=== PATIENT | female | born 1940 | race Caucasian/White ===

== ENCOUNTER 2021-08-16 13:16 | Inpatient (IN) | payer MEDICARE, MEDICAID, SELFPAY ==
--- NOTE | ~2021-08-16 | US_ITS ---
EXAMINATION: Portable US VENOUS WITH DOPPLER UPPER EXTREMITY, LEFT CLINICAL INFORMATION: Swelling COMPARISON: None TECHNIQUE: Ultrasound of the upper extremity is performed using compression sonography and color and pulse Doppler flow with assessment of augmentation of flow. There is also imaging and Doppler assessment of the jugular and subclavian veins. Spectral analysis with color-flow imaging is performed. FINDINGS: Respiratory variation, normal compression, and augmented flow are noted throughout the upper extremity including the axillary, brachial, cubital, and radial veins. The ulnar vein is not visualized. There is limited visualization of internal jugular vein. There is normal flow in the internal jugular and subclavian veins. There is no visible deep or superficial thrombophlebitis. If the patient's symptoms progress, a followup ultrasound in 5 -7 days might be of value to exclude proximal propagation from a nonvisualized distal arm vein. US/US venous duplex UE LT IMPRESSION: No DVT demonstrated in the left upper extremity. The ulnar vein is not visualized with limited visualization of internal jugular vein which is patent.
--- NOTE | ~2021-08-16 | XR_ITS ---
EXAMINATION: XR CHEST CLINICAL INFORMATION: Febrile COMPARISON: Chest radiograph 08/20/2021. CT chest 08/19/2021. TECHNIQUE: Frontal view of the chest was obtained. FINDINGS: Endotracheal tube terminates 5 cm superior to the nery. The cardiac silhouette is normal in size. Moderate aortic calcific atherosclerosis. Moderate blunting of the right costophrenic sulcus. No pneumothoraces. A left thoracostomy tube is again noted. The left costophrenic sulcus is truncated from the imaged [id number]. A left subclavian catheter terminates projection with the middle segment of the superior vena cava. XR/XR chest 1V IMPRESSION: -Mild-moderate right pleural effusion new compared with 08/20/2021. -Endotracheal tube terminating 5 cm superior to the nery. -Left thoracostomy tube in place. No pneumothoraces.
--- NOTE | ~2021-08-16 | XR_ITS ---
EXAMINATION: XR CHEST CLINICAL INFORMATION: Status post NG tube placement COMPARISON: Earlier same date TECHNIQUE: Frontal view of the chest was obtained. XR/XR chest 1V FINDINGS/IMPRESSION: Enteric tube courses below the diaphragm. Left subclavian central venous catheter terminates at the confluence of the brachiocephalic veins. Endotracheal tube terminates within the mid thoracic trachea, 6 cm above the nery. Small bilateral pleural effusions with accompanying atelectasis. No pneumothorax. Mild cardiomegaly. Aorta is tortuous and atherosclerotic.
--- NOTE | ~2021-08-16 | MR_ITS ---
MRI OF THE BRAIN WITHOUT IV CONTRAST INDICATION: Persistent encephalopathy. COMPARISON: Head CT 08/24/2021. TECHNIQUE: Multiplanar multisequence MR imaging of the brain was obtained without IV contrast. FINDINGS: There is an early subacute appearing infarct within the right basal ganglia as noted on the prior head CT. There is no mass effect and there is no hemorrhagic transformation. 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 There is no hydrocephalus, extra-axial surface collection, or herniation. There is susceptibility signal in the region of the right MCA bifurcation that can be further assessed with a CTA of the head to exclude thrombus or an aneurysm in this location. There is no intracranial hemorrhage on the gradient recalled echo acquisition. There is a partially empty sella. The cerebellar tonsils are normally positioned. The cerebellum and brainstem are normal. The craniocervical junction is normal. Osseous marrow signal intensity is homogenous. The visualized soft tissues are unremarkable. MR/MR head/brain wo con IMPRESSION: - There is an early subacute appearing infarct within the right basal ganglia as noted on the prior head CT. There is no mass effect and there is no hemorrhagic transformation. - There is susceptibility signal in the region of the right MCA bifurcation that can be further assessed with a CTA of the head to exclude thrombus or an aneurysm in this location. 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 Covering provider paged with these findings at 8:23 PM on 08/28/2021.
--- NOTE | ~2021-08-16 | XR_ITS ---
EXAMINATION: XR CHEST CLINICAL INFORMATION: Old chest tube COMPARISON: Chest radiograph 08/27/2021 obtained 6 hours prior TECHNIQUE: Frontal view of the chest was obtained. FINDINGS: Since the previous study a left-sided chest tube has been removed. No pneumothorax is appreciated. No other change in findings. XR/XR chest 1V IMPRESSION: Interval removal of left-sided chest tube. No pneumothorax. No other change in findings.
--- NOTE | ~2021-08-16 | XR_ITS ---
EXAMINATION: XR CHEST CLINICAL INFORMATION: G-tube placement COMPARISON: Chest chest x-ray 08/19/2021 at 12:17 PM. TECHNIQUE: Frontal view of the chest was obtained. FINDINGS: There has been placement of a large left bore chest catheter with its tube in the left lung apex. Left central venous catheter and endotracheal tube are in satisfactory position.. The endotracheal tube is coiled in the midesophagus with its tip in the distal esophagus. The lungs are expanded with patchy opacity in the left lung base. Mild increased bilateral perihilar vascular markings are seen but no edema noted.. Heart size is normal. No gross bony abnormality. XR/XR chest 1V IMPRESSION: Complete resolution of pneumothorax status post placement of left chest catheter. There is a coiled enteric tube in the upper/mid esophagus with its tip in the distal esophagus. The left central venous catheter tip is in proximal SVC. Patchy opacity left lung base and increased vascular markings in both lungs are stable.
--- NOTE | ~2021-08-16 | CT_ITS ---
EXAMINATION: CT ANGIOGRAM NECK WITH CONTRAST CT ANGIOGRAM BRAIN WITH CONTRAST CLINICAL INFORMATION: Question thrombus/aneurysm on MRI. COMPARISON: MRI brain 08/28/2021. TECHNIQUE: Test bolus sequences followed by intravenous administration 71 mL of Omnipaque 350. Helical imaging was performed in the axial plane from the thoracic inlet to the skull vertex. Delayed postcontrast imaging of the head was also performed. The data was processed at the sonography technologist workstation for generation of MIP sequences. Angled MIPs and volume rendered reformatted images were also generated at an offline 3D workstation under concurrent supervision. Stenoses are assessed in accordance with NASCET criteria unless otherwise indicated. This CT examination was performed using dose optimization techniques as appropriate, variously including the following: *Automated exposure control *Adjustment of mA and/or kV according to patient size (this includes techniques or standardized protocols for targeted exams where dose is matched to indication/reason for exam; i.e. extremities or head) *Use of iterative reconstruction technique FINDINGS: BRAIN: [There is no intracranial hemorrhage, hydrocephalus, extra-axial surface collection, midline shift, or other herniation pattern. Do to white matter differentiation is diffusely maintained without evidence of an evolved acute territorial infarct. The basilar cisterns are preserved. No significant soft tissue abnormality. No acute osseous abnormality. The paranasal sinuses and the mastoid air cells are well aerated.] CERVICAL SOFT TISSUES AND LUNG APICES: Centrilobular emphysema within the imaged lungs. Partially imaged small right pleural effusion and nonspecific opacity within the periphery of the left lung. Endotracheal tube partially imaged. There is advanced multilevel cervical spondylosis. NECK CTA: [Left common carotid artery arises from the brachiocephalic artery, an anatomic variant. Proximal arch vessels are non-stenotic. The vertebral arteries are codominant. No significant ostial stenosis is visualized on either side. Both vertebral arteries are widely patent throughout their extracranial cervical course. There is extensive atherosclerotic calcification of the right greater than left carotid bifurcation resulting in a severe stenosis of the distal right common carotid artery and a 50-60% stenosis of the proximal left cervical ICA. BRAIN CTA: The focus of susceptibility signal within the right MCA on the prior MRI corresponds to a partially occlusive thrombus within one of the right M2 MCA sylvian which reconstitutes distal to the point of partial occlusion. There is no oligemia within the right MCA territory. There is also a moderate to severe stenosis involving the more proximal right M1 MCA segment. There is atherosclerotic calcification throughout the carotid siphons bilaterally without significant stenosis. Atherosclerotic disease results in a moderate to severe stenosis of the proximal left M1 MCA segment. 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 - The focus of susceptibility signal within the right MCA on the prior MRI corresponds to a partially occlusive thrombus within one of the right M2 MCA sylvian which reconstitutes distal to the point of partial occlusion. There is no oligemia within the right MCA territory. - There is also a moderate to severe stenosis involving the more proximal right M1 MCA segment. - Atherosclerotic disease results in a moderate to severe stenosis of the proximal left M1 MCA segment. - There is extensive atherosclerotic calcification of the right greater than left carotid bifurcation resulting in a severe stenosis of the distal right common carotid artery and a 50-60% stenosis of the proximal left cervical ICA. - There is advanced cervical spondylosis with potential severe multilevel central canal stenosis at the C3-C4, C4-C5, and C5-C6 levels that can be correlated for clinical signs of cervical myelopathy. - Partially imaged right pleural effusion. CTA findings discussed with Francis Velasquez APRN at 10:05 PM on 08/28/2021.
--- NOTE | ~2021-08-16 | CT_ITS ---
EXAMINATION: CT ABDOMEN AND PELVIS WITH CONTRAST CLINICAL INFORMATION: Distal esophageal stricture versus abdominal mass. COMPARISON: None TECHNIQUE: Multidetector volumetric images were obtained from the superior aspect of the liver through the pubic symphysis following administration 85 mL of Omnipaque 350 intravenous contrast. Sagittal and coronal reformatted images were obtained on the technologist's workstation. Oral contrast: No This CT examination was performed using dose optimization techniques as appropriate, variously including the following: *Automated exposure control *Adjustment of mA and/or kV according to patient size (this includes techniques or standardized protocols for targeted exams where dose is matched to indication/reason for exam; i.e. extremities or head) *Use of iterative reconstruction technique DLP: 1236 mGy-cm FINDINGS: LUNG BASES: Small bilateral pleural effusions and accompanying atelectasis. Bronchial wall thickening and scattered endobronchial secretions are present. Triple vessel coronary calcifications. LIVER, GALLBLADDER, AND BILIARY TREE: The liver is normal in size, shape, and attenuation. No focal hepatic lesion or biliary ductal dilatation is present. Cholelithiasis. There is pericholecystic fluid/edema. PANCREAS: Atrophic but otherwise unremarkable. SPLEEN: Unremarkable. ADRENAL GLANDS: Unremarkable. KIDNEYS AND URETERS: The kidneys are normal in size, shape, and attenuation. No hydronephrosis, hydroureter, or calculi seen. Simple renal cyst in the left kidney is benign and requires no further follow-up. No perinephric stranding. BLADDER: Unremarkable. GASTROINTESTINAL TRACT: Small sliding-type hiatal hernia. No obvious distal esophageal or gastroesophageal mass. Enteric tube terminates within the gastric body. Small and large bowel are unremarkable. Normal appendix. ABDOMINAL WALL: No significant hernia is appreciated. LYMPH NODES: Normal. VASCULAR: Aorta is atherosclerotic but normal caliber. Patent venous structures. PELVIC VISCERA: Uterus and ovaries unremarkable. OSSEOUS STRUCTURES: No acute or suspicious osseous abnormalities. CT/CT abdomen pelvis w con IMPRESSION: * Small sliding-type hiatal hernia. * No evidence of esophageal mass. If there is concern for an esophageal stricture, esophagram would be the study of choice. * Cholelithiasis and pericholecystic fluid/edema may be compatible with cholecystitis. Consider right upper quadrant ultrasound if this is of clinical concern. * Small bilateral pleural effusions with accompanying atelectasis. Fleischner guidelines were followed.
--- NOTE | ~2021-08-16 | XR_ITS ---
EXAMINATION: XR CHEST CLINICAL INFORMATION: NG tube placement COMPARISON: Previous x-ray 09/06/2020 TECHNIQUE: Frontal view of the chest was obtained. FINDINGS: There is a endotracheal tube with tip 7 cm above the nery. Feeding tube tip projects over the proximal to mid thoracic esophagus. There is a left subclavian line with tip projecting over the proximal SVC. The cardiac and mediastinal contours are stable. The thoracic aorta is calcified and tortuous. There is a small left pleural effusion. There may be atelectasis or consolidation at the left lung base. The right lung is clear. There is no right pleural effusion. There is no pneumothorax. XR/XR chest 1V IMPRESSION: Feeding tube tip projects over the proximal to mid thoracic esophagus. Endotracheal tube 7 cm above the nery. Small left pleural effusion and left base atelectasis or consolidation.
--- NOTE | ~2021-08-16 | CT_ITS ---
EXAMINATION: CT CHEST WITHOUT CONTRAST CLINICAL INFORMATION: Difficult insertion of NG tube. Rule out hiatal hernia. Rule out aspiration. COMPARISON: Chest x-rays of 08/19/2021 and 08/16/2021 TECHNIQUE: Multidetector volumetric CT imaging of the chest was done. Axial MIP volume rendering provided. Sagittal and coronal reformatted images were obtained. This CT examination was performed using dose optimization techniques as appropriate, variously including the following: *Automated exposure control *Adjustment of mA and/or kV according to patient size (this includes techniques or standardized protocols for targeted exams where dose is matched to indication/reason for exam; i.e. 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 The tip of the enteric tube is in the lower chest with the side-port projecting over the expected location of the junction of the mid and lower third of the esophagus. LUNGS: Hrdk-kr-pupijhjq changes of centrilobular emphysema. There is diffuse bronchial thickening. Streaky atelectasis in the right mid and lower lung zone. Additional small patchy airspace opacities in the right lower lobe posteriorly may represent aspiration-related changes. Pleural-based nodular opacities are noted in the bilateral upper lobes posteromedially measuring 0.6 cm (series 5 image 99 of 596, series 10 images 48 and 51). Faint ground-glass changes in the left upper lobe para-aortic region with suggestion of tree-in-bud opacities. Rounded pleural-based patchy opacities in the left lower lobe, likely representing changes of rounded atelectasis. There is a smoothly marginated pleural-based nodule at the right lung base (series 10 image 40, series 6 image 382) measuring 1.0 x 0.4 cm (average 0.6 cm). MEDIASTINUM: Endotracheal tube terminates 6 cm above the nery. Left-sided central venous catheter appears to be coursing along the anterior aspect of the left subclavian and left brachiocephalic vein with the tip terminating in the right anterior lateral aspect of the upper to mid SVC; it is difficult to determine whether the catheter is coursing within the vessel or along the anterior margin of the vessel. As per discussion with Dr. Canales on 08/19/2021 at 2:54 PM, there is a good blood return through this left-sided central venous catheter and, therefore, is felt that the tip is within the vessel. The esophagus is diffusely dilated measuring 3.5 cm in diameter. The dilated esophagus is filled with significant debris. The contrast instilled via an enteric tube is noted in the mid to distal esophagus and proximal stomach. There is a moderate sized hiatal hernia. Nasogastric tube terminates either in the distal-most esophagus or at the gastroesophageal junction. As best seen on the sagittal and coronal reformatted images, the gastroesophageal junction/distal-most portion of the esophagus is severely narrowed (series 10 image 48, 47, sagittal series 8 images 38 through 42 of 98) with significant dilatation of the remainder of the proximal esophagus; severe stricture and/or mass in this region is suspected. There is no evidence of pathologically enlarged mediastinal or hilar adenopathy. Generalized mild cardiomegaly. Severe kletsel dehe wintun coronary calcifications. Trachea and central bronchi are well patent. No pericardial effusion. PLEURA: Small left hydropneumothorax. Left-sided pigtail thoracostomy is in place with the pigtail of the catheter terminating in the left upper chest pleural cavity laterally. AXILLA: No lymphadenopathy. UPPER ABDOMEN: Splenomegaly measuring 14.5 cm in craniocaudal dimension. No adrenal mass. OSSEOUS STRUCTURES: Diffuse osteopenia. Mild thoracic kyphosis. Multilevel degenerative changes in the spine. No acute or suspicious osseous lesion. CT/CT chest wo con IMPRESSION: 1. Severe diffuse dilatation of almost the entire esophagus with narrowing of the distal-most portion of the esophagus/gastroesophageal junction; findings are concerning for stricture and/or mass in the region. Recommend correlation with upper GI endoscopy. The tip of the nasogastric tube terminates in the distal-most portion of the dilated esophagus and is not coursing through the narrow portion of the distal esophagus/gastroesophageal junction. There is a moderate hiatal hernia. Significant debris is noted throughout the esophagus posing patient at significant risk of aspiration. 2. Endotracheal tube tip terminates 6 cm above the nery. 3. Left-sided central venous catheter tip terminates in the upper to mid SVC. 4. Left pigtail thoracostomy catheter is in place with persistent small left hydropneumothorax. 5. Changes of emphysema. Diffuse bronchial thickening. Pleural-based bilateral upper lobe nodular densities may represent focal atelectasis and/or nodules measuring 0.6 cm. Right lung base pleural-based nodule measuring 1.0 x 0.4 cm (average 0.6 cm). According to the UPDATED 2017 Fleischner Society recommendations, the advised follow-up imaging for multiple solid nodules, the largest measuring 6 mm or greater, is: LOW RISK PATIENT: CT at 3-6 months, then consider CT at 18-24 months. HIGH RISK PATIENT: CT at 3-6 months, then at 18-24 months. 6. Rounded pleural-based opacities at the left lung base most probably represent rounded atelectasis. PET/CT correlation may be considered to exclude mass in this region. Some of these findings were discussed with Dr. Canales on 08/19/2021 at 2:54 PM.
--- NOTE | ~2021-08-16 | XR_ITS ---
EXAMINATION: XR CHEST XR CHEST CLINICAL INFORMATION: Possible pneumothorax. Chest tube placement. COMPARISON: Chest x-rays of 08/16/2021. TECHNIQUE: Frontal views of the chest were obtained on 08/19/2021 at 11:40 AM. Frontal view of the chest obtained on 08/19/2021 at 12:17 PM. FINDINGS: Chest x-ray performed on 08/19/2021 at 11:40 AM: A mlhkcjpp-jr-aqeta left-sided pneumothorax is noted with mild mediastinal shift to the right suggesting tension pneumothorax. Streaky and patchy opacities in the left lower lung zone medially, similar to chest x-rays of 08/16/2021. The right lung is relatively clear. No significant pleural effusion, pulmonary edema. No right pneumothorax. Old left-sided 8th and 9th rib fractures are noted. Osteoarthritic changes at the left shoulder. Cardiac size is normal. An endotracheal tube terminates 7.7 cm above the nery. The left subclavian catheter terminates over the expected location of the upper to mid SVC. Chest x-ray performed on 08/19/2021 at 12:17 PM: There is significant interval resolution of the left-sided pneumothorax following placement of the left-sided pigtail thoracostomy tube; the pigtail projects over the left upper chest laterally. Trace residual pneumothorax is noted at the lower chest laterally. An endotracheal tube terminates 7.7 cm above the nery. An orogastric/enteric tube tip projects over the lower chest in the left paraspinous region with the side port terminating in the junction of the mid to lower chest. The curvature of the orogastric tube suggests that there is probably an underlying hiatal hernia and the tube terminates in the hernia. A left subclavian venous catheter tip projects over the expected location of the upper to mid SVC. Streaky and patchy airspace opacities at the left lung base. Streaky opacities in the right midlung zone representing subsegmental atelectasis. The cardiomediastinal silhouette is in normal anatomic location. Cardiac size is within normal limits for technique. Uncoiled aorta. XR/XR chest 1V IMPRESSION: 1. Chest x-ray performed at 11:41 AM demonstrating [id number]-ng-[id number] left-sided tension pneumothorax with mediastinal shift to the right. Significant interval resolution of the left-sided pneumothorax with resolution of mediastinal shift, following placement of the pigtail left thoracostomy catheter with minimal residual pneumothorax at the left lower chest laterally. 2. An endotracheal tube terminates 7.7 cm above the nery. 3. An enteric/orogastric tube terminates in the lower chest with side port at the junction of the mid to lower esophageal region; underlying hiatal hernia is suspected. 4. Left subclavian catheter tip projects over the expected location of the upper to mid SVC. 5. Streaky and patchy left basilar opacities may represent atelectasis and/or infiltrate or aspiration related changes. Streaky atelectasis in the right mid lung zone. The findings of the chest x-rays were discussed with Dr. Canales in the ICU on 08/19/2021 at 12:38 PM.
--- NOTE | ~2021-08-16 | XR_ITS ---
EXAMINATION: XR CHEST CLINICAL INFORMATION: Follow-up left pneumothorax. COMPARISON: CT chest 08/19/2021. TECHNIQUE: Frontal view of the chest was obtained. FINDINGS: The lungs are hyperinflated with patchy reticular opacities in the parahilar region in both lower lobes. Heart size and pulmonary vascularity appears normal. There is a left central venous catheter with the brachiocephalic venous junction. Tip of endotracheal tube is 4.4 cm above the nery. There is a left pleural catheter adjacent to left posterior sixth rib. Enteric tube has been removed. No visible pneumothorax on this chest exam. However patient did have a small hydropneumothorax on the CT from 08/19/2021. No gross bony abnormality seen. XR/XR chest 1V IMPRESSION: Hyperinflated lungs with patchy reticular opacities in bilateral parahilar regions and both lower lobes. Coiled enteric tube in the midesophagus has been removed. Position of endotracheal tube and left central venous catheter is stable. The left pleural catheter is stable. There is no visible pneumothorax on this exam.
--- NOTE | ~2021-08-16 | XR_ITS ---
EXAMINATION: XR CHEST CLINICAL INFORMATION: Fever. Intubated. COMPARISON: 09/03/2021 TECHNIQUE: Frontal view of the chest was obtained. FINDINGS: Endotracheal tube terminates 6.5 cm above the nery. Left subclavian central venous catheter terminates in the proximal SVC. Enteric tube courses below the diaphragm. Small bilateral pleural effusions and accompanying atelectasis. No pneumothorax. Normal heart size. Aorta is tortuous and atherosclerotic. XR/XR chest 1V IMPRESSION: Stable small bilateral pleural effusions and accompanying atelectasis.
--- NOTE | ~2021-08-16 | XR_ITS ---
EXAMINATION: CR CHEST CLINICAL INFORMATION: Fever. On ventilator. COMPARISON: Chest x-ray dated 08/25/2021. TECHNIQUE: AP upright portable view of the chest was obtained. FINDINGS: EKG leads overlie the chest. Endotracheal tube is 6 cm above the nery. Left sided pigtail catheter is seen projected over the upper chest. Left subclavian central venous line tip is in the upper SVC. The cardiomediastinal silhouette is within normal limits in size. Calcification and tortuosity of the aorta is seen. Lungs are symmetrically expanded. Small left pleural effusion and bibasilar linear opacities, consistent with atelectasis noted. No focal evolving dense consolidation or pneumothorax. Diffuse osteopenia with multilevel vertebral spondylosis seen. Degenerative changes in both shoulder joints noted. There is also slight trabecular thickening and cortical thickening in the proximal left humerus, raising the suspicion of possible Paget's disease. XR/XR chest 1V IMPRESSION: 1. Line and tubes in place as discussed above. 2. No significant change in small left pleural effusion and bibasilar atelectasis.
--- NOTE | ~2021-08-16 | CT_ITS ---
EXAMINATION: CT HEAD WITHOUT CONTRAST CLINICAL INFORMATION: Status epilepticus. COMPARISON: None TECHNIQUE: Contiguous axial imaging was performed from the skull base to vertex without intravenous administration of contrast. This CT examination was performed using dose optimization techniques as appropriate, variously including the following: *Automated exposure control *Adjustment of mA and/or kV according to patient size (this includes techniques or standardized protocols for targeted exams where dose is matched to indication/reason for exam; i.e. extremities or head) *Use of iterative reconstruction technique DLP: 784 mGy-cm FINDINGS: There is no acute intra-axial or extra-axial bleed, masses or midline shift. There is a hypodensity in the right basal ganglia suggestive of infarction, likely acute. No additional areas of infarction are seen. The lateral ventricles are symmetrical but enlarged and so are the cortical sulci. There is diffuse periventricular hypodensity in both cerebral hemispheres without mass effect. Bone windows reveal no calvarial abnormality. There is no scalp soft tissue abnormality. Bilateral paranasal sinuses are well aerated and clear. There is opacification of the left inferior mastoid sinus from inflammatory changes. The right mastoid sinus is clear. There is no scalp soft tissue abnormality. Incidental finding of an endotracheal tube is noted. CT/CT head/brain wo con IMPRESSION: Acute infarction right basal ganglia. There is no acute intracranial bleed. There is moderate cerebral volume loss with diffuse chronic small vessel ischemic changes. Results were discussed by phone with Dr. White at 11:30 AM
--- NOTE | ~2021-08-16 | XR_ITS ---
EXAMINATION: XR CHEST XR CHEST CLINICAL INFORMATION: Possible pneumothorax. Chest tube placement. COMPARISON: Chest x-rays of 08/16/2021. TECHNIQUE: Frontal views of the chest were obtained on 08/19/2021 at 11:40 AM. Frontal view of the chest obtained on 08/19/2021 at 12:17 PM. FINDINGS: Chest x-ray performed on 08/19/2021 at 11:40 AM: A gzuxxwve-kn-ufbge left-sided pneumothorax is noted with mild mediastinal shift to the right suggesting tension pneumothorax. Streaky and patchy opacities in the left lower lung zone medially, similar to chest x-rays of 08/16/2021. The right lung is relatively clear. No significant pleural effusion, pulmonary edema. No right pneumothorax. Old left-sided 8th and 9th rib fractures are noted. Osteoarthritic changes at the left shoulder. Cardiac size is normal. An endotracheal tube terminates 7.7 cm above the nery. The left subclavian catheter terminates over the expected location of the upper to mid SVC. Chest x-ray performed on 08/19/2021 at 12:17 PM: There is significant interval resolution of the left-sided pneumothorax following placement of the left-sided pigtail thoracostomy tube; the pigtail projects over the left upper chest laterally. Trace residual pneumothorax is noted at the lower chest laterally. An endotracheal tube terminates 7.7 cm above the nery. An orogastric/enteric tube tip projects over the lower chest in the left paraspinous region with the side port terminating in the junction of the mid to lower chest. The curvature of the orogastric tube suggests that there is probably an underlying hiatal hernia and the tube terminates in the hernia. A left subclavian venous catheter tip projects over the expected location of the upper to mid SVC. Streaky and patchy airspace opacities at the left lung base. Streaky opacities in the right midlung zone representing subsegmental atelectasis. The cardiomediastinal silhouette is in normal anatomic location. Cardiac size is within normal limits for technique. Uncoiled aorta. XR/XR chest 1V IMPRESSION: 1. Chest x-ray performed at 11:41 AM demonstrating khtpcyse-eb-nrtyp left-sided tension pneumothorax with mediastinal shift to the right. Significant interval resolution of the left-sided pneumothorax with resolution of mediastinal shift, following placement of the pigtail left thoracostomy catheter with minimal residual pneumothorax at the left lower chest laterally. 2. An endotracheal tube terminates 7.7 cm above the nery. 3. An enteric/orogastric tube terminates in the lower chest with side port at the junction of the mid to lower esophageal region; underlying hiatal hernia is suspected. 4. Left subclavian catheter tip projects over the expected location of the upper to mid SVC. 5. Streaky and patchy left basilar opacities may represent atelectasis and/or infiltrate or aspiration related changes. Streaky atelectasis in the right mid lung zone. The findings of the chest x-rays were discussed with Dr. Canales in the ICU on 08/19/2021 at 12:38 PM.
--- NOTE | ~2021-08-16 | XR_ITS ---
EXAMINATION: XR CHEST CLINICAL INFORMATION: NG tube placement. COMPARISON: Chest x-ray 08/27/2021 TECHNIQUE: Frontal view of the chest was obtained. FINDINGS: The lungs are well-expanded with mild haziness in the right lung base likely pleural effusion and underlying atelectasis. Rest of lungs are clear. The heart size and pulmonary vascularity is normal. There is a enteric tube with its tip below the diaphragm. There is a left central venous catheter in the proximal SVC. Endotracheal tube tip is 7.4 cm above the nery. No gross bony abnormality seen. XR/XR chest 1V IMPRESSION: New haziness right lung base likely effusion with underlying atelectasis. New nasogastric tube below the diaphragm in stomach. No change in left central venous catheter and endotracheal tube.
--- NOTE | ~2021-08-16 | XR_ITS ---
EXAMINATION: XR ABDOMEN KUB CLINICAL INDICATION: Evaluate for metallic implants. COMPARISON: None TECHNIQUE: AP view of the abdomen. FINDINGS: The bowel gas pattern is nonspecific with arthroscopic calcification of abdominal aorta and common iliac arteries without dilation. No radiopaque metallic foreign body seen in the abdomen or pelvis except for left hip intertrochanteric femoral bon and nail for an old healed fracture. XR/XR KUB IMPRESSION: Moderate constipation. No acute process seen.
--- NOTE | ~2021-08-16 | XR_ITS ---
EXAMINATION: CR CHEST CLINICAL INFORMATION: NG tube placement. COMPARISON: Chest x-ray dated 09/08/2021. TECHNIQUE: Frontal view of the chest was obtained. FINDINGS: EKG leads overlie the chest. Endotracheal tube is approximately 6 cm above the nery. Enteric tube courses into the abdomen with tip not included in the [id number] of this exam. Left subclavian central venous line is in the upper SVC. The cardiomediastinal silhouette is within normal limits in size. Calcification of the aortic arch is seen. There are hazy bibasilar opacities noted. There is a trace residual left pleural effusion in the CP angle. Right CP angle is not included in the ekdmx-xy-bikb of this exam. Lungs are hyperinflated, consistent with obstructive lung disease. Mild vertebral spondylosis seen in the mid and lower thoracic spine. XR/XR chest 1V IMPRESSION: 1. Line and tubes in place as discussed above. 2. Mild bibasilar hazy opacities, possibly due to pneumonia versus atelectasis. 3. Decreased size of left pleural effusion. 4. COPD.
--- NOTE | ~2021-08-16 | XR_ITS ---
EXAMINATION: XR CHEST CLINICAL INFORMATION: Chest pain. COMPARISON: None TECHNIQUE: Frontal view of the chest was obtained. FINDINGS: The lungs are well-expanded and clear of acute process. The heart size and pulmonary vascularity is normal. No gross bony abnormality seen. There are degenerative changes left shoulder joint. The soft tissues are normal. XR/XR chest 1V IMPRESSION: Unremarkable chest exam.
--- NOTE | ~2021-08-16 | XR_ITS ---
EXAMINATION: XR CHEST CLINICAL INFORMATION: Chest symptoms, possible aspiration COMPARISON: Portable chest 08/16/2021 at 1419 hours TECHNIQUE: Portable upright AP view of the chest was obtained. FINDINGS: There is subtle airspace opacity left retrocardiac region not seen with certainty on prior study. This could be related to aspiration. The remainder lungs appear clear. The vascularity is normal. The cardiac and hilar and mediastinal contours and bony structures are similar to prior study. XR/XR chest 1V IMPRESSION: Subtle airspace opacity left retrocardiac region. Finding may be related to aspiration. Remainder of lungs clear.
--- NOTE | ~2021-08-16 | XR_ITS ---
EXAMINATION: XR CHEST CLINICAL INFORMATION: NG tube COMPARISON: 08/29/2021 TECHNIQUE: Frontal view of the chest was obtained. FINDINGS: Endotracheal tube tip lies approximately 5 cm above the nery. Dobbhoff tube tip lies in the region of the distal esophagus. Left subclavian central line tip lies in the region of the upper SVC. Lung volumes are symmetric. Redemonstrated small pleural effusions and bibasilar opacities/haziness, similar to prior. No appreciable pneumothorax. The cardiomediastinal silhouette is stable. Calcification is present at the aortic arch. No acute osseous findings are seen. XR/XR chest 1V IMPRESSION: Dobbhoff tube tip in the region of the distal esophagus; advancement recommended. Persistent small pleural effusions and adjacent bibasilar opacities, similar to 08/29/2021.
--- NOTE | 2021-08-16 13:25 | ECG_ITS ---
Test Reason : WEAKNESS Blood Pressure : / mmHG Vent. Rate : 054 BPM Atrial Rate : 054 BPM P-R Int : 230 ms QRS Dur : 088 ms QT Int : 454 ms P-R-T Axes : 028 008 026 degrees QTc Int : 430 ms Sinus bradycardia with 1st degree A-V block Nonspecific ST abnormality Abnormal ECG When compared with ECG of 31-JAN-2005 11:35, [place] interval has increased Vent. rate has decreased BY 27 BPM Referred By: Su Zacarias Electronically Signed By:ZAHRA TOWNSEND MD
[2021-08-16 13:26] VITALS: BP 172/90; PULSE 55; O2SAT 98
--- NOTE | 2021-08-16 13:26 | ED.GENADULT ---
HPI - General Adult General Chief complaint: General Medical Stated complaint: AMS Time Seen by Provider: 08/16/21 13:18 Source: EMS Mode of arrival: EMS Limitations: other (Baseline altered mental status) History of Present Illness HPI narrative: Patient is brought to the emergency by EMS from [facility]. EMS reports that initially they were called for a cardiac arrest. When EMS arrived, patient was sleeping, responding to painful stimuli, patient eventually woke up. According to the staff, by the time EMS arrived patient was at her baseline which is nonverbal, altered, combative. One of the nurses at the nursing facility reported that CPR was started, another nurse reported that no CPR was performed at all. Patient is awake, alert, unable to give any history. Related Data Home Medications Medication Instructions Recorded Confirmed acetaminophen 325 mg tablet 650 mg PO TID 08/16/21 08/16/21 (Tylenol) albuterol sulfate 90 mcg/actuation 1 puff INHALATION Q6H PRN 08/16/21 08/16/21 aerosol inhaler (ProAir HFA) amlodipine 5 mg tablet (Norvasc) 5 mg PO DAILY 08/16/21 08/16/21 benztropine 0.5 mg tablet 0.5 mg PO DAILY 08/16/21 08/16/21 cholecalciferol (vitamin D3) 1,250 1,250 mcg PO QMONTH 08/16/21 08/16/21 mcg (50,000 unit) capsule divalproex 500 mg tablet,delayed 500 mg PO BID 08/16/21 08/16/21 release gabapentin 400 mg capsule 400 mg PO BID 08/16/21 08/16/21 lactulose 10 gram/15 mL oral 45 ml PO DAILY 08/16/21 08/16/21 solution (Enulose) metoprolol succinate 200 mg 200 mg PO DAILY 08/16/21 08/16/21 tablet,extended release 24 hr (Toprol XL) olanzapine 20 mg tablet 20 mg PO BEDTIME 08/16/21 08/16/21 polyethylene glycol 3350 17 gram 17 g PO DAILY 08/16/21 08/16/21 oral powder packet (Miralax) venlafaxine 150 mg 150 mg PO DAILY 08/16/21 08/16/21 capsule,extended release 24 hr Allergies Allergy/AdvReac Type Severity Reaction Status Date / Time No Known Allergies Allergy Unverified 08/16/21 13:24 Review of Systems Review of Systems: Yes Unobtainable due to mental condition [facility] Past Medical History Medical History Autoimmune hemolytic anemia COPD (chronic obstructive pulmonary disease) Hyperlipidemia Hypertension Myocardial infarction Schizophrenia Social History Social History Advance Directives: Yes Advance Directives on File: Yes Advance Directives Date on File: 08/16/21 Physical Exam Vital Signs: Vital Signs: Last Vital Signs Temp 98.8 F 08/16/21 13:30 Pulse 55 08/16/21 15:16 Resp 12 08/16/21 15:16 BP 146/65 H 08/16/21 15:16 Pulse Ox 94 08/16/21 15:16 Body Mass Index 28.9 Const: Other: Appearance: Alert. Nonverbal, no acute distress Eyes: Pupils equal, round and reactive to light. ENT: Pharynx normal. Neck: Normal inspection. Neck supple. No lymph nodes noted. No crepitus CVS: Normal heart rate and rhythm. Pulses normal. Normal S1 and S2, no chest bruising, no indentations, does not seem to be tender to palpation Respiratory: No respiratory distress. Breath sounds normal. No Wheezing. No rales Abdomen: Soft and nontender. No rigidity. No distention. Skin: Skin warm and dry. Normal skin color. Normal skin turgor. Extremities: +1 pitting edema bilateral, does not seem to be tenderness on palpation in the calves or the rest of the lower extremities No Lacerations. No Rash Neuro: Alert, cannot follow commands at baseline Course Course Course Narrative: Patient has hyponatremia, has a UTI, patient was started on normal saline, 250 cc/hour. Given 1 dose of ceftriaxone. Patient being admitted. 16:35 patient was eating and suddenly started coughing. Chest x-ray pending. It is possible that patient aspirated food. Patient's oxygen saturation dropped to 85% on room air but shortly after improved to 95% patient speaking in full sentences. Medical Decision Making Lab Data Result diagrams: 08/16/21 14:09 08/16/21 15:35 Labs: Lab Results 08/16/21 08/16/21 08/16/21 Range/Units 13:33 13:53 14:09 WBC (4.8-10.8) X10*3/uL RBC (4.20-5.50) X10*6/uL Hgb (12.0-16.0) g/dl Hct (37.0-47.0) % MCV (80.0-98.0) fL MCH (27.0-33.0) pg MCHC (31.0-35.0) g/dl RDW (11.0-16.0) % Plt Count (160-400) X10*3/uL MPV (9.4-12.3) fL Immature Gran % (Auto) (0.0-0.4) % Neut % (Auto) (45-73) % Lymph % (Auto) (20-40) % [place] % (Auto) (2-11) % Eos % (Auto) (0-4) % Baso % (Auto) (0-2) % Lymph # (Auto) (1.2-4.9) X10*3/uL [place] # (Auto) (0.1-1.2) X10*3/uL Eos # (Auto) (0.0-0.4) X10*3/uL Baso # (Auto) (0.0-0.2) X10*3/uL Abs Immat Gran (auto) (0.00-0.03) X10*3/uL Absolute Neuts (auto) (2.0-8.3) x10*3/uL Absolute Nucleated RBC (0.0-0.012) X10*3/uL Nucleated RBC % (auto) (0.0-0.2) /100WBC Sodium 124 L (135-145) mmol/L Potassium 4.6 (3.3-5.1) mmol/L Chloride 87 L (96-108) mmol/L Carbon Dioxide 29 (22-29) mmol/L Anion Gap 13 (12-20) BUN 6 L (9-16) mg/dL Creatinine 0.54 (0.5-1.4) mg/dL Estim Creat Clear Calc 86.2 Estimated GFR > 60 POC Glucose 82 (60-115) mg/dL Random Glucose 85 (60-115) mg/dL Calcium 9.1 (8.4-10.2) mg/dL Total Bilirubin 0.6 (0.0-1.0) mg/dL Direct Bilirubin 0.2 (0.0-0.5) mg/dL AST 12 (5-31) U/L ALT 7 (0-31) U/L Alkaline Phosphatase 62 (39-117) U/L Troponin I High Sens (<3.5-17.0) ng/L Total Protein 6.3 L (6.5-8.0) g/dL Albumin 3.8 (3.5-5.0) g/dL Urine Color Urine Appearance Urine pH (5.0-8.0) Ur Specific [place] (1.005-1.025) Urine Protein (NEG-TRACE) MG/DL Urine Glucose (UA) (NEG) MG/DL Urine Ketones (NEG) MG/DL Urine Blood (NEG) Urine Nitrite (NEG) Ur Leukocyte Esterase (NEG) Urine RBC (0) /HPF Urine WBC (0-4) /HPF Ur Squamous Epith Cells /LPF Urine Bacteria /LPF COVID-19 (SHAJI) Negative (Negative) COVID-19 Clin Com See Note 08/16/21 08/16/21 08/16/21 Range/Units 14:09 14:09 14:12 WBC 5.8 (4.8-10.8) X10*3/uL RBC 3.43 L (4.20-5.50) X10*6/uL Hgb 10.7 L (12.0-16.0) g/dl Hct 30.1 L (37.0-47.0) % MCV 87.8 (80.0-98.0) fL MCH 31.2 (27.0-33.0) pg MCHC 35.5 H (31.0-35.0) g/dl RDW 14.1 (11.0-16.0) % Plt Count 188 (160-400) X10*3/uL MPV 9.2 L (9.4-12.3) fL Immature Gran % (Auto) 1.0 H (0.0-0.4) % Neut % (Auto) 56.9 (45-73) % Lymph % (Auto) 30.2 (20-40) % [place] % (Auto) 10.3 (2-11) % Eos % (Auto) 1.6 (0-4) % Baso % (Auto) 0.0 (0-2) % Lymph # (Auto) 1.8 (1.2-4.9) X10*3/uL [place] # (Auto) 0.6 (0.1-1.2) X10*3/uL Eos # (Auto) 0.1 (0.0-0.4) X10*3/uL Baso # (Auto) 0.0 (0.0-0.2) X10*3/uL Abs Immat Gran (auto) 0.06 H (0.00-0.03) X10*3/uL Absolute Neuts (auto) 3.3 (2.0-8.3) x10*3/uL Absolute Nucleated RBC 0.000 (0.0-0.012) X10*3/uL Nucleated RBC % (auto) 0.0 (0.0-0.2) /100WBC Sodium (135-145) mmol/L Potassium (3.3-5.1) mmol/L Chloride (96-108) mmol/L Carbon Dioxide (22-29) mmol/L Anion Gap (12-20) BUN (9-16) mg/dL Creatinine (0.5-1.4) mg/dL Estim Creat Clear Calc Estimated GFR POC Glucose (60-115) mg/dL Random Glucose (60-115) mg/dL Calcium (8.4-10.2) mg/dL Total Bilirubin (0.0-1.0) mg/dL Direct Bilirubin (0.0-0.5) mg/dL AST (5-31) U/L ALT (0-31) U/L Alkaline Phosphatase (39-117) U/L Troponin I High Sens 4.6 (<3.5-17.0) ng/L Total Protein (6.5-8.0) g/dL Albumin (3.5-5.0) g/dL Urine Color YELLOW Urine Appearance TURBID Urine pH 7.0 (5.0-8.0) Ur Specific [place] 1.015 (1.005-1.025) Urine Protein 1+ H (NEG-TRACE) MG/DL Urine Glucose (UA) NEG (NEG) MG/DL Urine Ketones NEG (NEG) MG/DL Urine Blood 1+ H (NEG) Urine Nitrite POS H (NEG) Ur Leukocyte Esterase 3+ H (NEG) Urine RBC 15-29 H (0) /HPF Urine WBC TNTC H (0-4) /HPF Ur Squamous Epith Cells 1+ /LPF Urine Bacteria 2+ /LPF COVID-19 (SHAJI) (Negative) COVID-19 Clin Com ECG Data Attestation: I personally reviewed and interpreted this ECG as follows: (Sinus bradycardia, heart rate 54, first-degree AV block, nonspecific ST segment changes in leads 2 and the 3, no T-wave inversions, QTC 430) Discharge Plan Discharge Clinical Impression: Acute hyponatremia, Acute UTI Altered mental status, unspecified Qualifiers: Altered mental status type: unspecified Qualified Code(s): R41.82 - Altered mental status, unspecified Patient Disposition: Admitted As Inpatient
[2021-08-16 13:30] VITALS: BP 155/73; PULSE 54; RESP 18; TEMP 37.1; O2SAT 94; BMI 28.9
[2021-08-16 14:17] LABS: MANUAL DIFF FLAG NO
[2021-08-16 14:22] LABS: Eosinophils Absolute Auto 0.1 X10*3/uL (0.0-0.4); Eosinophils Percent Auto 1.6 % (0-4); Hematocrit 30.1 % (37.0-47.0); Hemoglobin 10.7 g/dl (12.0-16.0); Imm Gran Abs Auto 0.06 X10*3/uL (0.00-0.03); Lymphocytes Absolute Auto 1.8 X10*3/uL (1.2-4.9); Lymphocytes Percent Auto 30.2 % (20-40); Mean Corpuscular HGB Conc 35.5 g/dl (31.0-35.0); Mean Corpuscular Hemoglobin 31.2 pg (27.0-33.0); Mean Corpuscular Volume 87.8 fL (80.0-98.0); Mean Platelet Volume 9.2 fL (9.4-12.3); Monocytes Absolute Auto 0.6 X10*3/uL (0.1-1.2); Monocytes Percent Auto 10.3 % (2-11); Neutrophils Absolute Auto 3.3 x10*3/uL (2.0-8.3); Neutrophils Percent Auto 56.9 % (45-73); Platelet Count 188 X10*3/uL (160-400); Red Blood Count 3.43 X10*6/uL (4.20-5.50); Red Cell Distribution Width 14.1 % (11.0-16.0); White Blood Count 5.8 X10*3/uL (4.8-10.8)
[2021-08-16 14:41] LABS: Troponin-I High Sensitivity 4.6 ng/L (<3.5-17.0)
[2021-08-16 14:42] LABS: Alanine Aminotransferase 7 U/L (0-31); Albumin Level 3.8 g/dL (3.5-5.0); Alkaline Phosphatase 62 U/L (39-117); Aspartate Amino Transferase 12 U/L (5-31); Bilirubin Direct 0.2 mg/dL (0.0-0.5); Bilirubin Total 0.6 mg/dL (0.0-1.0); Blood Urea Nitrogen 6 mg/dL (9-16); Calcium 9.1 mg/dL (8.4-10.2); Creatinine Clr Calc Pharmacy 86.2; Estimated Glomerular Filt Rate > 60; Glucose Random 85 mg/dL (60-115); Total Protein 6.3 g/dL (6.5-8.0)
[2021-08-16 14:43] LABS: COVID-19 Test Negative (Negative)
[2021-08-16 14:49] LABS: Appearance Urine TURBID; Glucose Urine UA NEG (NEG); Nitrite Urine POS (NEG); Specific Gravity - Urine 1.015 (1.005-1.025); UACC Culture Trigger YES; Urine Blood 1+ (NEG); Urine Ketones NEG (NEG); Urine Protein 1+ MG/DL (NEG-TRACE)
[2021-08-16 14:50] LABS: Color Urine YELLOW; Leukocyte Esterase Urine 3+ (NEG)
[2021-08-16 14:51] LABS: Anion Gap 13 (12-20); Carbon Dioxide 29 mmol/L (22-29); Chloride 87 mmol/L (96-108); Potassium 4.6 mmol/L (3.3-5.1); Sodium 124 mmol/L (135-145)
[2021-08-16 14:56] LABS: UACC CULT YES; WBC Urine TNTC /HPF (0-4)
[2021-08-16 14:58] LABS: Bacteria Urine 2+ /LPF; Squamous Epithelial Cell Urine 1+ /LPF
--- NOTE | 2021-08-16 15:11 | P.HPHOSP_ITS ---
History of Present Illness Date of Service: 08/16/21 Chief Complaint: Altered mentation A nonverbal 81 years old lady with PMH of COPD, HTN, schizophrenia among others who presented from assisted for altered mentation. The patient was thought to be collapsed at beginning at the facility and they attempted CPR but upon EMS arrival the patient was found responding and by the moment they reached the emergency she was alert. She is nonverbal at baseline. In the emergency she was found to have low sodium level of 124 and UTI. Admitted for further evaluation and treatment. Review of Systems Review of Systems: Non verbal to communicate [facility] Medical History Autoimmune hemolytic anemia COPD (chronic obstructive pulmonary disease) Hyperlipidemia Hypertension Myocardial infarction Schizophrenia Social History Advance Directives: Yes Advance Directives on File: Yes Advance Directives Date on File: 08/16/21 Meds Allergies Allergy/AdvReac Type Severity Reaction Status Date / Time No Known Allergies Allergy Unverified 08/16/21 13:24 Active Medications: Current Medications Sodium Chloride (Ns) 1,000 mls @ 500 mls/hr IVCONT .Q2H ONE Stop: 08/16/21 16:59 Ceftriaxone Sodium 1 gm/ (Sodium Chloride) 50 mls @ 100 mls/hr IV ONCE ONE Stop: 08/16/21 15:29 Pharmacy Consult (Consult Rx Perform Med Rec) 1 each MISCELLANE ONCE PRN PRN Reason: Consult order Pharmacy Consult (Consult Rx Perform Med Rec) 1 each MISCELLANE ONCE PRN PRN Reason: Consult order Physical Exam Vital Signs and Narrative: Vital Signs: Last Vital Signs Temp 98.8 F 08/16/21 13:30 Pulse 54 08/16/21 13:30 Resp 18 08/16/21 13:30 BP 155/73 H 08/16/21 13:30 Pulse Ox 94 08/16/21 13:30 Body Mass Index 28.9 Const: Other: Constitutional : Alert with stimulation, nonverbal not in distress Neck : Normal inspection, Supple Cardiovascular : RRR, S1 S2, no lower extremity edema Respiratory : Fair bilateral air entry, no crackles, wheezes or rhonchi Gastrointestinal: soft, lax, Normal bowel sounds, Non tender Skin : Warm, Dry Neurological : Alert with stimulation, No focal deficit Results Labs CBC and Chem 7: 08/16/21 14:09 08/16/21 14:09 Labs: Laboratory Results - last 24 hr 08/16/21 08/16/21 08/16/21 13:53 14:09 14:09 MCV 87.8 MCH 31.2 MCHC 35.5 H RDW 14.1 Plt Count 188 MPV 9.2 L Immature Gran % (Auto) 1.0 H Neut % (Auto) 56.9 Lymph % (Auto) 30.2 [place] % (Auto) 10.3 Eos % (Auto) 1.6 Baso % (Auto) 0.0 Lymph # (Auto) 1.8 [place] # (Auto) 0.6 Eos # (Auto) 0.1 Baso # (Auto) 0.0 Abs Immat Gran (auto) 0.06 H Absolute Neuts (auto) 3.3 Absolute Nucleated RBC 0.000 Nucleated RBC % (auto) 0.0 Anion Gap 13 Estim Creat Clear Calc 86.2 Estimated GFR > 60 Random Glucose 85 Calcium 9.1 Total Bilirubin 0.6 Direct Bilirubin 0.2 AST 12 ALT 7 Alkaline Phosphatase 62 Troponin I High Sens Total Protein 6.3 L Albumin 3.8 Urine Color Urine Appearance Urine pH Ur Specific [place] Urine Protein Urine Glucose (UA) Urine Ketones Urine Blood Urine Nitrite Ur Leukocyte Esterase Urine RBC Urine WBC Ur Squamous Epith Cells Urine Bacteria COVID-19 (SHAJI) Negative COVID-19 Clin Com See Note 08/16/21 08/16/21 14:09 14:12 MCV MCH MCHC RDW Plt Count MPV Immature Gran % (Auto) Neut % (Auto) Lymph % (Auto) [place] % (Auto) Eos % (Auto) Baso % (Auto) Lymph # (Auto) [place] # (Auto) Eos # (Auto) Baso # (Auto) Abs Immat Gran (auto) Absolute Neuts (auto) Absolute Nucleated RBC Nucleated RBC % (auto) Anion Gap Estim Creat Clear Calc Estimated GFR Random Glucose Calcium Total Bilirubin Direct Bilirubin AST ALT Alkaline Phosphatase Troponin I High Sens 4.6 Total Protein Albumin Urine Color YELLOW Urine Appearance TURBID Urine pH 7.0 Ur Specific [place] 1.015 Urine Protein 1+ H Urine Glucose (UA) NEG Urine Ketones NEG Urine Blood 1+ H Urine Nitrite POS H Ur Leukocyte Esterase 3+ H Urine RBC 15-29 H Urine WBC TNTC H Ur Squamous Epith Cells 1+ Urine Bacteria 2+ COVID-19 (SHAJI) COVID-19 Clin Com Imaging Radiologist's Impressions: Impressions Chest X-Ray 08/16/21 14:02 IMPRESSION: Unremarkable chest exam. Assessment and Plan (1) Altered mental status, unspecified: Qualifiers: Altered mental status type: unspecified Qualified Code(s): R41.82 - Altered mental status, unspecified Status: Acute (2) Acute hyponatremia: Status: Acute (3) Acute UTI: Status: Acute A nonverbal 81 years old lady with PMH of COPD, HTN, schizophrenia among others who presented from assisted for altered mentation. Altered mentation Likely secondary to hypernatremia and UTI Should improve with treating underlying causes continue to monitor and Re orientation Acute hyponatremia Sodium of 124 Goal to bring it as high as 132 next 24 hours Receiving bolus of fluid, to continue with maintenance normal saline Monitor BMP every 4-6 hours UTI pending urine culture continue ceftriaxone daily DVT PPX Lovenox Quality Stroke Does the patient have a stroke diagnosis?: No VTE Prior VTE?: No VTE Risk Level:: Medical - moderate - high VTE Device Contraindication: Treatment Not Indicated VTE Drug Contraindication: N/A - Med Ordered
[2021-08-16 15:16] VITALS: BP 146/65; PULSE 55; RESP 12; O2SAT 94
[2021-08-16 15:47] LABS: Venous Blood Gas Refer to POC result
[2021-08-16 15:47] LABS: VBG Base Excess 9.6 mmol/L; VBG HCO3 36 mmol/L (22-26); VBG pCO2 57 mmHg; VBG pO2 38 mmHg
--- NOTE | 2021-08-16 15:48 | PHA.MEDREC ---
Pharmacy Consult ? Medication Reconciliation Pharmacy has completed the medication reconciliation.
[2021-08-16 15:53] LABS: Lactic Acid 1.2 mmol/L (0.5-2.0)
[2021-08-16] MEDS: 0.9 % Sodium Chloride 1,000 ML 500 ML IVCONT (15:55)
[2021-08-16] MEDS: cefTRIAXone sodium 1 GM in 0.9 % Sodium Chloride 50 ML IV (15:57)
[2021-08-16] MEDS: 0.9 % Sodium Chloride Flush 3 ML SYRINGE IVFLUSH ×2 (16:00→20:02)
--- NOTE | 2021-08-16 16:00 | PC.NURSE ---
Blood and IV line obtained. Pt is calm and cooperative at this time. VSS
[2021-08-16 16:10] LABS: Anion Gap 14 (12-20); Blood Urea Nitrogen 7 mg/dL (9-16); Calcium 9.4 mg/dL (8.4-10.2); Carbon Dioxide 30 mmol/L (22-29); Chloride 86 mmol/L (96-108); Creatinine Clr Calc Pharmacy 83.1; Estimated Glomerular Filt Rate > 60; Glucose Random 86 mg/dL (60-115); Potassium 4.5 mmol/L (3.3-5.1); Sodium 125 mmol/L (135-145)
[2021-08-16 16:37] LABS: Glucose, Whole Blood 82 mg/dL (60-115)
[2021-08-16 20:00] VITALS: BP 119/73; PULSE 92; RESP 17; TEMP 36.8; O2SAT 95
[2021-08-16] MEDS: Enoxaparin Sodium 40 MG/0.4 ML SYRINGE SUBCUT (20:02)
[2021-08-16] MEDS: OLANZapine 10 MG TABLET 20 MG PO (20:02)
[2021-08-16] MEDS: Acetaminophen 325 MG TABLET 650 MG PO (20:02)
[2021-08-16] MEDS: Gabapentin 400 MG CAPSULE PO (20:03)
[2021-08-16] MEDS: Divalproex Sodium 500 MG TABLET.DR PO (20:03)
[2021-08-16] MEDS: 0.9 % Sodium Chloride 1,000 ML 75 ML IVCONT (20:03)
[2021-08-16 20:38] LABS: Glucose, Whole Blood 117 mg/dL (60-115)
[2021-08-16 22:58] LABS: Anion Gap 12 (12-20); Blood Urea Nitrogen 7 mg/dL (9-16); Carbon Dioxide 31 mmol/L (22-29); Chloride 90 mmol/L (96-108); Creatinine Clr Calc Pharmacy 75.1; Estimated Glomerular Filt Rate > 60; Glucose Random 111 mg/dL (60-115); Potassium 4.3 mmol/L (3.3-5.1); Sodium 129 mmol/L (135-145)
[2021-08-16 23:46] VITALS: BP 153/72; PULSE 59; RESP 17; TEMP 36.5; O2SAT 93
[2021-08-17 03:50] VITALS: BP 166/92; PULSE 63; RESP 18; TEMP 36.3; O2SAT 92
[2021-08-17 07:44] LABS: Hematocrit 32.5 % (37.0-47.0); Hemoglobin 11.3 g/dl (12.0-16.0); Mean Corpuscular HGB Conc 34.8 g/dl (31.0-35.0); Mean Corpuscular Hemoglobin 31.5 pg (27.0-33.0); Mean Corpuscular Volume 90.5 fL (80.0-98.0); Mean Platelet Volume 8.9 fL (9.4-12.3); Platelet Count 181 X10*3/uL (160-400); Red Blood Count 3.59 X10*6/uL (4.20-5.50); Red Cell Distribution Width 14.1 % (11.0-16.0); White Blood Count 6.4 X10*3/uL (4.8-10.8)
[2021-08-17 07:49] VITALS: BP 157/84; PULSE 64; RESP 19; TEMP 36.6; O2SAT 95
[2021-08-17 08:04] LABS: Anion Gap 14 (12-20); Blood Urea Nitrogen 8 mg/dL (9-16); Calcium 9.5 mg/dL (8.4-10.2); Carbon Dioxide 28 mmol/L (22-29); Chloride 94 mmol/L (96-108); Estimated Glomerular Filt Rate > 60; Glucose Random 101 mg/dL (60-115); Potassium 4.2 mmol/L (3.3-5.1); Sodium 132 mmol/L (135-145)
[2021-08-17] MEDS: Metoprolol Succinate ER 100 MG TAB.ER.24H 200 MG PO (09:51)
[2021-08-17] MEDS: Acetaminophen 325 MG TABLET 650 MG PO ×3 (09:51→20:32)
[2021-08-17] MEDS: polyethylene glycoL 3350 17 GM POWD.PACK PO (09:51)
[2021-08-17] MEDS: Divalproex Sodium 500 MG TABLET.DR PO ×2 (09:51→20:31)
[2021-08-17] MEDS: Gabapentin 400 MG CAPSULE PO ×2 (09:51→20:31)
[2021-08-17] MEDS: Venlafaxine HCl ER 150 MG CAP.ER.24H PO (09:51)
[2021-08-17] MEDS: amLODIPine Besylate 5 MG TABLET PO (09:52)
[2021-08-17] MEDS: Benztropine Mesylate 0.5 MG TABLET PO (09:52)
[2021-08-17] MEDS: Lactulose 20 GM/30 ML SOLUTION 30 GM PO (09:52)
[2021-08-17] MEDS: 0.9 % Sodium Chloride Flush 3 ML SYRINGE IVFLUSH (09:53)
--- NOTE | 2021-08-17 11:17 | HO.PM.IMPN ---
Subjective Subjective Date of Service: 08/17/21 Interval History: the patient was seen and evaluated this morning Laying in bed, feels comfortable More alert and interactive today but almost nonverbal Denies any fever, chills or shortness of breath No reported other overnight events. Review of Systems Non verbal to communicate Physical Exam Vital Signs: Vital Signs: Last Vital Signs Temp 97.8 F 08/17/21 07:49 Pulse 64 08/17/21 07:49 Resp 19 08/17/21 07:49 BP 157/84 H 08/17/21 07:49 Pulse Ox 95 08/17/21 07:49 Body Mass Index 28.9 Const: Other: Constitutional : Alert, not much verbal, not in distress Neck : Normal inspection, Supple Cardiovascular : RRR, S1 S2, no lower extremity edema Respiratory : Fair bilateral air entry, no crackles, wheezes or rhonchi Gastrointestinal: soft, lax, Normal bowel sounds, Non tender Skin : Warm, Dry Neurological : Alert, No focal deficit, Objective Data Active Medications Acetaminophen (Acetaminophen 325 Mg Tablet) 650 mg PO Q6H PRN PRN Reason: Pain, Mild (Pain Scale 1-3) Last Admin: 08/17/21 09:51 Dose: 650 mg Documented by: WINSTON Acetaminophen (Acetaminophen 325 Mg Tablet) 650 mg PO TID [facility] Last Admin: 08/17/21 10:09 Dose: 650 mg Documented by: WINSTON Albuterol Sulfate (Albuterol Sulfate 90 Mcg 8 Gm Inhaler) 1 puff INHALE Q6H PRN PRN Reason: Shortness Of Breath Or Wheezing Amlodipine Besylate (Amlodipine Besylate 5 Mg Tablet) 5 mg PO DAILY [facility]; Protocol Last Admin: 08/17/21 09:52 Dose: 5 mg Documented by: WINSTON Benztropine Mesylate (Benztropine Mesylate 0.5 Mg Tablet) 0.5 mg PO DAILY [facility] Last Admin: 08/17/21 09:52 Dose: 0.5 mg Documented by: WINSTON Divalproex Sodium (Divalproex Sodium 500 Mg Tablet.) 500 mg PO BID [facility] Last Admin: 08/17/21 09:51 Dose: 500 mg Documented by: WINSTON Enoxaparin Sodium (Enoxaparin Sodium 40 Mg/0.4 Ml Syringe) 40 mg SUBCUT Q24H [facility] Last Admin: 08/16/21 20:02 Dose: 40 mg Documented by: NINA Gabapentin (Gabapentin 400 Mg Capsule) 400 mg PO BID [facility] Last Admin: 08/17/21 09:51 Dose: 400 mg Documented by: WINSTON Sodium Chloride (Ns) 1,000 mls @ 75 mls/hr IVCONT .[id number] [facility] Last Admin: 08/16/21 20:03 Dose: 75 mls/hr Documented by: NINA Ceftriaxone Sodium 1 gm/ (Sodium Chloride) 50 mls @ 100 mls/hr IV Q24H [facility] Lactulose (Lactulose 20 Gm/30 Ml Solution) 30 gm PO DAILY [facility] Last Admin: 08/17/21 09:52 Dose: 30 gm Documented by: WINSTON Metoprolol Succinate (Metoprolol Succinate Er 100 Mg Tab.Er.24h) 200 mg PO DAILY [facility]; Protocol Last Admin: 08/17/21 09:51 Dose: 200 mg Documented by: WINSTON Olanzapine (Olanzapine 10 Mg Tablet) 20 mg PO BEDTIME [facility] Last Admin: 08/16/21 20:02 Dose: 20 mg Documented by: NINA Ondansetron HCl (Ondansetron Hcl 4 Mg/2 Ml Vial) 4 mg IVPUSH Q8H PRN PRN Reason: Nausea and Vomiting Pharmacy Consult (Consult Rx Perform Med Rec) 1 each MISCELLANE ONCE PRN PRN Reason: Consult order Polyethylene Glycol (Polyethylene Glycol 3350 17 Gm Powd.Pack) 17 gm PO DAILY [facility] Last Admin: 08/17/21 09:51 Dose: 17 gm Documented by: WINSTON Sodium Chloride (0.9 % Sodium Chloride Flush 3 Ml Syringe) 3 ml IVFLUSH QSHIFT [facility] Last Admin: 08/17/21 09:53 Dose: 3 ml Documented by: WINSTON Venlafaxine HCl (Venlafaxine Hcl Er 150 Mg Cap.Er.24h) 150 mg PO DAILY [facility] Last Admin: 08/17/21 09:51 Dose: 150 mg Documented by: WINSTON Labs CBC & Chem 7: 08/17/21 07:33 08/17/21 07:33 Labs: Laboratory Results - last 24 hr 08/16/21 08/16/21 08/16/21 13:33 13:53 14:09 MCV MCH MCHC RDW Plt Count MPV Immature Gran % (Auto) Neut % (Auto) Lymph % (Auto) [place] % (Auto) Eos % (Auto) Baso % (Auto) Lymph # (Auto) [place] # (Auto) Eos # (Auto) Baso # (Auto) Abs Immat Gran (auto) Absolute Neuts (auto) Absolute Nucleated RBC Nucleated RBC % (auto) VBG pH VBG pCO2 VBG pO2 VBG HCO3 VBG O2 Saturation VBG Base Excess Anion Gap 13 Estim Creat Clear Calc 86.2 Estimated GFR > 60 POC Glucose 82 Random Glucose 85 Lactic Acid Calcium 9.1 Total Bilirubin 0.6 Direct Bilirubin 0.2 AST 12 ALT 7 Alkaline Phosphatase 62 Troponin I High Sens Total Protein 6.3 L Albumin 3.8 Urine Color Urine Appearance Urine pH Ur Specific [place] Urine Protein Urine Glucose (UA) Urine Ketones Urine Blood Urine Nitrite Ur Leukocyte Esterase Urine RBC Urine WBC Ur Squamous Epith Cells Urine Bacteria COVID-19 (SHAJI) Negative COVID-19 Clin Com See Note 08/16/21 08/16/21 08/16/21 14:09 14:09 14:12 MCV 87.8 MCH 31.2 MCHC 35.5 H RDW 14.1 Plt Count 188 MPV 9.2 L Immature Gran % (Auto) 1.0 H Neut % (Auto) 56.9 Lymph % (Auto) 30.2 [place] % (Auto) 10.3 Eos % (Auto) 1.6 Baso % (Auto) 0.0 Lymph # (Auto) 1.8 [place] # (Auto) 0.6 Eos # (Auto) 0.1 Baso # (Auto) 0.0 Abs Immat Gran (auto) 0.06 H Absolute Neuts (auto) 3.3 Absolute Nucleated RBC 0.000 Nucleated RBC % (auto) 0.0 VBG pH VBG pCO2 VBG pO2 VBG HCO3 VBG O2 Saturation VBG Base Excess Anion Gap Estim Creat Clear Calc Estimated GFR POC Glucose Random Glucose Lactic Acid Calcium Total Bilirubin Direct Bilirubin AST ALT Alkaline Phosphatase Troponin I High Sens 4.6 Total Protein Albumin Urine Color YELLOW Urine Appearance TURBID Urine pH 7.0 Ur Specific [place] 1.015 Urine Protein 1+ H Urine Glucose (UA) NEG Urine Ketones NEG Urine Blood 1+ H Urine Nitrite POS H Ur Leukocyte Esterase 3+ H Urine RBC 15-29 H Urine WBC TNTC H Ur Squamous Epith Cells 1+ Urine Bacteria 2+ COVID-19 (SHAJI) COVID-19 Clin Com 08/16/21 08/16/21 08/16/21 15:35 15:35 15:40 MCV MCH MCHC RDW Plt Count MPV Immature Gran % (Auto) Neut % (Auto) Lymph % (Auto) [place] % (Auto) Eos % (Auto) Baso % (Auto) Lymph # (Auto) [place] # (Auto) Eos # (Auto) Baso # (Auto) Abs Immat Gran (auto) Absolute Neuts (auto) Absolute Nucleated RBC Nucleated RBC % (auto) VBG pH 7.40 VBG pCO2 57 VBG pO2 38 VBG HCO3 36 H VBG O2 Saturation 53.0 VBG Base Excess 9.6 Anion Gap 14 Estim Creat Clear Calc 83.1 Estimated GFR > 60 POC Glucose Random Glucose 86 Lactic Acid 1.2 Calcium 9.4 Total Bilirubin Direct Bilirubin AST ALT Alkaline Phosphatase Troponin I High Sens Total Protein Albumin Urine Color Urine Appearance Urine pH Ur Specific [place] Urine Protein Urine Glucose (UA) Urine Ketones Urine Blood Urine Nitrite Ur Leukocyte Esterase Urine RBC Urine WBC Ur Squamous Epith Cells Urine Bacteria COVID-19 (SHAJI) COVID-19 Clin Com 08/16/21 08/16/21 08/17/21 20:28 22:30 07:33 MCV 90.5 MCH 31.5 MCHC 34.8 RDW 14.1 Plt Count 181 MPV 8.9 L Immature Gran % (Auto) Neut % (Auto) Lymph % (Auto) [place] % (Auto) Eos % (Auto) Baso % (Auto) Lymph # (Auto) [place] # (Auto) Eos # (Auto) Baso # (Auto) Abs Immat Gran (auto) Absolute Neuts (auto) Absolute Nucleated RBC 0.000 Nucleated RBC % (auto) 0.0 VBG pH VBG pCO2 VBG pO2 VBG HCO3 VBG O2 Saturation VBG Base Excess Anion Gap 12 Estim Creat Clear Calc 75.1 Estimated GFR > 60 POC Glucose 117 H Random Glucose 111 Lactic Acid Calcium 9.0 Total Bilirubin Direct Bilirubin AST ALT Alkaline Phosphatase Troponin I High Sens Total Protein Albumin Urine Color Urine Appearance Urine pH Ur Specific [place] Urine Protein Urine Glucose (UA) Urine Ketones Urine Blood Urine Nitrite Ur Leukocyte Esterase Urine RBC Urine WBC Ur Squamous Epith Cells Urine Bacteria COVID-19 (SHAJI) COVID-19 Clin Com 08/17/21 07:33 MCV MCH MCHC RDW Plt Count MPV Immature Gran % (Auto) Neut % (Auto) Lymph % (Auto) [place] % (Auto) Eos % (Auto) Baso % (Auto) Lymph # (Auto) [place] # (Auto) Eos # (Auto) Baso # (Auto) Abs Immat Gran (auto) Absolute Neuts (auto) Absolute Nucleated RBC Nucleated RBC % (auto) VBG pH VBG pCO2 VBG pO2 VBG HCO3 VBG O2 Saturation VBG Base Excess Anion Gap 14 Estim Creat Clear Calc 95.0 Estimated GFR > 60 POC Glucose Random Glucose 101 Lactic Acid Calcium 9.5 Total Bilirubin Direct Bilirubin AST ALT Alkaline Phosphatase Troponin I High Sens Total Protein Albumin Urine Color Urine Appearance Urine pH Ur Specific [place] Urine Protein Urine Glucose (UA) Urine Ketones Urine Blood Urine Nitrite Ur Leukocyte Esterase Urine RBC Urine WBC Ur Squamous Epith Cells Urine Bacteria COVID-19 (SHAJI) COVID-19 Clin Com Assessment and Plan (1) Metabolic encephalopathy: Status: Acute (2) Acute hyponatremia: Status: Acute (3) Acute UTI: Status: Acute Assessment and Plan: A nonverbal 81 years old lady with PMH of COPD, HTN, schizophrenia among others who [facility] from [facility] for altered mentation. Metabolic encephalopathy Likely secondary to hyponatremia and UTI Improving as we are treating underlying causes continue to monitor and Re orientation Acute hyponatremia Sodium improved to 132 Hold IV fluid for now Monitor BMP every 6 hours UTI pending urine culture continue ceftriaxone daily DVT PPX Lovenox Quality Stroke Does the patient have a stroke diagnosis?: No VTE Prior VTE?: No VTE Risk Level:: Medical - moderate - high VTE Device Contraindication: Treatment Not Indicated VTE Drug Contraindication: N/A - Med Ordered
[2021-08-17 11:26] VITALS: BP 196/90; PULSE 57; RESP 18; TEMP 36.4; O2SAT 95
--- NOTE | 2021-08-17 12:11 | MHC.CM.PN ---
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 DCP IS RETURN TO [facility]IA [facility]
[2021-08-17 15:08] LABS: Anion Gap 14 (12-20); Blood Urea Nitrogen 7 mg/dL (9-16); Calcium 9.7 mg/dL (8.4-10.2); Carbon Dioxide 29 mmol/L (22-29); Chloride 94 mmol/L (96-108); Creatinine Clr Calc Pharmacy 93.2; Estimated Glomerular Filt Rate > 60; Glucose Random 119 mg/dL (60-115); Potassium 4.1 mmol/L (3.3-5.1); Sodium 133 mmol/L (135-145)
[2021-08-17 15:54] VITALS: BP 172/79; PULSE 53; RESP 16; TEMP 36; O2SAT 92
[2021-08-17] MEDS: cefTRIAXone sodium 1 GM in 0.9 % Sodium Chloride 50 ML IV (16:24)
[2021-08-17] MEDS: 0.9 % Sodium Chloride 1,000 ML 75 ML IVCONT ×2 (16:28→20:33)
[2021-08-17 19:59] VITALS: BP 158/77; PULSE 90; RESP 17; TEMP 36.1; O2SAT 95
[2021-08-17] MEDS: Enoxaparin Sodium 40 MG/0.4 ML SYRINGE SUBCUT (20:31)
[2021-08-17] MEDS: OLANZapine 10 MG TABLET 20 MG PO (20:31)
[2021-08-18] VITALS: BP 137/77; PULSE 61; RESP 17; TEMP 36; O2SAT 92
[2021-08-18 04:00] VITALS: BP 126/92; PULSE 59; RESP 17; TEMP 36; O2SAT 93
[2021-08-18 05:41] LABS: Hematocrit 31.4 % (37.0-47.0); Hemoglobin 10.9 g/dl (12.0-16.0); Mean Corpuscular HGB Conc 34.7 g/dl (31.0-35.0); Mean Corpuscular Hemoglobin 31.3 pg (27.0-33.0); Mean Corpuscular Volume 90.2 fL (80.0-98.0); Mean Platelet Volume 8.7 fL (9.4-12.3); Platelet Count 188 X10*3/uL (160-400); Red Blood Count 3.48 X10*6/uL (4.20-5.50); Red Cell Distribution Width 14.2 % (11.0-16.0)
[2021-08-18 05:58] LABS: Anion Gap 12 (12-20); Blood Urea Nitrogen 6 mg/dL (9-16); Calcium 9.6 mg/dL (8.4-10.2); Carbon Dioxide 31 mmol/L (22-29); Chloride 94 mmol/L (96-108); Creatinine Clr Calc Pharmacy 101.2; Estimated Glomerular Filt Rate > 60; Glucose Random 101 mg/dL (60-115); Potassium 3.9 mmol/L (3.3-5.1); Sodium 133 mmol/L (135-145)
[2021-08-18] MEDS: Lactulose 20 GM/30 ML SOLUTION 30 GM PO (08:35)
[2021-08-18] MEDS: Gabapentin 400 MG CAPSULE PO ×2 (08:35→20:27)
[2021-08-18] MEDS: Venlafaxine HCl ER 150 MG CAP.ER.24H PO (08:35)
[2021-08-18] MEDS: Acetaminophen 325 MG TABLET 650 MG PO ×4 (08:35→20:27)
[2021-08-18] MEDS: Metoprolol Succinate ER 100 MG TAB.ER.24H 200 MG PO (08:36)
[2021-08-18] MEDS: amLODIPine Besylate 5 MG TABLET PO (08:36)
[2021-08-18] MEDS: Divalproex Sodium 500 MG TABLET.DR PO (08:36)
[2021-08-18] MEDS: Benztropine Mesylate 0.5 MG TABLET PO (08:36)
[2021-08-18] MEDS: polyethylene glycoL 3350 17 GM POWD.PACK PO (08:37)
--- NOTE | 2021-08-18 10:04 | P.PNIM_ITS ---
Subjective Subjective Date of Service: 08/18/21 Interval History: the patient was seen and evaluated this morning Laying in bed, feels comfortable More alert and interactive today Denies any fever, chills or shortness of breath No reported other overnight events. Review of Systems Not very verbal to communicate but denied any pain Physical Exam Vital Signs: Vital Signs: Last Vital Signs Temp 96.8 F 08/18/21 04:00 Pulse 59 08/18/21 04:00 Resp 17 08/18/21 04:00 BP 126/92 H 08/18/21 04:00 Pulse Ox 93 08/18/21 04:00 Body Mass Index 28.9 Const: Other: Constitutional : Alert, difficult to assess orientation, not in distress Neck : Normal inspection, Supple Cardiovascular : RRR, S1 S2, no lower extremity edema Respiratory : Fair bilateral air entry, no crackles, wheezes or rhonchi Gastrointestinal: soft, lax, Normal bowel sounds, Non tender Skin : Warm, Dry Neurological : Alert, No focal deficit noticed Objective Data Active Medications Acetaminophen (Acetaminophen 325 Mg Tablet) 650 mg PO Q6H PRN PRN Reason: Pain, Mild (Pain Scale 1-3) Last Admin: 08/17/21 09:51 Dose: 650 mg Documented by: WINSTON Acetaminophen (Acetaminophen 325 Mg Tablet) 650 mg PO TID [facility] Last Admin: 08/18/21 08:35 Dose: 650 mg Documented by: WINSTON Albuterol Sulfate (Albuterol Sulfate 90 Mcg 8 Gm Inhaler) 1 puff INHALE Q6H PRN PRN Reason: Shortness Of Breath Or Wheezing Amlodipine Besylate (Amlodipine Besylate 5 Mg Tablet) 5 mg PO DAILY [facility]; Protocol Last Admin: 08/18/21 08:36 Dose: 5 mg Documented by: WINSTON Benztropine Mesylate (Benztropine Mesylate 0.5 Mg Tablet) 0.5 mg PO DAILY [facility] Last Admin: 08/18/21 08:36 Dose: 0.5 mg Documented by: WINSTON Divalproex Sodium (Divalproex Sodium 500 Mg Tablet.) 500 mg PO BID [facility] Last Admin: 08/18/21 08:36 Dose: 500 mg Documented by: WINSTON Enoxaparin Sodium (Enoxaparin Sodium 40 Mg/0.4 Ml Syringe) 40 mg SUBCUT Q24H [facility] Last Admin: 08/17/21 20:31 Dose: 40 mg Documented by: ANDRES Gabapentin (Gabapentin 400 Mg Capsule) 400 mg PO BID [facility] Last Admin: 08/18/21 08:35 Dose: 400 mg Documented by: WINSTON Sodium Chloride (Ns) 1,000 mls @ 75 mls/hr IVCONT .[id number] [facility] Last Admin: 08/17/21 20:33 Dose: 75 mls/hr Documented by: ANDRES Ceftriaxone Sodium 1 gm/ (Sodium Chloride) 50 mls @ 100 mls/hr IV Q24H [facility] Last Infusion: 08/17/21 17:42 Dose: 0 mls/hr Documented by: WINSTON Lactulose (Lactulose 20 Gm/30 Ml Solution) 30 gm PO DAILY [facility] Last Admin: 08/18/21 08:35 Dose: 30 gm Documented by: WINSTON Metoprolol Succinate (Metoprolol Succinate Er 100 Mg Tab.Er.24h) 200 mg PO DAILY [facility]; Protocol Last Admin: 08/18/21 08:36 Dose: 200 mg Documented by: WINSTON Olanzapine (Olanzapine 10 Mg Tablet) 20 mg PO BEDTIME [facility] Last Admin: 08/17/21 20:31 Dose: 20 mg Documented by: ANDRES Ondansetron HCl (Ondansetron Hcl 4 Mg/2 Ml Vial) 4 mg IVPUSH Q8H PRN PRN Reason: Nausea and Vomiting Pharmacy Consult (Consult Rx Perform Med Rec) 1 each MISCELLANE ONCE PRN PRN Reason: Consult order Polyethylene Glycol (Polyethylene Glycol 3350 17 Gm Powd.Pack) 17 gm PO DAILY [facility] Last Admin: 08/18/21 08:37 Dose: 17 gm Documented by: WINSTON Sodium Chloride (0.9 % Sodium Chloride Flush 3 Ml Syringe) 3 ml IVFLUSH QSHIFT [facility] Last Admin: 08/18/21 01:13 Dose: Not Given Documented by: ANDRES Non-Admin Reason: IV Running Venlafaxine HCl (Venlafaxine Hcl Er 150 Mg Cap.Er.24h) 150 mg PO DAILY [facility] Last Admin: 08/18/21 08:35 Dose: 150 mg Documented by: WINSTON Labs CBC & Chem 7: 08/18/21 05:27 08/18/21 05:27 Labs: Laboratory Results - last 24 hr 08/17/21 08/18/21 08/18/21 14:29 05:27 05:27 MCV 90.2 MCH 31.3 MCHC 34.7 RDW 14.2 Plt Count 188 MPV 8.7 L Absolute Nucleated RBC 0.000 Nucleated RBC % (auto) 0.0 Anion Gap 14 12 Estim Creat Clear Calc 93.2 101.2 Estimated GFR > 60 > 60 Random Glucose 119 H 101 Calcium 9.7 9.6 Microbiology Microbiology Results: Microbiology 08/16/21 14:12 Urine Culture - Final Urine Catheterized - Straight Catheter Escherichia coli 08/16/21 15:36 Blood Culture - Preliminary Blood - Venous No growth after 24 hours. 08/16/21 15:33 Blood Culture - Preliminary Blood - Venous No growth after 24 hours. Assessment and Plan (1) Metabolic encephalopathy: Status: Acute (2) Acute hyponatremia: Status: Acute (3) Acute UTI: Status: Acute Assessment and Plan: A nonverbal 81 years old lady with PMH of COPD, HTN, schizophrenia among others who presented from shelter for altered mentation. Metabolic encephalopathy Likely secondary to hyponatremia and UTI Improving as we are treating underlying causes continue to monitor and Re orientation Acute hyponatremia Sodium improved to 133 Continue IV fluid for now Monitor BMP UTI Growing GNR in urine culture continue ceftriaxone daily DVT PPX Lovenox Quality Stroke Does the patient have a stroke diagnosis?: No VTE Prior VTE?: No VTE Risk Level:: Medical - moderate - high VTE Device Contraindication: Treatment Not Indicated VTE Drug Contraindication: N/A - Med Ordered
[2021-08-18 11:02] VITALS: BP 185/81; PULSE 59; RESP 16; TEMP 36.6; O2SAT 94
[2021-08-18] MEDS: 0.9 % Sodium Chloride 1,000 ML 75 ML IVCONT (11:17)
[2021-08-18 16:00] VITALS: BP 144/94; PULSE 58; RESP 18; TEMP 35.6; O2SAT 94
[2021-08-18] MEDS: cefTRIAXone sodium 1 GM in 0.9 % Sodium Chloride 50 ML IV (16:10)
[2021-08-18 18:39] VITALS: BP 148/82; PULSE 82; RESP 18; TEMP 36.9; O2SAT 93
[2021-08-18] MEDS: Enoxaparin Sodium 40 MG/0.4 ML SYRINGE SUBCUT (20:28)
[2021-08-18] MEDS: OLANZapine 10 MG TABLET 20 MG PO (20:28)
[2021-08-19] VITALS (24 sets, daily range): BP systolic 91–203; BP diastolic 35–109; PULSE 49–98; RESP 14–26; TEMP 31–38.1; O2SAT 87–100
[2021-08-19] MEDS: amLODIPine Besylate 5 MG TABLET PO (04:46)
--- NOTE | 2021-08-19 04:58 | PC.NURSE ---
0426 pt's B/P 203/91 pulse 53. notified and said to give B/P meds early.pt medicated with norvasc 5mg po unable to give metoprolol at this time due to low pulse of 53.
[2021-08-19] MEDS: 0.9 % Sodium Chloride 1,000 ML 75 ML IVCONT (06:27)
[2021-08-19] MEDS: Lactulose 20 GM/30 ML SOLUTION 30 GM PO (07:19)
[2021-08-19] MEDS: Gabapentin 400 MG CAPSULE PO (07:20)
[2021-08-19] MEDS: Venlafaxine HCl ER 150 MG CAP.ER.24H PO (07:20)
[2021-08-19] MEDS: polyethylene glycoL 3350 17 GM POWD.PACK PO (07:20)
[2021-08-19] MEDS: Divalproex Sodium Sprinkles 125 MG CAP.DR.SPR 500 MG PO (07:20)
[2021-08-19] MEDS: Acetaminophen 325 MG TABLET 650 MG PO (07:21)
[2021-08-19] MEDS: Benztropine Mesylate 0.5 MG TABLET PO (07:21)
[2021-08-19] MEDS: Metoprolol Succinate ER 100 MG TAB.ER.24H 200 MG PO (07:21)
--- NOTE | 2021-08-19 09:56 | MHC.CM.PN ---
CM INFORMED PT MAY BE CLEARED TO DC TODAY ON PO CEFTIN. 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
--- NOTE | 2021-08-19 10:38 | PC.NURSE ---
licensed mental health counselor found patient to be unresponsive in bed, code blue called, patient successfully intubated, large amounts of food suctioned, thought to have aspirated, multiple attempts to reach guardian and contacts unsuccessful, transferred to icu
--- NOTE | 2021-08-19 10:42 | HO.PM.IMPN ---
Subjective Subjective Date of Service: 08/19/21 Review of Systems Follow up UTI and AMS Was sitting up eating peaches during this morning assessment at aprox 1025 a code blue was called for unresponsiveness patient found cyanotic and pulseless Code conducted and patient was successfully intubated and tx to ICU Physical Exam Vital Signs: Vital Signs: Last Vital Signs Temp 97.0 F 08/19/21 07:50 Pulse 55 08/19/21 07:50 Resp 17 08/19/21 07:50 BP 145/71 H 08/19/21 08:29 Pulse Ox 95 08/19/21 07:50 Body Mass Index 28.9 Initial exam this morning: Appearing in no acute distress lung sounds are clear to auscultation heart regular rate rhythm, clear S1, S2 positive bowel sounds neuro patient is alert, stated that she was eating peaches Objective Data Active Medications Acetaminophen (Acetaminophen 325 Mg Tablet) 650 mg PO Q6H PRN PRN Reason: Pain, Mild (Pain Scale 1-3) Last Admin: 08/18/21 16:10 Dose: 650 mg Documented by: WINSTON Acetaminophen (Acetaminophen 325 Mg Tablet) 650 mg PO TID [facility] Last Admin: 08/19/21 07:21 Dose: 650 mg Documented by: AMELIA Albuterol Sulfate (Albuterol Sulfate 90 Mcg 8 Gm Inhaler) 1 puff INHALE Q6H PRN PRN Reason: Shortness Of Breath Or Wheezing Amlodipine Besylate (Amlodipine Besylate 5 Mg Tablet) 5 mg PO DAILY [facility]; Protocol Last Admin: 08/19/21 04:46 Dose: 5 mg Documented by: AMINA Benztropine Mesylate (Benztropine Mesylate 0.5 Mg Tablet) 0.5 mg PO DAILY [facility] Last Admin: 08/19/21 07:21 Dose: 0.5 mg Documented by: AMELIA Divalproex Sodium (Divalproex Sodium Sprinkles 125 Mg ) 500 mg PO BID [facility] Last Admin: 08/19/21 07:20 Dose: 500 mg Documented by: AMELIA Enoxaparin Sodium (Enoxaparin Sodium 40 Mg/0.4 Ml Syringe) 40 mg SUBCUT Q24H [facility] Last Admin: 08/18/21 20:28 Dose: 40 mg Documented by: AMINA Gabapentin (Gabapentin 400 Mg Capsule) 400 mg PO BID [facility] Last Admin: 08/19/21 07:20 Dose: 400 mg Documented by: AMELIA Sodium Chloride (Ns) 1,000 mls @ 75 mls/hr IVCONT .[id number] [facility] Last Admin: 08/19/21 06:27 Dose: 75 mls/hr Documented by: AMINA Ceftriaxone Sodium 1 gm/ (Sodium Chloride) 50 mls @ 100 mls/hr IV Q24H [facility] Last Infusion: 08/18/21 17:29 Dose: 0 mls/hr Documented by: NGENOAL Lactulose (Lactulose 20 Gm/30 Ml Solution) 30 gm PO DAILY [facility] Last Admin: 08/19/21 07:19 Dose: 30 gm Documented by: AMELIA Metoprolol Succinate (Metoprolol Succinate Er 100 Mg Tab.Er.24h) 200 mg PO DAILY [facility]; Protocol Last Admin: 08/19/21 07:21 Dose: 200 mg Documented by: AMELIA Olanzapine (Olanzapine 10 Mg Tablet) 20 mg PO BEDTIME [facility] Last Admin: 08/18/21 20:28 Dose: 20 mg Documented by: AMINA Ondansetron HCl (Ondansetron Hcl 4 Mg/2 Ml Vial) 4 mg IVPUSH Q8H PRN PRN Reason: Nausea and Vomiting Pharmacy Consult (Consult Rx Perform Med Rec) 1 each MISCELLANE ONCE PRN PRN Reason: Consult order Polyethylene Glycol (Polyethylene Glycol 3350 17 Gm Powd.Pack) 17 gm PO DAILY [facility] Last Admin: 08/19/21 07:20 Dose: 17 gm Documented by: AMELIA Sodium Chloride (0.9 % Sodium Chloride Flush 3 Ml Syringe) 3 ml IVFLUSH QSHIFT [facility] Last Admin: 08/19/21 07:19 Dose: Not Given Documented by: AMELIA Non-Admin Reason: IV Running Venlafaxine HCl (Venlafaxine Hcl Er 150 Mg Cap.Er.24h) 150 mg PO DAILY [facility] Last Admin: 08/19/21 07:20 Dose: 150 mg Documented by: AMELIA Labs CBC & Chem 7: 08/18/21 05:27 08/18/21 05:27 Microbiology Microbiology Results: Microbiology 08/16/21 15:36 Blood Culture - Preliminary Blood - Venous No growth after 48 hours. 08/16/21 15:33 Blood Culture - Preliminary Blood - Venous No growth after 48 hours. 08/16/21 14:12 Urine Culture - Final Urine Catheterized - Straight Catheter Escherichia coli Assessment and Plan (1) Metabolic encephalopathy: Status: Acute (2) Acute UTI: Status: Acute (3) Asystole: Status: Acute Assessment and Plan: 81 years old lady with PMH of COPD, HTN, schizophrenia among others who presented from snf for altered mentation. TOMMY AWAD called at approx 1025 Patient with no pulse and cyanotic Initially asystole on monitor with CPR received 3 rounds of epinephrine and regained a pulse intubated and tx to ICU Seems like she may have aspirated as she had retained food in her trachea during intubation had no previous issue eating and was not on a dysphagia diet Guardian called Suzy Wright [phone], no answer, message left on voicemail [place] [facility] also called and is aware of the patients condition Metabolic encephalopathy Likely secondary to hyponatremia and UTI Improving treating for underlying cause continue to monitor and Re orientation Acute hyponatremia Sodium improved to 133 Continue IV fluid for now Monitor BMP UTI Growing GNR in urine culture continue ceftriaxone daily DVT PPX Lovenox attending Dr. Mcguire Quality Stroke Does the patient have a stroke diagnosis?: No VTE Prior VTE?: No VTE Risk Level:: Medical - moderate - high VTE Device Contraindication: Treatment Not Indicated VTE Drug Contraindication: N/A - Med Ordered
--- NOTE | 2021-08-19 10:55 | PC.NURSE ---
Addendum entered by Jie Kwan RN 08/19/21 18:36: Myoclonus tremor/twitching noted, very prevalent and repetative. Impeding proper ventilation and Oxygenation. HR 90s with frequent PVCs. BP at [address] Canales notified, propofol started at 20mcg/kg/min. Improvement noted with random breakthrough twitching on occasion. Addendum entered by Jie Kwan RN 08/19/21 13:19: Dr. Canales suspected pneumothorax, CXR confirmed. OGT coiled in hiatus hernia. HR ken to 20s, half amp Epi ordered and given per Dr. Canales. 18g angio placed temporarily into Left upper lung by Dr. Canales. BP 80s systolic. 1L NS given as bolus. Dr. Canales placed a pneumothorax drainage catheter. Replaced OGT with 18Fr. CXR again confirmed placement but in hiatal hernia. Improvement of pneumothorax per xray as well. VS improved but BP remained on a downward trend. Levophed started 0.05mcg/kg/min. Next check systolic 140s. Titrated down to 0.03mcg/kg/min. Mcdonald catheter placed. Clear yellow urine collected. Temp running 94.5F Dr. Canales ordered chest CT. Original Note: Patient arrived to ICU, intubated s/p food particle aspiration. Dr. Canales in to assess. Bedside echo done, 50mg IVP Rocuronium given in prep for TLC placement. NSR on monitor, 100% SpO2 on 40% FiO2. Vent settings AC 18, Vt 450, 40% with PEEP 5. PCXR to be obtained on unit to confirm ETT, OGT and TLC placement.
[2021-08-19] MEDS: Rocuronium Bromide 50 MG/5 ML VIAL IVPUSH (11:15)
[2021-08-19] MEDS: EPINEPHrine 1 MG/10 ML SYRINGE 0.5 MG IVPUSH (11:45)
[2021-08-19] MEDS: Lactated Ringers 1,000 ML 999 ML IV ×2 (11:50→22:00)
--- NOTE | 2021-08-19 12:25 | PC.RT ---
08/19/2021 Called to bedside at [place] [id number] for pt. alarming on vent. Upon arrival, pt. not ventilating with high peak pressure alarm. Suctioned pt. for scant amount of white secretios. Pt. continued to alarm. MD placed left subclavian central line prior to RT arrival. Ausculated for breath sounds with no breath sounds on left. BVM ventilation initiated. MD inserted decompression needle to left chest wall. CXR obtained showing left pneumothorax. Pt. heart rate to low 30's, SpO2 as low as 85%. MD inserted left chest tube, repeat CXR obtained. Pt. placed back on ventilator.
--- NOTE | 2021-08-19 13:42 | P.PCNCC_ITS ---
Procedures Date of Service Date of Service: 08/19/21 Central Line Placement Left SC: Central Line Comments: PROCEDURE:? Insertion left subclavian central venous line. INDICATION:? IV access and cardiorespiratory monitoring, status post cardiac arrest. ANESTHESIA:? Local plus IV sedation. PROCEDURE:? Vascular ultrasound was used to examine the left side.? A large compressible infraclavic left subclavian vein was noted.? The left subclavian and left neck areas were widely prepped and draped in full sterile fashion.?? The infraclavic subclavian vein was located by US.? Local anesthesia was applied to the entrance site with the US probe oriented longitudinally.? The infraclavic left subclavian vein was cannulated on the 2nd pass of the 18 gauge thin wall under direct US guidance.? The wire was threaded without incident.? A 7 Occitan by 16 cm triple-lumen catheter was advanced into the vein up to the hub via the Seldinger technique without incident.? There was good blood return x3.? The catheter was sutured x3 and a Biopatch and dry sterile dressing were applied. Postop chest x-ray showed a pneumothorax. A thoracostomy tube was placed. See separate procedure. Consent for Procedure: Emergent-no informed consent obtained
--- NOTE | 2021-08-19 13:52 | W.PM.CCHP ---
Procedures Date of Service Date of Service: 08/19/21 Chest Tube Chest Tube 1: Progress: PROCEDURE:? Insertion left side Catalino pigtail pneumothorax drainage catheter. INDICATION:? Left pneumothorax post CVL placement. ANESTHESIA:? Propofol infusion. PROCEDURE:? CXR identified a left pneumothorax following CVL placement.? The BP dropped to the 80?s, HR dropped to the 30's. While a pneumothorax tray was being obtained, epinephrine 0.5 mg was administered intravenously, and the left chest was sterilely prepped. An 18g x 2.5 angiocath was plunged into the left chest above the 3rd rib in the MCL. Air bubbles were aspirated through a saline-filled syringe. Immediately the HR increased and bag ventilation became easier. The [employer] Catalino pneumothorax tray was prepared. The wire from the tray was attempted to be passed through the 18 gauge angio but would not go. Therefore the 18 gauge angio was removed. (The tip of the [email or web address] 18g angio is too small for that wire.) The 18g thin wall needle from the Catalino tray was then placed into the chest in the same area. Air was easily aspirated on entering the thoracic cavity.? The wire was threaded, then the needle withdrawn and the evans dilator inserted easily.? The dilator was then removed from the wire and replaced by the pigtail mounted on its inner stylette.? The pigtail was advanced easily about 6? or so into the chest, and then hooked up to a Heimlich valve.? The patient remained hemodynamically stable with improving oxygenation. The pigtail was then sutured x 1 to the anter chest wall, and a DSD applied. Postop chest x-ray showed the pigtail in good position with only a very small residual lateral pneumothorax at the left base.? The patient tolerated the procedure well w no complications. Chest x-ray done about an hour later, to confirm OG tube placement, showed persistent residual pneumothorax. Slightly sanguinous fluid was noted to be coming out of the chest tube. The chest tube was therefore hooked up to suction.
[2021-08-19] MEDS: Barium Sulfate Oral (Vanilla) 450 ML ORAL.SUSP PO (14:16)
[2021-08-19 14:28] LABS: VBG Base Excess 1.8 mmol/L; VBG HCO3 28 mmol/L (22-26); VBG pCO2 51 mmHg; VBG pH 7.34 (7.32-7.43); VBG pO2 49 mmHg
[2021-08-19 14:35] LABS: Hematocrit 31.5 % (37.0-47.0); Hemoglobin 10.9 g/dl (12.0-16.0); Mean Corpuscular HGB Conc 34.6 g/dl (31.0-35.0); Mean Corpuscular Hemoglobin 31.5 pg (27.0-33.0); Mean Platelet Volume 8.8 fL (9.4-12.3); Platelet Count 170 X10*3/uL (160-400); Red Blood Count 3.46 X10*6/uL (4.20-5.50); Red Cell Distribution Width 14.5 % (11.0-16.0); White Blood Count 7.5 X10*3/uL (4.8-10.8)
[2021-08-19] MEDS: Pantoprazole Sodium 40 MG/10 ML VIAL IVPUSH (14:46)
[2021-08-19] MEDS: cefTRIAXone sodium 1 GM in 0.9 % Sodium Chloride 50 ML IV (14:46)
[2021-08-19] MEDS: 0.9 % Sodium Chloride Flush 3 ML SYRINGE IVFLUSH (14:47)
[2021-08-19 14:59] LABS: Lactic Acid 2.4 mmol/L (0.5-2.0)
[2021-08-19 15:13] LABS: Alanine Aminotransferase 20 U/L (0-31); Albumin Level 3.6 g/dL (3.5-5.0); Alkaline Phosphatase 60 U/L (39-117); Anion Gap 14 (12-20); Aspartate Amino Transferase 29 U/L (5-31); Bilirubin Total 0.4 mg/dL (0.0-1.0); Blood Urea Nitrogen 10 mg/dL (9-16); Calcium 8.7 mg/dL (8.4-10.2); Carbon Dioxide 25 mmol/L (22-29); Chloride 99 mmol/L (96-108); Creatinine Clr Calc Pharmacy 91.3; Estimated Glomerular Filt Rate > 60; Glucose Random 194 mg/dL (60-115); Magnesium 1.5 mg/dL (1.6-2.6); Phosphorus 3.9 mg/dL (2.7-4.5); Potassium 3.2 mmol/L (3.3-5.1); Sodium 135 mmol/L (135-145)
[2021-08-19 15:21] LABS: B Type Natriuretic Peptide 129 pg/mL (<100); Troponin-I High Sensitivity 52.1 ng/L (<3.5-17.0)
[2021-08-19 16:26] LABS: Cancel Lactic Acid Canceled
[2021-08-19 16:29] LABS: Reflex Lactate? Lactic Acid Added
[2021-08-19 17:10] LABS: ~Lactic Acid-LAB USE ONLY 3.6 mmol/L (0.5-2.0)
[2021-08-19] MEDS: propofoL 1,000 MG/100 ML VIAL 9.47 MG IVCONT (17:15)
[2021-08-19 18:56] LABS: Reflex Lactate? 2 Y
[2021-08-19 19:28] LABS: Venous Blood Gas Refer to POC result
[2021-08-19 19:35] LABS: ~Lactic Acid-LAB USE ONLY 4.6 mmol/L (0.5-2.0)
[2021-08-19] MEDS: Enoxaparin Sodium 40 MG/0.4 ML SYRINGE SUBCUT (20:12)
[2021-08-19] MEDS: propofoL 1,000 MG/100 ML VIAL 23.68 MG IVCONT (21:17)
[2021-08-19 21:27] LABS: Cancel Lactic Acid Canceled
[2021-08-19] MEDS: Lactated Ringers 1,000 ML 150 ML IVCONT (21:39)
[2021-08-19] MEDS: Magnesium Sulfate/H2O 2 GM/50 ML PIGGYBACK IV (21:44)
[2021-08-19] MEDS: Potassium Chloride/H20 40 MEQ/100 ML PIGGYBACK 100 MEQ IV (21:50)
[2021-08-19] MEDS: fentaNYL citrate/NS 1,000 MCG/100 ML PLAST..BAG 10 MCG IVCONT (21:54)
--- NOTE | 2021-08-19 22:26 | P.PNCC_ITS ---
Subjective Subjective Date of Service: 08/19/21 Interval History: Ms. Mixon was transferred to the ICU this morning after a cardiac arrest on the floor. The patient is an 81-year-old woman with past medical history of significant mental illness, reported to be schizophrenia.? She is a long-time resident of [facility] and [facility].? She also has HTN and HLD. ?Her only prior contact with [facility] was in 2004 when she had a GI bleed. On 08/16, EMS was called to [facility] reportedly for a cardiac arrest. ?On arrival of EMS at the scene, the patient was sleeping.? She responded to painful stimuli and eventually woke up.? According to the ED note, by the time EMS arrived, the patient was at her baseline, per the [place] [facility] staff.? They reported the patient?s baseline as nonverbal, altered, combative.? The patient was BIBA to the ED for evaluation. I spoke to the patient's primary contact, which is the patient's guardian, contracts attorney Suzy Wright (home telephone number [phone]).? As far as she knows, the patient walks and talks.? She told me that the patient has mental functioning has been declining of late, and that she now has some dementia. On exam in the ED, the patient was nonverbal and in no acute distress.? Vital signs were unremarkable including a normal temperature, and sat of 94% on room air.? Physical exam was remarkable for mild peripheral edema. Labs in the ED were notable for a normal white count and moderate anemia.? Her sodium was 124, bicarb was 29, BUN/creatinine were 6/0.5, glucose was 85, albumin was 3.8.? A venous blood gas showed 7.40/57/+9.? Urinalysis showed wbc's TNTC, and 3+ leukocyte esterase, and 2+ urine bacteria, which eventually grew E coli with the and intermediate sensitivity pattern.? COVID SHAJI was negative. It was noted in the ED that at 16:35 ?patient was eating and suddenly started coughing.? Chest x-ray pending.? It is possible that patient aspirated food.? Patient's oxygen saturation dropped to 85% on room air but shortly after improved to 95%? patient speaking in full sentences.? The patient was admitted to Medicine and treated for hyponatremia.? Her UTI was treated with ceftriaxone.? The next day, the sodium was up to 132. ?The patient look better and was more alert and interactive, with some verbalizing.? The next day, the patient was perhaps slightly more verbal, but minimally so. This morning the patient was seen by Dr. Mcguire on rounds.? She was sitting up eating peaches, and reportedly looked ?well?.? About 10 minutes later, a code blue was called for unresponsiveness.? Reportedly, the patient was noted on the camera to be still.? A tunnel kiln repairer checked on the patient and noted the patient to be unresponsive.? A nurse was called in to assess, and then a code blue was called. The patient was found cyanotic and pulseless.? Initial rhythm on the monitor was asystole.? The patient received 3 rounds of epinephrine and was intubated.? During the intubation, a large amount of food was noted in the patient's hypopharynx.? After intubation, fluid was suctioned from the trachea.? The patient regained spontaneous circulation after 9 minutes of CPR, with SR on the monitor.? She was transported down to ICU, where I saw her on arrival at about noon. On my exam, the patient was unresponsive w eyes closed, but making agonal resp efforts.? HR was 61, BP 102/49, Vent rate 18, with Sat 92% on 80% FiO2.? Temperature was 96.1 degrees.? She had bulging neck veins with head of bed at 20 degrees.? Chest was clear to auscultation, with normal expiratory phase.? Heart rate and rhythm are regular, with normal-sounding S1-S2, with no murmur or gallops.? The abdomen was flat.? She has 1+ pretibial edema. Immediate bedside ECHO:? Image quality: Fair.? Findings: - At least mild-moderate LVH, with normal LV cavity. - Normal LV fxn with no RWMAs - Probably normal RV size and fxn - No MR by color rajni - Trace TR by color rajni, with 1.8m/sec CWD. - IVC measured 1.4 cm with 25% insp collapse during PPV.? RVSP estimate about 20mm. The patient was given a liter of LR.? A left subclavian CVL was placed (see separate procedure), resulting in a PTX.? A Catalino pneumothorax drainage thoracostomy was placed (separate procedure), resulting in reexpansion of the lung with tiny residual PTX at the left base.? I placed a transoral 16Fr Whatcom sump via direct laryngoscopy, and suctioned a good deal of food out of her mo uth.? Altho in her esophagus, and able to aspirate stomach contents, the salem sump was unable to be advanced very far. ?F/U CXR showed the OGT terminating above the diaphragm.? A HH was suspected. We changed the Whatcom sump to an 18Fr, and were able to push it in much further.? However, CXR showed it coiled in the upper part of the esophagus, with the tip still above the diaphragm. ?We pulled the tube out and readvanced it multiple times, with CXRs after each placement.? The Whatcom sump would not cross the diaphragm. After conferring with the radiologist, we sent the patient for a chest CT with oral contrast, which showed that the esophagus was diffusely dilated measuring 3.5 cm; the dilated esophagus was filled with significant debris. ?The contrast instilled via the OGT was noted in the mid to distal esophagus and proximal stomach, with a moderate sized hiatal hernia. ?The OGT terminated either in the distal-most esophagus or at the GE jxn.? The gastroesophageal junction/distal- most portion of the esophagus was severely narrowed, with significant dilatation of the remainder of the proximal esophagus; severe stricture and/or mass in that region suspected. ?The lungs showed mild-mod emphysema with small patchy airspace opacity in the posterior RLL c/w aspiration.? There was a small left hydropneumothorax. After about a couple of hours, the patient had eye opening and began having increasingly severe myoclonic jerking.? Pupils were equal, round, approximately 4 mm.? She remained unresponsive.? Ultimately the myoclonic jerking got so severe that we had to start propofol, accelerating the dose from 20 mcg up to 50 mcg. Over time the FiO2 was able to be reduced to 35%/+5, with Sat 96%. LABORATORY DATA:? As below.? Notably, BUN/creat were bumped slightly to 10/0.5.? Lactic acid was 2.4. IMPRESSION: 1. 81 yo woman with significant mental illness, plus likely dementia. 2. PMHx of HTN 3. S/P cardiac arrest, undoubtedly 2? aspiration. 4. Myoclonus suggests severe brain injury 5. The OG placement and CT scan suggest chronic esophageal dilatation.? The question is, does she have a stricture or mass in the terminal esophagus.? It?s amazing that today is apparently the first time that she?s aspirated. Post cardiac arrest course suggests poor prognosis.? I discussed this with the patient's guardian, and offered that in my opinion, the best course would be comfort measures.? She offered that the next best step would therefore be to petitioned the court for expanded guardianship so that she could agree to comfort measures only status.? We will do that tomorrow. Over the afternoon/evening, the patient is still not making much urine.? I reecho?d the patient:? LV and RV still as above.? IVC measured maybe 1.2 cm with some insp collapse.? We?re giving more fluid, repleting electrolytes.? Will recheck labs later. Time (including mult visits to bedside; excluding procedures):? 3+ hrs. Critical Care Time (minutes): 180 Physical Exam Vital Signs: Vital Signs: Last Vital Signs Temp 100.6 F H 08/19/21 21:00 Pulse 87 08/19/21 22:00 Resp 18 08/19/21 22:00 BP 121/68 08/19/21 22:00 Pulse Ox 96 08/19/21 22:00 Body Mass Index 28.9 Objective Data Labs CBC & Chem 7: 08/19/21 14:22 08/19/21 14:22 Labs: Laboratory Results - last 24 hr 08/19/21 08/19/21 08/19/21 14:22 14:22 14:22 WBC 7.5 RBC 3.46 L Hgb 10.9 L Hct 31.5 L MCV 91.0 MCH 31.5 MCHC 34.6 RDW 14.5 Plt Count 170 MPV 8.8 L Absolute Nucleated RBC 0.000 Nucleated RBC % (auto) 0.0 VBG pH VBG pCO2 VBG pO2 VBG HCO3 VBG O2 Saturation VBG Base Excess Sodium 135 Potassium 3.2 L Chloride 99 Carbon Dioxide 25 Anion Gap 14 BUN 10 D Creatinine 0.51 Estim Creat Clear Calc 91.3 Estimated GFR > 60 Random Glucose 194 H Lactic Acid 2.4 H* Lactic Acid Fup @ 2Hr Lactic Acid Fup @ 4Hr Calcium 8.7 D Phosphorus 3.9 Magnesium 1.5 L Total Bilirubin 0.4 AST 29 D ALT 20 Alkaline Phosphatase 60 Troponin I High Sens B-Natriuretic Peptide Total Protein 6.0 L Albumin 3.6 08/19/21 08/19/21 08/19/21 14:22 14:22 16:52 WBC RBC Hgb Hct MCV MCH MCHC RDW Plt Count MPV Absolute Nucleated RBC Nucleated RBC % (auto) VBG pH 7.34 VBG pCO2 51 VBG pO2 49 VBG HCO3 28 H VBG O2 Saturation 68.0 VBG Base Excess 1.8 Sodium Potassium Chloride Carbon Dioxide Anion Gap BUN Creatinine Estim Creat Clear Calc Estimated GFR Random Glucose Lactic Acid Lactic Acid Fup @ 2Hr 3.6 H* Lactic Acid Fup @ 4Hr Calcium Phosphorus Magnesium Total Bilirubin AST ALT Alkaline Phosphatase Troponin I High Sens 52.1 H* D B-Natriuretic Peptide 129 H Total Protein Albumin 08/19/21 19:07 WBC RBC Hgb Hct MCV MCH MCHC RDW Plt Count MPV Absolute Nucleated RBC Nucleated RBC % (auto) VBG pH VBG pCO2 VBG pO2 VBG HCO3 VBG O2 Saturation VBG Base Excess Sodium Potassium Chloride Carbon Dioxide Anion Gap BUN Creatinine Estim Creat Clear Calc Estimated GFR Random Glucose Lactic Acid Lactic Acid Fup @ 2Hr Lactic Acid Fup @ 4Hr 4.6 H* Calcium Phosphorus Magnesium Total Bilirubin AST ALT Alkaline Phosphatase Troponin I High Sens B-Natriuretic Peptide Total Protein Albumin Microbiology Microbiology Results: Microbiology 08/16/21 15:36 Blood - Venous Blood Culture - Preliminary No growth after 48 hours. 08/16/21 15:33 Blood - Venous Blood Culture - Preliminary No growth after 48 hours. 08/16/21 14:12 Urine Catheterized - Straight Catheter Urine Culture - Final Escherichia coli Quality Stroke Does the patient have a stroke diagnosis?: No VTE Prior VTE?: No VTE Risk Level:: Medical - moderate - high VTE Device Contraindication: Treatment Not Indicated VTE Drug Contraindication: N/A - Med Ordered Critical Care Time Critical Care Time (minutes): 180
[2021-08-20] VITALS (38 sets, daily range): BP systolic 48–165; BP diastolic 22–117; PULSE 44–141; RESP 12–34; TEMP 31–36.6; O2SAT 73–100; BMI 32.9
[2021-08-20 00:27] LABS: Anion Gap 14 (12-20); Blood Urea Nitrogen 11 mg/dL (9-16); Calcium 8.8 mg/dL (8.4-10.2); Carbon Dioxide 26 mmol/L (22-29); Chloride 101 mmol/L (96-108); Creatinine Clr Calc Pharmacy 84.7; Estimated Glomerular Filt Rate > 60; Glucose Random 127 mg/dL (60-115); Potassium 4.1 mmol/L (3.3-5.1); Sodium 137 mmol/L (135-145)
[2021-08-20 00:29] LABS: Lactic Acid 2.8 mmol/L (0.5-2.0)
[2021-08-20 00:37] LABS: Troponin-I High Sensitivity 166.1 ng/L (<3.5-17.0)
[2021-08-20] MEDS: propofoL 1,000 MG/100 ML VIAL 18.94 MG IVCONT (01:19)
--- NOTE | 2021-08-20 02:16 | PC.NURSE ---
Assumed care of pt at 1900 on vent, AC settings spO2 >95%. Pt having monoclonal activity of body and head, triggering vent alarms. Propofol increased to 50 mcg/kg/min with good effect, but continues to have monoclonal activity. Upon repositioning pt vomited undigested food, was suctioned, spO2 remains stable. Pt SR on tele with frequent pvcs, at times questionable for Wenckebach but difficult to ascertain due to frequent pvcs. BP labile 90s to 210s systolic. On and off levophed as required. Urine output minimal 10-15 ml/hr. PA aware of all of the above. Pt received 1 LR bolus, reece irrigated per PA, no obstruction noted irrigated easily. Mg and K replacement given as ordered by PA, electrolytes repeated at 0000 within normal limits.
[2021-08-20] MEDS: propofoL 1,000 MG/100 ML VIAL 23.68 MG IVCONT ×2 (05:29→08:57)
[2021-08-20] MEDS: Pantoprazole Sodium 40 MG/10 ML VIAL IVPUSH (05:29)
[2021-08-20 05:32] LABS: VBG Base Excess 2.4 mmol/L; VBG HCO3 27 mmol/L (22-26); VBG pCO2 45 mmHg; VBG pH 7.39 (7.32-7.43); VBG pO2 43 mmHg
[2021-08-20 05:39] LABS: Venous Blood Gas Refer to POC result
[2021-08-20 05:46] LABS: Basophils Percent Auto 0.1 % (0-2); Hematocrit 27.1 % (37.0-47.0); Hemoglobin 9.2 g/dl (12.0-16.0); Imm Gran Abs Auto 0.06 X10*3/uL (0.00-0.03); Imm Gran Pct Auto 0.4 % (0.0-0.4); Lymphocytes Absolute Auto 1.3 X10*3/uL (1.2-4.9); Lymphocytes Percent Auto 9.3 % (20-40); MANUAL DIFF FLAG NO; Mean Corpuscular HGB Conc 33.9 g/dl (31.0-35.0); Mean Corpuscular Hemoglobin 31.3 pg (27.0-33.0); Mean Corpuscular Volume 92.2 fL (80.0-98.0); Mean Platelet Volume 8.8 fL (9.4-12.3); Monocytes Absolute Auto 0.8 X10*3/uL (0.1-1.2); Monocytes Percent Auto 5.3 % (2-11); Neutrophils Absolute Auto 12.1 x10*3/uL (2.0-8.3); Neutrophils Percent Auto 84.9 % (45-73); Platelet Count 171 X10*3/uL (160-400); Red Blood Count 2.94 X10*6/uL (4.20-5.50); Red Cell Distribution Width 14.6 % (11.0-16.0); White Blood Count 14.3 X10*3/uL (4.8-10.8)
[2021-08-20 06:04] LABS: Lactic Acid 2.9 mmol/L (0.5-2.0)
[2021-08-20] MEDS: Lactated Ringers 1,000 ML 150 ML IVCONT (06:05)
[2021-08-20 06:09] LABS: Alanine Aminotransferase 15 U/L (0-31); Albumin Level 3.1 g/dL (3.5-5.0); Alkaline Phosphatase 44 U/L (39-117); Anion Gap 17 (12-20); Aspartate Amino Transferase 24 U/L (5-31); Bilirubin Total 0.6 mg/dL (0.0-1.0); Blood Urea Nitrogen 13 mg/dL (9-16); Calcium 8.6 mg/dL (8.4-10.2); Carbon Dioxide 22 mmol/L (22-29); Chloride 101 mmol/L (96-108); Creatinine Clr Calc Pharmacy 84.1; Estimated Glomerular Filt Rate > 60; Glucose Random 144 mg/dL (60-115); Potassium 4.1 mmol/L (3.3-5.1); Sodium 136 mmol/L (135-145); Total Protein 5.3 g/dL (6.5-8.0)
[2021-08-20 06:13] LABS: Troponin-I High Sensitivity 104.1 ng/L (<3.5-17.0)
--- NOTE | 2021-08-20 06:31 | PC.NURSE ---
Assumed care of pt at 1900 on vent, AC settings spO2 >95%. Pt having myoclonal activity of body and head, triggering vent alarms. Propofol increased to 50 mcg/kg/min with good effect, but continues to have monoclonal activity. Upon repositioning pt vomited undigested food, was suctioned, spO2 remains stable. Pt SR on tele with frequent pvcs, at times questionable for Wenckebach but difficult to ascertain due to frequent pvcs. BP labile 90s to 210s systolic. On and off levophed as required. Urine output minimal 10-15 ml/hr. PA aware of all of the above. Pt received 1 LR bolus, reece irrigated per PA, no obstruction noted irrigated easily. Mg and K replacement given as ordered by PA, electrolytes repeated at 0000 within normal limits. BP continues to be labile, titrated levophed as needed. Targeted temperature management in effect for 24hrs. Pt temp currently 96.4 on cooling blanket with goal 95-96. Chest tube to -20 dry suction, no crepitus noted.
[2021-08-20 07:44] LABS: Reflex Lactate? Lactic Acid Added
[2021-08-20 08:20] LABS: Cancel Lactic Acid Canceled
[2021-08-20] MEDS: 0.9 % Sodium Chloride Flush 3 ML SYRINGE IVFLUSH ×2 (08:48→17:25)
[2021-08-20] MEDS: Atropine Sulfate 1 MG/10 ML SYRINGE IVPUSH (09:58)
[2021-08-20] MEDS: EPINEPHrine 1 MG/10 ML SYRINGE 0.5 MG IVPUSH (10:00)
--- NOTE | 2021-08-20 10:06 | PM.CCPN ---
Subjective Subjective Date of Service: 08/20/21 Interval History: . Ms. Mixon was transferred to the ICU yesterday morning (08/19) after a cardiac arrest on the floor. The patient is an 81-year-old woman with past medical history of significant mental illness, reported to be schizophrenia.? She is a long-time resident of [facility] and [facility].? She also has HTN and HLD.? Her only prior contact with [facility] was in 2004 when she had a GI bleed. On 08/16, EMS was called to [facility] reportedly for a cardiac arrest.? On arrival of EMS at the scene, the patient was sleeping.? She responded to painful stimuli and eventually woke up.? According to the ED note, by the time EMS arrived, the patient was at her baseline, per the [facility] staff.? They reported the patient?s baseline as nonverbal, altered, combative.? The patient was BIBA to the ED for evaluation. I spoke to the patient's primary contact, which is the patient's guardian, consumer attorney Suzy Wright (home telephone number [phone]).? As far as she knows, the patient walks and talks.? She told me that the patient has significant mental illness and her mental functioning has been declining of late, and that she now has some dementia. On exam in the ED, the patient was nonverbal and in no acute distress.? Vital signs were unremarkable including a normal temperature, and sat of 94% on room air.? Physical exam was remarkable for mild peripheral edema. Labs in the ED were notable for a normal white count and moderate anemia.? Her sodium was 124, bicarb was 29, BUN/creatinine were 6/0.5, glucose was 85, albumin was 3.8.? A venous blood gas showed 7.40/57/+9.? Urinalysis showed wbc's TNTC, and 3+ leukocyte esterase, and 2+ urine bacteria, which eventually grew E coli with the and intermediate sensitivity pattern.? COVID SHAJI was negative. It was noted in the ED that at 16:35 ?patient was eating and suddenly started coughing.? Chest x-ray pending.? It is possible that patient aspirated food.? Patient's oxygen saturation dropped to 85% on room air but shortly after improved to 95%? patient speaking in full sentences.? The patient was admitted to Medicine and treated for hyponatremia.? Her UTI was treated with ceftriaxone.? The next day, the sodium was up to 132.? The patient looked better and was more alert and interactive, with some verbalizing.? The next day, the patient was perhaps slightly more verbal, but minimally so. Yesterday morning the patient was seen by Dr. Mcguire on rounds.? She was sitting up eating peaches, and reportedly looked ?well?.? About 10 minutes later, a code blue was called for unresponsiveness.? Reportedly, the patient was noted on the camera to be still.? A collection systems modeler checked on the patient and noted the patient to be unresponsive.? A nurse was called in to assess, and then a code blue was called. The patient was found cyanotic and pulseless.? Initial rhythm on the monitor was asystole.? The patient received 3 rounds of epinephrine and was intubated.? During the intubation, a large amount of food was noted in the patient's hypopharynx.? After intubation, fluid was suctioned from the trachea.? The patient regained spontaneous circulation after 9 minutes of CPR, with SR on the monitor.? She was transported to ICU In the ICU, she was unresponsive w eyes closed, and making agonal resp efforts.? HR was 61, BP 102/49 (on no meds), Sat 92% on 80% FiO2. Immediate bedside ECHO showed: - At least mild-moderate LVH, with normal LV cavity. - Normal LV fxn with no RWMAs - Probably normal RV size and fxn - No MR by color rajni - Trace TR by color rajni, with CWD 1.8m/sec CWD. - IVC measured 1.4 cm with 25% insp collapse during PPV.? RVSP estimate about 20mm. A left subclavian CVL was placed, complicated by a PTX.? A Catalino pneumothorax drainage thoracostomy was placed resulting in reexpansion of the lung.? A Scuddy sump OGT could not be advanced further than the diaphragm, suggesting a HH.? Chest CT showed that the esophagus was diffusely dilated measuring 3.5 cm; the dilated esophagus was filled with significant debris. ?The contrast instilled via the OGT was noted in the mid to distal esophagus and proximal stomach, with a moderate sized hiatal hernia. ?The OGT terminated either in the distal-most esophagus or at the GE jxn. ?The gastroesophageal junction/distal-most portion of the esophagus was severely narrowed, with significant dilatation of the remainder of the proximal esophagus; severe stricture and/or mass in that region was suspected. ?The lungs showed mild-mod emphysema with small patchy airspace opacity in the posterior RLL c/w aspiration. Later, the patient had spontaneous eye opening and began having increasingly severe myoclonic jerking.? Pupils were equal, round, approximately 4 mm.? She remained unresponsive.? Ultimately the myoclonic jerking got so severe that we had to start propofol, accelerating the dose from 20 mcg up to 50 mcg.? Over time the FiO2 was able to be reduced to 35%/+5. Overnight course last night was uneventful.? This morning, eyes are still open, myoclonic jerking on propofol at 50 ug is a bit less than it was yesterday.? She remains completely unresponsive. ?HR 50, BP 140/47.? On AC 14/400/35%/+5, RR was 14, SpO2 100%. ?CVBG this morning showed 7.39/45/+2. ?Temp 95.7?.? U/o running 10-20cc/hr.? No airleak from the chest tube. We dropped her vent rate to 10, FiO2 to 25%.? RR was 10, Ve down to 3.9, PiP 24cm. SvO2 92%.? Not very long after she progressively dropped her heart rate into the 30s, and then her blood pressure into the 60s.? The ventilator was changed back to a an assist control rate of 14, with 40% oxygen. ?Atropine 1 mg failed to improve the heart rate or blood pressure.? She was given epinephrine 0.5 mg which successfully brought her heart rate and blood pressure up.? Ultimately she was started on dopamine with maintenance of the heart rate in the high 50s and improvement in the blood pressure to the 100-115 range systolic. LABORATORY DATA:? As below.? Notably, white count is bump to 14, BUN/creat bumped very slightly.? Lactic acid was 2.9. I reecho?d the patient this morning.? Exactly the same findings as above, except that the RV is definitely larger; the IVC is larger, measuring 2.1 cm, and the RV does not collapse with PPV. IMPRESSION: 1. 81 yo woman with significant mental illness, plus likely dementia. 2. PMHx of HTN 3. S/P cardiac arrest, undoubtedly 2? aspiration. 4. Myoclonus suggests severe brain injury 5. She has a severely dilated esophagus with a stricture or mass in the terminal esophagus.? Possibly cancer Post cardiac arrest course suggests poor prognosis.? I discussed the patient?s situation with the patient's guardian yesterday.? Discussed the situation at length today with Robyn Benton from case mnent and also with Dr. Bianchi.? All support DNR/NUT THREADER status.? Given the patient?s certain nonsurvival, I have written DNR orders (ie. no CPR, given lack of any indication, and no increase in any level of support, for the same reason). In my opinion, the best and most respectful course would be comfort measures.? Tomorrow we will proceed with petitioning the court for expanded guardianship. Discussed and examined the patient with Dr. Medellin so that we could have 2-physician documentation.? Very much appreciate his evaluation. Critical care time:? 2+ hrs. Critical Care Time (minutes): 120 Physical Exam Vital Signs: Vital Signs: Last Vital Signs Temp 95.7 F L 08/20/21 08:00 Pulse 101 H 08/20/21 10:00 Resp 14 08/20/21 10:00 BP 66/38 L 08/20/21 10:00 Pulse Ox 100 08/20/21 10:00 Body Mass Index 32.9 Objective Data Labs CBC & Chem 7: 08/20/21 05:26 08/20/21 05:26 Labs: Laboratory Results - last 24 hr 08/19/21 08/19/21 08/19/21 14:22 14:22 14:22 WBC 7.5 RBC 3.46 L Hgb 10.9 L Hct 31.5 L MCV 91.0 MCH 31.5 MCHC 34.6 RDW 14.5 Plt Count 170 MPV 8.8 L Immature Gran % (Auto) Neut % (Auto) Lymph % (Auto) [place] % (Auto) Eos % (Auto) Baso % (Auto) Lymph # (Auto) [place] # (Auto) Eos # (Auto) Baso # (Auto) Abs Immat Gran (auto) Absolute Neuts (auto) Absolute Nucleated RBC 0.000 Nucleated RBC % (auto) 0.0 VBG pH VBG pCO2 VBG pO2 VBG HCO3 VBG O2 Saturation VBG Base Excess Sodium 135 Potassium 3.2 L Chloride 99 Carbon Dioxide 25 Anion Gap 14 BUN 10 D Creatinine 0.51 Estim Creat Clear Calc 91.3 Estimated GFR > 60 Random Glucose 194 H Lactic Acid 2.4 H* Lactic Acid Fup @ 2Hr Lactic Acid Fup @ 4Hr Calcium 8.7 D Phosphorus 3.9 Magnesium 1.5 L Total Bilirubin 0.4 AST 29 D ALT 20 Alkaline Phosphatase 60 Total Creatine Kinase Troponin I High Sens B-Natriuretic Peptide Total Protein 6.0 L Albumin 3.6 08/19/21 08/19/21 08/19/21 14:22 14:22 16:52 WBC RBC Hgb Hct MCV MCH MCHC RDW Plt Count MPV Immature Gran % (Auto) Neut % (Auto) Lymph % (Auto) [place] % (Auto) Eos % (Auto) Baso % (Auto) Lymph # (Auto) [place] # (Auto) Eos # (Auto) Baso # (Auto) Abs Immat Gran (auto) Absolute Neuts (auto) Absolute Nucleated RBC Nucleated RBC % (auto) VBG pH 7.34 VBG pCO2 51 VBG pO2 49 VBG HCO3 28 H VBG O2 Saturation 68.0 VBG Base Excess 1.8 Sodium Potassium Chloride Carbon Dioxide Anion Gap BUN Creatinine Estim Creat Clear Calc Estimated GFR Random Glucose Lactic Acid Lactic Acid Fup @ 2Hr 3.6 H* Lactic Acid Fup @ 4Hr Calcium Phosphorus Magnesium Total Bilirubin AST ALT Alkaline Phosphatase Total Creatine Kinase Troponin I High Sens 52.1 H* D B-Natriuretic Peptide 129 H Total Protein Albumin 08/19/21 08/20/21 08/20/21 19:07 00:02 00:02 WBC RBC Hgb Hct MCV MCH MCHC RDW Plt Count MPV Immature Gran % (Auto) Neut % (Auto) Lymph % (Auto) [place] % (Auto) Eos % (Auto) Baso % (Auto) Lymph # (Auto) [place] # (Auto) Eos # (Auto) Baso # (Auto) Abs Immat Gran (auto) Absolute Neuts (auto) Absolute Nucleated RBC Nucleated RBC % (auto) VBG pH VBG pCO2 VBG pO2 VBG HCO3 VBG O2 Saturation VBG Base Excess Sodium Potassium Chloride Carbon Dioxide Anion Gap BUN Creatinine Estim Creat Clear Calc Estimated GFR Random Glucose Lactic Acid 2.8 H* Lactic Acid Fup @ 2Hr Lactic Acid Fup @ 4Hr 4.6 H* Calcium Phosphorus Magnesium Total Bilirubin AST ALT Alkaline Phosphatase Total Creatine Kinase Troponin I High Sens 166.1 H* D B-Natriuretic Peptide Total Protein Albumin 08/20/21 08/20/21 08/20/21 00:02 05:26 05:26 WBC 14.3 H RBC 2.94 L Hgb 9.2 L Hct 27.1 L MCV 92.2 MCH 31.3 MCHC 33.9 RDW 14.6 Plt Count 171 MPV 8.8 L Immature Gran % (Auto) 0.4 Neut % (Auto) 84.9 H Lymph % (Auto) 9.[address] % (Auto) 5.3 Eos % (Auto) 0.0 Baso % (Auto) 0.1 Lymph # (Auto) 1.3 [place] # (Auto) 0.8 Eos # (Auto) 0.0 Baso # (Auto) 0.0 Abs Immat Gran (auto) 0.06 H Absolute Neuts (auto) 12.1 H Absolute Nucleated RBC 0.000 Nucleated RBC % (auto) 0.0 VBG pH VBG pCO2 VBG pO2 VBG HCO3 VBG O2 Saturation VBG Base Excess Sodium 137 136 Potassium 4.1 D 4.1 Chloride 101 101 Carbon Dioxide 26 22 Anion Gap 14 17 BUN 11 13 Creatinine 0.55 0.59 Estim Creat Clear Calc 84.7 84.1 Estimated GFR > 60 > 60 Random Glucose 127 H 144 H Lactic Acid Lactic Acid Fup @ 2Hr Lactic Acid Fup @ 4Hr Calcium 8.8 8.6 Phosphorus Magnesium Total Bilirubin 0.6 AST 24 ALT 15 Alkaline Phosphatase 44 D Total Creatine Kinase 160 H Troponin I High Sens B-Natriuretic Peptide Total Protein 5.3 L Albumin 3.1 L 08/20/21 08/20/21 08/20/21 05:26 05:26 05:26 WBC RBC Hgb Hct MCV MCH MCHC RDW Plt Count MPV Immature Gran % (Auto) Neut % (Auto) Lymph % (Auto) [place] % (Auto) Eos % (Auto) Baso % (Auto) Lymph # (Auto) [place] # (Auto) Eos # (Auto) Baso # (Auto) Abs Immat Gran (auto) Absolute Neuts (auto) Absolute Nucleated RBC Nucleated RBC % (auto) VBG pH 7.39 VBG pCO2 45 VBG pO2 43 VBG HCO3 27 H VBG O2 Saturation 64.0 VBG Base Excess 2.4 Sodium Potassium Chloride Carbon Dioxide Anion Gap BUN Creatinine Estim Creat Clear Calc Estimated GFR Random Glucose Lactic Acid 2.9 H* Lactic Acid Fup @ 2Hr Lactic Acid Fup @ 4Hr Calcium Phosphorus Magnesium Total Bilirubin AST ALT Alkaline Phosphatase Total Creatine Kinase Troponin I High Sens 104.1 H* B-Natriuretic Peptide Total Protein Albumin 08/20/21 07:55 WBC RBC Hgb Hct MCV MCH MCHC RDW Plt Count MPV Immature Gran % (Auto) Neut % (Auto) Lymph % (Auto) [place] % (Auto) Eos % (Auto) Baso % (Auto) Lymph # (Auto) [place] # (Auto) Eos # (Auto) Baso # (Auto) Abs Immat Gran (auto) Absolute Neuts (auto) Absolute Nucleated RBC Nucleated RBC % (auto) VBG pH VBG pCO2 VBG pO2 VBG HCO3 VBG O2 Saturation VBG Base Excess Sodium Potassium Chloride Carbon Dioxide Anion Gap BUN Creatinine Estim Creat Clear Calc Estimated GFR Random Glucose Lactic Acid Lactic Acid Fup @ 2Hr Cancelled Lactic Acid Fup @ 4Hr Calcium Phosphorus Magnesium Total Bilirubin AST ALT Alkaline Phosphatase Total Creatine Kinase Troponin I High Sens B-Natriuretic Peptide Total Protein Albumin Microbiology Microbiology Results: Microbiology 08/16/21 15:36 Blood - Venous Blood Culture - Preliminary No growth after 48 hours. 08/16/21 15:33 Blood - Venous Blood Culture - Preliminary No growth after 48 hours. 08/16/21 14:12 Urine Catheterized - Straight Catheter Urine Culture - Final Escherichia coli Quality Stroke Does the patient have a stroke diagnosis?: No VTE Prior VTE?: No VTE Risk Level:: Medical - moderate - high VTE Device Contraindication: Treatment Not Indicated VTE Drug Contraindication: N/A - Med Ordered Critical Care Time Critical Care Time (minutes): 120
[2021-08-20] MEDS: EPINEPHrine 1 MG/ML VIAL IVPUSH (10:33)
[2021-08-20] MEDS: DOPamine HCL/D5W 400 MG/250 ML PLAST..BAG 16.82 MG IVCONT (10:39)
--- NOTE | 2021-08-20 11:00 | MHC.CM.PN ---
Addendum entered by Robyn Benton 08/20/21 15:39: Received callback from Attamish Wright, pt's legal guardian: she states she will not be petitioning the court for a PIT WORKER POWER SHOVEL addendum to the guardianship as she is a volunteer guardian and therefore not subject to the same service criteria as a compensated guardian. She states [facility] will need to contact the hospital probation worker ([employer]) for any PIT WORKER POWER SHOVEL addendum. Call placed to Atty Diana Cr: brief message left re: situation and requesting urgent callback. Discussed aspects of this case in detail with pt's MD and he is aware of care direction/proceedings. Original Note: Call placed to pt's legal guardian, Suzy Mercedesi. L/M for callback. Per discussion with MD, pt is actively dying on the vent after being resuscitated and then intubated on 08/19. MD has discussed pt's prognosis with Ms. Wright on 08/19 and she is planning on obtaining a PIT WORKER POWER SHOVEL determination from the court on 08/21, however, pt will likely prior to court intervention. MD will discuss case with a second MD - his clinical findings are that there are no other care interventions that will support life as pt is actively dying. Will await call back from Attamish Wright to update her on pt's status. Call placed to [facility] - spoke with RN who states pt used to like to listen to soft music or the radio. Info given to ICU for pt comfort
--- NOTE | 2021-08-20 11:26 | PC.NURSE ---
Patient remains intubated. Levophed continues at 0.03mcg/kg/min MD arrived this AM and decreased vent set rate and FiO2 from 14 and 35% to 8 and 21%. Propofol stopped. Patient not breathing over the vent. Myoclonus twitching continued. 1g IV Dilantin given as ordered. Myoclonus twitching subsided. 0955 extreme ken noted on monitor, HR 20s. BP 60s/20s. Team to the room. Amp atropine given per MD order. HR 30s-40s. Recycled BP unchanged. Half amp Epi given per MD order. STAT PCXR obtainedto eval PTHx. Confirmed no issue on film per MD. HR up to 100s, with extremely high BP after half amp Epi, but vitals slowly decreasing with each BP check (q1min) MD ordered Dopamine infusion. But also ordered andother 0.1mg of Epinephrine until Dopamine would be started. Dopamine hung at 5mcg/kg/min. Levophed remained unchanged throughout. Myclonus twitching again noted and sustained, preventing adequate ventilation and oxygenation. MD ordered restart of Propofol at 20mcg/kg/min instead of 50mcg/kg/min. Conversation between MD and case management. Plan to not advance any care at this point. Dr Canales to place DNR order into [facility].
--- NOTE | 2021-08-20 13:49 | PM.CNPUL ---
History of Present Illness History of Present Illness Consult date: 08/20/21 Chief complaint: AMS Narrative: This is an inpatient pulmonary consultation. The patient is an 81-year-old woman who was at baseline nonverbal, with a history of mental retardation and schizophrenia who apparently was in her usual state health until she had collapse in her residence. EMS was called to the scene in at that point she woke up and she was brought to the [facility] ED for further evaluation. She was found to be hyponatremic and also had a UTI. Apparently she was doing well recovering in the hospital when she became unresponsive. The patient required ACLS protocol and ultimately intubated. It was noted she had a lot of food that was suctioned out of her airway concerning for an aspiration event. The patient did undergo a CT scan of the chest which I personally reviewed demonstrating a very dilated esophagus with an area of stenosis concerning for either a malignant process or a very severe stricture. In addition to that the CT scan did demonstrate multiple pulmonary nodules concerning for malignancy in this case metastatic disease. In the unit she has been maintained on the ventilator. She did spend 24 hours in the hypothermic protocol and currently is on vasopressor therapy to maintain her blood pressure and heart rate. She is continues to be sedated on fentanyl and propofol. She has had significant amount of mild clonus in therefore she was started on Dilantin for potential seizure activity. I did evaluate the patient the bedside. She does have mild clonus present. The current vent settings were AC 450 with respiratory rate of 14 and a FiO2 of .35. She was hypoxic in the high 70s of therefore increase her FiO2 to 45. The patient was placed on pressure support ventilation 10/5 and she maintain a respiratory rate of 14 with a tidal volume of 400. I did increase the sensitivity of the ventilator to 3 to make sure that it was not activated by the myoclonus itself. At this point it is clear that the patient is able to maintain ventilation and there was no evidence for brain . 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 As far as her blood work there is evidence of myocardial infarction and also evidence of lactic acidosis from poor perfusion. Review of Systems Review of Systems: Yes unobtainable due to endotracheal tube and Unobtainable due to mental condition PMFSH Past Medical History Medical History (Updated 08/20/21 @ 14:03 by Daniel Medellin MD) Acute respiratory failure Autoimmune hemolytic anemia COPD (chronic obstructive pulmonary disease) Esophageal obstruction Hyperlipidemia Hypertension Myocardial infarction Schizophrenia Social History Social History Household Members: None Housing: Shelter Do you presently have visiting nurse or other home services: No Unable to assess alcohol history related to: Unknown Patient Tobacco Use Status: Tobacco use Unknown Advance Directives Date on File: 08/16/21 service: No Current occupational status: disabled Meds Allergies Allergy/AdvReac Type Severity Reaction Status Date / Time No Known Allergies Allergy Unverified 08/16/21 13:24 Active Medications: Current Medications Acetaminophen (Acetaminophen 325 Mg Tablet) 650 mg PO Q6H PRN PRN Reason: Pain, Mild (Pain Scale 1-3) Last Admin: 08/18/21 16:10 Dose: 650 mg Documented by: Acetaminophen (Acetaminophen 325 Mg Tablet) 650 mg PO TID [facility] Last Admin: 08/20/21 08:32 Dose: Not Given Documented by: Albuterol Sulfate (Albuterol Sulfate 90 Mcg 8 Gm Inhaler) 1 puff INHALE Q6H PRN PRN Reason: Shortness Of Breath Or Wheezing Amlodipine Besylate (Amlodipine Besylate 5 Mg Tablet) 5 mg PO DAILY [facility]; Protocol Last Admin: 08/20/21 08:33 Dose: Not Given Documented by: Benztropine Mesylate (Benztropine Mesylate 0.5 Mg Tablet) 0.5 mg PO DAILY [facility] Last Admin: 08/20/21 08:33 Dose: Not Given Documented by: Enoxaparin Sodium (Enoxaparin Sodium 40 Mg/0.4 Ml Syringe) 40 mg SUBCUT Q24H [facility] Last Admin: 08/19/21 20:12 Dose: 40 mg Documented by: Gabapentin (Gabapentin 400 Mg Capsule) 400 mg PO BID [facility] Last Admin: 08/20/21 08:33 Dose: Not Given Documented by: Ceftriaxone Sodium 1 gm/ (Sodium Chloride) 50 mls @ 100 mls/hr IV Q24H [facility] Last Infusion: 08/19/21 15:29 Dose: Infused Documented by: Norepinephrine Bitartrate (Levophed) 8 mg in 250 mls @ 0 mls/hr IVCONT .Q0M [facility]; Protocol Last Titration: 08/20/21 04:47 Dose: 0.03 mcg/kg/min, 4.44 mls/hr Documented by: Propofol (Diprivan) 1,000 mg in 100 mls @ 0 mls/hr IVCONT .Q0M [facility]; Protocol Last Titration: 08/20/21 11:20 Dose: 20 mcg/kg/min, 9.47 mls/hr Documented by: Valproic Acid 250 mg/ Sodium (Chloride) 102.5 mls @ 100 mls/hr IV Q6H [facility] Last Infusion: 08/20/21 10:29 Dose: Infused Documented by: Lactated Ringer's (Lr) 1,000 mls @ 150 mls/hr IVCONT .Q6H40M [facility] Last Infusion: 08/20/21 10:15 Dose: 0 mls/hr Documented by: Fentanyl (Sublimaze/Ns) 1,000 mcg in 100 mls @ 0 mls/hr IVCONT .Q0M [facility]; Protocol Last Titration: 08/20/21 01:18 Dose: 0 mcg/hr, 0 mls/hr Documented by: Dopamine HCl/Dextrose () 400 mg in 250 mls @ 0 mls/hr IVCONT .Q0M [facility]; Protocol Last Admin: 08/20/21 10:39 Dose: 5 mcg/kg/min, 16.82 mls/hr Documented by: Lactulose (Lactulose 20 Gm/30 Ml Solution) 30 gm PO DAILY [facility] Last Admin: 08/20/21 08:33 Dose: Not Given Documented by: Metoprolol Succinate (Metoprolol Succinate Er 100 Mg Tab.Er.24h) 200 mg PO DAILY [facility]; Protocol Last Admin: 08/20/21 08:33 Dose: Not Given Documented by: Naloxone HCl (Naloxone Hcl 0.4 Mg/Ml Vial) 0.2 mg IVPUSH Q2M PRN PRN Reason: Excessive sedation or RR < 8 Olanzapine (Olanzapine 10 Mg Tablet) 20 mg PO BEDTIME [facility] Last Admin: 08/19/21 20:33 Dose: Not Given Documented by: Ondansetron HCl (Ondansetron Hcl 4 Mg/2 Ml Vial) 4 mg IVPUSH Q8H PRN PRN Reason: Nausea and Vomiting Pantoprazole Sodium (Pantoprazole Sodium 40 Mg/10 Ml Vial) 40 mg IVPUSH DAILY@0630 [facility] Last Admin: 08/20/21 05:29 Dose: 40 mg Documented by: Pharmacy Consult (Consult Rx Perform Med Rec) 1 each MISCELLANE ONCE PRN PRN Reason: Consult order Polyethylene Glycol (Polyethylene Glycol 3350 17 Gm Powd.Pack) 17 gm PO DAILY [facility] Last Admin: 08/20/21 08:33 Dose: Not Given Documented by: Sodium Chloride (0.9 % Sodium Chloride Flush 3 Ml Syringe) 3 ml IVFLUSH QSHIFT [facility] Last Admin: 08/20/21 08:48 Dose: 3 ml Documented by: Venlafaxine HCl (Venlafaxine Hcl Er 150 Mg Cap.Er.24h) 150 mg PO DAILY [facility] Last Admin: 08/20/21 08:33 Dose: Not Given Documented by: Home Medications Medication Instructions Recorded Confirmed Last Taken Type acetaminophen 325 mg tablet 650 mg PO TID 08/16/21 08/16/21 08/16/21 History (Tylenol) albuterol sulfate 90 mcg/actuation 1 puff INHALATION Q6H PRN 08/16/21 08/16/21 Unknown History aerosol inhaler (ProAir HFA) amlodipine 5 mg tablet (Norvasc) 5 mg PO DAILY 08/16/21 08/16/21 08/16/21 History benztropine 0.5 mg tablet 0.5 mg PO DAILY 08/16/21 08/16/21 08/16/21 History cholecalciferol (vitamin D3) 1,250 1,250 mcg PO QMONTH 08/16/21 08/16/21 08/06/21 History mcg (50,000 unit) capsule divalproex 500 mg tablet,delayed 500 mg PO BID 08/16/21 08/16/21 08/16/21 History release gabapentin 400 mg capsule 400 mg PO BID 08/16/21 08/16/21 08/16/21 History lactulose 10 gram/15 mL oral 45 ml PO DAILY 08/16/21 08/16/21 08/16/21 History solution (Enulose) metoprolol succinate 200 mg 200 mg PO DAILY 08/16/21 08/16/21 08/16/21 History tablet,extended release 24 hr (Toprol XL) olanzapine 20 mg tablet 20 mg PO BEDTIME 08/16/21 08/16/21 08/15/21 History polyethylene glycol 3350 17 gram 17 g PO DAILY 1108/16/21 08/16/21 History oral powder packet (Miralax) venlafaxine 150 mg 150 mg PO DAILY 08/16/21 08/16/21 08/16/21 History capsule,extended release 24 hr Physical Exam Vital Signs: Vital Signs: Last Vital Signs Temp 95 F L 08/20/21 13:00 Pulse 55 08/20/21 13:00 Resp 20 08/20/21 13:00 BP 83/46 L 08/20/21 13:00 Pulse Ox 100 08/20/21 13:00 Body Mass Index 32.9 Const: General: patient obtunded Orientation/consciousness: patient obtunded Eyes: EOM: Nystagmus present Neck: Neck: Yes normal visual inspection, Yes full ROM and Yes no lymphadenopathy Chest: Chest palpation & inspection: normal inspection of the chest Resp: Auscultation: diminished lung sounds Cardio: Rate: regular rate Rhythm: regular rhythm Heart sounds: S1 normal heart sound present and S2 normal heart sound present GI: Palpation (GI): Soft to palpation and nontender Auscultation: normal bowel sounds : General: Yes no CVA tenderness Back/Spine/Pelvis: Back: no CVA tenderness Skin: General skin exam: rashes and/or lesions noted Neuro: General: patient obtunded Cranial nerves: Yes Nystagmus present Comatose Patient: No decerebrate rigidity, No decorticate rigidity, No response to noxious stimuli present and other (myoclonus) Results Laboratory Findings CBC and BMP: 08/20/21 05:26 08/20/21 05:26 Abnormal lab findings: Abnormal Labs 08/16/21 08/16/21 08/16/21 14:09 14:09 14:12 WBC RBC 3.43 L Hgb 10.7 L Hct 30.1 L MCHC 35.5 H MPV 9.2 L Immature Gran % (Auto) 1.0 H Neut % (Auto) Lymph % (Auto) Abs Immat Gran (auto) 0.06 H Absolute Neuts (auto) VBG HCO3 Sodium 124 L Potassium Chloride 87 L Carbon Dioxide BUN 6 L Creatinine POC Glucose Random Glucose Lactic Acid Lactic Acid Fup @ 2Hr Lactic Acid Fup @ 4Hr Magnesium Total Creatine Kinase Troponin I High Sens B-Natriuretic Peptide Total Protein 6.3 L Albumin Urine Protein 1+ H Urine Blood 1+ H Urine Nitrite POS H Ur Leukocyte Esterase 3+ H Urine RBC 15-29 H Urine WBC TNTC H 08/16/21 08/16/21 08/16/21 15:35 15:40 20:28 WBC RBC Hgb Hct MCHC MPV Immature Gran % (Auto) Neut % (Auto) Lymph % (Auto) Abs Immat Gran (auto) Absolute Neuts (auto) VBG HCO3 36 H Sodium 125 L Potassium Chloride 86 L Carbon Dioxide 30 H BUN 7 L Creatinine POC Glucose 117 H Random Glucose Lactic Acid Lactic Acid Fup @ 2Hr Lactic Acid Fup @ 4Hr Magnesium Total Creatine Kinase Troponin I High Sens B-Natriuretic Peptide Total Protein Albumin Urine Protein Urine Blood Urine Nitrite Ur Leukocyte Esterase Urine RBC Urine WBC 08/16/21 08/17/21 08/17/21 22:30 07:33 07:33 WBC RBC 3.59 L Hgb 11.3 L Hct 32.5 L MCHC MPV 8.9 L Immature Gran % (Auto) Neut % (Auto) Lymph % (Auto) Abs Immat Gran (auto) Absolute Neuts (auto) VBG HCO3 Sodium 129 L 132 L Potassium Chloride 90 L 94 L Carbon Dioxide 31 H BUN 7 L 8 L Creatinine 0.49 L POC Glucose Random Glucose Lactic Acid Lactic Acid Fup @ 2Hr Lactic Acid Fup @ 4Hr Magnesium Total Creatine Kinase Troponin I High Sens B-Natriuretic Peptide Total Protein Albumin Urine Protein Urine Blood Urine Nitrite Ur Leukocyte Esterase Urine RBC Urine WBC 08/17/21 08/18/21 08/18/21 14:29 05:27 05:27 WBC RBC 3.48 L Hgb 10.9 L Hct 31.4 L MCHC MPV 8.7 L Immature Gran % (Auto) Neut % (Auto) Lymph % (Auto) Abs Immat Gran (auto) Absolute Neuts (auto) VBG HCO3 Sodium 133 L 133 L Potassium Chloride 94 L 94 L Carbon Dioxide 31 H BUN 7 L 6 L Creatinine 0.46 L POC Glucose Random Glucose 119 H Lactic Acid Lactic Acid Fup @ 2Hr Lactic Acid Fup @ 4Hr Magnesium Total Creatine Kinase Troponin I High Sens B-Natriuretic Peptide Total Protein Albumin Urine Protein Urine Blood Urine Nitrite Ur Leukocyte Esterase Urine RBC Urine WBC 08/19/21 08/19/21 08/19/21 14:22 14:22 14:22 WBC RBC 3.46 L Hgb 10.9 L Hct 31.5 L MCHC MPV 8.8 L Immature Gran % (Auto) Neut % (Auto) Lymph % (Auto) Abs Immat Gran (auto) Absolute Neuts (auto) VBG HCO3 Sodium Potassium 3.2 L Chloride Carbon Dioxide BUN Creatinine POC Glucose Random Glucose 194 H Lactic Acid 2.4 H* Lactic Acid Fup @ 2Hr Lactic Acid Fup @ 4Hr Magnesium 1.5 L Total Creatine Kinase Troponin I High Sens B-Natriuretic Peptide Total Protein 6.0 L Albumin Urine Protein Urine Blood Urine Nitrite Ur Leukocyte Esterase Urine RBC Urine WBC 08/19/21 08/19/21 08/19/21 14:22 14:22 16:52 WBC RBC Hgb Hct MCHC MPV Immature Gran % (Auto) Neut % (Auto) Lymph % (Auto) Abs Immat Gran (auto) Absolute Neuts (auto) VBG HCO3 28 H Sodium Potassium Chloride Carbon Dioxide BUN Creatinine POC Glucose Random Glucose Lactic Acid Lactic Acid Fup @ 2Hr 3.6 H* Lactic Acid Fup @ 4Hr Magnesium Total Creatine Kinase Troponin I High Sens 52.1 H* D B-Natriuretic Peptide 129 H Total Protein Albumin Urine Protein Urine Blood Urine Nitrite Ur Leukocyte Esterase Urine RBC Urine WBC 08/19/21 08/20/21 08/20/21 19:07 00:02 00:02 WBC RBC Hgb Hct MCHC MPV Immature Gran % (Auto) Neut % (Auto) Lymph % (Auto) Abs Immat Gran (auto) Absolute Neuts (auto) VBG HCO3 Sodium Potassium Chloride Carbon Dioxide BUN Creatinine POC Glucose Random Glucose Lactic Acid 2.8 H* Lactic Acid Fup @ 2Hr Lactic Acid Fup @ 4Hr 4.6 H* Magnesium Total Creatine Kinase Troponin I High Sens 166.1 H* D B-Natriuretic Peptide Total Protein Albumin Urine Protein Urine Blood Urine Nitrite Ur Leukocyte Esterase Urine RBC Urine WBC 08/20/21 08/20/21 08/20/21 00:02 05:26 05:26 WBC 14.3 H RBC 2.94 L Hgb 9.2 L Hct 27.1 L MCHC MPV 8.8 L Immature Gran % (Auto) Neut % (Auto) 84.9 H Lymph % (Auto) 9.3 L Abs Immat Gran (auto) 0.06 H Absolute Neuts (auto) 12.1 H VBG HCO3 Sodium Potassium Chloride Carbon Dioxide BUN Creatinine POC Glucose Random Glucose 127 H 144 H Lactic Acid Lactic Acid Fup @ 2Hr Lactic Acid Fup @ 4Hr Magnesium Total Creatine Kinase 160 H Troponin I High Sens B-Natriuretic Peptide Total Protein 5.3 L Albumin 3.1 L Urine Protein Urine Blood Urine Nitrite Ur Leukocyte Esterase Urine RBC Urine WBC 08/20/21 08/20/21 08/20/21 05:26 05:26 05:26 WBC RBC Hgb Hct MCHC MPV Immature Gran % (Auto) Neut % (Auto) Lymph % (Auto) Abs Immat Gran (auto) Absolute Neuts (auto) VBG HCO3 27 H Sodium Potassium Chloride Carbon Dioxide BUN Creatinine POC Glucose Random Glucose Lactic Acid 2.9 H* Lactic Acid Fup @ 2Hr Lactic Acid Fup @ 4Hr Magnesium Total Creatine Kinase Troponin I High Sens 104.1 H* B-Natriuretic Peptide Total Protein Albumin Urine Protein Urine Blood Urine Nitrite Ur Leukocyte Esterase Urine RBC Urine WBC Microbiology: Microbiology 08/16/21 15:36 Blood - Venous Blood Culture - Preliminary No growth after 48 hours. 08/16/21 15:33 Blood - Venous Blood Culture - Preliminary No growth after 48 hours. 08/16/21 14:12 Urine Catheterized - Straight Catheter Urine Culture - Final Escherichia coli Assessment and Plan (1) Acute respiratory failure: Status: Acute (2) Shock: Status: Acute (3) Cardiac arrest: Status: Acute (4) Aspiration into airway: Status: Acute (5) Pulmonary nodules: Status: Acute (6) Esophageal obstruction: Status: Acute The patient is gravely ill after her cardiac arrest. She has evidence of multiorgan failure with evidence of hypotension, bradycardia and hypoxia. The patient has significant myoclonus which may be the result of on oxygen brain injury during her cardiac arrest. She has just recently been we warmed after undergoing the hypothermia protocol. Although the patient is gravely ill based on the evaluation she is not brain as she is still struggling the ventilator. The other findings on the CT scan are very concerning including the very dilated esophagus suggesting the possibility of a esophageal obstruction that is likely the culprit in the aspiration events. In addition to that she does have concerning nodules which could represent a metastatic type of lesion. Based on my evaluation the patient carries a very poor prognosis. Recommendations: -goals of care should be discussed with the family or the guardian at this time. The patient carries a very poor prognosis and is unlikely to improve. -continue antibiotic therapy to cover for aspiration pneumonia -bronchial aspirate for culture -Continue ventilator support while the patient can not protect her airway -the patient is too sick for any evaluation for the pulmonary nodules which appeared to be very concerning -Critical condition - Procedures Date of Service Date of Service: 08/20/21
[2021-08-20] MEDS: cefTRIAXone sodium 1 GM in 0.9 % Sodium Chloride 50 ML IV (14:57)
--- NOTE | 2021-08-20 15:42 | PC.RT ---
08/20/2021 At approximately 10:30 AM while tending to pt. in 252, RT called to bedside for pt. with bradycardia with heart rate in 20's-30's. No changes to breath sounds upon auscultation. CXR ordered which showed no new PTX. Informed by RN that MD had made changes to ventilator prior to bradycardia episode. Pt. placed back on previous vent settings by RT.
[2021-08-20] MEDS: propofoL 1,000 MG/100 ML VIAL 14.21 MG IVCONT ×2 (17:52→23:17)
[2021-08-20] MEDS: Enoxaparin Sodium 40 MG/0.4 ML SYRINGE SUBCUT (20:39)
[2021-08-21] VITALS (31 sets, daily range): BP systolic 82–151; BP diastolic 26–117; PULSE 70–105; RESP 12–37; TEMP 30–38; O2SAT 95–100; BMI 33.3
--- NOTE | 2021-08-21 | ECG_ITS ---
Test Reason : tachycardia Blood Pressure : / mmHG Vent. Rate : 107 BPM Atrial Rate : 107 BPM P-R Int : 180 ms QRS Dur : 076 ms QT Int : 350 ms P-R-T Axes : 079 002 -42 degrees QTc Int : 467 ms Poor data quality Normal sinus rhythm artifact Nonspecific T wave abnormality Abnormal ECG When compared with ECG of 16-AUG-2021 14:11, Heart rate has increased T wave amplitude has decreased in Anterolateral leads Inferior leads Referred By: Stepan White Electronically Signed By:ZAHRA TOWNSEND MD
[2021-08-21] MEDS: DOPamine HCL/D5W 400 MG/250 ML PLAST..BAG 16.82 MG IVCONT ×2 (02:17→17:21)
[2021-08-21] MEDS: propofoL 1,000 MG/100 ML VIAL 18.94 MG IVCONT (05:03)
[2021-08-21] MEDS: Midazolam HCl/PF 2 MG/2 ML VIAL 5 MG IVPUSH (06:46)
[2021-08-21] MEDS: Pantoprazole Sodium 40 MG/10 ML VIAL IVPUSH (06:48)
[2021-08-21 07:06] LABS: VBG Base Excess 3.3 mmol/L; VBG HCO3 28 mmol/L (22-26); VBG pCO2 42 mmHg; VBG pH 7.42 (7.32-7.43); VBG pO2 63 mmHg
[2021-08-21 07:21] LABS: Lactic Acid 0.8 mmol/L (0.5-2.0)
[2021-08-21 07:28] LABS: Anion Gap 12 (12-20); Blood Urea Nitrogen 18 mg/dL (9-16); Carbon Dioxide 25 mmol/L (22-29); Chloride 101 mmol/L (96-108); Estimated Glomerular Filt Rate > 60; Glucose Random 117 mg/dL (60-115); Magnesium 1.6 mg/dL (1.6-2.6); Potassium 3.5 mmol/L (3.3-5.1); Sodium 134 mmol/L (135-145)
[2021-08-21] MEDS: LORazepam 2 MG/ML VIAL 4 MG IVPUSH (08:00)
[2021-08-21] MEDS: Midazolam HCl/NS 50 MG/50 ML PLAST..BAG IVCONT (08:10)
[2021-08-21] MEDS: 0.9 % Sodium Chloride Flush 3 ML SYRINGE IVFLUSH ×2 (08:11→16:10)
[2021-08-21 09:01] LABS: Venous Blood Gas Refer to POC result
--- NOTE | 2021-08-21 11:12 | EEG_ITS ---
This is a 16-channel EEG performed in ICU. The patient is reported intubated and sedated. Almost all tracing is similar including generalized epileptiform discharges with intermittent slowing or second or half a second in between, every few seconds or every second. At times, it seems to be slightly more pronounced in left hemisphere. Cardiac lead revealed arrhythmias that I could not define further. Cardiac rate was at least as 70 per minute. Photic stimulation was not performed. IMPRESSION: Generalized status epilepticus. This was discussed with ICU attending. MD MARINA Turner/BOGDAN / [id number]
[2021-08-21] MEDS: propofoL 1,000 MG/100 ML VIAL 14.21 MG IVCONT ×2 (11:37→17:19)
--- NOTE | 2021-08-21 13:01 | MHC.CM.PN ---
Medical certificate for guardianship was signed by wood calker today to be used by [facility] [place] legal team to petition the court for guardian that can appropriately meet patients care needs. cm to cont. to follow.
[2021-08-21] MEDS: cefTRIAXone sodium 1 GM in 0.9 % Sodium Chloride 50 ML IV (16:09)
[2021-08-21] MEDS: Midazolam HCl/NS 50 MG/50 ML PLAST..BAG 6 MG IVCONT ×2 (16:25→22:32)
--- NOTE | 2021-08-21 16:30 | PM.CCPN ---
Subjective Subjective Date of Service: 08/21/21 Interval History: 81-year-old female with schizoaffective disorder with declining mental status and somewhat varying reports but the consensus seems to be that she is nonverbal brought in because they thought that there was an arrest but apparently the no she was somewhat obtunded but arousable to deep pain and then gradual return of mental status it almost sounds as though is to story of somebody who might have been postictal which is certainly not impossible and was brought to the ER and was it a pretty much back to baseline status and then apparently there was a witnessed aspiration when she was eating and then she was found by a 1 of the ancillary personnel up stairs on the floor again to be unresponsive and there was about a 12 min. CPR including intubation and spontaneous circulation was restored a so were not sure of the nature of the witnessed arrest there but the 1st rhythm that was noted was was asystole so transferred here apparently thought to be myoclonic overnight but she was in full status epilepticus which did respond to IV Versed and then subsequently Ativan and because of continued breakthrough and already on valproic acid I simply added a g of Keppra as a loading dose and are maintaining her on propofol and Versed drip as seizure prophylaxis and an EEG was done to establish a degree of anoxic encephalopathy to help us prognosticate but clearly these events do not myrna well for meaningful recovery and was already in what was already a very compromised mental status and decline She was on atypical antipsychotics and Lamictal all in addition Had a central line placed via left subclavian vein with a resulting pneumothorax which was treated with a pigtail catheter with with reasonably good re-expansion of the left lung Critical Care Time (minutes): 45 Physical Exam Vital Signs: Vital Signs: Last Vital Signs Temp 98.8 F 08/21/21 16:00 Pulse 85 08/21/21 16:00 Resp 15 08/21/21 16:00 BP 143/46 H 08/21/21 16:15 Pulse Ox 96 08/21/21 16:00 Body Mass Index 33.3 She is sedated and intubated completely ventilator dependent in normal sinus rhythm stable vital signs oxygen saturation 98% and she has diffuse nonspecific ST-T changes but no measurable QT prolongation Never had any witnessed ventricular dysrhythmia Lungs with some coarse bilateral ventilatory sounds but no clearly is not making any spontaneous effort on her own and baseline bedside could echo shows globally normal systolic function of both left and right ventricle with no pericardial disease and no primary valve disease Neurologically she has got small pinpoint nonreactive pupils and bilateral upgoing toes Skin is intact no livedo no acrocyanosis Abdomen is soft no organomegaly Objective Data Labs CBC & Chem 7: 08/20/21 05:26 08/21/21 07:01 Labs: Laboratory Results - last 24 hr 08/21/21 08/21/21 08/21/21 07:00 07:01 07:01 VBG pH 7.42 VBG pCO2 42 VBG pO2 63 VBG HCO3 28 H VBG O2 Saturation 88.0 VBG Base Excess 3.3 Sodium 134 L Potassium 3.5 Chloride 101 Carbon Dioxide 25 Anion Gap 12 BUN 18 H Creatinine 0.49 L Estim Creat Clear Calc 102.0 Estimated GFR > 60 Random Glucose 117 H Lactic Acid 0.8 Calcium 9.0 Magnesium 1.6 Microbiology Microbiology Results: Microbiology 08/16/21 15:36 Blood - Venous Blood Culture - Preliminary No growth after 48 hours. 08/16/21 15:33 Blood - Venous Blood Culture - Preliminary No growth after 48 hours. 08/16/21 14:12 Urine Catheterized - Straight Catheter Urine Culture - Final Escherichia coli Progress Note: A&P Assessment and plan (1) Esophageal obstruction: Status: Acute (2) Pulmonary nodules: Status: Acute (3) Aspiration into airway: Status: Acute (4) Cardiac arrest: Status: Acute (5) Shock: Status: Acute (6) Acute respiratory failure: Status: Acute (7) Asystole: Status: Acute (8) Metabolic encephalopathy: Status: Acute (9) Altered mental status, unspecified: Status: Acute (10) Acute hyponatremia: Status: Acute (11) Acute UTI: Status: Acute (12) Status epilepticus: Status: Acute (13) Anoxic encephalopathy: Status: Acute Assessment and Plan: For tonight will a add loading dose of IV Keppra to the existing maintenance of valproic acid and and maintain the IV Versed sedation in addition to the propofol and watch for recurring seizure activity Overall prognosis for meaningful recovery is poor but awaiting EEG reading from our neurology consult Quality Stroke Does the patient have a stroke diagnosis?: No VTE Prior VTE?: No VTE Risk Level:: Medical - moderate - high VTE Device Contraindication: Treatment Not Indicated VTE Drug Contraindication: N/A - Med Ordered
[2021-08-21] MEDS: levETIRAcetam in NaCl (iso-os) 1,000 MG/100 ML PIGGYBACK 400 MG IV (17:14)
--- NOTE | 2021-08-21 18:13 | PC.NURSE ---
Tmax 100.4, VSS on dopamine gtt, levophed titrated off. SR on tele with BBB and 1st degree av block. Pt sedated on Propofol. weak cough gag, sluggish pupils, flaccid Jerking movements noted; md to bedside, questioning if its seizure activit- IVP versed given with good effect. IVP ativan given, and versed gtt started and titrated per MD at bedside/emar. EEG done Vent settings reaming the same- ac setting, rate 12, TV 400, peep 5, fio2 30%. U/o 10-45/hr, md aware, small smear, bath given. Updated MD from [facility]. pt repo q2hr, prevalon mattress and airloss bed used.
[2021-08-21] MEDS: Enoxaparin Sodium 40 MG/0.4 ML SYRINGE SUBCUT (19:58)
[2021-08-21] MEDS: Chlorhexidine Gluc Oral Rinse 15 ML MOUTHWASH BUCCAL (20:31)
[2021-08-21] MEDS: propofoL 1,000 MG/100 ML VIAL 16.57 MG IVCONT (22:31)
[2021-08-22] VITALS (29 sets, daily range): BP systolic 109–166; BP diastolic 24–88; PULSE 80–101; RESP 12–24; TEMP 30.2–37; O2SAT 94–100; BMI 33.2
[2021-08-22] MEDS: Albumin Human 25 % 100 ML IV ×2 (00:49→01:07)
[2021-08-22] MEDS: Furosemide 20 MG/2 ML VIAL IVPUSH (00:49)
[2021-08-22] MEDS: propofoL 1,000 MG/100 ML VIAL 18.94 MG IVCONT ×5 (03:41→23:39)
[2021-08-22] MEDS: DOPamine HCL/D5W 400 MG/250 ML PLAST..BAG 23.55 MG IVCONT ×2 (03:42→13:27)
[2021-08-22] MEDS: Midazolam HCl/NS 50 MG/50 ML PLAST..BAG 6 MG IVCONT ×3 (05:06→21:58)
[2021-08-22] MEDS: Pantoprazole Sodium 40 MG/10 ML VIAL IVPUSH (05:17)
[2021-08-22 05:41] LABS: VBG Base Excess 7.8 mmol/L; VBG HCO3 32 mmol/L (22-26); VBG pCO2 44 mmHg; VBG pH 7.46 (7.32-7.43); VBG pO2 61 mmHg
[2021-08-22 05:41] LABS: MANUAL DIFF FLAG NO
[2021-08-22 05:47] LABS: Eosinophils Percent Auto 0.7 % (0-4); Hematocrit 21.3 % (37.0-47.0); Imm Gran Abs Auto 0.05 X10*3/uL (0.00-0.03); Imm Gran Pct Auto 0.9 % (0.0-0.4); Lymphocytes Absolute Auto 1.6 X10*3/uL (1.2-4.9); Lymphocytes Percent Auto 28.2 % (20-40); Mean Corpuscular HGB Conc 32.9 g/dl (31.0-35.0); Mean Corpuscular Hemoglobin 30.6 pg (27.0-33.0); Mean Platelet Volume 8.9 fL (9.4-12.3); Monocytes Absolute Auto 0.5 X10*3/uL (0.1-1.2); Monocytes Percent Auto 8.1 % (2-11); Neutrophils Absolute Auto 3.6 x10*3/uL (2.0-8.3); Neutrophils Percent Auto 62.1 % (45-73); Platelet Count 119 X10*3/uL (160-400); Red Blood Count 2.29 X10*6/uL (4.20-5.50); White Blood Count 5.8 X10*3/uL (4.8-10.8)
[2021-08-22 05:50] LABS: INTERNATIONAL NORM RATIO 1.1 (0.9-1.1); Prothrombin Time 12.1 SEC (9.9-13.0)
[2021-08-22 05:52] LABS: Partial Thromboplastin Time 37.9 SEC (24.1-38.0)
[2021-08-22 06:17] LABS: Albumin Level 3.6 g/dL (3.5-5.0); Anion Gap 11 (12-20); Blood Urea Nitrogen 14 mg/dL (9-16); Calcium 8.9 mg/dL (8.4-10.2); Carbon Dioxide 29 mmol/L (22-29); Chloride 100 mmol/L (96-108); Creatinine Clr Calc Pharmacy 108.5; Estimated Glomerular Filt Rate > 60; Glucose Random 105 mg/dL (60-115); Magnesium 1.4 mg/dL (1.6-2.6); Phosphorus 3.2 mg/dL (2.7-4.5); Potassium 2.7 mmol/L (3.3-5.1); Sodium 137 mmol/L (135-145)
[2021-08-22 07:32] LABS: Venous Blood Gas Refer to POC result
[2021-08-22] MEDS: Magnesium Sulfate/D5W 1 GM/100 ML PIGGYBACK IV (08:02)
[2021-08-22] MEDS: KCl 40 mEq in 0.9 % Sodium Chl 40 MEQ/1,000 ML IV.SOLN 80 MEQ IVCONT ×2 (08:07→20:38)
[2021-08-22] MEDS: Potassium Chloride/H20 20 MEQ/100 ML PIGGYBACK 100 MEQ IV ×2 (08:10→09:23)
[2021-08-22] MEDS: Chlorhexidine Gluc Oral Rinse 15 ML MOUTHWASH BUCCAL ×3 (09:00→20:43)
--- NOTE | 2021-08-22 09:08 | EEG_ITS ---
This is a 16-channel digital portable EEG performed in ICU. The patient is intubated, sedated, and unresponsive. The EEG is comprised of almost continuous epileptic generalized discharges happening every second or a few seconds followed by significant reduction of amplitude. There seems to be slight predominance from right side. This EEG is similar to the one noted yesterday. IMPRESSION: This EEG is similar to yesterday's EEG revealing generalized epileptic discharges. Overall EEG picture is suggestive of underlying diffuse encephalopathy, probably of anoxic type. MD MARINA Turner/BOGDAN / [id number]
--- NOTE | 2021-08-22 09:20 | MHC.CLN ---
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
[2021-08-22] MEDS: Valproic Acid (as Sodium Salt) 500 MG in Dextrose 5 % 50 ML 55 MG IV (12:26)
--- NOTE | 2021-08-22 14:04 | PM.NEUROCN ---
History of Present Illness Data of Consult Service Date: 08/22/21 Primary Care Provider: Yoselyn Barbosa MD [facility] Reason for consult: Status epilepticus 81 years old woman with underlying mental disorder and minimal verbal output who became unresponsive at home brought to hospital and had a complicated course. Details were described in other notes. She became unresponsive on the floor and was coded. After that she was intubated and brought to ICU and was noted to have clonus or seizure-like movements. An EEG was done yesterday that I read which revealed generalized status epilepticus. It was repeated today and again showed the same activity. She has been getting Depakote as baseline any yesterday received dose of Keppra. She was sedated and intubated. [facility] Past Medical History Medical History (Updated 08/21/21 @ 16:48 by Stepan White MD) Acute respiratory failure Autoimmune hemolytic anemia COPD (chronic obstructive pulmonary disease) Esophageal obstruction Hyperlipidemia Hypertension Myocardial infarction Schizophrenia Social History Social History Household Members: None Housing: [facility] Do you presently have visiting nurse or other home services: No Unable to assess alcohol history related to: Unknown Patient Tobacco Use Status: Tobacco use Unknown Advance Directives Date on File: 08/16/21 service: No Current occupational status: disabled Meds Allergies Allergy/AdvReac Type Severity Reaction Status Date / Time No Known Allergies Allergy Unverified 08/16/21 13:24 Active Medications: Current Medications Acetaminophen (Acetaminophen 325 Mg Tablet) 650 mg PO Q6H PRN PRN Reason: Pain, Mild (Pain Scale 1-3) Last Admin: 08/18/21 16:10 Dose: 650 mg Documented by: Acetaminophen (Acetaminophen 325 Mg Tablet) 650 mg PO TID ON LICENSE OF [facility] Last Admin: 08/22/21 12:43 Dose: Not Given Documented by: Albuterol Sulfate (Albuterol Sulfate 90 Mcg 8 Gm Inhaler) 1 puff INHALE Q6H PRN PRN Reason: Shortness Of Breath Or Wheezing Benztropine Mesylate (Benztropine Mesylate 0.5 Mg Tablet) 0.5 mg PO DAILY ON LICENSE OF [facility] Last Admin: 08/22/21 08:59 Dose: Not Given Documented by: Chlorhexidine Gluconate (Chlorhexidine Gluc Oral Rinse 15 Ml Mouthwash) 15 ml BUCCAL TID ON LICENSE OF [facility] Last Admin: 08/22/21 09:00 Dose: 15 ml Documented by: Enoxaparin Sodium (Enoxaparin Sodium 40 Mg/0.4 Ml Syringe) 40 mg SUBCUT Q24H SAM Last Admin: 08/21/21 19:58 Dose: 40 mg Documented by: Ceftriaxone Sodium 1 gm/ (Sodium Chloride) 50 mls @ 100 mls/hr IV Q24H ON LICENSE OF [facility] Last Infusion: 08/21/21 16:39 Dose: Infused Documented by: Norepinephrine Bitartrate (Levophed) 8 mg in 250 mls @ 0 mls/hr IVCONT .Q0M ON LICENSE OF [facility]; Protocol Last Titration: 08/21/21 17:17 Dose: Infused Documented by: Propofol (Diprivan) 1,000 mg in 100 mls @ 0 mls/hr IVCONT .Q0M ON LICENSE OF [facility]; Protocol Last Admin: 08/22/21 13:25 Dose: 40 mcg/kg/min, 18.94 mls/hr Documented by: Fentanyl (Sublimaze/Ns) 1,000 mcg in 100 mls @ 0 mls/hr IVCONT .Q0M ON LICENSE OF [facility]; Protocol Last Titration: 08/21/21 17:18 Dose: Infused Documented by: Dopamine HCl/Dextrose () 400 mg in 250 mls @ 0 mls/hr IVCONT .Q0M ON LICENSE OF [facility]; Protocol Last Admin: 08/22/21 13:27 Dose: 7 mcg/kg/min, 23.55 mls/hr Documented by: Midazolam HCl (Versed) 50 mg in 50 mls @ 2 mls/hr IVCONT .Q24H ON LICENSE OF [facility] Last Admin: 08/22/21 13:26 Dose: 6 mg/hr, 6 mls/hr Documented by: Potassium Chloride/Sodium Chloride () 40 meq in 1,000 mls @ 80 mls/hr IVCONT .[id number] ON LICENSE OF [facility] Last Admin: 08/22/21 08:07 Dose: 80 mls/hr Documented by: Levetiracetam (Keppra) 1,000 mg in 100 mls @ 400 mls/hr IV RQ8H SAM Valproic Acid 500 mg/ Dextrose 55 mls @ 55 mls/hr IV Q6H ON LICENSE OF [facility] Last Infusion: 08/22/21 13:26 Dose: Infused Documented by: Lactulose (Lactulose 20 Gm/30 Ml Solution) 30 gm PO DAILY ON LICENSE OF [facility] Last Admin: 08/22/21 09:00 Dose: Not Given Documented by: Metoprolol Succinate (Metoprolol Succinate Er 100 Mg Tab.Er.24h) 200 mg PO DAILY ON LICENSE OF [facility]; Protocol Last Admin: 08/22/21 09:00 Dose: Not Given Documented by: Naloxone HCl (Naloxone Hcl 0.4 Mg/Ml Vial) 0.2 mg IVPUSH Q2M PRN PRN Reason: Excessive sedation or RR < 8 Olanzapine (Olanzapine 10 Mg Tablet) 20 mg PO BEDTIME ON LICENSE OF [facility] Last Admin: 08/21/21 21:02 Dose: Not Given Documented by: Pantoprazole Sodium (Pantoprazole Sodium 40 Mg/10 Ml Vial) 40 mg IVPUSH DAILY@0630 ON LICENSE OF [facility] Last Admin: 08/22/21 05:17 Dose: 40 mg Documented by: Pharmacy Consult (Consult Rx Perform Med Rec) 1 each MISCELLANE ONCE PRN PRN Reason: Consult order Polyethylene Glycol (Polyethylene Glycol 3350 17 Gm Powd.Pack) 17 gm PO DAILY ON LICENSE OF [facility] Last Admin: 08/22/21 09:01 Dose: Not Given Documented by: Sodium Chloride (0.9 % Sodium Chloride Flush 3 Ml Syringe) 3 ml IVFLUSH QSHIFT ON LICENSE OF [facility] Last Admin: 08/22/21 08:10 Dose: Not Given Documented by: Home Medications Medication Instructions Recorded Confirmed Last Taken Type acetaminophen 325 mg tablet 650 mg PO TID 08/16/21 08/16/21 08/16/21 History (Tylenol) albuterol sulfate 90 mcg/actuation 1 puff INHALATION Q6H PRN 08/16/21 08/16/21 Unknown History aerosol inhaler (ProAir HFA) amlodipine 5 mg tablet (Norvasc) 5 mg PO DAILY 08/16/21 08/16/21 08/16/21 History benztropine 0.5 mg tablet 0.5 mg PO DAILY 08/16/21 08/16/21 08/16/21 History cholecalciferol (vitamin D3) 1,250 1,250 mcg PO QMONTH 08/16/21 08/16/21 08/06/21 History mcg (50,000 unit) capsule divalproex 500 mg tablet,delayed 500 mg PO BID 08/16/21 08/16/21 08/16/21 History release gabapentin 400 mg capsule 400 mg PO BID 08/16/21 08/16/21 08/16/21 History lactulose 10 gram/15 mL oral 45 ml PO DAILY 08/16/21 08/16/21 08/16/21 History solution (Enulose) metoprolol succinate 200 mg 200 mg PO DAILY 08/16/21 08/16/21 08/16/21 History tablet,extended release 24 hr (Toprol XL) olanzapine 20 mg tablet 20 mg PO BEDTIME 08/16/21 08/16/21 08/15/21 History polyethylene glycol 3350 17 gram 17 g PO DAILY 08/16/21 08/16/21 08/16/21 History oral powder packet (Miralax) venlafaxine 150 mg 150 mg PO DAILY 08/16/21 08/16/21 08/16/21 History capsule,extended release 24 hr Physical Exam Vital Signs: Vital Signs: Last Vital Signs Temp 98.1 F 08/22/21 12:00 Pulse 80 08/22/21 13:00 Resp 12 08/22/21 13:00 BP 121/51 L 08/22/21 13:00 Pulse Ox 96 08/22/21 13:00 Body Mass Index 33.2 Neuro: Other: Limited exam as she was sedated intubated. There was no gaze deviation. She was not responsive to painful stimuli. I would did not notice any abnormal posturing. Intermittently right shoulder and arm was jerking. Plantars were flat. Results Labs CBC & Chem 7: 08/22/21 05:30 08/22/21 05:30 Labs: Short CBC 08/22/21 Range/Units 05:30 WBC 5.8 (4.8-10.8) X10*3/uL Hgb 7.0 L* D (12.0-16.0) g/dl Hct 21.3 L D (37.0-47.0) % Plt Count 119 L D (160-400) X10*3/uL BMP 08/22/21 05:30 Sodium 137 Potassium 2.7 L D Chloride 100 Carbon Dioxide 29 BUN 14 Creatinine 0.46 L Calcium 8.9 Liver Function 08/22/21 Range/Units 05:30 Albumin 3.6 (3.5-5.0) g/dL Her EEG revealed generalized epileptic discharges occurring every 2nd or every few seconds followed by significant reduction of amplitude. Microbiology Microbiology Results: Microbiology 08/16/21 15:36 Blood - Venous Blood Culture - Final No growth after 5 days. 08/16/21 15:33 Blood - Venous Blood Culture - Final No growth after 5 days. 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 At this time I recommend valproic acid 500 mg q.6 hours and levetiracetam 1000 mg 3 times a day and repeating EEG in the morning. I also recommend obtaining a noncontrast head CT to help us figure out status of her brain. Overall prognosis is quite poor. Procedures Date of Service Date of Service: 08/22/21
[2021-08-22] MEDS: levETIRAcetam in NaCl (iso-os) 1,000 MG/100 ML PIGGYBACK 400 MG IV (15:54)
[2021-08-22] MEDS: cefTRIAXone sodium 1 GM in 0.9 % Sodium Chloride 50 ML IV (15:57)
[2021-08-22] MEDS: 0.9 % Sodium Chloride Flush 3 ML SYRINGE IVFLUSH (15:57)
--- NOTE | 2021-08-22 17:11 | P.PNCC_ITS ---
Subjective Subjective Date of Service: 08/22/21 Interval History: 81-year-old female longstanding psychiatric history and schizoaffective disorder institutionalized most of her life who came in with under questionable circumstances but clearly had reduced mental status skilled nursing thought it might have been cardiac arrest but she just spontaneously started to wake up slowly and then restored the no to normal level of awaken is and she was brought in intact witnessed aspiration took place in the emergency room and when oxygenation cleared she went up to the floor and had been up there for quite a while presumably doing well and then 10 minutes after having her tray dropped off the saw her of blue and unresponsive code was called no palpable pulse no spontaneous breathing so she was intubated and CPR for 10 minutes and the may have been 10 minutes of down time before that and then spontaneous circulation was restored brought down to the ICU left subclavian central line was placed with pneumothorax requiring pigtail catheter drainage and when I came in on Saturday she was clearly in status epilepticus and for an unknown amount of time I gave her several doses because of recurrences of a benzodiazepines she responded to that and then gave her a loading dose of Keppra and that seemed to work out well but before starting her maintenance dose the following morning she had recurrent seizures and and documented status epilepticus by EEG so a more aggressive dosing of both valproic acid and Keppra were were done and she seemed to settle down because she was on a Versed drip as long with propofol and she remains intubated still with bilaterally pinpoint pupils but nonresponsive no doll's eyes no corneal reflex no gag no spontaneous breathing and bilateral Because of prolonged status epilepticus and the approximately 20 minutes of anoxic time initially we felt that this did not both well for meaningful recovery for her but she is not a multiorgan system failure all of the system seem to be fine and at the no other electrolytes metabolically she seems to be doing comfortably well Critical Care Time (minutes): 45 Physical Exam Vital Signs: Vital Signs: Last Vital Signs Temp 97.5 F 08/22/21 17:00 Pulse 87 08/22/21 17:00 Resp 12 08/22/21 17:00 BP 125/46 L 08/22/21 17:00 Pulse Ox 97 08/22/21 17:00 Body Mass Index 33.2 Unresponsive there was questionable a grimacing Trina with a with painful stimulation but certainly there was no attempted any any withdrawal the no from that noxious stimulus Neurologically otherwise we then no demonstration of of brainstem function and even certainly no response stenting verbal nature Bedside echocardiogram showed normal cardiovascular status and the lungs look relatively clear by chest x-ray there are no adventitious sounds Abdomen is benign no organomegaly Skin is intact Objective Data Labs CBC & Chem 7: 08/24/21 05:30 08/24/21 05:30 Labs: Laboratory Results - last 24 hr 08/22/21 08/22/21 08/22/21 05:30 05:30 05:30 WBC 5.8 RBC 2.29 L D Hgb 7.0 L* D Hct 21.3 L D MCV 93.0 MCH 30.6 MCHC 32.9 RDW 15.0 Plt Count 119 L D MPV 8.9 L Immature Gran % (Auto) 0.9 H Neut % (Auto) 62.1 Lymph % (Auto) 28.2 [place] % (Auto) 8.1 Eos % (Auto) 0.7 Baso % (Auto) 0.0 Lymph # (Auto) 1.6 [place] # (Auto) 0.5 Eos # (Auto) 0.0 Baso # (Auto) 0.0 Abs Immat Gran (auto) 0.05 H Absolute Neuts (auto) 3.6 Absolute Nucleated RBC 0.000 Nucleated RBC % (auto) 0.0 Smear Path Review SEE NOTE PT 12.1 INR 1.1 APTT 37.9 VBG pH VBG pCO2 VBG pO2 VBG HCO3 VBG O2 Saturation VBG Base Excess Sodium 137 Potassium 2.7 L D Chloride 100 Carbon Dioxide 29 Anion Gap 11 L BUN 14 Creatinine 0.46 L Estim Creat Clear Calc 108.5 Estimated GFR > 60 Random Glucose 105 Calcium 8.9 Phosphorus 3.2 Magnesium 1.4 L* Albumin 3.6 08/22/21 05:35 WBC RBC Hgb Hct MCV MCH MCHC RDW Plt Count MPV Immature Gran % (Auto) Neut % (Auto) Lymph % (Auto) [place] % (Auto) Eos % (Auto) Baso % (Auto) Lymph # (Auto) [place] # (Auto) Eos # (Auto) Baso # (Auto) Abs Immat Gran (auto) Absolute Neuts (auto) Absolute Nucleated RBC Nucleated RBC % (auto) Smear Path Review PT INR APTT VBG pH 7.46 H VBG pCO2 44 VBG pO2 61 VBG HCO3 32 H VBG O2 Saturation 88.0 VBG Base Excess 7.8 Sodium Potassium Chloride Carbon Dioxide Anion Gap BUN Creatinine Estim Creat Clear Calc Estimated GFR Random Glucose Calcium Phosphorus Magnesium Albumin Microbiology Microbiology Results: Microbiology 08/16/21 15:36 Blood - Venous Blood Culture - Final No growth after 5 days. 08/16/21 15:33 Blood - Venous Blood Culture - Final No growth after 5 days. 08/16/21 14:12 Urine Catheterized - Straight Catheter Urine Culture - Final Escherichia coli Progress Note: A&P Assessment and plan (1) Anoxic encephalopathy: Status: Acute (2) Status epilepticus: Status: Acute (3) Esophageal obstruction: Status: Acute (4) Pulmonary nodules: Status: Acute (5) Aspiration into airway: Status: Acute (6) Cardiac arrest: Status: Acute (7) Shock: Status: Acute (8) Acute respiratory failure: Status: Acute (9) Asystole: Status: Acute (10) Metabolic encephalopathy: Status: Acute (11) Altered mental status, unspecified: Status: Acute (12) Acute hyponatremia: Status: Acute (13) Acute UTI: Status: Acute Assessment and Plan: Stable on the ventilator with no evidence of neurologic function and therefore with a poor prognosis for recovery and still has breakthrough episodes of seizure activity currently on midazolam as well as propofol and Keppra Quality Stroke Does the patient have a stroke diagnosis?: No VTE Prior VTE?: No VTE Risk Level:: Medical - moderate - high VTE Device Contraindication: Treatment Not Indicated VTE Drug Contraindication: N/A - Med Ordered
[2021-08-22] MEDS: Valproic Acid (as Sodium Salt) 500 MG in Dextrose 5 % 50 ML 100 MG IV (19:29)
[2021-08-22] MEDS: Enoxaparin Sodium 40 MG/0.4 ML SYRINGE SUBCUT (20:43)
--- NOTE | 2021-08-22 22:11 | PC.NURSE ---
Afebrile, VSS on dopamine gtt. SR on tele with 1st degree, BBB Sedated on propfolol and versed. Weak cough, gag, flaccid. Pupils sluggish. Vent settinsg remain the same, Thick panda/scream secretions inline. U/0 wnl, bath given, repo q2hr.
[2021-08-23] VITALS (31 sets, daily range): BP systolic 90–168; BP diastolic 37–71; PULSE 64–110; RESP 9–40; TEMP 30.5–37; O2SAT 95–100; BMI 32.9
--- NOTE | 2021-08-23 | EEG_ITS ---
This is a 16-channel portable EEG performed in ICU. There were some muscle and lead artifacts and technical artifacts. This was a series of 30 EEG done in 3 days and was different from the first 2 EEGs. Previously noted widespread epileptic discharges were not seen as much. Still visible where mostly bifrontal, sharp and slow wave complexes occurring every second or every few seconds followed by suppression of amplitude. Cardiac lead revealed a rate of about 70 per minute. No definite generalized seizure was noted. Photic stimulation and hyperventilation were not performed. IMPRESSION: Significant improvement from previous EEGs, but ictal discharges were still noted. This could reflect underlying anoxic encephalopathy, but could also reflect the tail end of status epilepticus. I would recommend continuing treatment and considering third agent if her clinical situation does not improve. MD MARINA Turner/BOGDAN / [phone]
[2021-08-23] MEDS: 0.9 % Sodium Chloride Flush 3 ML SYRINGE IVFLUSH ×4 (01:39→23:51)
[2021-08-23] MEDS: levETIRAcetam in NaCl (iso-os) 1,000 MG/100 ML PIGGYBACK 400 MG IV ×5 (01:39→23:56)
[2021-08-23] MEDS: Valproic Acid (as Sodium Salt) 500 MG in Dextrose 5 % 50 ML 55 MG IV ×4 (02:02→19:29)
[2021-08-23] MEDS: DOPamine HCL/D5W 400 MG/250 ML PLAST..BAG 23.55 MG IVCONT ×3 (02:42→23:56)
[2021-08-23] MEDS: propofoL 1,000 MG/100 ML VIAL 18.94 MG IVCONT ×5 (05:15→23:50)
[2021-08-23 05:37] LABS: VBG Base Excess 6.1 mmol/L; VBG HCO3 30 mmol/L (22-26); VBG pCO2 43 mmHg; VBG pH 7.45 (7.32-7.43); VBG pO2 182 mmHg
[2021-08-23 05:38] LABS: Venous Blood Gas Refer to POC result
[2021-08-23 05:55] LABS: MANUAL DIFF FLAG NO
[2021-08-23 06:10] LABS: Eosinophils Absolute Auto 0.1 X10*3/uL (0.0-0.4); Eosinophils Percent Auto 1.3 % (0-4); Hematocrit 22.8 % (37.0-47.0); Hemoglobin 7.5 g/dl (12.0-16.0); Imm Gran Abs Auto 0.09 X10*3/uL (0.00-0.03); Lymphocytes Absolute Auto 1.3 X10*3/uL (1.2-4.9); Lymphocytes Percent Auto 28.9 % (20-40); Mean Corpuscular HGB Conc 32.9 g/dl (31.0-35.0); Mean Corpuscular Hemoglobin 30.7 pg (27.0-33.0); Mean Corpuscular Volume 93.4 fL (80.0-98.0); Mean Platelet Volume 9.3 fL (9.4-12.3); Monocytes Absolute Auto 0.5 X10*3/uL (0.1-1.2); Monocytes Percent Auto 10.4 % (2-11); Neutrophils Absolute Auto 2.6 x10*3/uL (2.0-8.3); Neutrophils Percent Auto 57.4 % (45-73); Platelet Count 119 X10*3/uL (160-400); Red Blood Count 2.44 X10*6/uL (4.20-5.50); Red Cell Distribution Width 14.7 % (11.0-16.0); White Blood Count 4.6 X10*3/uL (4.8-10.8)
[2021-08-23 06:24] LABS: INTERNATIONAL NORM RATIO 0.9 (0.9-1.1); Prothrombin Time 10.7 SEC (9.9-13.0)
[2021-08-23 06:26] LABS: Partial Thromboplastin Time 37.4 SEC (24.1-38.0)
[2021-08-23] MEDS: Midazolam HCl/NS 50 MG/50 ML PLAST..BAG 6 MG IVCONT ×3 (06:43→23:50)
[2021-08-23 06:44] LABS: Albumin Level 3.2 g/dL (3.5-5.0); Anion Gap 12 (12-20); Blood Urea Nitrogen 5 mg/dL (9-16); Calcium 8.6 mg/dL (8.4-10.2); Carbon Dioxide 26 mmol/L (22-29); Chloride 104 mmol/L (96-108); Creatinine Clr Calc Pharmacy 121.6; Estimated Glomerular Filt Rate > 60; Glucose Random 101 mg/dL (60-115); Magnesium 1.4 mg/dL (1.6-2.6); Phosphorus 3.2 mg/dL (2.7-4.5); Potassium 3.9 mmol/L (3.3-5.1); Sodium 138 mmol/L (135-145)
[2021-08-23] MEDS: Chlorhexidine Gluc Oral Rinse 15 ML MOUTHWASH BUCCAL ×3 (08:12→21:18)
[2021-08-23] MEDS: KCl 40 mEq in 0.9 % Sodium Chl 40 MEQ/1,000 ML IV.SOLN 80 MEQ IVCONT ×2 (09:05→21:15)
[2021-08-23] MEDS: cefTRIAXone sodium 1 GM in 0.9 % Sodium Chloride 50 ML IV (14:51)
--- NOTE | 2021-08-23 15:48 | MHC.CM.PN ---
Pt's estate planning attorney/guardian met with pt today - A hearing will be held on 08/24 to amend the pt's guardianship to allow for withdrawal of aggressive life sustaining treatment in the setting of pt's catastrophic illness. spoke with guardian at length and will participate in the hearing tomorrow via phone call. CM to follow.
--- NOTE | 2021-08-23 17:00 | P.PNCC_ITS ---
Subjective Subjective Date of Service: 08/23/21 Interval History: 81-year-old female with prolonged anoxia several days earlier that led to or was result of a and arrest she was found to be blue could have been up to 10 minutes and then a 10 minute resuscitation restored circulation but the 1st or rhythm that was noted on the monitor was asystole She was clearly in status epilepticus therefore prolonged periods of time requiring increased drugs and with persistent status epilepticus and we now have her on aggressive loading and maintenance dose of Keppra and the same for valproic acid and she still remains on both propofol as well as midazolam drips Metabolically remains stable and she still remains unresponsive with very poor brainstem function as well but will probably get another EGD to investigate background activity to try to depict degree of encephalopathy Critical Care Time (minutes): 45 Physical Exam Vital Signs: Vital Signs: Last Vital Signs Temp 97.2 F 08/23/21 16:00 Pulse 86 08/23/21 16:00 Resp 12 08/23/21 16:00 BP 140/65 H 08/23/21 16:00 Pulse Ox 99 08/23/21 16:00 BMI result Body Mass Index 32.9 Remains unresponsive to pain with recurring episodes of convulsive status epilepticus requiring increasing medications and if she continues to breakthrough they will be a 3rd antiepileptic medicine Good bilateral carotid upstrokes no neck vein distension No gallops chest is clear with no adventitious sounds and no triggering of the ventilator no spinous spontaneous respirations of her own Abdomen benign no organomegaly Skin intact Objective Data Labs CBC & Chem 7: 08/24/21 05:30 08/24/21 05:30 Labs: Laboratory Results - last 24 hr 08/23/21 08/23/21 08/23/21 05:20 05:20 05:20 WBC 4.6 L RBC 2.44 L Hgb 7.5 L Hct 22.8 L MCV 93.4 MCH 30.7 MCHC 32.9 RDW 14.7 Plt Count 119 L MPV 9.3 L Immature Gran % (Auto) 2.0 H Neut % (Auto) 57.4 Lymph % (Auto) 28.9 [place] % (Auto) 10.4 Eos % (Auto) 1.3 Baso % (Auto) 0.0 Lymph # (Auto) 1.3 [place] # (Auto) 0.5 Eos # (Auto) 0.1 Baso # (Auto) 0.0 Abs Immat Gran (auto) 0.09 H Absolute Neuts (auto) 2.6 Absolute Nucleated RBC 0.000 Nucleated RBC % (auto) 0.0 PT 10.7 INR 0.9 APTT 37.4 VBG pH VBG pCO2 VBG pO2 VBG HCO3 VBG O2 Saturation VBG Base Excess Sodium 138 Potassium 3.9 D Chloride 104 Carbon Dioxide 26 Anion Gap 12 BUN 5 L Creatinine 0.41 L Estim Creat Clear Calc 121.6 Estimated GFR > 60 Random Glucose 101 Calcium 8.6 Phosphorus 3.2 Magnesium 1.4 L* Albumin 3.2 L 08/23/21 05:30 WBC RBC Hgb Hct MCV MCH MCHC RDW Plt Count MPV Immature Gran % (Auto) Neut % (Auto) Lymph % (Auto) [place] % (Auto) Eos % (Auto) Baso % (Auto) Lymph # (Auto) [place] # (Auto) Eos # (Auto) Baso # (Auto) Abs Immat Gran (auto) Absolute Neuts (auto) Absolute Nucleated RBC Nucleated RBC % (auto) PT INR APTT VBG pH 7.45 H VBG pCO2 43 VBG pO2 182 VBG HCO3 30 H VBG O2 Saturation 99.0 VBG Base Excess 6.1 Sodium Potassium Chloride Carbon Dioxide Anion Gap BUN Creatinine Estim Creat Clear Calc Estimated GFR Random Glucose Calcium Phosphorus Magnesium Albumin Microbiology Microbiology Results: Microbiology 08/16/21 15:36 Blood - Venous Blood Culture - Final No growth after 5 days. 08/16/21 15:33 Blood - Venous Blood Culture - Final No growth after 5 days. 08/16/21 14:12 Urine Catheterized - Straight Catheter Urine Culture - Final Escherichia coli Progress Note: A&P Assessment and plan (1) Anoxic encephalopathy: Status: Acute (2) Status epilepticus: Status: Acute (3) Esophageal obstruction: Status: Acute (4) Pulmonary nodules: Status: Acute (5) Aspiration into airway: Status: Acute (6) Cardiac arrest: Status: Acute (7) Shock: Status: Acute (8) Acute respiratory failure: Status: Acute (9) Asystole: Status: Acute (10) Metabolic encephalopathy: Status: Acute (11) Altered mental status, unspecified: Status: Acute (12) Acute hyponatremia: Status: Acute (13) Acute UTI: Status: Acute Assessment and Plan: The plan again is to observe for recurrent apparent seizure activity continue her maintenance therapy will probably look to stop the ceftriaxone treatment and she has completed that for her urinary tract infection and of course try to wean both the propofol and midazolam so we can not properly assess responsiveness it if there were to be any and I am considering D[place]in CT scan image Prognosis g so far based on what we see will get a repeat EEG to assess for presence and potential degree of and encephalopathy Quality Stroke Does the patient have a stroke diagnosis?: No VTE Prior VTE?: No VTE Risk Level:: Medical - moderate - high VTE Device Contraindication: Treatment Not Indicated VTE Drug Contraindication: N/A - Med Ordered
[2021-08-23] MEDS: Magnesium Sulfate/D5W 1 GM/100 ML PIGGYBACK IV (17:25)
[2021-08-23] MEDS: Enoxaparin Sodium 40 MG/0.4 ML SYRINGE SUBCUT (19:30)
[2021-08-24] VITALS (30 sets, daily range): BP systolic 91–177; BP diastolic 34–73; PULSE 72–99; RESP 12–24; TEMP 34.9–37.9; O2SAT 95–100; BMI 34.2
[2021-08-24] MEDS: Valproic Acid (as Sodium Salt) 500 MG in Dextrose 5 % 50 ML 55 MG IV ×4 (00:28→17:54)
[2021-08-24] MEDS: propofoL 1,000 MG/100 ML VIAL 18.94 MG IVCONT (04:08)
[2021-08-24 05:41] LABS: MANUAL DIFF FLAG NO
[2021-08-24 05:42] LABS: VBG HCO3 34 mmol/L (22-26); VBG pCO2 43 mmHg; VBG pO2 51 mmHg
[2021-08-24 05:44] LABS: Eosinophils Absolute Auto 0.1 X10*3/uL (0.0-0.4); Eosinophils Percent Auto 2.9 % (0-4); Hematocrit 23.4 % (37.0-47.0); Hemoglobin 7.8 g/dl (12.0-16.0); Imm Gran Abs Auto 0.16 X10*3/uL (0.00-0.03); Imm Gran Pct Auto 4.2 % (0.0-0.4); Lymphocytes Absolute Auto 1.4 X10*3/uL (1.2-4.9); Lymphocytes Percent Auto 35.2 % (20-40); Mean Corpuscular HGB Conc 33.3 g/dl (31.0-35.0); Mean Corpuscular Hemoglobin 31.2 pg (27.0-33.0); Mean Corpuscular Volume 93.6 fL (80.0-98.0); Mean Platelet Volume 8.7 fL (9.4-12.3); Monocytes Absolute Auto 0.5 X10*3/uL (0.1-1.2); Monocytes Percent Auto 13.8 % (2-11); Neutrophils Absolute Auto 1.7 x10*3/uL (2.0-8.3); Neutrophils Percent Auto 43.9 % (45-73); Platelet Count 111 X10*3/uL (160-400); Red Cell Distribution Width 14.6 % (11.0-16.0); White Blood Count 3.8 X10*3/uL (4.8-10.8)
[2021-08-24 05:50] LABS: Prothrombin Time 11.3 SEC (9.9-13.0)
[2021-08-24 05:52] LABS: Partial Thromboplastin Time 39.1 SEC (24.1-38.0)
[2021-08-24 05:58] LABS: VBG Base Excess 9.3 mmol/L; VBG HCO3 32 mmol/L (22-26); VBG pCO2 39 mmHg; VBG pH 7.52 (7.32-7.43); VBG pO2 60 mmHg
[2021-08-24 06:04] LABS: Anion Gap 10 (12-20); Blood Urea Nitrogen 2 mg/dL (9-16); Calcium 8.9 mg/dL (8.4-10.2); Carbon Dioxide 30 mmol/L (22-29); Chloride 104 mmol/L (96-108); Creatinine Clr Calc Pharmacy 124.1; Estimated Glomerular Filt Rate > 60; Glucose Random 90 mg/dL (60-115); Magnesium 1.5 mg/dL (1.6-2.6); Phosphorus 3.2 mg/dL (2.7-4.5); Potassium 4.1 mmol/L (3.3-5.1); Sodium 140 mmol/L (135-145)
[2021-08-24 06:07] LABS: Venous Blood Gas Refer to POC result
[2021-08-24] MEDS: Magnesium Sulfate/D5W 1 GM/100 ML PIGGYBACK IV (07:01)
[2021-08-24 07:26] LABS: Albumin Level 3.1 g/dL (3.5-5.0)
[2021-08-24] MEDS: Chlorhexidine Gluc Oral Rinse 15 ML MOUTHWASH BUCCAL ×3 (07:33→20:56)
[2021-08-24] MEDS: Midazolam HCl/NS 50 MG/50 ML PLAST..BAG 6 MG IVCONT (07:33)
[2021-08-24] MEDS: levETIRAcetam in NaCl (iso-os) 1,000 MG/100 ML PIGGYBACK 400 MG IV ×2 (07:34→17:07)
[2021-08-24] MEDS: KCl 40 mEq in 0.9 % Sodium Chl 40 MEQ/1,000 ML IV.SOLN 80 MEQ IVCONT ×2 (08:30→20:07)
--- NOTE | 2021-08-24 10:25 | MHC.CLN ---
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
--- NOTE | 2021-08-24 11:34 | MHC.CM.PN ---
Discussed pt at ICU rounds: pt's estate attorney/guardians Accounts Receivable Specialist Reza and Adriana along with Dr. White will be participating in a ZOOM meeting with the court to amend the guardian to include the allowance of DIGITAL DEVELOPER care. Dr. White has met with Atty Reza on 08/23 to review in detail pt's condition and prognosis. He has also spoke with Attamish Wright on 08/23 via phone for the same. Attamish Wright contacted CM today for a clinical update - information from EMR relayed and transferred her to ICU to speak with provider about specific questions she had.
[2021-08-24] MEDS: Phenytoin Sodium 500 MG in 0.9 % Sodium Chloride 100 ML 330 MG IV (12:18)
[2021-08-24] MEDS: 0.9 % Sodium Chloride Flush 3 ML SYRINGE IVFLUSH (15:13)
[2021-08-24] MEDS: Phenytoin Sodium 100 MG/2 ML VIAL IVPUSH ×2 (15:13→20:59)
--- NOTE | 2021-08-24 15:37 | PM.CCPN ---
Subjective Subjective Date of Service: 08/24/21 Interval History: 81-year-old female longstanding schizoaffective disorder institutionalized for a long time and brought down to the ICU after a cardio respiratory arrest which also involved aspiration so she was intubated central line placement and the left subclavian resulted in a pneumothorax treated with a treated with a pigtail chest tube and stand with persistent air leak which is modest and since that time has also had intractable status epilepticus and breaking through 1st on just benzodiazepine plus propofol sedation then requiring loading dose of Keppra and then again because of breakthrough addition of valproic acid and then again a breakthrough requiring the addition of Dilantin now on those 3 medications and for proper assessment of neurologic function I have weaned and discontinued both the propofol and the Versed and 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 or 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 and with CT scanning today that demonstrated an 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 but otherwise with preservation of the cortex but doubt extensive volume loss due to small-vessel ischemic changes which are obviously chronic resulting secondarily an of significant ventricular dilatation She is normal sinus rhythm and the my bedside echo indicated normal left ventricular dimensions and systolic function without segmental wall motion abnormality and no significant primary valve or pericardial disease so I do not see the heart as a significant embolic source Thus far she still remains unresponsive even to pain still as a persistent bilateral pinpoint pupils that and gone reactive no doll's eyes and she has no spontaneous breathing no gag reflex his she still has positive bilateral Babinski's No other organ failure no other active metabolic issue Critical Care Time (minutes): 45 Physical Exam Vital Signs: Vital Signs: Last Vital Signs Temp 98.2 F 08/24/21 15:00 Pulse 85 08/24/21 15:00 Resp 14 08/24/21 15:00 BP 151/47 H 08/24/21 15:00 Pulse Ox 100 08/24/21 15:00 BMI result Body Mass Index 34.2 Off all sedation she remains intubated and ventilator dependent Bedside echo with normal cardiovascular function Skin Is intact chest is is clear without Adventitious sounds abdomen soft with no organomegaly Objective Data Labs CBC & Chem 7: 08/24/21 05:30 08/24/21 05:30 Labs: Laboratory Results - last 24 hr 08/24/21 08/24/21 08/24/21 05:30 05:30 05:30 WBC 3.8 L RBC 2.50 L Hgb 7.8 L Hct 23.4 L MCV 93.6 MCH 31.2 MCHC 33.3 RDW 14.6 Plt Count 111 L MPV 8.7 L Immature Gran % (Auto) 4.2 H Neut % (Auto) 43.9 L Lymph % (Auto) 35.2 [place] % (Auto) 13.8 H Eos % (Auto) 2.9 Baso % (Auto) 0.0 Lymph # (Auto) 1.4 [place] # (Auto) 0.5 Eos # (Auto) 0.1 Baso # (Auto) 0.0 Abs Immat Gran (auto) 0.16 H Absolute Neuts (auto) 1.7 L Absolute Nucleated RBC 0.000 Nucleated RBC % (auto) 0.0 PT 11.3 INR 1.0 APTT 39.1 H VBG pH VBG pCO2 VBG pO2 VBG HCO3 VBG O2 Saturation VBG Base Excess Sodium 140 Potassium 4.1 Chloride 104 Carbon Dioxide 30 H Anion Gap 10 L BUN 2 L D Creatinine 0.40 L Estim Creat Clear Calc 124.1 Estimated GFR > 60 Random Glucose 90 Calcium 8.9 Phosphorus 3.2 Magnesium 1.5 L Albumin 3.1 L 08/24/21 08/24/21 08/24/21 05:30 05:35 05:52 WBC RBC Hgb Hct MCV MCH MCHC RDW Plt Count MPV Immature Gran % (Auto) Neut % (Auto) Lymph % (Auto) [place] % (Auto) Eos % (Auto) Baso % (Auto) Lymph # (Auto) [place] # (Auto) Eos # (Auto) Baso # (Auto) Abs Immat Gran (auto) Absolute Neuts (auto) Absolute Nucleated RBC Nucleated RBC % (auto) PT INR APTT VBG pH 7.50 H 7.52 H VBG pCO2 43 39 VBG pO2 51 60 VBG HCO3 34 H 32 H VBG O2 Saturation TNP 88.0 VBG Base Excess 10.0 9.3 Sodium Potassium Chloride Carbon Dioxide Anion Gap BUN Creatinine Estim Creat Clear Calc Estimated GFR Random Glucose Calcium Phosphorus Magnesium Albumin Cancelled Microbiology Microbiology Results: Microbiology 08/16/21 15:36 Blood - Venous Blood Culture - Final No growth after 5 days. 08/16/21 15:33 Blood - Venous Blood Culture - Final No growth after 5 days. 08/16/21 14:12 Urine Catheterized - Straight Catheter Urine Culture - Final Escherichia coli Progress Note: A&P Assessment and plan (1) Anoxic encephalopathy: Status: Acute (2) Status epilepticus: Status: Acute (3) Esophageal obstruction: Status: Acute (4) Pulmonary nodules: Status: Acute (5) Aspiration into airway: Status: Acute (6) Cardiac arrest: Status: Acute (7) Shock: Status: Acute (8) Acute respiratory failure: Status: Acute (9) Asystole: Status: Acute (10) Metabolic encephalopathy: Status: Acute (11) Altered mental status, unspecified: Status: Acute (12) Acute hyponatremia: Status: Acute (13) Acute UTI: Status: Acute Assessment and Plan: So we will sustain her support on the ventilator and observe for neurologic function now that she is off sedation but the is seizure activity verses just 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
[2021-08-24] MEDS: levETIRAcetam in NaCl (iso-os) 500 MG/100 ML PIGGYBACK 400 MG IV (17:53)
[2021-08-24] MEDS: Enoxaparin Sodium 40 MG/0.4 ML SYRINGE SUBCUT (20:56)
[2021-08-24] MEDS: Midazolam HCl/PF 2 MG/2 ML VIAL 3 MG IVPUSH (22:04)
[2021-08-24] MEDS: Albumin Human 25 % 100 ML IV ×2 (22:44→23:38)
[2021-08-25] VITALS (32 sets, daily range): BP systolic 99–194; BP diastolic 37–112; PULSE 85–107; RESP 12–25; TEMP 34.6–38.1; O2SAT 93–100; BMI 34.1
--- NOTE | 2021-08-25 | EEG_ITS ---
This is a 16-channel portable EEG performed in intensive care unit. The patient was unresponsive, intubated, and sedated. This EEG comprised almost continuously of burst of generalized sharp wave and flowing followed by a second or few seconds of significant reduction of amplitude. Compared to previous EEGs for this patient, this was somewhat similar, though slightly better. Cardiac lead did not reveal any significant abnormality. Lead and muscle artifacts were noted. IMPRESSION: Burst suppression pattern suggestive of either severe anoxic encephalopathy or later part of generalized status epilepticus. MD MARINA Turner/BOGDAN / [id number]
[2021-08-25] MEDS: Valproic Acid (as Sodium Salt) 1,000 MG in Dextrose 5 % 50 ML 60 MG IV ×4 (00:15→22:24)
[2021-08-25] MEDS: 0.9 % Sodium Chloride Flush 3 ML SYRINGE IVFLUSH ×3 (00:20→14:41)
[2021-08-25] MEDS: Furosemide 20 MG/2 ML VIAL IVPUSH (00:20)
[2021-08-25] MEDS: levETIRAcetam in NaCl (iso-os) 1,000 MG/100 ML PIGGYBACK 400 MG IV ×3 (01:17→17:28)
[2021-08-25 02:30] LABS: Appearance Urine HAZY; Color Urine STRAW; Glucose Urine UA NEG (NEG); Leukocyte Esterase Urine NEG (NEG); Nitrite Urine NEG (NEG); PH 5.5 (5.0-8.0); Specific Gravity - Urine 1.015 (1.005-1.025); Urine Blood NEG (NEG); Urine Ketones NEG (NEG); Urine Protein NEG (NEG-TRACE)
[2021-08-25] MEDS: Acetaminophen Supp 650 MG SUPP.RECT PR (02:43)
[2021-08-25] MEDS: LORazepam 2 MG/ML VIAL IVPUSH ×3 (05:14→23:15)
--- NOTE | 2021-08-25 05:21 | PC.NURSE ---
Pt remains on AC vent settings. Copious oral and ETT secretions noted. No response to pain. Extremities flaccid. Pupils pinpoint. Intermittent seizures noted. Received versed 3 mg IV X1 with short lasting effect. Received ativan X1 with good effect. Extremities are edematous, L>R. U/O low, <30 ml/hr. Pt received Albumin 25% 100 ml X2 and lasiv IV. Good U/O after this approx 700ml.
[2021-08-25 05:44] LABS: VBG Base Excess 6.8 mmol/L; VBG HCO3 29 mmol/L (22-26); VBG pCO2 35 mmHg; VBG pH 7.53 (7.32-7.43); VBG pO2 75 mmHg
[2021-08-25 05:55] LABS: Mean Corpuscular HGB Conc 31.9 g/dl (31.0-35.0); Mean Corpuscular Hemoglobin 30.6 pg (27.0-33.0); Mean Corpuscular Volume 95.8 fL (80.0-98.0); Mean Platelet Volume 9.1 fL (9.4-12.3); Platelet Count 119 X10*3/uL (160-400); Red Blood Count 2.16 X10*6/uL (4.20-5.50); Red Cell Distribution Width 15.4 % (11.0-16.0); White Blood Count 3.8 X10*3/uL (4.8-10.8)
[2021-08-25 06:04] LABS: Albumin Level 3.5 g/dL (3.5-5.0)
[2021-08-25 06:09] LABS: Venous Blood Gas Refer to POC result
[2021-08-25 06:17] LABS: Hemoglobin 6.6 g/dl (12.0-16.0)
[2021-08-25 06:18] LABS: Hematocrit 20.7 % (37.0-47.0)
[2021-08-25 06:21] LABS: Anion Gap 13 (12-20); Blood Urea Nitrogen 3 mg/dL (9-16); Carbon Dioxide 27 mmol/L (22-29); Chloride 108 mmol/L (96-108); Creatinine Clr Calc Pharmacy 103.2; Estimated Glomerular Filt Rate > 60; Glucose Random 97 mg/dL (60-115); Magnesium 1.6 mg/dL (1.6-2.6); Phosphorus 3.6 mg/dL (2.7-4.5); Potassium 4.2 mmol/L (3.3-5.1); Sodium 144 mmol/L (135-145)
[2021-08-25 06:30] LABS: Prothrombin Time 11.9 SEC (9.9-13.0)
[2021-08-25 06:32] LABS: Partial Thromboplastin Time 40.1 SEC (24.1-38.0)
[2021-08-25 06:51] LABS: Band Neutrophils Percent 8 % (3-5); Eosinophils Absolute Manual 0.1 X10*3/uL (0.0-0.4); Eosinophils Percent Manual 2 % (0-4); Hypochromasia 1+ (5-14) /OIF; Lymphocytes Absolute Manual 0.8 X10*3/uL (1.2-4.9); Lymphocytes Percent Manual 21 % (20-40); Metamyelocytes Absolute 0.1 X10*3/uL; Metamyelocytes Percent 3 %; Monocytes Absolute Manual 0.4 X10*3/uL (0.1-1.2); Monocytes Percent Manual 10 % (2-11); Neutrophils Absolute Manual 2.4 X10*3/uL (2.0-8.3); Neutrophils Percent Manual 56 % (45-73); Nucleated Red Blood Cells 1 /100WBC (0-0); RBC Morphology NOTED
[2021-08-25 06:52] LABS: Platelet Estimate SLIGHTLY DECREASED (NORMAL); Platelet Morphology Comment NORMAL
[2021-08-25] MEDS: Chlorhexidine Gluc Oral Rinse 15 ML MOUTHWASH BUCCAL ×3 (08:53→20:33)
[2021-08-25] MEDS: Phenytoin Sodium 100 MG/2 ML VIAL IVPUSH ×3 (08:53→20:34)
[2021-08-25] MEDS: KCl 40 mEq in 0.9 % Sodium Chl 40 MEQ/1,000 ML IV.SOLN 80 MEQ IVCONT ×2 (08:55→20:33)
[2021-08-25 10:41] LABS: Lactate Dehydrogenase 190 U/L (122-220)
[2021-08-25] MEDS: Magnesium Sulfate/D5W 1 GM/100 ML PIGGYBACK IV (10:51)
--- NOTE | 2021-08-25 11:25 | MHC.CM.PN ---
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 Pt remains intubated in ICU: pt visibly experiencing seizure activity, head CT from 08/24 notes + infarct. CM to follow
--- NOTE | 2021-08-25 11:42 | MHC.CLN ---
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
[2021-08-25 12:24] LABS: MN% 92.5 %; PMN% 7.5 %; RBC Pleural Fluid 0.006 X10*3/uL
[2021-08-25 13:05] LABS: Eosinophils Pleural Fluid 2 %; Lymphocytes Pleural Fluid 76 %; Monocytes Pleural Fluid 1 %; Neutrophils Pleural Fluid 12 %; Other Cells Plerual Fl 9 %
[2021-08-25 13:06] LABS: BF Shift QC OK YES
--- NOTE | 2021-08-25 13:45 | PM.CCPN ---
Subjective Subjective Date of Service: 08/25/21 Interval History: 81-year-old female with longstanding schizoaffective disorder an institutionalized most of her life with the recent per in progressive features of dementia who was unresponsive in the care home picked up by EMS and then became gradually more responsive over. Of minutes and went completely restored mental status was admitted to the floor but with after 1 witnessed aspiration episode when given a food tray and then apparently of stay is on the floor with was noted to be unresponsive and was a and unarousable noted to be asystolic and apneic had an ensuing 10 minute CPR before return of circulation all told at least 20 minutes of oxygen deprivation since being down here she has been in a refractory status epilepticus and initially responsive to benzodiazepine then requiring Keppra and then requiring the addition of valproic acid and then ultimately requiring the addition of Dilantin after full loading dose of 1.5 g was placed on a maintenance drip still has breakthrough events Metabolically normal The left subclavian central line created pneumothorax and there is a pigtail chest tube and full re-expansion of the lung and for the 1st time today there is no air leak She had a temperature spike and she was fully re-cultured Critical Care Time (minutes): 60 Physical Exam Vital Signs: Vital Signs: Last Vital Signs Temp 100.2 F 08/25/21 13:00 Pulse 94 08/25/21 13:00 Resp 18 08/25/21 13:00 BP 159/68 H 08/25/21 13:00 Pulse Ox 97 08/25/21 13:00 BMI result Body Mass Index 34.1 No longer sedated but she remains intubated and unresponsive and completely dependent on the ventilator Lungs clear by by x-ray and by exam Cardiac exam by bedside echo is normal class 1 Abdomen benign but unable to feed because we can pass an OG tube because of the hiatal hernia Objective Data Labs CBC & Chem 7: 08/25/21 05:35 08/25/21 05:35 Labs: Laboratory Results - last 24 hr 08/25/21 08/25/21 08/25/21 02:15 05:35 05:35 WBC 3.8 L RBC 2.16 L Hgb 6.6 L* Hct 20.7 L* MCV 95.8 MCH 30.6 MCHC 31.9 RDW 15.4 Plt Count 119 L MPV 9.1 L Immature Gran % (Auto) Cancelled Neut % (Auto) Cancelled Lymph % (Auto) Cancelled [place] % (Auto) Cancelled Eos % (Auto) Cancelled Baso % (Auto) Cancelled Lymph # (Auto) Cancelled [place] # (Auto) Cancelled Eos # (Auto) Cancelled Baso # (Auto) Cancelled Abs Immat Gran (auto) Cancelled Absolute Neuts (auto) Cancelled Absolute Nucleated RBC 0.000 Nucleated RBC % (auto) 0.0 Neutrophils % (Manual) 56 Band Neutrophils % 8 H Lymphocytes % (Manual) 21 Monocytes % (Manual) 10 Eosinophils % (Manual) 2 Metamyelocytes % 3 Abs Neuts (Manual) 2.4 Lymphocytes # (Manual) 0.8 L Monocytes # (Manual) 0.4 Eosinophils # (Manual) 0.1 Metamyelocytes # 0.1 Nucleated RBCs 1 H Platelet Estimate SLIGHTLY DECREASED Plt Morphology Comment NORMAL RBC Morphology NOTED Hypochromasia 1+ (5-14) PT 11.9 INR 1.0 APTT 40.1 H O2 Saturation ABG pH at Pt Temp ABG pCO2 at Pt Temp ABG pO2 at Pt Temp ABG HCO3 ABG Base Excess (Actual) VBG pH VBG pCO2 VBG pO2 VBG HCO3 VBG O2 Saturation VBG Base Excess Sodium Potassium Chloride Carbon Dioxide Anion Gap BUN Creatinine Estim Creat Clear Calc Estimated GFR Random Glucose Calcium Phosphorus Magnesium Lactate Dehydrogenase Albumin Urine Color STRAW Urine Appearance HAZY Urine pH 5.5 Ur Specific [place] 1.015 Urine Protein NEG Urine Glucose (UA) NEG Urine Ketones NEG Urine Blood NEG Urine Nitrite NEG Ur Leukocyte Esterase NEG Pleural WBC Pleural RBC Pleural Neutrophils Pleural Lymphocytes Pleural Monocytes Pleural Eosinophils Pleural Other Cells Blood Type Antibody Screen MADELIN, Polyspecific Positive MADELIN Work-up Crossmatch Crossmatch ([facility]) 08/25/21 08/25/21 08/25/21 05:35 05:35 05:36 WBC RBC Hgb Hct MCV MCH MCHC RDW Plt Count MPV Immature Gran % (Auto) Neut % (Auto) Lymph % (Auto) [place] % (Auto) Eos % (Auto) Baso % (Auto) Lymph # (Auto) [place] # (Auto) Eos # (Auto) Baso # (Auto) Abs Immat Gran (auto) Absolute Neuts (auto) Absolute Nucleated RBC Nucleated RBC % (auto) Neutrophils % (Manual) Band Neutrophils % Lymphocytes % (Manual) Monocytes % (Manual) Eosinophils % (Manual) Metamyelocytes % Abs Neuts (Manual) Lymphocytes # (Manual) Monocytes # (Manual) Eosinophils # (Manual) Metamyelocytes # Nucleated RBCs Platelet Estimate Plt Morphology Comment RBC Morphology Hypochromasia PT INR APTT O2 Saturation TNP ABG pH at Pt Temp TNP ABG pCO2 at Pt Temp TNP ABG pO2 at Pt Temp TNP ABG HCO3 TNP ABG Base Excess (Actual) TNP VBG pH VBG pCO2 VBG pO2 VBG HCO3 VBG O2 Saturation VBG Base Excess Sodium 144 Potassium 4.2 Chloride 108 Carbon Dioxide 27 Anion Gap 13 BUN 3 L Creatinine 0.49 L Estim Creat Clear Calc 103.2 Estimated GFR > 60 Random Glucose 97 Calcium 9.0 Phosphorus 3.6 Magnesium 1.6 Lactate Dehydrogenase Albumin 3.5 Urine Color Urine Appearance Urine pH Ur Specific [place] Urine Protein Urine Glucose (UA) Urine Ketones Urine Blood Urine Nitrite Ur Leukocyte Esterase Pleural WBC Pleural RBC Pleural Neutrophils Pleural Lymphocytes Pleural Monocytes Pleural Eosinophils Pleural Other Cells Blood Type Antibody Screen MADELIN, Polyspecific Positive MADELIN Work-up Crossmatch Crossmatch ([facility]) 08/25/21 08/25/21 08/25/21 05:39 07:30 10:00 WBC RBC Hgb Hct MCV MCH MCHC RDW Plt Count MPV Immature Gran % (Auto) Neut % (Auto) Lymph % (Auto) [place] % (Auto) Eos % (Auto) Baso % (Auto) Lymph # (Auto) [place] # (Auto) Eos # (Auto) Baso # (Auto) Abs Immat Gran (auto) Absolute Neuts (auto) Absolute Nucleated RBC Nucleated RBC % (auto) Neutrophils % (Manual) Band Neutrophils % Lymphocytes % (Manual) Monocytes % (Manual) Eosinophils % (Manual) Metamyelocytes % Abs Neuts (Manual) Lymphocytes # (Manual) Monocytes # (Manual) Eosinophils # (Manual) Metamyelocytes # Nucleated RBCs Platelet Estimate Plt Morphology Comment RBC Morphology Hypochromasia PT INR APTT O2 Saturation ABG pH at Pt Temp ABG pCO2 at Pt Temp ABG pO2 at Pt Temp ABG HCO3 ABG Base Excess (Actual) VBG pH 7.53 H VBG pCO2 35 VBG pO2 75 VBG HCO3 29 H VBG O2 Saturation 95.0 VBG Base Excess 6.8 Sodium Potassium Chloride Carbon Dioxide Anion Gap BUN Creatinine Estim Creat Clear Calc Estimated GFR Random Glucose Calcium Phosphorus Magnesium Lactate Dehydrogenase 190 Albumin Urine Color Urine Appearance Urine pH Ur Specific [place] Urine Protein Urine Glucose (UA) Urine Ketones Urine Blood Urine Nitrite Ur Leukocyte Esterase Pleural WBC Pleural RBC Pleural Neutrophils Pleural Lymphocytes Pleural Monocytes Pleural Eosinophils Pleural Other Cells Blood Type O Positive Antibody Screen NEGATIVE MADELIN, Polyspecific NEGATIVE Positive MADELIN Work-up TNP Crossmatch See Detail Crossmatch ([facility]) See Detail 08/25/21 11:55 WBC RBC Hgb Hct MCV MCH MCHC RDW Plt Count MPV Immature Gran % (Auto) Neut % (Auto) Lymph % (Auto) [place] % (Auto) Eos % (Auto) Baso % (Auto) Lymph # (Auto) [place] # (Auto) Eos # (Auto) Baso # (Auto) Abs Immat Gran (auto) Absolute Neuts (auto) Absolute Nucleated RBC Nucleated RBC % (auto) Neutrophils % (Manual) Band Neutrophils % Lymphocytes % (Manual) Monocytes % (Manual) Eosinophils % (Manual) Metamyelocytes % Abs Neuts (Manual) Lymphocytes # (Manual) Monocytes # (Manual) Eosinophils # (Manual) Metamyelocytes # Nucleated RBCs Platelet Estimate Plt Morphology Comment RBC Morphology Hypochromasia PT INR APTT O2 Saturation ABG pH at Pt Temp ABG pCO2 at Pt Temp ABG pO2 at Pt Temp ABG HCO3 ABG Base Excess (Actual) VBG pH VBG pCO2 VBG pO2 VBG HCO3 VBG O2 Saturation VBG Base Excess Sodium Potassium Chloride Carbon Dioxide Anion Gap BUN Creatinine Estim Creat Clear Calc Estimated GFR Random Glucose Calcium Phosphorus Magnesium Lactate Dehydrogenase Albumin Urine Color Urine Appearance Urine pH Ur Specific [place] Urine Protein Urine Glucose (UA) Urine Ketones Urine Blood Urine Nitrite Ur Leukocyte Esterase Pleural WBC 4.830 Pleural RBC 0.006 Pleural Neutrophils 12 Pleural Lymphocytes 76 Pleural Monocytes 1 Pleural Eosinophils 2 Pleural Other Cells 9 Blood Type Antibody Screen MADELIN, Polyspecific Positive MADELIN Work-up Crossmatch Crossmatch ([facility]) Microbiology Microbiology Results: Microbiology 08/25/21 02:15 Sputum - Suctioned Gram Stain - Final 08/16/21 15:36 Blood - Venous Blood Culture - Final No growth after 5 days. 08/16/21 15:33 Blood - Venous Blood Culture - Final No growth after 5 days. 08/16/21 14:12 Urine Catheterized - Straight Catheter Urine Culture - Final Escherichia coli Progress Note: A&P Assessment and plan (1) Anoxic encephalopathy: Status: Acute (2) Status epilepticus: Status: Acute (3) Esophageal obstruction: Status: Acute (4) Pulmonary nodules: Status: Acute (5) Aspiration into airway: Status: Acute (6) Cardiac arrest: Status: Acute (7) Shock: Status: Acute (8) Acute respiratory failure: Status: Acute (9) Asystole: Status: Acute (10) Metabolic encephalopathy: Status: Acute (11) Altered mental status, unspecified: Status: Acute (12) Acute hyponatremia: Status: Acute (13) Acute UTI: Status: Acute Assessment and Plan: She will be transfused 1 unit for the hemoglobin in the 6 is and cultures are all pending and repeat EEG will be done today As part of the process would like to pull the left subclavian line possibly culture the tip send off lab work on some of the pleural fluid drainage as a potential source and then replaced the IV access Quality Stroke Does the patient have a stroke diagnosis?: No VTE Prior VTE?: No VTE Risk Level:: Medical - moderate - high VTE Device Contraindication: Treatment Not Indicated VTE Drug Contraindication: N/A - Med Ordered
[2021-08-25 19:40] LABS: Hematocrit 25.9 % (37.0-47.0); Hemoglobin 8.4 g/dl (12.0-16.0); Mean Corpuscular HGB Conc 32.4 g/dl (31.0-35.0); Mean Corpuscular Hemoglobin 31.5 pg (27.0-33.0); Mean Platelet Volume 8.6 fL (9.4-12.3); Platelet Count 111 X10*3/uL (160-400); Red Blood Count 2.67 X10*6/uL (4.20-5.50); Red Cell Distribution Width 15.3 % (11.0-16.0)
[2021-08-25 19:51] LABS: Ammonia 35 umol/L (13-55)
[2021-08-25] MEDS: Enoxaparin Sodium 40 MG/0.4 ML SYRINGE SUBCUT (20:33)
[2021-08-26] VITALS (30 sets, daily range): BP systolic 109–192; BP diastolic 44–112; PULSE 81–109; RESP 12–22; TEMP 34.5–37.8; O2SAT 90–100; BMI 35.4
[2021-08-26] MEDS: 0.9 % Sodium Chloride Flush 3 ML SYRINGE IVFLUSH ×3 (01:03→15:17)
[2021-08-26] MEDS: levETIRAcetam in NaCl (iso-os) 1,000 MG/100 ML PIGGYBACK 400 MG IV ×3 (01:04→17:23)
[2021-08-26] MEDS: LORazepam 2 MG/ML VIAL IVPUSH ×7 (01:10→23:14)
[2021-08-26 05:35] LABS: VBG Base Excess 6.9 mmol/L; VBG HCO3 30 mmol/L (22-26); VBG pCO2 39 mmHg; VBG pH 7.49 (7.32-7.43); VBG pO2 49 mmHg
--- NOTE | 2021-08-26 05:53 | PC.NURSE ---
received patient in report. Pt neuro condition is poor. Pt has near constant seizure like activity. pt has received ativan q2hr that has provided some relief. This has been combined with other antiseizure meds that have helped but patient remains tremulous. Ls clear in upper lobes and diminshed in the bases. Pt is vented on AC rate 12 tidal volume 400 peep of 5 and O2 of 30%. 7.5cm tube 24 at the lip. Bowel sounds are hypoactive, no BM on this shift. Pt has generalized edema and anasarca. Pt has left chest tube with no output on shift. Pt has small stage 1 on bilat buttocks, with pinkish skin. Pt is unresponsive and flaccid. pt has had no sedation and does not respond to stimuli and tolerates the tube. Mcdonald has good output, pt became briefly oliguric overnight but has returned to good output.
[2021-08-26 06:07] LABS: Venous Blood Gas Refer to POC result
[2021-08-26 06:15] LABS: Hematocrit 26.3 % (37.0-47.0); Hemoglobin 8.4 g/dl (12.0-16.0); Mean Corpuscular HGB Conc 31.9 g/dl (31.0-35.0); Mean Corpuscular Hemoglobin 31.5 pg (27.0-33.0); Mean Corpuscular Volume 98.5 fL (80.0-98.0); Platelet Count 127 X10*3/uL (160-400); Red Blood Count 2.67 X10*6/uL (4.20-5.50); Red Cell Distribution Width 15.3 % (11.0-16.0); White Blood Count 4.6 X10*3/uL (4.8-10.8)
[2021-08-26 06:22] LABS: INTERNATIONAL NORM RATIO 1.1 (0.9-1.1)
[2021-08-26] MEDS: Valproic Acid (as Sodium Salt) 1,000 MG in Dextrose 5 % 50 ML 60 MG IV ×3 (06:23→22:10)
[2021-08-26 06:24] LABS: Partial Thromboplastin Time 41.3 SEC (24.1-38.0)
[2021-08-26 06:38] LABS: Albumin Level 3.2 g/dL (3.5-5.0); Anion Gap 11 (12-20); Blood Urea Nitrogen 2 mg/dL (9-16); Calcium 8.9 mg/dL (8.4-10.2); Carbon Dioxide 27 mmol/L (22-29); Chloride 109 mmol/L (96-108); Creatinine Clr Calc Pharmacy 109.7; Estimated Glomerular Filt Rate > 60; Glucose Random 79 mg/dL (60-115); Magnesium 1.7 mg/dL (1.6-2.6); Phosphorus 2.6 mg/dL (2.7-4.5); Potassium 4.2 mmol/L (3.3-5.1); Sodium 143 mmol/L (135-145)
[2021-08-26 06:52] LABS: Band Neutrophils Percent 6 % (3-5); Eosinophils Absolute Manual 0.1 X10*3/uL (0.0-0.4); Eosinophils Percent Manual 2 % (0-4); Lymphocytes Absolute Manual 0.9 X10*3/uL (1.2-4.9); Lymphocytes Percent Manual 20 % (20-40); Macrocytosis 1+ (5-14) /OIF; Metamyelocytes Absolute 0.1 X10*3/uL; Metamyelocytes Percent 3 %; Monocytes Absolute Manual 0.5 X10*3/uL (0.1-1.2); Monocytes Percent Manual 11 % (2-11); Myelocytes Absolute 0.1 X10*/uL; Myelocytes Percent 2 %; Neutrophils Absolute Manual 2.8 X10*3/uL (2.0-8.3); Neutrophils Percent Manual 55 % (45-73); Platelet Estimate SLIGHTLY DECREASED (NORMAL); Platelet Morphology Comment NORMAL; Polychromasia 1+ (0-2) /OIF; Promyelocytes Percent 1 %; RBC Morphology NOTED; Smudge Cells PRESENT; Target Cells 1+ (5-14) /OIF
[2021-08-26] MEDS: Phenytoin Sodium 100 MG/2 ML VIAL IVPUSH ×3 (07:59→19:55)
[2021-08-26] MEDS: Chlorhexidine Gluc Oral Rinse 15 ML MOUTHWASH BUCCAL ×3 (07:59→19:55)
[2021-08-26 08:59] LABS: Ammonia 43 umol/L (13-55)
[2021-08-26] MEDS: KCl 40 mEq in 0.9 % Sodium Chl 40 MEQ/1,000 ML IV.SOLN 80 MEQ IVCONT ×2 (09:55→20:03)
--- NOTE | 2021-08-26 10:26 | PM.CCPN ---
Subjective Subjective Date of Service: 08/26/21 Interval History: 81-year-old female with decades of schizoaffective disorder and recently progressive dementia features now status post a.m. witnessed cardiac arrest upstairs on the floor and a 10 minute window which she might have been hypoxic from last observation and then discovered to be blue in asystolic CPR took 10 minutes to restore circulation but there was an apparent aspiration but this was now the 2nd or 3rd episode including when EMS was originally call with a thought Trina there was an arrest situation and again not sure whether not aspiration played a role in each this now it is not impossible that that could have been on with this seizure activity accounting for the original episode of of on arousability or altered mental status and ever since this cardiac arrest the she has had intractable and prolonged status epilepticus now on Keppra valproic acid and Dilantin as well as around the clock Ativan and still has breakthrough convulsive in a generalized seizures and still questioning whether not she might have nonconvulsive status epilepticus or but we have no continuous EEG capability but metabolically stable on the ventilator she does not demonstrate any evidence of spontaneous respiration completely ventilator dependent to unresponsive to paying bilateral pinpoint pupils which remain unresponsive to to light no corneal or gag reflex Critical Care Time (minutes): 45 Physical Exam Vital Signs: Vital Signs: Last Vital Signs Temp 97.9 F 08/26/21 10:00 Pulse 96 08/26/21 10:00 Resp 13 08/26/21 10:00 BP 167/99 H 08/26/21 10:00 Pulse Ox 99 08/26/21 10:00 BMI result Body Mass Index 35.4 Remains unresponsive ventilator dependent in sinus rhythm at a rate of 90 same ventilator settings with FiO2 of 30% and satting at 98% stable pressure 117/62 Cardiovascular stable with no neck vein distension and good bilateral carotid upstrokes Chest without adventitious sounds and is no longer demonstrable air leak so at this point I might discontinue the old left subclavian line which by the way is giving us a stable CVP of approximately 9 and I might clamp the chest tube and if there is no demonstrable recurrent pneumothorax I might discontinue that as well Hemoglobin stabilized at 8.4 and I see no evidence of active GI bleed and thus far no evidence of hemolysis Objective Data Labs CBC & Chem 7: 08/26/21 06:00 08/26/21 06:00 Labs: Laboratory Results - last 24 hr 08/25/21 08/25/21 08/25/21 07:30 10:00 11:55 WBC RBC Hgb Hct MCV MCH MCHC RDW Plt Count MPV Immature Gran % (Auto) Neut % (Auto) Lymph % (Auto) [place] % (Auto) Eos % (Auto) Baso % (Auto) Lymph # (Auto) [place] # (Auto) Eos # (Auto) Baso # (Auto) Abs Immat Gran (auto) Absolute Neuts (auto) Absolute Nucleated RBC Nucleated RBC % (auto) Neutrophils % (Manual) Band Neutrophils % Lymphocytes % (Manual) Monocytes % (Manual) Eosinophils % (Manual) Metamyelocytes % Myelocytes % Promyelocytes % Abs Neuts (Manual) Lymphocytes # (Manual) Monocytes # (Manual) Eosinophils # (Manual) Metamyelocytes # Myelocytes # Smudge Cells Platelet Estimate Plt Morphology Comment RBC Morphology Polychromasia Macrocytosis Target Cells PT INR APTT VBG pH VBG pCO2 VBG pO2 VBG HCO3 VBG O2 Saturation VBG Base Excess Sodium Potassium Chloride Carbon Dioxide Anion Gap BUN Creatinine Estim Creat Clear Calc Estimated GFR Random Glucose Calcium Phosphorus Magnesium Ammonia Lactate Dehydrogenase 190 Albumin Pleural WBC 4.830 Pleural RBC 0.006 Pleural Neutrophils 12 Pleural Lymphocytes 76 Pleural Monocytes 1 Pleural Eosinophils 2 Pleural Other Cells 9 Blood Type O Positive Antibody Screen NEGATIVE MADELIN, Polyspecific NEGATIVE Positive MADELIN Work-up TNP Crossmatch See Detail Crossmatch ([facility]) See Detail 08/25/21 08/25/21 08/26/21 19:34 19:34 05:29 WBC 5.0 RBC 2.67 L D Hgb 8.4 L D Hct 25.9 L D MCV 97.0 MCH 31.5 MCHC 32.4 RDW 15.3 Plt Count 111 L MPV 8.6 L Immature Gran % (Auto) Neut % (Auto) Lymph % (Auto) [place] % (Auto) Eos % (Auto) Baso % (Auto) Lymph # (Auto) [place] # (Auto) Eos # (Auto) Baso # (Auto) Abs Immat Gran (auto) Absolute Neuts (auto) Absolute Nucleated RBC 0.000 Nucleated RBC % (auto) 0.0 Neutrophils % (Manual) Band Neutrophils % Lymphocytes % (Manual) Monocytes % (Manual) Eosinophils % (Manual) Metamyelocytes % Myelocytes % Promyelocytes % Abs Neuts (Manual) Lymphocytes # (Manual) Monocytes # (Manual) Eosinophils # (Manual) Metamyelocytes # Myelocytes # Smudge Cells Platelet Estimate Plt Morphology Comment RBC Morphology Polychromasia Macrocytosis Target Cells PT INR APTT VBG pH 7.49 H VBG pCO2 39 VBG pO2 49 VBG HCO3 30 H VBG O2 Saturation 77.0 VBG Base Excess 6.9 Sodium Potassium Chloride Carbon Dioxide Anion Gap BUN Creatinine Estim Creat Clear Calc Estimated GFR Random Glucose Calcium Phosphorus Magnesium Ammonia 35 Lactate Dehydrogenase Albumin Pleural WBC Pleural RBC Pleural Neutrophils Pleural Lymphocytes Pleural Monocytes Pleural Eosinophils Pleural Other Cells Blood Type Antibody Screen MADELIN, Polyspecific Positive MADELIN Work-up Crossmatch Crossmatch ([facility]) 08/26/21 08/26/21 08/26/21 06:00 06:00 06:00 WBC 4.6 L RBC 2.67 L Hgb 8.4 L Hct 26.3 L MCV 98.5 H MCH 31.5 MCHC 31.9 RDW 15.3 Plt Count 127 L MPV 9.0 L Immature Gran % (Auto) Cancelled Neut % (Auto) Cancelled Lymph % (Auto) Cancelled [place] % (Auto) Cancelled Eos % (Auto) Cancelled Baso % (Auto) Cancelled Lymph # (Auto) Cancelled [place] # (Auto) Cancelled Eos # (Auto) Cancelled Baso # (Auto) Cancelled Abs Immat Gran (auto) Cancelled Absolute Neuts (auto) Cancelled Absolute Nucleated RBC 0.000 Nucleated RBC % (auto) 0.0 Neutrophils % (Manual) 55 Band Neutrophils % 6 H Lymphocytes % (Manual) 20 Monocytes % (Manual) 11 Eosinophils % (Manual) 2 Metamyelocytes % 3 Myelocytes % 2 Promyelocytes % 1 Abs Neuts (Manual) 2.8 Lymphocytes # (Manual) 0.9 L Monocytes # (Manual) 0.5 Eosinophils # (Manual) 0.1 Metamyelocytes # 0.1 Myelocytes # 0.1 Smudge Cells PRESENT Platelet Estimate SLIGHTLY DECREASED Plt Morphology Comment NORMAL RBC Morphology NOTED Polychromasia 1+ (0-2) Macrocytosis 1+ (5-14) Target Cells 1+ (5-14) PT 12.0 INR 1.1 APTT 41.3 H VBG pH VBG pCO2 VBG pO2 VBG HCO3 VBG O2 Saturation VBG Base Excess Sodium 143 Potassium 4.2 Chloride 109 H Carbon Dioxide 27 Anion Gap 11 L BUN 2 L Creatinine 0.47 L Estim Creat Clear Calc 109.7 Estimated GFR > 60 Random Glucose 79 Calcium 8.9 Phosphorus 2.6 L Magnesium 1.7 Ammonia Lactate Dehydrogenase Albumin 3.2 L Pleural WBC Pleural RBC Pleural Neutrophils Pleural Lymphocytes Pleural Monocytes Pleural Eosinophils Pleural Other Cells Blood Type Antibody Screen MADELIN, Polyspecific Positive MADELIN Work-up Crossmatch Crossmatch ([facility]) 08/26/21 08:43 WBC RBC Hgb Hct MCV MCH MCHC RDW Plt Count MPV Immature Gran % (Auto) Neut % (Auto) Lymph % (Auto) [place] % (Auto) Eos % (Auto) Baso % (Auto) Lymph # (Auto) [place] # (Auto) Eos # (Auto) Baso # (Auto) Abs Immat Gran (auto) Absolute Neuts (auto) Absolute Nucleated RBC Nucleated RBC % (auto) Neutrophils % (Manual) Band Neutrophils % Lymphocytes % (Manual) Monocytes % (Manual) Eosinophils % (Manual) Metamyelocytes % Myelocytes % Promyelocytes % Abs Neuts (Manual) Lymphocytes # (Manual) Monocytes # (Manual) Eosinophils # (Manual) Metamyelocytes # Myelocytes # Smudge Cells Platelet Estimate Plt Morphology Comment RBC Morphology Polychromasia Macrocytosis Target Cells PT INR APTT VBG pH VBG pCO2 VBG pO2 VBG HCO3 VBG O2 Saturation VBG Base Excess Sodium Potassium Chloride Carbon Dioxide Anion Gap BUN Creatinine Estim Creat Clear Calc Estimated GFR Random Glucose Calcium Phosphorus Magnesium Ammonia 43 Lactate Dehydrogenase Albumin Pleural WBC Pleural RBC Pleural Neutrophils Pleural Lymphocytes Pleural Monocytes Pleural Eosinophils Pleural Other Cells Blood Type Antibody Screen MADELIN, Polyspecific Positive MADELIN Work-up Crossmatch Crossmatch ([facility]) Microbiology Microbiology Results: Microbiology 08/25/21 15:27 Sputum - Suctioned Gram Stain - Final 08/25/21 02:13 Blood - Venous Blood Culture - Preliminary No growth after 24 hours. 08/25/21 02:13 Blood - Venous Blood Culture - Preliminary No growth after 24 hours. 08/25/21 02:15 Sputum - Suctioned Gram Stain - Final 08/16/21 15:36 Blood - Venous Blood Culture - Final No growth after 5 days. 08/16/21 15:33 Blood - Venous Blood Culture - Final No growth after 5 days. 08/16/21 14:12 Urine Catheterized - Straight Catheter Urine Culture - Final Escherichia coli Progress Note: A&P Assessment and plan (1) Anoxic encephalopathy: Status: Acute (2) Status epilepticus: Status: Acute (3) Esophageal obstruction: Status: Acute (4) Pulmonary nodules: Status: Acute (5) Aspiration into airway: Status: Acute (6) Cardiac arrest: Status: Acute (7) Shock: Status: Acute (8) Acute respiratory failure: Status: Acute (9) Asystole: Status: Acute (10) Metabolic encephalopathy: Status: Acute (11) Altered mental status, unspecified: Status: Acute (12) Acute hyponatremia: Status: Acute (13) Acute UTI: Status: Acute Assessment and Plan: So in the face of this grim prognosis with the severely dysfunctional EEG virtually intractable seizures despite 4 medications now to treat but with significant background encephalopathy probably representing and Oxy a we continue to maintain the ventilator and IV fluids to keep her metabolically intact until such time as we can decide and while we observe id to see if she were to regain any consciousness or any degree of functionality Pleural fluid does not demonstrate an infectious source and thus far cultures have not revealed anything either and she is not febrile Quality Stroke Does the patient have a stroke diagnosis?: No VTE Prior VTE?: No VTE Risk Level:: Medical - moderate - high VTE Device Contraindication: Treatment Not Indicated VTE Drug Contraindication: N/A - Med Ordered
[2021-08-26 12:49] LABS: Glucose Pleural Fluid 89
--- NOTE | 2021-08-26 12:51 | MHC.CM.PN ---
ATTY ANTHONY called to let us know that patient has a son - henna avendano, ph: [phone], ph: [phone]. she said that he is planning to be at the court hearing this coming saturday at 3 pm via zoom or phone. cm to cont. to follow.
--- NOTE | 2021-08-26 17:13 | PC.NURSE ---
THIS RN SPOKE WITH ATT ANTHONY AND WAS GIVEN CONSENT TO BE ABLE TO UPDATE AND ANSWER QUESTIONS TO RAFIQ MAINOR (PTS SON). THIS RN SPOKE WITH RAFIQ AND ANSWERED ALL HIS QUESTIONS. HE STATES HE WILL BE ATTENDING THE COURT HEARING ON SATURDAY. HE ALSO REQUEST IF HE COULD PLEASE BE NOTIFIED WHEN HIS MOTHER EXPIRES. RAFIQ CONTACT NUMBERS: [phone] AND [phone].
[2021-08-26] MEDS: Enoxaparin Sodium 40 MG/0.4 ML SYRINGE SUBCUT (19:55)
[2021-08-27] VITALS (30 sets, daily range): BP systolic 115–192; BP diastolic 38–87; PULSE 86–105; RESP 12–18; TEMP 34.2–37.4; O2SAT 92–99; BMI 34.6
[2021-08-27] MEDS: levETIRAcetam in NaCl (iso-os) 1,000 MG/100 ML PIGGYBACK 400 MG IV ×3 (00:37→17:12)
[2021-08-27] MEDS: Furosemide 20 MG/2 ML VIAL IVPUSH (01:08)
[2021-08-27] MEDS: Albumin Human 25 % 50 ML 100 ML IV ×2 (02:19→06:23)
[2021-08-27] MEDS: Furosemide 40 MG/4 ML VIAL IVPUSH (02:20)
--- NOTE | 2021-08-27 04:56 | PC.NURSE ---
PATIENT REMAINS TUBED/VENTED VCV/AC MODE...EXTREMETIES FLACCID...PUPILS PINPOINT..(+) SCLERAL EDEMA...OCASSIONAL FACIAL RHYTHMIC TWITCHING ACTIVITY...DEPAKOTE/KEPPRA/DILANTIN AND PRN ATIVAN PER NOV...LUNGS CONGESTED...REMAINS GENERALIZED EDEMA..FLUID BALANCE POST-ARREST 08/19 REVIEWED WITH ICU PA...LASIX/ALBUMEN PER NOV WITH LARGE DIURESIS...ELEVATED BP IMPROVED POST-DIURESIS..INCONTINANT SOFT BROWN STOOL
--- NOTE | 2021-08-27 05:35 | PC.NURSE ---
pt remains tubed, unsedated with intermittent seizure like activity. Pt fluids were stopped due to significant generarlized edema. Pt was given albumin and lasix and put out approximately 2 liters. Pt skin is intact. pt unresponsive.
[2021-08-27 05:36] LABS: VBG Base Excess 11.4 mmol/L; VBG HCO3 34 mmol/L (22-26); VBG pCO2 40 mmHg; VBG pH 7.54 (7.32-7.43); VBG pO2 51 mmHg
[2021-08-27 05:41] LABS: Hematocrit 27.4 % (37.0-47.0); Hemoglobin 8.6 g/dl (12.0-16.0); Mean Corpuscular HGB Conc 31.4 g/dl (31.0-35.0); Mean Corpuscular Volume 98.9 fL (80.0-98.0); Platelet Count 135 X10*3/uL (160-400); Red Blood Count 2.77 X10*6/uL (4.20-5.50); Red Cell Distribution Width 15.2 % (11.0-16.0); White Blood Count 4.6 X10*3/uL (4.8-10.8)
[2021-08-27 05:49] LABS: INTERNATIONAL NORM RATIO 1.1 (0.9-1.1); Prothrombin Time 12.6 SEC (9.9-13.0)
[2021-08-27 05:51] LABS: Partial Thromboplastin Time 42.6 SEC (24.1-38.0)
[2021-08-27 05:55] LABS: Albumin Level 3.7 g/dL (3.5-5.0)
[2021-08-27 06:04] LABS: Anion Gap 16 (12-20); Blood Urea Nitrogen 2 mg/dL (9-16); Calcium 9.6 mg/dL (8.4-10.2); Carbon Dioxide 29 mmol/L (22-29); Chloride 104 mmol/L (96-108); Creatinine Clr Calc Pharmacy 109.7; Estimated Glomerular Filt Rate > 60; Glucose Random 83 mg/dL (60-115); Magnesium 1.5 mg/dL (1.6-2.6); Potassium 3.5 mmol/L (3.3-5.1); Sodium 145 mmol/L (135-145)
[2021-08-27 06:06] LABS: B Type Natriuretic Peptide 216 pg/mL (<100)
[2021-08-27] MEDS: Valproic Acid (as Sodium Salt) 1,000 MG in Dextrose 5 % 50 ML 60 MG IV ×3 (06:17→22:47)
[2021-08-27 06:23] LABS: Band Neutrophils Percent 7 % (3-5); Eosinophils Absolute Manual 0.2 X10*3/uL (0.0-0.4); Eosinophils Percent Manual 4 % (0-4); Lymphocytes Absolute Manual 1.3 X10*3/uL (1.2-4.9); Lymphocytes Percent Manual 28 % (20-40); Macrocytosis 1+ (5-14) /OIF; Metamyelocytes Absolute 0.1 X10*3/uL; Metamyelocytes Percent 2 %; Monocytes Absolute Manual 0.5 X10*3/uL (0.1-1.2); Monocytes Percent Manual 10 % (2-11); Myelocytes Absolute 0.1 X10*/uL; Myelocytes Percent 2 %; Neutrophils Absolute Manual 2.4 X10*3/uL (2.0-8.3); Neutrophils Percent Manual 46 % (45-73); Platelet Morphology Comment NORM; Promyelocytes Percent 1 %; RBC Morphology NORMAL
[2021-08-27 06:24] LABS: Hypochromasia 1+ (5-14) /OIF; Platelet Estimate SLIGHTLY DECREASED (NORMAL); Smudge Cells PRESENT
[2021-08-27] MEDS: Magnesium Sulfate/D5W 1 GM/100 ML PIGGYBACK IV (06:25)
[2021-08-27 06:34] LABS: Venous Blood Gas Refer to POC result
[2021-08-27] MEDS: 0.9 % Sodium Chloride Flush 3 ML SYRINGE IVFLUSH ×2 (07:20→14:51)
[2021-08-27] MEDS: Phenytoin Sodium 100 MG/2 ML VIAL IVPUSH ×3 (08:03→20:27)
[2021-08-27] MEDS: LORazepam 2 MG/ML VIAL IVPUSH ×3 (08:03→17:59)
[2021-08-27] MEDS: Chlorhexidine Gluc Oral Rinse 15 ML MOUTHWASH BUCCAL ×3 (08:03→20:27)
--- NOTE | 2021-08-27 14:45 | PM.CCPN ---
Subjective Subjective Date of Service: 08/27/21 Interval History: 81-year-old female who status post a witnessed arrest potentially up to 10 minutes of cyanosis in other words hypoxic burden prior to resuscitation at 10 minute resuscitation before restoring circulation and came down central line induced a pneumothorax and chest tube was placed which I removed today and and the lung remains fully expanded She was in refractory status epilepticus and we just added 1 drug after another and currently she is on 4 medications to include Keppra and valproic acid and fully loaded with Dilantin and and getting doses of Ativan as well still has breakthrough convulsive status epilepticus and quiet otherwise in between but unfortunately without continuous EEG we can not completely rule out nonconvulsive status and that it of course diagnosis will depend on other EEG but today she is actually demonstrated some improvement in exam namely brainstem reflexes positive corneals reactive eyes that are equal bilaterally and no longer pinpoint she has restored gag reflex she does have spontaneous respiratory effort although extremely shallow certainly is not a normal pattern but she had been apneic before Decades of background schizoaffective disorder and institutional for decades as well and recent features of progressive dementia adeno had been noted prior to this admission and there was some witnessed at in 0 times of aspiration and again very difficult to say whether not she might have been ecto all when aspirating more the aspiration was the primary problem but apparently does have esophageal stricture problems Critical Care Time (minutes): 60 Physical Exam Vital Signs: Vital Signs: Last Vital Signs Temp 98.8 F 08/27/21 14:00 Pulse 100 08/27/21 14:00 Resp 12 08/27/21 14:00 BP 154/66 H 08/27/21 14:00 Pulse Ox 97 08/27/21 14:00 BMI result Body Mass Index 34.6 Still no response to pain but the a stents oval seizure activity is definitely is greatly diminished although it still recurs briefly but there has been improvement in her neurological exam with some degree of jainism of brainstem reflexes Cardiovascular exam by bedside echo in intact LV and RV function and normal sinus rhythm Lungs remain clear by chest x-ray with full re-expansion of the left lung and chest tube is out central line remains in place Abdomen soft no organomegaly Skin is intact without breakdown but there is diffuse anasarca from hypoalbuminemia Objective Data Labs CBC & Chem 7: 08/27/21 05:24 08/27/21 05:24 Labs: Laboratory Results - last 24 hr 08/27/21 08/27/21 08/27/21 05:24 05:24 05:24 WBC 4.6 L RBC 2.77 L Hgb 8.6 L Hct 27.4 L MCV 98.9 H MCH 31.0 MCHC 31.4 RDW 15.2 Plt Count 135 L MPV 9.0 L Immature Gran % (Auto) Cancelled Neut % (Auto) Cancelled Lymph % (Auto) Cancelled [place] % (Auto) Cancelled Eos % (Auto) Cancelled Baso % (Auto) Cancelled Lymph # (Auto) Cancelled [place] # (Auto) Cancelled Eos # (Auto) Cancelled Baso # (Auto) Cancelled Abs Immat Gran (auto) Cancelled Absolute Neuts (auto) Cancelled Absolute Nucleated RBC 0.000 Nucleated RBC % (auto) 0.0 Neutrophils % (Manual) 46 Band Neutrophils % 7 H Lymphocytes % (Manual) 28 Monocytes % (Manual) 10 Eosinophils % (Manual) 4 Metamyelocytes % 2 Myelocytes % 2 Promyelocytes % 1 Abs Neuts (Manual) 2.4 Lymphocytes # (Manual) 1.3 Monocytes # (Manual) 0.5 Eosinophils # (Manual) 0.2 Metamyelocytes # 0.1 Myelocytes # 0.1 Smudge Cells PRESENT Platelet Estimate SLIGHTLY DECREASED Plt Morphology Comment NORM RBC Morphology NORMAL Hypochromasia 1+ (5-14) Macrocytosis 1+ (5-14) PT 12.6 INR 1.1 APTT 42.6 H VBG pH VBG pCO2 VBG pO2 VBG HCO3 VBG O2 Saturation VBG Base Excess Sodium 145 Potassium 3.5 Chloride 104 Carbon Dioxide 29 Anion Gap 16 BUN 2 L Creatinine 0.47 L Estim Creat Clear Calc 109.7 Estimated GFR > 60 Random Glucose 83 Calcium 9.6 D Phosphorus 3.0 Magnesium 1.5 L B-Natriuretic Peptide Albumin 08/27/21 08/27/21 08/27/21 05:24 05:24 05:30 WBC RBC Hgb Hct MCV MCH MCHC RDW Plt Count MPV Immature Gran % (Auto) Neut % (Auto) Lymph % (Auto) [place] % (Auto) Eos % (Auto) Baso % (Auto) Lymph # (Auto) [place] # (Auto) Eos # (Auto) Baso # (Auto) Abs Immat Gran (auto) Absolute Neuts (auto) Absolute Nucleated RBC Nucleated RBC % (auto) Neutrophils % (Manual) Band Neutrophils % Lymphocytes % (Manual) Monocytes % (Manual) Eosinophils % (Manual) Metamyelocytes % Myelocytes % Promyelocytes % Abs Neuts (Manual) Lymphocytes # (Manual) Monocytes # (Manual) Eosinophils # (Manual) Metamyelocytes # Myelocytes # Smudge Cells Platelet Estimate Plt Morphology Comment RBC Morphology Hypochromasia Macrocytosis PT INR APTT VBG pH 7.54 H VBG pCO2 40 VBG pO2 51 VBG HCO3 34 H VBG O2 Saturation 82.0 VBG Base Excess 11.4 Sodium Potassium Chloride Carbon Dioxide Anion Gap BUN Creatinine Estim Creat Clear Calc Estimated GFR Random Glucose Calcium Phosphorus Magnesium B-Natriuretic Peptide 216 H Albumin 3.7 Microbiology Microbiology Results: Microbiology 08/25/21 10:00 Blood - Venous Blood Culture - Preliminary No growth after 48 hours. 08/25/21 10:01 Blood - Venous Blood Culture - Preliminary No growth after 48 hours. 08/25/21 02:15 Sputum - Suctioned Gram Stain - Final 08/25/21 02:15 Sputum - Suctioned Sputum Culture - Preliminary Yeast 08/25/21 15:27 Sputum - Suctioned Gram Stain - Final 08/25/21 15:27 Sputum - Suctioned Sputum Culture - Final Staphylococcus aureus 08/25/21 02:13 Blood - Venous Blood Culture - Preliminary No growth after 48 hours. 08/25/21 02:13 Blood - Venous Blood Culture - Preliminary No growth after 48 hours. 08/16/21 15:36 Blood - Venous Blood Culture - Final No growth after 5 days. 08/16/21 15:33 Blood - Venous Blood Culture - Final No growth after 5 days. 08/16/21 14:12 Urine Catheterized - Straight Catheter Urine Culture - Final Escherichia coli Progress Note: A&P Assessment and plan (1) Anoxic encephalopathy: Status: Acute (2) Status epilepticus: Status: Acute (3) Esophageal obstruction: Status: Acute (4) Pulmonary nodules: Status: Acute (5) Aspiration into airway: Status: Acute (6) Cardiac arrest: Status: Acute (7) Shock: Status: Acute (8) Acute respiratory failure: Status: Acute (9) Asystole: Status: Acute (10) Metabolic encephalopathy: Status: Acute (11) Altered mental status, unspecified: Status: Acute (12) Acute hyponatremia: Status: Acute (13) Acute UTI: Status: Acute Assessment and Plan: So this lady who is 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 with severe diffuse ischemic issues related to her brain progressive dementia underlying schizoaffective disorder institutionalized for decades presented with an unresponsiveness which at 1st they thought there were no vital signs associated with it but she spontaneously did awaken and and mental status gradually restored could easily have been a postictal state and that could have been the primary precipitant to some of this aspiration but that could also be mechanical reasons because of esophageal stricture but only the other in eventually it and possibly because of a massive aspiration she had at hypoxic of arrest asystolic 20 minutes probably 0 altogether of hypoxia hypoxemia and and then she had refractory status epilepticus at that point which also was another severe ischemic influence so all told for meaningful recovery I think the prognosis still remains grave although there is some signs of some neurological recovery in these last 24 hours the issues remain not having been fed and vena because he was so very unsure about prognosis couple with the recurrent seizure issues and that may need to be addressed in the face of the esophageal stricture and I think 1 more repeat EEG certainly before any discussion with the guardian and the court about potential comfort measures to help secure prognosis especially of his evidence of severe encephalopathy as there was the week before Quality Stroke Does the patient have a stroke diagnosis?: No VTE Prior VTE?: No VTE Risk Level:: Medical - moderate - high VTE Device Contraindication: Treatment Not Indicated VTE Drug Contraindication: N/A - Med Ordered
[2021-08-27] MEDS: Enoxaparin Sodium 40 MG/0.4 ML SYRINGE SUBCUT (20:27)
[2021-08-27] MEDS: Furosemide 100 MG/10 ML VIAL 60 MG IVPUSH (20:27)
[2021-08-27] MEDS: Potassium Chloride/H20 40 MEQ/100 ML PIGGYBACK 50 MEQ IV (23:38)
[2021-08-28] VITALS (29 sets, daily range): BP systolic 111–165; BP diastolic 38–78; PULSE 94–106; RESP 12–19; TEMP 34.7–37.6; O2SAT 92–98; BMI 33.2
[2021-08-28] MEDS: levETIRAcetam in NaCl (iso-os) 1,000 MG/100 ML PIGGYBACK 400 MG IV ×2 (00:42→09:51)
[2021-08-28] MEDS: LORazepam 2 MG/ML VIAL IVPUSH ×3 (03:06→19:25)
[2021-08-28 05:27] LABS: VBG HCO3 36 mmol/L (22-26); VBG pCO2 40 mmHg; VBG pH 7.56 (7.32-7.43); VBG pO2 90 mmHg
[2021-08-28 05:40] LABS: Hematocrit 26.5 % (37.0-47.0); Hemoglobin 8.3 g/dl (12.0-16.0); Mean Corpuscular HGB Conc 31.3 g/dl (31.0-35.0); Mean Corpuscular Hemoglobin 30.9 pg (27.0-33.0); Mean Corpuscular Volume 98.5 fL (80.0-98.0); Mean Platelet Volume 8.7 fL (9.4-12.3); Platelet Count 132 X10*3/uL (160-400); Red Blood Count 2.69 X10*6/uL (4.20-5.50); Red Cell Distribution Width 15.4 % (11.0-16.0); White Blood Count 4.3 X10*3/uL (4.8-10.8)
[2021-08-28 05:46] LABS: INTERNATIONAL NORM RATIO 1.3 (0.9-1.1); Prothrombin Time 14.4 SEC (9.9-13.0)
[2021-08-28 05:49] LABS: Partial Thromboplastin Time 44.6 SEC (24.1-38.0)
[2021-08-28 05:56] LABS: B Type Natriuretic Peptide 141 pg/mL (<100)
[2021-08-28 06:04] LABS: Anion Gap 14 (12-20); Blood Urea Nitrogen 3 mg/dL (9-16); Calcium 9.4 mg/dL (8.4-10.2); Carbon Dioxide 32 mmol/L (22-29); Chloride 102 mmol/L (96-108); Creatinine Clr Calc Pharmacy 95.9; Estimated Glomerular Filt Rate > 60; Glucose Random 73 mg/dL (60-115); Magnesium 1.5 mg/dL (1.6-2.6); Phosphorus 3.2 mg/dL (2.7-4.5); Potassium 3.5 mmol/L (3.3-5.1); Sodium 144 mmol/L (135-145)
[2021-08-28] MEDS: Valproic Acid (as Sodium Salt) 1,000 MG in Dextrose 5 % 50 ML 60 MG IV ×3 (06:12→22:12)
[2021-08-28 06:23] LABS: Venous Blood Gas Refer to POC result
[2021-08-28 06:33] LABS: Atypical Lymphs Percent Manual 1 % (0-6); Band Neutrophils Percent 6 % (3-5); Eosinophils Absolute Manual 0.1 X10*3/uL (0.0-0.4); Eosinophils Percent Manual 3 % (0-4); Lymphocytes Absolute Manual 1.2 X10*3/uL (1.2-4.9); Lymphocytes Percent Manual 27 % (20-40); Metamyelocytes Absolute 0.1 X10*3/uL; Metamyelocytes Percent 2 %; Monocytes Absolute Manual 0.4 X10*3/uL (0.1-1.2); Monocytes Percent Manual 10 % (2-11); Neutrophils Absolute Manual 2.4 X10*3/uL (2.0-8.3); Neutrophils Percent Manual 50 % (45-73); Promyelocytes Percent 1 %; RBC Morphology NOTED
[2021-08-28 06:34] LABS: Hypochromasia 1+ (5-14) /OIF; Macrocytosis 1+ (5-14) /OIF
[2021-08-28 06:35] LABS: Platelet Estimate SLIGHTLY DECREASED (NORMAL); Platelet Morphology Comment NORMAL
[2021-08-28 07:12] LABS: Albumin Level 3.3 g/dL (3.5-5.0)
[2021-08-28] MEDS: Chlorhexidine Gluc Oral Rinse 15 ML MOUTHWASH BUCCAL ×3 (08:24→22:12)
[2021-08-28] MEDS: 0.9 % Sodium Chloride Flush 3 ML SYRINGE IVFLUSH ×2 (08:24→15:17)
[2021-08-28] MEDS: Phenytoin Sodium 100 MG/2 ML VIAL IVPUSH ×3 (08:24→22:12)
--- NOTE | 2021-08-28 09:07 | PC.NURSE ---
LATE ENTRY FOR 08/27/21: CHEST TUBE REMOVED AT 0820. OCCLUSIVE DRESSING APPLIED. TLC DRESSING CHANGED.
--- NOTE | 2021-08-28 09:59 | PC.NURSE ---
MADRID REMOVED. PUREWICK PIT IN PLACE. WILL CONTINUE TO MONITOR.
[2021-08-28] MEDS: Heparin Sodium,Porcine 5,000 UNIT/ML VIAL 5000 UNIT SUBCUT ×2 (10:54→18:43)
[2021-08-28] MEDS: Magnesium Sulfate/H2O 2 GM/50 ML PIGGYBACK IV (10:55)
--- NOTE | 2021-08-28 11:27 | MHC.CLN ---
F/U PT REMAINS INTUBATED PT IS CURRENTLY NPO DAY 8 AND WITHOUT OG TUBE R/T HERNIA PT PENDING INSOLE BUFFER STATUS, COURT HEARING POSTPONED UNTIL 08/29 PER CM IF NUTRITION NEEDED; PLEASE CONSULT RD FOLLOWING WITH TEAM AND WILL PROVIDE SUPPORT NEEDED
[2021-08-28 13:42] LABS: Haptoglobin 116 mg/dL (43-212)
--- NOTE | 2021-08-28 14:23 | P.PNCC_ITS ---
Subjective Subjective Date of Service: 08/28/21 Interval History: 81-year-old lady with underlying hypertension, COPD, and schizophrenia, resident of [facility] admitted on 08/16/2021 with alteration of mental status, apparently nonverbal at baseline on ER evaluation patient was noted to be hyponatremic to 124 with evidence of aspiration event with eating. She also was noted to have UTI. Patient was [facility] and treated for hyponatremia and UTI. On 08/19/2021 patient had a sudden asystolic cardiac arrest, possibly secondary to an aspiration event as large amount of food were noted in pharynx with intubation. returned spontaneous circulation with achieved after approximately 9 minutes and patient was transferred to intensive care unit. Further hospital course was complicated by left pneumothorax after placement left subclavian central venous catheter requiring initially needle thoracostomy and then placement of left-sided chest tube. patient was noted to have severely narrowed distal esophagus with inability to pass an NG tube. Also patient was noted to have no arousal with sedation vacation and she has had EEG on 08/21/2021 showing generalized status epilepticus versus anoxic encephalopathy, further confirmed with EEG on 08/22/2021 and 08/25/2021. Patient also had CT head on 08/24/2021 showing acute right basal ganglia infarct. Patient remains with no significant response on ventilator support with no sedative requirements. events overnight. Significant change in mental status. Critical Care Time (minutes): 60 Physical Exam Vital Signs: Vital Signs: Last Vital Signs Temp 97.6 F 08/28/21 12:00 Pulse 99 08/28/21 14:00 Resp 12 08/28/21 14:00 BP 127/43 L 08/28/21 14:00 Pulse Ox 96 08/28/21 14:00 BMI result Body Mass Index 33.2 Const: General: no acute distress and other ( anasarca) Eyes: Sclerae: sclerae normal Pupils: Pinpoint pupils ( Non reactive bilateral) Neck: Neck: Yes no lymphadenopathy, Yes trachea midline and Yes supple Resp: Auscultation: clear to auscultation bilaterally Cardio: Rate: tachycardic Rhythm: regular rhythm Heart sounds: no gallops, no murmurs and no rubs GI: Palpation (GI): Soft to palpation and Other GI palpation findings present ( Nontender) Auscultation: normal bowel sounds Extrem: General: No clubbing and No cyanosis Objective Data Labs CBC & Chem 7: 08/28/21 05:20 08/28/21 05:20 Labs: Laboratory Results - last 24 hr 08/25/21 08/28/21 08/28/21 10:00 05:20 05:20 WBC 4.3 L RBC 2.69 L Hgb 8.3 L Hct 26.5 L MCV 98.5 H MCH 30.9 MCHC 31.3 RDW 15.4 Plt Count 132 L MPV 8.7 L Immature Gran % (Auto) Cancelled Neut % (Auto) Cancelled Lymph % (Auto) Cancelled [place] % (Auto) Cancelled Eos % (Auto) Cancelled Baso % (Auto) Cancelled Lymph # (Auto) Cancelled [place] # (Auto) Cancelled Eos # (Auto) Cancelled Baso # (Auto) Cancelled Abs Immat Gran (auto) Cancelled Absolute Neuts (auto) Cancelled Absolute Nucleated RBC 0.000 Nucleated RBC % (auto) 0.0 Neutrophils % (Manual) 50 Band Neutrophils % 6 H Lymphocytes % (Manual) 27 Atypical Lymphs % (Man) 1 Monocytes % (Manual) 10 Eosinophils % (Manual) 3 Metamyelocytes % 2 Promyelocytes % 1 Abs Neuts (Manual) 2.4 Lymphocytes # (Manual) 1.2 Monocytes # (Manual) 0.4 Eosinophils # (Manual) 0.1 Metamyelocytes # 0.1 Platelet Estimate SLIGHTLY DECREASED Plt Morphology Comment NORMAL RBC Morphology NOTED Hypochromasia 1+ (5-14) Macrocytosis 1+ (5-14) Haptoglobin 116 PT 14.4 H INR 1.3 H APTT 44.6 H VBG pH VBG pCO2 VBG pO2 VBG HCO3 VBG O2 Saturation VBG Base Excess Sodium Potassium Chloride Carbon Dioxide Anion Gap BUN Creatinine Estim Creat Clear Calc Estimated GFR Random Glucose Calcium Phosphorus Magnesium B-Natriuretic Peptide Albumin 08/28/21 08/28/21 08/28/21 05:20 05:20 05:20 WBC RBC Hgb Hct MCV MCH MCHC RDW Plt Count MPV Immature Gran % (Auto) Neut % (Auto) Lymph % (Auto) [place] % (Auto) Eos % (Auto) Baso % (Auto) Lymph # (Auto) [place] # (Auto) Eos # (Auto) Baso # (Auto) Abs Immat Gran (auto) Absolute Neuts (auto) Absolute Nucleated RBC Nucleated RBC % (auto) Neutrophils % (Manual) Band Neutrophils % Lymphocytes % (Manual) Atypical Lymphs % (Man) Monocytes % (Manual) Eosinophils % (Manual) Metamyelocytes % Promyelocytes % Abs Neuts (Manual) Lymphocytes # (Manual) Monocytes # (Manual) Eosinophils # (Manual) Metamyelocytes # Platelet Estimate Plt Morphology Comment RBC Morphology Hypochromasia Macrocytosis Haptoglobin PT INR APTT VBG pH VBG pCO2 VBG pO2 VBG HCO3 VBG O2 Saturation VBG Base Excess Sodium 144 Potassium 3.5 Chloride 102 Carbon Dioxide 32 H Anion Gap 14 BUN 3 L Creatinine 0.52 Estim Creat Clear Calc 95.9 Estimated GFR > 60 Random Glucose 73 Calcium 9.4 Phosphorus 3.2 Magnesium 1.5 L B-Natriuretic Peptide 141 H Albumin 3.3 L Cancelled 08/28/21 05:20 WBC RBC Hgb Hct MCV MCH MCHC RDW Plt Count MPV Immature Gran % (Auto) Neut % (Auto) Lymph % (Auto) [place] % (Auto) Eos % (Auto) Baso % (Auto) Lymph # (Auto) [place] # (Auto) Eos # (Auto) Baso # (Auto) Abs Immat Gran (auto) Absolute Neuts (auto) Absolute Nucleated RBC Nucleated RBC % (auto) Neutrophils % (Manual) Band Neutrophils % Lymphocytes % (Manual) Atypical Lymphs % (Man) Monocytes % (Manual) Eosinophils % (Manual) Metamyelocytes % Promyelocytes % Abs Neuts (Manual) Lymphocytes # (Manual) Monocytes # (Manual) Eosinophils # (Manual) Metamyelocytes # Platelet Estimate Plt Morphology Comment RBC Morphology Hypochromasia Macrocytosis Haptoglobin PT INR APTT VBG pH 7.56 H VBG pCO2 40 VBG pO2 90 VBG HCO3 36 H VBG O2 Saturation 97.0 VBG Base Excess TNP Sodium Potassium Chloride Carbon Dioxide Anion Gap BUN Creatinine Estim Creat Clear Calc Estimated GFR Random Glucose Calcium Phosphorus Magnesium B-Natriuretic Peptide Albumin Microbiology Microbiology Results: Microbiology 08/25/21 02:15 Sputum - Suctioned Gram Stain - Final 08/25/21 02:15 Sputum - Suctioned Sputum Culture - Final Harriett albicans 08/25/21 10:00 Blood - Venous Blood Culture - Preliminary No growth after 48 hours. 08/25/21 10:01 Blood - Venous Blood Culture - Preliminary No growth after 48 hours. 08/25/21 15:27 Sputum - Suctioned Gram Stain - Final 08/25/21 15:27 Sputum - Suctioned Sputum Culture - Final Staphylococcus aureus 08/25/21 02:13 Blood - Venous Blood Culture - Preliminary No growth after 48 hours. 08/25/21 02:13 Blood - Venous Blood Culture - Preliminary No growth after 48 hours. 08/16/21 15:36 Blood - Venous Blood Culture - Final No growth after 5 days. 08/16/21 15:33 Blood - Venous Blood Culture - Final No growth after 5 days. 08/16/21 14:12 Urine Catheterized - Straight Catheter Urine Culture - Final Escherichia coli Progress Note: A&P Assessment and plan (1) Anoxic encephalopathy: Status: Acute (2) Status epilepticus: Status: Acute (3) Esophageal obstruction: Status: Acute (4) Aspiration into airway: Status: Acute (5) Cardiac arrest: Status: Acute (6) Acute respiratory failure: Status: Acute (7) Schizophrenia: Status: Acute (8) COPD (chronic obstructive pulmonary disease): Status: Acute Assessment and Plan: Assessment: 81-year-old lady with advanced schizophrenia and nonverbal at baseline admitted with alteration of mental status with hospital course further complicated by asystolic cardiac arrest likely secondary to an aspiration event with resultant anoxic encephalopathy versus persistent status epilepticus Plan: Neuro: anoxic encephalopathy versus persistent status epilepticus. Continues on anti epileptic regimen. Will obtain MRI for further evaluation. Cardiac: Status post asystolic cardiac arrest likely secondary to an aspiration event. Pulmonary: Acute hypoxic respiratory failure secondary to pulmonary aspiration. Now continues on ventilatory support. Renal: No acute issues. Endo: No acute issues. GI: Underlying distal esophageal stricture likely causing food impaction and aspiration. ID: No acute issues Heme/Onc: No acute issues. Psych: No acute issues. Underlying schizophrenia. Miscellaneous: No acute issues. Prophylaxis: Heparin, famotidine Diet: nothing by mouth Critical care time spent: 60 minutes Quality Stroke Does the patient have a stroke diagnosis?: No VTE Prior VTE?: No VTE Risk Level:: Medical - moderate - high VTE Device Contraindication: Treatment Not Indicated VTE Drug Contraindication: N/A - Med Ordered
--- NOTE | 2021-08-28 15:02 | MHC.CM.PN ---
Pt's long estranged son contacted by pt's guardian, Lenardamish Wright per protocol and informed of court hearing on 08/29. Son has not had contact with pt for >10 years. Son able to speak with pt's RN re: condition of his mother and overall prognosis. He requests that [facility] notify him when pt passes. Updated ICU MD on hearing date/time - 08/29 at 3pm. MD will need to provide clinical review of case and assist with any questions pertaining to care. CM to follow
[2021-08-28] MEDS: levETIRAcetam in NaCl (iso-os) 1,000 MG/100 ML PIGGYBACK 100 MG IV (18:43)
[2021-08-28] MEDS: iohexoL 350 MG/ML 100 ML INFUS..BTL IV (21:45)
[2021-08-29] VITALS (34 sets, daily range): BP systolic 75–167; BP diastolic 27–66; PULSE 68–100; RESP 11–25; TEMP 35–36.9; O2SAT 88–100; BMI 32.9
--- NOTE | 2021-08-29 | ECG_ITS ---
Test Reason : sinus ken Blood Pressure : / mmHG Vent. Rate : 081 BPM Atrial Rate : 081 BPM P-R Int : 174 ms QRS Dur : 072 ms QT Int : 364 ms P-R-T Axes : 008 000 010 degrees QTc Int : 422 ms Sinus rhythm with Premature supraventricular complexes Nonspecific ST and T wave abnormality Abnormal ECG When compared with ECG of 21-AUG-2021 07:17, Premature supraventricular complexes are now Present Criteria for Septal infarct are no longer Present Nonspecific T wave abnormality, worse in Lateral leads Referred By: Kj Sousa Electronically Signed By:John Ba
[2021-08-29] MEDS: LORazepam 2 MG/ML VIAL IVPUSH ×2 (00:17→05:42)
[2021-08-29] MEDS: levETIRAcetam in NaCl (iso-os) 1,000 MG/100 ML PIGGYBACK 100 MG IV (00:27)
[2021-08-29] MEDS: 0.9 % Sodium Chloride Flush 3 ML SYRINGE IVFLUSH ×4 (00:28→21:46)
[2021-08-29] MEDS: Heparin Sodium,Porcine 5,000 UNIT/ML VIAL 5000 UNIT SUBCUT ×3 (01:43→17:00)
[2021-08-29] MEDS: Valproic Acid (as Sodium Salt) 1,000 MG in Dextrose 5 % 50 ML 60 MG IV ×3 (05:42→21:46)
[2021-08-29 05:43] LABS: VBG Base Excess 9.4 mmol/L; VBG HCO3 32 mmol/L (22-26); VBG pCO2 39 mmHg; VBG pH 7.52 (7.32-7.43); VBG pO2 66 mmHg
[2021-08-29 05:43] LABS: Venous Blood Gas Refer to POC result
[2021-08-29 06:16] LABS: Eosinophils Absolute Auto 0.1 X10*3/uL (0.0-0.4); Hematocrit 27.6 % (37.0-47.0); Hemoglobin 8.7 g/dl (12.0-16.0); Imm Gran Abs Auto 0.28 X10*3/uL (0.00-0.03); Imm Gran Pct Auto 6.3 % (0.0-0.4); Lymphocytes Absolute Auto 1.2 X10*3/uL (1.2-4.9); Lymphocytes Percent Auto 27.7 % (20-40); Mean Corpuscular HGB Conc 31.5 g/dl (31.0-35.0); Mean Corpuscular Hemoglobin 31.2 pg (27.0-33.0); Mean Corpuscular Volume 98.9 fL (80.0-98.0); Mean Platelet Volume 9.2 fL (9.4-12.3); Monocytes Absolute Auto 0.6 X10*3/uL (0.1-1.2); Monocytes Percent Auto 14.1 % (2-11); Neutrophils Absolute Auto 2.2 x10*3/uL (2.0-8.3); Neutrophils Percent Auto 49.9 % (45-73); Platelet Count 157 X10*3/uL (160-400); Red Blood Count 2.79 X10*6/uL (4.20-5.50); Red Cell Distribution Width 15.4 % (11.0-16.0); SCAN SMEAR FLAG 1; White Blood Count 4.5 X10*3/uL (4.8-10.8)
[2021-08-29 06:38] LABS: MANUAL DIFF FLAG SCAN
[2021-08-29 06:39] LABS: SLIDE REVIEW VERIFIED
[2021-08-29 06:43] LABS: Albumin Level 3.3 g/dL (3.5-5.0); Anion Gap 15 (12-20); Blood Urea Nitrogen 5 mg/dL (9-16); Calcium 9.5 mg/dL (8.4-10.2); Carbon Dioxide 32 mmol/L (22-29); Chloride 102 mmol/L (96-108); Estimated Glomerular Filt Rate > 60; Glucose Random 76 mg/dL (60-115); Magnesium 1.7 mg/dL (1.6-2.6); Phosphorus 3.3 mg/dL (2.7-4.5); Potassium 3.1 mmol/L (3.3-5.1); Sodium 146 mmol/L (135-145)
[2021-08-29] MEDS: Chlorhexidine Gluc Oral Rinse 15 ML MOUTHWASH BUCCAL ×3 (08:35→19:49)
[2021-08-29] MEDS: Famotidine/PF 20 MG/2 ML VIAL IVPUSH (08:35)
[2021-08-29] MEDS: levETIRAcetam in NaCl (iso-os) 1,000 MG/100 ML PIGGYBACK 400 MG IV ×2 (08:36→16:59)
[2021-08-29] MEDS: Magnesium Sulfate/H2O 2 GM/50 ML PIGGYBACK IV (08:36)
[2021-08-29] MEDS: dexmedeTOMIDidine HCL/NS 400 MCG/100 ML INFUS..BTL 22.43 MCG IVCONT ×4 (08:37→21:18)
[2021-08-29] MEDS: Potassium Chloride/H20 40 MEQ/100 ML PIGGYBACK 100 MEQ IV (08:37)
[2021-08-29] MEDS: Phenytoin Sodium 100 MG/2 ML VIAL IVPUSH ×3 (08:39→19:48)
[2021-08-29] MEDS: Furosemide 20 MG/2 ML VIAL IVPUSH (09:09)
--- NOTE | 2021-08-29 10:13 | MHC.CLN ---
F/U PT REMAINS INTUBATED PT WITH NG TUBE PER MD DISCUSSED AT ROUNDS RECOMMEND TF JEVITY 1.0 AT MAX GOAL RATE 60ML/HR WITH 240CC FREE WATER FLUSHES Q SHIFT TO PROVIDE 1526KCALS (23KCALS/KG), 64G PROTEIN (1.0G/KG), 1922CC TOTAL WATER FROM FORMULA AND FLUSHES (28ML/KG) START TF JEVITY 1.0 AT 20ML/HR AND INCREASE BY 10ML UNTIL MAX GOAL IS ACHIEVED MONITOR TOLERANCE, RESIDUALS AND LYTES SEE FULL CLINICAL NUTRITION ASSESSMENT
[2021-08-29] MEDS: Albumin Human 25 % 100 ML IV ×3 (10:27→19:49)
[2021-08-29 11:58] LABS: ABG HCO3 40 mmol/L (22-26); ABG pCO2 41 mmHg (32-45); ABG pCO2 TC 39 mmHg (32-45); ABG pH 7.59 (7.35-7.45); ABG pO2 68 mmHg (83-108); ABG pO2 TC 65 (83-108)
[2021-08-29] MEDS: Sodium Bicarbonate 8.4% 50 MEQ/50 ML SYRINGE IVPUSH (12:07)
[2021-08-29 13:22] LABS: ABG Refer to POC result
--- NOTE | 2021-08-29 14:20 | PM.CCPN ---
Subjective Subjective Date of Service: 08/29/21 Interval History: 81-year-old lady with underlying hypertension, COPD, and schizophrenia, resident of [facility] admitted on 08/16/2021 with alteration of mental status, apparently nonverbal at baseline on ER evaluation patient was noted to be hyponatremic to 124 with evidence of aspiration event with eating. She also was noted to have UTI. Patient was [facility] and treated for hyponatremia and UTI. On 08/19/2021 patient had a sudden asystolic cardiac arrest, possibly secondary to an aspiration event as large amount of food were noted in pharynx with intubation. returned spontaneous circulation with achieved after approximately 9 minutes and patient was transferred to intensive care unit. Further hospital course was complicated by left pneumothorax after placement left subclavian central venous catheter requiring initially needle thoracostomy and then placement of left-sided chest tube. patient was noted to have severely narrowed distal esophagus with inability to pass an NG tube. Also patient was noted to have no arousal with sedation vacation and she has had EEG on 08/21/2021 showing generalized status epilepticus versus anoxic encephalopathy, further confirmed with EEG on 08/22/2021 and 08/25/2021. Patient also had CT head on 08/24/2021 showing acute right basal ganglia infarct. Patient remains with no significant response on ventilator support with no sedative requirements. This a.m. patient's pupils no longer pinpoint and are reactive to light. Also has minimal withdrawal in 4 extremities to noxious stimuli. Able to initiate respirations on her own on pressure support. No evidence of cognitive function. Critical Care Time (minutes): 60 Physical Exam Vital Signs: Vital Signs: Last Vital Signs Temp 97.3 F 08/29/21 10:00 Pulse 72 08/29/21 14:00 Resp 16 08/29/21 14:00 BP 156/47 H 08/29/21 14:00 Pulse Ox 89 L 08/29/21 14:00 BMI result Body Mass Index 32.9 Const: General: no acute distress ( tolerating ventilatory support without sedation) Eyes: Sclerae: sclerae normal Neck: Neck: Yes no lymphadenopathy, Yes trachea midline and Yes supple Resp: Auscultation: clear to auscultation bilaterally Cardio: Rate: regular rate Rhythm: regular rhythm Heart sounds: no gallops, no murmurs and no rubs GI: Palpation (GI): Soft to palpation and Other GI palpation findings present ( Nontender) Auscultation: normal bowel sounds Extrem: General: No clubbing, No cyanosis and Yes pedal edema ( 1+ bilateral) Objective Data Labs CBC & Chem 7: 08/29/21 05:32 08/29/21 05:32 Labs: Laboratory Results - last 24 hr 08/29/21 08/29/21 08/29/21 05:32 05:32 05:36 WBC 4.5 L RBC 2.79 L Hgb 8.7 L Hct 27.6 L MCV 98.9 H MCH 31.2 MCHC 31.5 RDW 15.4 Plt Count 157 L MPV 9.2 L Immature Gran % (Auto) 6.3 H Neut % (Auto) 49.9 Lymph % (Auto) 27.7 [place] % (Auto) 14.1 H Eos % (Auto) 2.0 Baso % (Auto) 0.0 Lymph # (Auto) 1.2 [place] # (Auto) 0.6 Eos # (Auto) 0.1 Baso # (Auto) 0.0 Abs Immat Gran (auto) 0.28 H Absolute Neuts (auto) 2.2 Absolute Nucleated RBC 0.000 Nucleated RBC % (auto) 0.0 Smear Tech's Comments VERIFIED O2 Saturation ABG pH at Pt Temp ABG pH (Temp Correct) ABG pCO2 at Pt Temp ABG pCO2 (Temp Corrct ABG pO2 at Pt Temp ABG pO2 (Temp Correct ABG HCO3 ABG Base Excess (Actual) VBG pH 7.52 H VBG pCO2 39 VBG pO2 66 VBG HCO3 32 H VBG O2 Saturation 91.0 VBG Base Excess 9.4 Sodium 146 H Potassium 3.1 L Chloride 102 Carbon Dioxide 32 H Anion Gap 15 BUN 5 L D Creatinine 0.57 Estim Creat Clear Calc 87.0 Estimated GFR > 60 Random Glucose 76 Calcium 9.5 Phosphorus 3.3 Magnesium 1.7 Albumin 3.3 L 08/29/21 11:50 WBC RBC Hgb Hct MCV MCH MCHC RDW Plt Count MPV Immature Gran % (Auto) Neut % (Auto) Lymph % (Auto) [place] % (Auto) Eos % (Auto) Baso % (Auto) Lymph # (Auto) [place] # (Auto) Eos # (Auto) Baso # (Auto) Abs Immat Gran (auto) Absolute Neuts (auto) Absolute Nucleated RBC Nucleated RBC % (auto) Smear Tech's Comments O2 Saturation 93.0 ABG pH at Pt Temp 7.59 H ABG pH (Temp Correct) 7.60 H* ABG pCO2 at Pt Temp 41 ABG pCO2 (Temp Corrct 39 ABG pO2 at Pt Temp 68 L ABG pO2 (Temp Correct 65 L ABG HCO3 40 H ABG Base Excess (Actual) 17.0 VBG pH VBG pCO2 VBG pO2 VBG HCO3 VBG O2 Saturation VBG Base Excess Sodium Potassium Chloride Carbon Dioxide Anion Gap BUN Creatinine Estim Creat Clear Calc Estimated GFR Random Glucose Calcium Phosphorus Magnesium Albumin Microbiology Microbiology Results: Microbiology 08/25/21 02:15 Sputum - Suctioned Gram Stain - Final 08/25/21 02:15 Sputum - Suctioned Sputum Culture - Final Harriett albicans 08/25/21 10:00 Blood - Venous Blood Culture - Preliminary No growth after 48 hours. 08/25/21 10:01 Blood - Venous Blood Culture - Preliminary No growth after 48 hours. 08/25/21 15:27 Sputum - Suctioned Gram Stain - Final 08/25/21 15:27 Sputum - Suctioned Sputum Culture - Final Staphylococcus aureus 08/25/21 02:13 Blood - Venous Blood Culture - Preliminary No growth after 48 hours. 08/25/21 02:13 Blood - Venous Blood Culture - Preliminary No growth after 48 hours. 08/16/21 15:36 Blood - Venous Blood Culture - Final No growth after 5 days. 08/16/21 15:33 Blood - Venous Blood Culture - Final No growth after 5 days. 08/16/21 14:12 Urine Catheterized - Straight Catheter Urine Culture - Final Escherichia coli Progress Note: A&P Assessment and plan (1) Schizophrenia: Status: Acute (2) Anoxic encephalopathy: Status: Acute (3) COPD (chronic obstructive pulmonary disease): Status: Acute (4) Status epilepticus: Status: Acute (5) Aspiration into airway: Status: Acute (6) Cardiac arrest: Status: Acute Assessment and Plan: Assessment: 81-year-old lady with advanced schizophrenia and nonverbal at baseline admitted with alteration of mental status with hospital course further complicated by asystolic cardiac arrest likely secondary to an aspiration event with resultant anoxic encephalopathy Plan: Neuro: anoxic encephalopathy, previously with persistent status epilepticus. Continues on anti epileptic regimen. Now no longer actively seizing. MRI brain with no evidence of severe diffuse anoxic encephalopathy, which does not rule out anoxic brain damage. Reimaging of right basal ganglia infarct known from CT chest on 08/24/2021. Appears with minimal improvement from cardiac arrest neurologic status. Definitely, no evidence of brain . 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 Cardiac: Status post asystolic cardiac arrest likely secondary to an aspiration event. Several episodes of autonomic instability today requiring turning vasopressor support on and off. Pulmonary: Acute hypoxic respiratory failure secondary to pulmonary aspiration. Now continues on ventilatory support. Briefly able to tolerate pressure support ventilation Renal: No acute issues. Endo: No acute issues. GI: Underlying distal esophageal stricture likely causing food impaction and aspiration. CT abdomen is pending. ID: No acute issues Heme/Onc: No acute issues. Psych: No acute issues. Underlying schizophrenia. Miscellaneous: No acute issues. Prophylaxis: Heparin, famotidine Diet: Tube feeds Critical care time spent: 60 minutes Quality Stroke Does the patient have a stroke diagnosis?: No VTE Prior VTE?: No VTE Risk Level:: Medical - moderate - high VTE Device Contraindication: Treatment Not Indicated VTE Drug Contraindication: N/A - Med Ordered
[2021-08-29] MEDS: Diatrizoate Meglumine, Sodium 30 ML SOLUTION PO (15:27)
[2021-08-30] VITALS (31 sets, daily range): BP systolic 97–164; BP diastolic 32–51; PULSE 62–112; RESP 16; TEMP 35–36.9; O2SAT 94–99; BMI 33.3
[2021-08-30] MEDS: levETIRAcetam in NaCl (iso-os) 1,000 MG/100 ML PIGGYBACK 400 MG IV ×3 (00:29→16:49)
[2021-08-30] MEDS: Heparin Sodium,Porcine 5,000 UNIT/ML VIAL 5000 UNIT SUBCUT ×3 (01:57→16:50)
[2021-08-30] MEDS: dexmedeTOMIDidine HCL/NS 400 MCG/100 ML INFUS..BTL 22.43 MCG IVCONT ×6 (01:57→21:55)
[2021-08-30] MEDS: Albumin Human 25 % 100 ML IV (01:58)
[2021-08-30] MEDS: iohexoL 350 MG/ML 100 ML INFUS..BTL 85 ML IV (04:58)
[2021-08-30 05:42] LABS: VBG Base Excess 12.4 mmol/L; VBG HCO3 36 mmol/L (22-26); VBG pCO2 42 mmHg; VBG pH 7.53 (7.32-7.43); VBG pO2 50 mmHg
[2021-08-30 05:44] LABS: Venous Blood Gas Refer to POC result
[2021-08-30 05:46] LABS: MANUAL DIFF FLAG NO
[2021-08-30] MEDS: Valproic Acid (as Sodium Salt) 1,000 MG in Dextrose 5 % 50 ML 60 MG IV ×3 (05:46→21:49)
[2021-08-30 06:02] LABS: Basophils Percent Auto 0.1 % (0-2); Eosinophils Absolute Auto 0.1 X10*3/uL (0.0-0.4); Eosinophils Percent Auto 0.7 % (0-4); Hematocrit 24.3 % (37.0-47.0); Hemoglobin 7.9 g/dl (12.0-16.0); Imm Gran Pct Auto 1.2 % (0.0-0.4); Lymphocytes Absolute Auto 1.2 X10*3/uL (1.2-4.9); Lymphocytes Percent Auto 13.7 % (20-40); Mean Corpuscular HGB Conc 32.5 g/dl (31.0-35.0); Mean Corpuscular Hemoglobin 31.6 pg (27.0-33.0); Mean Corpuscular Volume 97.2 fL (80.0-98.0); Mean Platelet Volume 8.7 fL (9.4-12.3); Monocytes Absolute Auto 0.7 X10*3/uL (0.1-1.2); Monocytes Percent Auto 8.6 % (2-11); Neutrophils Absolute Auto 6.4 x10*3/uL (2.0-8.3); Neutrophils Percent Auto 75.7 % (45-73); Platelet Count 148 X10*3/uL (160-400); Red Cell Distribution Width 15.2 % (11.0-16.0); White Blood Count 8.4 X10*3/uL (4.8-10.8)
[2021-08-30 06:14] LABS: Albumin Level 3.8 g/dL (3.5-5.0); Anion Gap 15 (12-20); Blood Urea Nitrogen 4 mg/dL (9-16); Calcium 9.1 mg/dL (8.4-10.2); Carbon Dioxide 30 mmol/L (22-29); Chloride 102 mmol/L (96-108); Creatinine Clr Calc Pharmacy 76.8; Estimated Glomerular Filt Rate > 60; Glucose Random 110 mg/dL (60-115); Magnesium 1.6 mg/dL (1.6-2.6); Phosphorus 2.2 mg/dL (2.7-4.5); Potassium 3.1 mmol/L (3.3-5.1); Sodium 144 mmol/L (135-145)
[2021-08-30] MEDS: Phenytoin Sodium 100 MG/2 ML VIAL IVPUSH ×3 (08:02→21:46)
[2021-08-30] MEDS: Chlorhexidine Gluc Oral Rinse 15 ML MOUTHWASH BUCCAL ×3 (08:02→21:46)
[2021-08-30] MEDS: 0.9 % Sodium Chloride Flush 3 ML SYRINGE IVFLUSH ×2 (08:04→15:15)
[2021-08-30] MEDS: Famotidine/PF 20 MG/2 ML VIAL IVPUSH (08:49)
[2021-08-30] MEDS: Potassium Phosphate 30 MMOL in 0.9 % Sodium Chloride 500 ML 85 MMOL IV (08:49)
--- NOTE | 2021-08-30 10:24 | MHC.CLN ---
F/U PT REMAINS INTUBATED RECOMMEND TF JEVITY 1.0 AT MAX GOAL RATE 60ML/HR WITH 240CC FREE WATER FLUSHES Q SHIFT TO PROVIDE 1526KCALS (23KCALS/KG), 64G PROTEIN (1.0G/KG), 1922CC TOTAL WATER FROM FORMULA AND FLUSHES (28ML/KG) PT WITH INCREASED NUTRITION NEEDS R/T PRESSURE INJURY MONITOR TOLERANCE, RESIDUALS AND LYTES
--- NOTE | 2021-08-30 13:58 | MHC.CM.PN ---
Pt has been made DNR per expanded orders of guardian (Atty Adriana) per the [place] probate and family court. As per court document placed in pt's chart, a new MOLST can be created to reflect the DNR status. This will be discussed with attamish Wright by Dr. Sousa and signed by both parties. Atty Adriana's fax is [phone]. Once signed, the new MOLST be placed in pt's chart. Pt remains unresponsive in ICU on ventilatory support. Per ICU rounds, she does not have pupillary response and has not shown any clinical signs of improvement. Pt is a LTC resident of [facility] and is a bed hold. Clinical updates sent to facility today. CM to follow for finalization of d/c plans.
--- NOTE | 2021-08-30 14:00 | PM.CCPN ---
Subjective Subjective Date of Service: 08/30/21 Interval History: 81-year-old lady with underlying hypertension, COPD, and schizophrenia, resident of [facility] admitted on 08/16/2021 with alteration of mental status, apparently nonverbal at baseline on ER evaluation patient was noted to be hyponatremic to 124 with evidence of aspiration event with eating. She also was noted to have UTI. Patient was [facility] and treated for hyponatremia and UTI. On 08/19/2021 patient had a sudden asystolic cardiac arrest, possibly secondary to an aspiration event as large amount of food were noted in pharynx with intubation. returned spontaneous circulation with achieved after approximately 9 minutes and patient was transferred to intensive care unit. Further hospital course was complicated by left pneumothorax after placement left subclavian central venous catheter requiring initially needle thoracostomy and then placement of left-sided chest tube. patient was noted to have severely narrowed distal esophagus with inability to pass an NG tube. Also patient was noted to have no arousal with sedation vacation and she has had EEG on 08/21/2021 showing generalized status epilepticus versus anoxic encephalopathy, further confirmed with EEG on 08/22/2021 and 08/25/2021. Patient also had CT head on 08/24/2021 showing acute right basal ganglia infarct. Patient remains with no significant response on ventilator support. No events overnight. No significant changes in mental status from yesterday's exam Critical Care Time (minutes): 45 Physical Exam Vital Signs: Vital Signs: Last Vital Signs Temp 97.2 F 08/30/21 12:00 Pulse 66 08/30/21 13:00 Resp 16 08/30/21 12:00 BP 106/39 L 08/30/21 13:00 Pulse Ox 95 08/30/21 13:00 BMI result Body Mass Index 33.3 Const: General: no acute distress and other ( anasarca) Eyes: Sclerae: sclerae normal EOM: EOMs intact bilaterally Neck: Neck: Yes no lymphadenopathy, Yes trachea midline and Yes supple Resp: Auscultation: crackles ( bibasal) Cardio: Rate: regular rate Rhythm: regular rhythm Heart sounds: no gallops, no murmurs and no rubs GI: Palpation (GI): Soft to palpation and Other GI palpation findings present ( Nontender) Auscultation: normal bowel sounds Extrem: General: No clubbing and No cyanosis Objective Data Labs CBC & Chem 7: 08/30/21 05:32 08/30/21 05:32 Labs: Laboratory Results - last 24 hr 08/30/21 08/30/21 08/30/21 05:32 05:32 05:36 WBC 8.4 RBC 2.50 L Hgb 7.9 L Hct 24.3 L MCV 97.2 MCH 31.6 MCHC 32.5 RDW 15.2 Plt Count 148 L MPV 8.7 L Immature Gran % (Auto) 1.2 H Neut % (Auto) 75.7 H Lymph % (Auto) 13.7 L [place] % (Auto) 8.6 Eos % (Auto) 0.7 Baso % (Auto) 0.1 Lymph # (Auto) 1.2 [place] # (Auto) 0.7 Eos # (Auto) 0.1 Baso # (Auto) 0.0 Abs Immat Gran (auto) 0.10 H Absolute Neuts (auto) 6.4 Absolute Nucleated RBC 0.000 Nucleated RBC % (auto) 0.0 VBG pH 7.53 H VBG pCO2 42 VBG pO2 50 VBG HCO3 36 H VBG O2 Saturation 81.0 VBG Base Excess 12.4 Sodium 144 Potassium 3.1 L Chloride 102 Carbon Dioxide 30 H Anion Gap 15 BUN 4 L Creatinine 0.65 Estim Creat Clear Calc 76.8 Estimated GFR > 60 Random Glucose 110 Calcium 9.1 Phosphorus 2.2 L Magnesium 1.6 Albumin 3.8 Microbiology Microbiology Results: Microbiology 08/25/21 10:00 Blood - Venous Blood Culture - Final No growth after 5 days. 08/25/21 10:01 Blood - Venous Blood Culture - Final No growth after 5 days. 08/25/21 02:13 Blood - Venous Blood Culture - Final No growth after 5 days. 08/25/21 02:13 Blood - Venous Blood Culture - Final No growth after 5 days. 08/25/21 02:15 Sputum - Suctioned Gram Stain - Final 08/25/21 02:15 Sputum - Suctioned Sputum Culture - Final Harriett albicans 08/25/21 15:27 Sputum - Suctioned Gram Stain - Final 08/25/21 15:27 Sputum - Suctioned Sputum Culture - Final Staphylococcus aureus 08/16/21 15:36 Blood - Venous Blood Culture - Final No growth after 5 days. 08/16/21 15:33 Blood - Venous Blood Culture - Final No growth after 5 days. 08/16/21 14:12 Urine Catheterized - Straight Catheter Urine Culture - Final Escherichia coli Progress Note: A&P Assessment and plan (1) COPD (chronic obstructive pulmonary disease): Status: Acute (2) Schizophrenia: Status: Acute (3) Anoxic encephalopathy: Status: Acute (4) Status epilepticus: Status: Acute (5) Aspiration into airway: Status: Acute (6) Cardiac arrest: Status: Acute (7) Acute respiratory failure: Status: Acute Assessment and Plan: Assessment: 81-year-old lady with advanced schizophrenia and nonverbal at baseline admitted with alteration of mental status with hospital course further complicated by asystolic cardiac arrest likely secondary to an aspiration event with resultant anoxic encephalopathy Plan: Neuro: anoxic encephalopathy, previously with persistent status epilepticus. Continues on anti epileptic regimen. Now no longer actively seizing. MRI brain with no evidence of severe diffuse anoxic encephalopathy, which does not rule out anoxic brain damage. Reimaging of right basal ganglia infarct known from CT head on 08/24/2021. Appears with minimal improvement from cardiac arrest neurologic status. Definitely, no evidence of brain . 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 Will continue to monitor for changes in neurologic status. Cardiac: Status post asystolic cardiac arrest likely secondary to an aspiration event. Pulmonary: Acute hypoxic respiratory failure secondary to pulmonary aspiration. Now continues on ventilatory support. Briefly able to tolerate pressure support ventilation Renal: No acute issues. Endo: No acute issues. GI: Underlying distal esophageal stricture likely causing food impaction and aspiration. CT abdomen with no evidence of abdominal mass. ID: No acute issues Heme/Onc: No acute issues. Psych: No acute issues. Underlying schizophrenia. Miscellaneous: No acute issues. Prophylaxis: Heparin, famotidine Diet: Tube feeds Critical care time spent: 45 minutes Quality Stroke Does the patient have a stroke diagnosis?: No VTE Prior VTE?: No VTE Risk Level:: Medical - moderate - high VTE Device Contraindication: Treatment Not Indicated VTE Drug Contraindication: N/A - Med Ordered
[2021-08-31] VITALS (32 sets, daily range): BP systolic 90–185; BP diastolic 30–108; PULSE 62–103; RESP 15–20; TEMP 34.4–37; O2SAT 8–100; BMI 33.5
[2021-08-31] MEDS: levETIRAcetam in NaCl (iso-os) 1,000 MG/100 ML PIGGYBACK 400 MG IV ×3 (01:26→17:11)
[2021-08-31] MEDS: 0.9 % Sodium Chloride Flush 3 ML SYRINGE IVFLUSH ×3 (01:26→14:37)
[2021-08-31] MEDS: Heparin Sodium,Porcine 5,000 UNIT/ML VIAL 5000 UNIT SUBCUT ×3 (01:27→17:10)
[2021-08-31] MEDS: dexmedeTOMIDidine HCL/NS 400 MCG/100 ML INFUS..BTL 22.43 MCG IVCONT ×5 (02:56→23:45)
[2021-08-31] MEDS: Valproic Acid (as Sodium Salt) 1,000 MG in Dextrose 5 % 50 ML 60 MG IV ×3 (05:33→22:50)
[2021-08-31 05:46] LABS: MANUAL DIFF FLAG NO
[2021-08-31 05:47] LABS: VBG Base Excess 15.1 mmol/L; VBG HCO3 38 mmol/L (22-26); VBG pCO2 43 mmHg; VBG pH 7.55 (7.32-7.43); VBG pO2 46 mmHg
[2021-08-31 05:48] LABS: Eosinophils Absolute Auto 0.1 X10*3/uL (0.0-0.4); Eosinophils Percent Auto 1.4 % (0-4); Hemoglobin 7.2 g/dl (12.0-16.0); Imm Gran Pct Auto 1.7 % (0.0-0.4); Lymphocytes Absolute Auto 1.1 X10*3/uL (1.2-4.9); Lymphocytes Percent Auto 19.5 % (20-40); Mean Corpuscular HGB Conc 31.3 g/dl (31.0-35.0); Mean Corpuscular Hemoglobin 30.6 pg (27.0-33.0); Mean Corpuscular Volume 97.9 fL (80.0-98.0); Mean Platelet Volume 9.1 fL (9.4-12.3); Monocytes Absolute Auto 0.5 X10*3/uL (0.1-1.2); Monocytes Percent Auto 8.2 % (2-11); Neutrophils Percent Auto 69.2 % (45-73); Platelet Count 165 X10*3/uL (160-400); Red Blood Count 2.35 X10*6/uL (4.20-5.50); Red Cell Distribution Width 15.7 % (11.0-16.0); White Blood Count 5.7 X10*3/uL (4.8-10.8)
[2021-08-31 05:50] LABS: Venous Blood Gas Refer to POC result
[2021-08-31 06:08] LABS: Albumin Level 3.3 g/dL (3.5-5.0); Anion Gap 11 (12-20); Blood Urea Nitrogen 9 mg/dL (9-16); Calcium 8.6 mg/dL (8.4-10.2); Carbon Dioxide 32 mmol/L (22-29); Chloride 102 mmol/L (96-108); Creatinine Clr Calc Pharmacy 86.4; Estimated Glomerular Filt Rate > 60; Glucose Random 149 mg/dL (60-115); Magnesium 1.5 mg/dL (1.6-2.6); Phosphorus 2.4 mg/dL (2.7-4.5); Potassium 3.2 mmol/L (3.3-5.1); Sodium 142 mmol/L (135-145)
[2021-08-31] MEDS: Magnesium Sulfate/H2O 2 GM/50 ML PIGGYBACK IV (06:30)
[2021-08-31] MEDS: Potassium Phosphate 30 MMOL in 0.9 % Sodium Chloride 500 ML 85 MMOL IV (08:24)
[2021-08-31] MEDS: Phenytoin Sodium 100 MG/2 ML VIAL IVPUSH ×3 (08:25→21:35)
[2021-08-31] MEDS: Famotidine/PF 20 MG/2 ML VIAL IVPUSH (08:25)
[2021-08-31] MEDS: Chlorhexidine Gluc Oral Rinse 15 ML MOUTHWASH BUCCAL ×3 (08:27→21:35)
--- NOTE | 2021-08-31 09:53 | MHC.CM.PN ---
Pt continues on ventilatory support without improvement in neurological function. Pt is no longer having pain or pupillary responses. MD states the goals of care will be to monitor pt for another 48 hours or so and then update Attamish Wright, pt's guardian who has made the pt DNR but can seek another court motion to make pt MOLDER HELPER. Pt's updated MOLST (DNR) in chart. Clinical updates sent to [facility] on 08/30 - pt is a LTC resident there and a bed hold. CM to follow
--- NOTE | 2021-08-31 10:02 | MHC.CLN ---
F/U PT REMAINS INTUBATED REVIEWED LABS-PT AT RISK FOR REFEEDING R/T PROLONGED NPO STATUS RECOMMEND DECREASE TF JEVITY 1.0 AT MAX GOAL RATE 30ML/HR WITH 240CC FREE WATER FLUSHES Q SHIFT TO PROVIDE 763KCALS, 32G PROTEIN, 1321CC TOTAL WATER FROM FORMULA AND FLUSHES MONITOR TOLERANCE, RESIDUALS AND LYTES
--- NOTE | 2021-08-31 10:07 | PC.NURSE ---
Addendum entered by Melly Miller RN 08/31/21 14:30: SEDATION VACATION/ASSESS RESPONSE PER MD: PRECEDEX GTT TURNED OFF AT 0850. DURING THAT TIME PATIENT DID NOT SHOW SIGNS OF WITHDRAWING FROM PAIN. SBP 160-180S, MD NOTIFIED. PRECEDEX GTT TURNED BACK ON AT 1425 PER MD. WILL CONTINUE TO MONITOR. UPDATE TO PATIENTS SON RAFIQ GIVEN BY THIS RN. Addendum entered by Melly Miller RN 08/31/21 11:18: PT TWITCHING/JERKING HEAD, CHEST, AND ARMS. EYELIDS FLICKERING, +PUPIL REACTION. COPIOUS ORAL AND INLINE SECRETIONS SUCTIONED. MD CALLED BEDSIDE TO ASSESS. ORDERED AND ADMINISTERED ATIVAN 4MG IVP AT 1115. WILL CONTINUE TO MONITOR. Original Note: TUBE FEED ORDER CUT IN HALF PER DIETARY ORDER: NOW RUNNING AT 30 ML/HR SINCE 1000.
[2021-08-31] MEDS: LORazepam 2 MG/ML VIAL 4 MG IVPUSH (11:15)
--- NOTE | 2021-08-31 13:24 | PM.CCPN ---
Subjective Subjective Date of Service: 08/31/21 Interval History: 81-year-old lady with underlying hypertension, COPD, and schizophrenia, resident of [facility] admitted on 08/16/2021 with alteration of mental status, apparently nonverbal at baseline on ER evaluation patient was noted to be hyponatremic to 124 with evidence of aspiration event with eating. She also was noted to have UTI. Patient was [facility] and treated for hyponatremia and UTI. On 08/19/2021 patient had a sudden asystolic cardiac arrest, possibly secondary to an aspiration event as large amount of food were noted in pharynx with intubation. returned spontaneous circulation with achieved after approximately 9 minutes and patient was transferred to intensive care unit. Further hospital course was complicated by left pneumothorax after placement left subclavian central venous catheter requiring initially needle thoracostomy and then placement of left-sided chest tube. patient was noted to have severely narrowed distal esophagus with inability to pass an NG tube. Also patient was noted to have no arousal with sedation vacation and she has had EEG on 08/21/2021 showing generalized status epilepticus versus anoxic encephalopathy, further confirmed with EEG on 08/22/2021 and 08/25/2021. Patient also had CT head on 08/24/2021 showing acute right basal ganglia infarct. Patient remains with no further improvement in her neurologic exam from a earlier this week - pupils are reactive to light very is withdrawal to painful stimuli on and off through the day, patient is able to initiate her on respirations. No events overnight. Critical Care Time (minutes): 45 Physical Exam Vital Signs: Vital Signs: Last Vital Signs Temp 98.3 F 08/31/21 12:00 Pulse 100 08/31/21 13:00 Resp 19 08/31/21 13:00 BP 162/66 H 08/31/21 13:00 Pulse Ox 98 08/31/21 13:00 BMI result Body Mass Index 33.5 Const: General: no acute distress and other ( Anasarca) Eyes: Sclerae: sclerae normal EOM: EOMs intact bilaterally Neck: Neck: Yes no lymphadenopathy, Yes trachea midline and Yes supple Resp: Auscultation: clear to auscultation bilaterally Cardio: Rate: tachycardic Rhythm: regular rhythm Heart sounds: no gallops, no murmurs and no rubs GI: Palpation (GI): Soft to palpation and Other GI palpation findings present ( Nontender) Auscultation: normal bowel sounds Extrem: General: No clubbing and No cyanosis Objective Data Labs CBC & Chem 7: 08/31/21 05:35 08/31/21 05:35 Labs: Laboratory Results - last 24 hr 08/31/21 08/31/21 08/31/21 05:35 05:35 05:42 WBC 5.7 RBC 2.35 L Hgb 7.2 L Hct 23.0 L MCV 97.9 MCH 30.6 MCHC 31.3 RDW 15.7 Plt Count 165 MPV 9.1 L Immature Gran % (Auto) 1.7 H Neut % (Auto) 69.2 Lymph % (Auto) 19.5 L [place] % (Auto) 8.2 Eos % (Auto) 1.4 Baso % (Auto) 0.0 Lymph # (Auto) 1.1 L [place] # (Auto) 0.5 Eos # (Auto) 0.1 Baso # (Auto) 0.0 Abs Immat Gran (auto) 0.10 H Absolute Neuts (auto) 4.0 Absolute Nucleated RBC 0.000 Nucleated RBC % (auto) 0.0 VBG pH 7.55 H VBG pCO2 43 VBG pO2 46 VBG HCO3 38 H VBG O2 Saturation 69.0 VBG Base Excess 15.1 Sodium 142 Potassium 3.2 L Chloride 102 Carbon Dioxide 32 H Anion Gap 11 L BUN 9 D Creatinine 0.58 Estim Creat Clear Calc 86.4 Estimated GFR > 60 Random Glucose 149 H Calcium 8.6 Phosphorus 2.4 L Magnesium 1.5 L Albumin 3.3 L Microbiology Microbiology Results: Microbiology 08/25/21 10:00 Blood - Venous Blood Culture - Final No growth after 5 days. 08/25/21 10:01 Blood - Venous Blood Culture - Final No growth after 5 days. 08/25/21 02:13 Blood - Venous Blood Culture - Final No growth after 5 days. 08/25/21 02:13 Blood - Venous Blood Culture - Final No growth after 5 days. 08/25/21 02:15 Sputum - Suctioned Gram Stain - Final 08/25/21 02:15 Sputum - Suctioned Sputum Culture - Final Harriett albicans 08/25/21 15:27 Sputum - Suctioned Gram Stain - Final 08/25/21 15:27 Sputum - Suctioned Sputum Culture - Final Staphylococcus aureus 08/16/21 15:36 Blood - Venous Blood Culture - Final No growth after 5 days. 08/16/21 15:33 Blood - Venous Blood Culture - Final No growth after 5 days. 08/16/21 14:12 Urine Catheterized - Straight Catheter Urine Culture - Final Escherichia coli Progress Note: A&P Assessment and plan (1) COPD (chronic obstructive pulmonary disease): Status: Acute (2) Schizophrenia: Status: Acute (3) Anoxic encephalopathy: Status: Acute (4) Status epilepticus: Status: Acute (5) Cardiac arrest: Status: Acute (6) Acute respiratory failure: Status: Acute (7) Aspiration into airway: Status: Acute Assessment and Plan: Assessment: 81-year-old lady with advanced schizophrenia and nonverbal at baseline admitted with alteration of mental status with hospital course further complicated by asystolic cardiac arrest likely secondary to an aspiration event with resultant anoxic encephalopathy Plan: Neuro: anoxic encephalopathy, previously with persistent status epilepticus. Continues on anti epileptic regimen. Now no longer actively seizing. MRI brain with no evidence of severe diffuse anoxic encephalopathy, which does not rule out anoxic brain damage. Reimaging of right basal ganglia infarct known from CT head on 08/24/2021. No further improvement in neurologic status. Definitely, no evidence of brain . 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 Cardiac: Status post asystolic cardiac arrest likely secondary to an aspiration event. Pulmonary: Acute hypoxic respiratory failure secondary to pulmonary aspiration. Now continues on ventilatory support. Briefly able to tolerate pressure support ventilation Renal: No acute issues. Endo: No acute issues. GI: Underlying distal esophageal stricture likely causing food impaction and aspiration, able to pass NG tube. CT abdomen with no evidence of abdominal mass. ID: No acute issues Heme/Onc: No acute issues. Psych: No acute issues. Underlying schizophrenia. Miscellaneous: No acute issues. Prophylaxis: Heparin, famotidine Diet: Tube feeds Critical care time spent: 45 minutes Quality Stroke Does the patient have a stroke diagnosis?: No VTE Prior VTE?: No VTE Risk Level:: Medical - moderate - high VTE Device Contraindication: Treatment Not Indicated VTE Drug Contraindication: N/A - Med Ordered
[2021-09-01] VITALS (32 sets, daily range): BP systolic 93–143; BP diastolic 28–53; PULSE 61–75; RESP 13–16; TEMP 34.4–36.9; O2SAT 94–98; BMI 33.8
[2021-09-01] MEDS: levETIRAcetam in NaCl (iso-os) 1,000 MG/100 ML PIGGYBACK 400 MG IV ×3 (01:06→17:45)
[2021-09-01] MEDS: Heparin Sodium,Porcine 5,000 UNIT/ML VIAL 5000 UNIT SUBCUT ×3 (02:38→17:42)
[2021-09-01] MEDS: dexmedeTOMIDidine HCL/NS 400 MCG/100 ML INFUS..BTL 22.43 MCG IVCONT ×3 (04:05→13:16)
[2021-09-01 05:33] LABS: VBG Base Excess 12.3 mmol/L; VBG HCO3 35 mmol/L (22-26); VBG pCO2 39 mmHg; VBG pH 7.56 (7.32-7.43); VBG pO2 48 mmHg
[2021-09-01 06:02] LABS: MANUAL DIFF FLAG NO
[2021-09-01 06:06] LABS: Eosinophils Absolute Auto 0.1 X10*3/uL (0.0-0.4); Eosinophils Percent Auto 1.2 % (0-4); Hematocrit 21.6 % (37.0-47.0); Imm Gran Abs Auto 0.11 X10*3/uL (0.00-0.03); Imm Gran Pct Auto 2.3 % (0.0-0.4); Lymphocytes Absolute Auto 1.3 X10*3/uL (1.2-4.9); Lymphocytes Percent Auto 27.4 % (20-40); Mean Corpuscular HGB Conc 31.5 g/dl (31.0-35.0); Mean Corpuscular Hemoglobin 30.8 pg (27.0-33.0); Mean Corpuscular Volume 97.7 fL (80.0-98.0); Mean Platelet Volume 9.4 fL (9.4-12.3); Monocytes Absolute Auto 0.5 X10*3/uL (0.1-1.2); Monocytes Percent Auto 10.2 % (2-11); Neutrophils Absolute Auto 2.8 x10*3/uL (2.0-8.3); Neutrophils Percent Auto 58.9 % (45-73); Platelet Count 187 X10*3/uL (160-400); Red Blood Count 2.21 X10*6/uL (4.20-5.50); Red Cell Distribution Width 16.4 % (11.0-16.0); White Blood Count 4.8 X10*3/uL (4.8-10.8)
[2021-09-01 06:11] LABS: Hemoglobin 6.8 g/dl (12.0-16.0)
[2021-09-01 07:23] LABS: Albumin Level 3.2 g/dL (3.5-5.0); Anion Gap 13 (12-20); Blood Urea Nitrogen 11 mg/dL (9-16); Calcium 8.6 mg/dL (8.4-10.2); Carbon Dioxide 29 mmol/L (22-29); Chloride 102 mmol/L (96-108); Creatinine Clr Calc Pharmacy 98.7; Estimated Glomerular Filt Rate > 60; Glucose Random 118 mg/dL (60-115); Magnesium 1.8 mg/dL (1.6-2.6); Potassium 3.4 mmol/L (3.3-5.1); Sodium 141 mmol/L (135-145)
[2021-09-01] MEDS: 0.9 % Sodium Chloride Flush 3 ML SYRINGE IVFLUSH ×2 (07:55→17:42)
[2021-09-01] MEDS: Valproic Acid (as Sodium Salt) 1,000 MG in Dextrose 5 % 50 ML 60 MG IV ×3 (07:55→22:31)
[2021-09-01] MEDS: Chlorhexidine Gluc Oral Rinse 15 ML MOUTHWASH BUCCAL ×3 (07:55→20:30)
[2021-09-01] MEDS: Phenytoin Sodium 100 MG/2 ML VIAL IVPUSH ×3 (07:56→20:30)
[2021-09-01] MEDS: Famotidine/PF 20 MG/2 ML VIAL IVPUSH (07:56)
[2021-09-01] MEDS: Potassium Chloride/H20 40 MEQ/100 ML PIGGYBACK 100 MEQ IV (08:47)
[2021-09-01] MEDS: Magnesium Sulfate/H2O 2 GM/50 ML PIGGYBACK IV (08:48)
[2021-09-01 09:22] LABS: Venous Blood Gas Refer to POC result
--- NOTE | 2021-09-01 10:20 | MHC.CLN ---
F/U PT REMAINS INTUBATED REVIEWED LABS-WNL TODAY PT AT RISK FOR REFEEDING R/T PROLONGED NPO STATUS RECOMMEND INCREASING TF JEVITY 1.0 AT MAX GOAL RATE 40ML/HR WITH 240CC FREE WATER FLUSHES Q SHIFT TO PROVIDE 1018KCALS, 42G PROTEIN, 1538CC TOTAL WATER FROM FORMULA AND FLUSHES MONITOR TOLERANCE, RESIDUALS AND LYTES
--- NOTE | 2021-09-01 11:38 | PM.CCPN ---
Subjective Subjective Date of Service: 09/01/21 Interval History: 81-year-old lady with underlying hypertension, COPD, and schizophrenia, resident of [facility] admitted on 08/16/2021 with alteration of mental status, apparently nonverbal at baseline on ER evaluation patient was noted to be hyponatremic to 124 with evidence of aspiration event with eating. She also was noted to have UTI. Patient was [facility] and treated for hyponatremia and UTI. On 08/19/2021 patient had a sudden asystolic cardiac arrest, possibly secondary to an aspiration event as large amount of food were noted in pharynx with intubation. returned spontaneous circulation with achieved after approximately 9 minutes and patient was transferred to intensive care unit. Further hospital course was complicated by left pneumothorax after placement left subclavian central venous catheter requiring initially needle thoracostomy and then placement of left-sided chest tube. patient was noted to have severely narrowed distal esophagus with inability to pass an NG tube. Also patient was noted to have no arousal with sedation vacation and she has had EEG on 08/21/2021 showing generalized status epilepticus versus anoxic encephalopathy, further confirmed with EEG on 08/22/2021 and 08/25/2021. Patient also had CT head on 08/24/2021 showing acute right basal ganglia infarct. Patient remains with no further improvement in her neurologic exam from a earlier this week - pupils are reactive to light very is withdrawal to painful stimuli on and off through the day, patient is able to initiate her on respirations. No events overnight. no further changes in neurologic status. Critical Care Time (minutes): 45 Physical Exam Vital Signs: Vital Signs: Last Vital Signs Temp 97.8 F 09/01/21 10:12 Pulse 64 09/01/21 11:00 Resp 16 09/01/21 11:00 BP 114/37 L 09/01/21 11:00 Pulse Ox 95 09/01/21 11:00 BMI result Body Mass Index 33.8 Const: General: no acute distress and other ( anasarca) Eyes: Sclerae: sclerae normal EOM: EOMs intact bilaterally Neck: Neck: Yes no lymphadenopathy, Yes trachea midline and Yes supple Resp: Effort & Inspection: normal respiratory effort and no respiratory distress Auscultation: clear to auscultation bilaterally Cardio: Rate: regular rate Rhythm: regular rhythm Heart sounds: no gallops, no murmurs and no rubs GI: Palpation (GI): Soft to palpation and Other GI palpation findings present ( Nontender) Auscultation: normal bowel sounds Extrem: General: No clubbing and No cyanosis Objective Data Labs CBC & Chem 7: 09/01/21 05:20 09/01/21 05:20 Labs: Laboratory Results - last 24 hr 09/01/21 09/01/21 09/01/21 05:20 05:20 05:27 WBC 4.8 RBC 2.21 L Hgb 6.8 L* Hct 21.6 L MCV 97.7 MCH 30.8 MCHC 31.5 RDW 16.4 H Plt Count 187 MPV 9.4 Immature Gran % (Auto) 2.3 H Neut % (Auto) 58.9 Lymph % (Auto) 27.4 [place] % (Auto) 10.2 Eos % (Auto) 1.2 Baso % (Auto) 0.0 Lymph # (Auto) 1.3 [place] # (Auto) 0.5 Eos # (Auto) 0.1 Baso # (Auto) 0.0 Abs Immat Gran (auto) 0.11 H Absolute Neuts (auto) 2.8 Absolute Nucleated RBC 0.000 Nucleated RBC % (auto) 0.0 VBG pH 7.56 H VBG pCO2 39 VBG pO2 48 VBG HCO3 35 H VBG O2 Saturation 74.0 VBG Base Excess 12.3 Sodium 141 Potassium 3.4 Chloride 102 Carbon Dioxide 29 Anion Gap 13 BUN 11 Creatinine 0.51 Estim Creat Clear Calc 98.7 Estimated GFR > 60 Random Glucose 118 H Calcium 8.6 Phosphorus 3.0 Magnesium 1.8 Albumin 3.2 L Blood Type Antibody Screen Crossmatch (AHG) 09/01/21 06:29 WBC RBC Hgb Hct MCV MCH MCHC RDW Plt Count MPV Immature Gran % (Auto) Neut % (Auto) Lymph % (Auto) [place] % (Auto) Eos % (Auto) Baso % (Auto) Lymph # (Auto) [place] # (Auto) Eos # (Auto) Baso # (Auto) Abs Immat Gran (auto) Absolute Neuts (auto) Absolute Nucleated RBC Nucleated RBC % (auto) VBG pH VBG pCO2 VBG pO2 VBG HCO3 VBG O2 Saturation VBG Base Excess Sodium Potassium Chloride Carbon Dioxide Anion Gap BUN Creatinine Estim Creat Clear Calc Estimated GFR Random Glucose Calcium Phosphorus Magnesium Albumin Blood Type O Positive Antibody Screen NEGATIVE Crossmatch (AHG) See Detail Microbiology Microbiology Results: Microbiology 08/25/21 10:00 Blood - Venous Blood Culture - Final No growth after 5 days. 08/25/21 10:01 Blood - Venous Blood Culture - Final No growth after 5 days. 08/25/21 02:13 Blood - Venous Blood Culture - Final No growth after 5 days. 08/25/21 02:13 Blood - Venous Blood Culture - Final No growth after 5 days. 08/25/21 02:15 Sputum - Suctioned Gram Stain - Final 08/25/21 02:15 Sputum - Suctioned Sputum Culture - Final Harriett albicans 08/25/21 15:27 Sputum - Suctioned Gram Stain - Final 08/25/21 15:27 Sputum - Suctioned Sputum Culture - Final Staphylococcus aureus 08/16/21 15:36 Blood - Venous Blood Culture - Final No growth after 5 days. 08/16/21 15:33 Blood - Venous Blood Culture - Final No growth after 5 days. 08/16/21 14:12 Urine Catheterized - Straight Catheter Urine Culture - Final Escherichia coli Progress Note: A&P Assessment and plan (1) COPD (chronic obstructive pulmonary disease): Status: Acute (2) Schizophrenia: Status: Acute (3) Anoxic encephalopathy: Status: Acute (4) Aspiration into airway: Status: Acute (5) Cardiac arrest: Status: Acute (6) Acute respiratory failure: Status: Acute Assessment and Plan: Assessment: 81-year-old lady with advanced schizophrenia and nonverbal at baseline admitted with alteration of mental status with hospital course further complicated by asystolic cardiac arrest likely secondary to an aspiration event with resultant anoxic encephalopathy Plan: Neuro: anoxic encephalopathy, previously with persistent status epilepticus. Continues on anti epileptic regimen, no longer actively seizing. MRI brain with no evidence of severe diffuse anoxic encephalopathy, which does not rule out anoxic brain damage. Reimaging of right basal ganglia infarct known from CT head on 08/24/2021. No further improvement in neurologic status. Definitely, no evidence of brain . 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 Cardiac: Status post asystolic cardiac arrest likely secondary to an aspiration event. Pulmonary: Acute hypoxic respiratory failure secondary to pulmonary aspiration. Now continues on ventilatory support. Briefly able to tolerate pressure support ventilation Renal: No acute issues. Endo: No acute issues. GI: Underlying distal esophageal stricture likely causing food impaction and aspiration, able to pass NG tube. CT abdomen with no evidence of abdominal mass. ID: No acute issues Heme/Onc: No acute issues. Psych: No acute issues. Underlying schizophrenia. Miscellaneous: No acute issues. Overall no significant changes from yesterday. Prophylaxis: Heparin, famotidine Diet: Tube feeds Critical care time spent: 45 minutes Quality Stroke Does the patient have a stroke diagnosis?: No VTE Prior VTE?: No VTE Risk Level:: Medical - moderate - high VTE Device Contraindication: Treatment Not Indicated VTE Drug Contraindication: N/A - Med Ordered
[2021-09-01] MEDS: dexmedeTOMIDidine HCL/NS 400 MCG/100 ML INFUS..BTL 33.64 MCG IVCONT ×2 (17:39→20:28)
[2021-09-01] MEDS: LORazepam 2 MG/ML VIAL 4 MG IVPUSH (21:48)
[2021-09-01] MEDS: dexmedeTOMIDidine HCL/NS 400 MCG/100 ML INFUS..BTL 31.4 MCG IVCONT (23:28)
[2021-09-02] VITALS (30 sets, daily range): BP systolic 113–152; BP diastolic 33–58; PULSE 61–77; RESP 12–18; TEMP 34.5–37; O2SAT 93–99; BMI 34.0
[2021-09-02] MEDS: levETIRAcetam in NaCl (iso-os) 1,000 MG/100 ML PIGGYBACK 400 MG IV ×3 (01:17→16:15)
[2021-09-02] MEDS: Heparin Sodium,Porcine 5,000 UNIT/ML VIAL 5000 UNIT SUBCUT ×3 (02:26→18:29)
[2021-09-02] MEDS: dexmedeTOMIDidine HCL/NS 400 MCG/100 ML INFUS..BTL 31.4 MCG IVCONT ×2 (02:36→05:20)
[2021-09-02 05:33] LABS: VBG HCO3 33 mmol/L (22-26); VBG pCO2 41 mmHg; VBG pH 7.51 (7.32-7.43); VBG pO2 51 mmHg
[2021-09-02 05:38] LABS: Venous Blood Gas Refer to POC result
[2021-09-02 05:42] LABS: MANUAL DIFF FLAG NO
[2021-09-02 05:47] LABS: Basophils Percent Auto 0.2 % (0-2); Eosinophils Absolute Auto 0.1 X10*3/uL (0.0-0.4); Hemoglobin 7.9 g/dl (12.0-16.0); Imm Gran Pct Auto 4.1 % (0.0-0.4); Lymphocytes Absolute Auto 1.4 X10*3/uL (1.2-4.9); Lymphocytes Percent Auto 29.2 % (20-40); Mean Corpuscular HGB Conc 31.6 g/dl (31.0-35.0); Mean Corpuscular Volume 95.1 fL (80.0-98.0); Mean Platelet Volume 9.1 fL (9.4-12.3); Monocytes Absolute Auto 0.6 X10*3/uL (0.1-1.2); Neutrophils Absolute Auto 2.5 x10*3/uL (2.0-8.3); Neutrophils Percent Auto 51.5 % (45-73); Platelet Count 204 X10*3/uL (160-400); Red Blood Count 2.63 X10*6/uL (4.20-5.50); Red Cell Distribution Width 16.3 % (11.0-16.0); White Blood Count 4.9 X10*3/uL (4.8-10.8)
[2021-09-02 06:05] LABS: Albumin Level 3.1 g/dL (3.5-5.0); Anion Gap 11 (12-20); Blood Urea Nitrogen 11 mg/dL (9-16); Calcium 8.7 mg/dL (8.4-10.2); Carbon Dioxide 30 mmol/L (22-29); Chloride 103 mmol/L (96-108); Estimated Glomerular Filt Rate > 60; Glucose Random 121 mg/dL (60-115); Phosphorus 2.7 mg/dL (2.7-4.5); Potassium 3.8 mmol/L (3.3-5.1); Sodium 140 mmol/L (135-145)
[2021-09-02] MEDS: Valproic Acid (as Sodium Salt) 1,000 MG in Dextrose 5 % 50 ML 60 MG IV ×3 (06:13→21:44)
[2021-09-02] MEDS: Chlorhexidine Gluc Oral Rinse 15 ML MOUTHWASH BUCCAL ×3 (07:37→19:54)
[2021-09-02] MEDS: Famotidine/PF 20 MG/2 ML VIAL IVPUSH (07:37)
[2021-09-02] MEDS: 0.9 % Sodium Chloride Flush 3 ML SYRINGE IVFLUSH ×2 (07:37→15:15)
[2021-09-02] MEDS: Phenytoin Sodium 100 MG/2 ML VIAL IVPUSH ×3 (07:38→19:54)
[2021-09-02] MEDS: dexmedeTOMIDidine HCL/NS 400 MCG/100 ML INFUS..BTL 33.64 MCG IVCONT ×6 (08:09→21:43)
--- NOTE | 2021-09-02 10:18 | PM.CCPN ---
Subjective Subjective Date of Service: 09/02/21 Interval History: 81-year-old lady with underlying hypertension, COPD, and schizophrenia, resident of [facility] admitted on 08/16/2021 with alteration of mental status, apparently nonverbal at baseline on ER evaluation patient was noted to be hyponatremic to 124 with evidence of aspiration event with eating. She also was noted to have UTI. Patient was admitted [facility] and treated for hyponatremia and UTI. On 08/19/2021 patient had a sudden asystolic cardiac arrest, possibly secondary to an aspiration event as large amount of food were noted in pharynx with intubation. returned spontaneous circulation with achieved after approximately 9 minutes and patient was transferred to intensive care unit. Further hospital course was complicated by left pneumothorax after placement left subclavian central venous catheter requiring initially needle thoracostomy and then placement of left-sided chest tube. patient was noted to have severely narrowed distal esophagus with inability to pass an NG tube. Also patient was noted to have no arousal with sedation vacation and she has had EEG on 08/21/2021 showing generalized status epilepticus versus anoxic encephalopathy, further confirmed with EEG on 08/22/2021 and 08/25/2021. Patient also had CT head on 08/24/2021 showing acute right basal ganglia infarct. Patient remains with no further improvement in her neurologic exam from a earlier this week - pupils are reactive to light very is withdrawal to painful stimuli on and off through the day, patient is able to initiate her on respirations. No events overnight. No changes in neurologic status. Critical Care Time (minutes): 45 Physical Exam Vital Signs: Vital Signs: Last Vital Signs Temp 97.9 F 09/02/21 08:00 Pulse 63 09/02/21 10:00 Resp 16 09/02/21 10:00 BP 120/40 L 09/02/21 10:00 Pulse Ox 97 09/02/21 10:00 BMI result Body Mass Index 34.0 Const: General: no acute distress and other (Anasarca) Eyes: Sclerae: sclerae normal EOM: EOMs intact bilaterally Neck: Neck: Yes no lymphadenopathy, Yes trachea midline and Yes supple Resp: Auscultation: crackles (Bibasilar) Cardio: Rate: regular rate Rhythm: regular rhythm Heart sounds: no gallops, no murmurs and no rubs GI: Palpation (GI): Soft to palpation and Other GI palpation findings present ( Nontender) Auscultation: normal bowel sounds Extrem: General: No clubbing and No cyanosis Objective Data Labs CBC & Chem 7: 09/02/21 05:25 09/02/21 05:25 Labs: Laboratory Results - last 24 hr 09/01/21 09/02/21 09/02/21 06:29 05:25 05:25 WBC 4.9 RBC 2.63 L Hgb 7.9 L Hct 25.0 L MCV 95.1 MCH 30.0 MCHC 31.6 RDW 16.3 H Plt Count 204 MPV 9.1 L Immature Gran % (Auto) 4.1 H Neut % (Auto) 51.5 Lymph % (Auto) 29.2 [place] % (Auto) 13.0 H Eos % (Auto) 2.0 Baso % (Auto) 0.2 Lymph # (Auto) 1.4 [place] # (Auto) 0.6 Eos # (Auto) 0.1 Baso # (Auto) 0.0 Abs Immat Gran (auto) 0.20 H Absolute Neuts (auto) 2.5 Absolute Nucleated RBC 0.000 Nucleated RBC % (auto) 0.0 VBG pH VBG pCO2 VBG pO2 VBG HCO3 VBG O2 Saturation VBG Base Excess Sodium 140 Potassium 3.8 Chloride 103 Carbon Dioxide 30 H Anion Gap 11 L BUN 11 Creatinine 0.43 L Estim Creat Clear Calc 117.0 Estimated GFR > 60 Random Glucose 121 H Calcium 8.7 Phosphorus 2.7 Magnesium 2.0 Albumin 3.1 L Crossmatch ([facility]) See Detail 09/02/21 05:27 WBC RBC Hgb Hct MCV MCH MCHC RDW Plt Count MPV Immature Gran % (Auto) Neut % (Auto) Lymph % (Auto) [place] % (Auto) Eos % (Auto) Baso % (Auto) Lymph # (Auto) [place] # (Auto) Eos # (Auto) Baso # (Auto) Abs Immat Gran (auto) Absolute Neuts (auto) Absolute Nucleated RBC Nucleated RBC % (auto) VBG pH 7.51 H VBG pCO2 41 VBG pO2 51 VBG HCO3 33 H VBG O2 Saturation 78.0 VBG Base Excess 10.0 Sodium Potassium Chloride Carbon Dioxide Anion Gap BUN Creatinine Estim Creat Clear Calc Estimated GFR Random Glucose Calcium Phosphorus Magnesium Albumin Crossmatch ([facility]) Microbiology Microbiology Results: Microbiology 12/03/21 10:00 Blood - Venous Blood Culture - Final No growth after 5 days. 08/25/21 10:01 Blood - Venous Blood Culture - Final No growth after 5 days. 08/25/21 02:13 Blood - Venous Blood Culture - Final No growth after 5 days. 08/25/21 02:13 Blood - Venous Blood Culture - Final No growth after 5 days. 08/25/21 02:15 Sputum - Suctioned Gram Stain - Final 08/25/21 02:15 Sputum - Suctioned Sputum Culture - Final Harriett albicans 08/25/21 15:27 Sputum - Suctioned Gram Stain - Final 08/25/21 15:27 Sputum - Suctioned Sputum Culture - Final Staphylococcus aureus 08/16/21 15:36 Blood - Venous Blood Culture - Final No growth after 5 days. 08/16/21 15:33 Blood - Venous Blood Culture - Final No growth after 5 days. 08/16/21 14:12 Urine Catheterized - Straight Catheter Urine Culture - Final Escherichia coli Progress Note: A&P Assessment and plan (1) COPD (chronic obstructive pulmonary disease): Status: Acute (2) Schizophrenia: Status: Acute (3) Anoxic encephalopathy: Status: Acute (4) Status epilepticus: Status: Acute (5) Esophageal obstruction: Status: Acute (6) Aspiration into airway: Status: Acute (7) Cardiac arrest: Status: Acute Assessment and Plan: Assessment: 81-year-old lady with advanced schizophrenia and nonverbal at baseline admitted with alteration of mental status with hospital course further complicated by asystolic cardiac arrest likely secondary to an aspiration event with resultant anoxic encephalopathy Plan: Neuro: anoxic encephalopathy, previously with persistent status epilepticus. Continues on anti epileptic regimen, no longer actively seizing. MRI brain with no evidence of severe diffuse anoxic encephalopathy, which does not rule out anoxic brain damage. Reimaging of right basal ganglia infarct known from CT head on 08/24/2021. Definitely, no evidence of brain . However, appears to be in persistent vegetative state. No improvement in neurologic exam since early in the week. Cardiac: Status post asystolic cardiac arrest likely secondary to an aspiration event. Pulmonary: Acute hypoxic respiratory failure secondary to pulmonary aspiration. Now continues on ventilatory support. Briefly able to tolerate pressure support ventilation Renal: No acute issues. Endo: No acute issues. GI: Underlying distal esophageal stricture likely causing food impaction and aspiration, able to pass NG tube. CT abdomen with no evidence of abdominal mass. ID: No acute issues Heme/Onc: No acute issues. Psych: No acute issues. Underlying schizophrenia. Miscellaneous: No acute issues. Overall no significant changes from yesterday. Prophylaxis: Heparin, famotidine Diet: Tube feeds Critical care time spent: 45 minutes Quality Stroke Does the patient have a stroke diagnosis?: No VTE Prior VTE?: No VTE Risk Level:: Medical - moderate - high VTE Device Contraindication: Treatment Not Indicated VTE Drug Contraindication: N/A - Med Ordered
--- NOTE | 2021-09-02 17:17 | PC.NURSE ---
Remains intubated. 7.5 ETT/ 21 @ LL. AC vent settings with RR from 16 down to 12 by . Vt 400, FiO2 from 35% to 30%. PEEP remains 5. Min vols 5-6. Precedex at 1.5mcg/kg/hr. Occasional cough triggered by inline secretion, clear and scant or oral secretons. Wheezing noted throughout the day in Right lung. Tube feeds advanced today to 50mL/hr by RD. Patient tolerating well, no residuals noted from Right nare NGT. Water boluses as ordered. IV meds as ordered. PUREWICK in place for urinary incontinence. Output concentrated. Repositioned for pressure relief. PREVALON system in use. Barrier cream to Coccyx. Bilateral upper Extremities elevated on pillows to aid with anasarca. NSR on monitor. VSS.
[2021-09-03] VITALS (30 sets, daily range): BP systolic 120–162; BP diastolic 33–67; PULSE 67–78; RESP 11–20; TEMP 34.5–37.4; O2SAT 94–100; BMI 36.0
[2021-09-03] MEDS: 0.9 % Sodium Chloride Flush 3 ML SYRINGE IVFLUSH ×3 (00:23→20:31)
[2021-09-03] MEDS: levETIRAcetam in NaCl (iso-os) 1,000 MG/100 ML PIGGYBACK 400 MG IV ×3 (00:23→17:17)
[2021-09-03] MEDS: dexmedeTOMIDidine HCL/NS 400 MCG/100 ML INFUS..BTL 33.64 MCG IVCONT ×4 (00:25→09:09)
--- NOTE | 2021-09-03 00:56 | PC.NURSE ---
Keofeed tube pulled out a few inches during repositioning. Attempted to advance with JUNIOR ESTIMATOR at bedside, unsuccessful. Cxr ordered, confirmed tube not in correct place. Per JUNIOR ESTIMATOR to leave tube in place for now, to possibly advance tube on day shift. Feedings on hold.
[2021-09-03] MEDS: Heparin Sodium,Porcine 5,000 UNIT/ML VIAL 5000 UNIT SUBCUT ×3 (02:19→17:21)
[2021-09-03 05:42] LABS: VBG Base Excess 9.5 mmol/L; VBG HCO3 33 mmol/L (22-26); VBG pCO2 42 mmHg; VBG pO2 54 mmHg
[2021-09-03 05:49] LABS: Hematocrit 24.7 % (37.0-47.0); Hemoglobin 7.9 g/dl (12.0-16.0); Mean Corpuscular Hemoglobin 29.9 pg (27.0-33.0); Mean Corpuscular Volume 93.6 fL (80.0-98.0); Mean Platelet Volume 8.8 fL (9.4-12.3); Platelet Count 218 X10*3/uL (160-400); Red Blood Count 2.64 X10*6/uL (4.20-5.50); Red Cell Distribution Width 16.2 % (11.0-16.0); White Blood Count 4.8 X10*3/uL (4.8-10.8)
[2021-09-03 05:50] LABS: Venous Blood Gas Refer to POC result
[2021-09-03] MEDS: Valproic Acid (as Sodium Salt) 1,000 MG in Dextrose 5 % 50 ML 60 MG IV ×3 (06:02→22:46)
[2021-09-03 06:03] LABS: Anion Gap 12 (12-20); Blood Urea Nitrogen 13 mg/dL (9-16); Calcium 8.5 mg/dL (8.4-10.2); Carbon Dioxide 28 mmol/L (22-29); Chloride 103 mmol/L (96-108); Creatinine Clr Calc Pharmacy 118.3; Estimated Glomerular Filt Rate > 60; Glucose Random 122 mg/dL (60-115); Magnesium 1.9 mg/dL (1.6-2.6); Phosphorus 2.5 mg/dL (2.7-4.5); Potassium 4.1 mmol/L (3.3-5.1); Sodium 139 mmol/L (135-145)
[2021-09-03 06:12] LABS: Band Neutrophils Percent 14 % (3-5); Basophils Percent Manual 1 % (0-2); Eosinophils Percent Manual 1 % (0-4); Lymphocytes Percent Manual 20 % (20-40); Metamyelocytes Absolute 0.2 X10*3/uL; Metamyelocytes Percent 4 %; Monocytes Absolute Manual 0.7 X10*3/uL (0.1-1.2); Monocytes Percent Manual 15 % (2-11); Myelocytes Percent 1 %; Neutrophils Absolute Manual 2.8 X10*3/uL (2.0-8.3); Neutrophils Percent Manual 44 % (45-73)
[2021-09-03 06:13] LABS: Platelet Estimate NORMAL (NORMAL); Platelet Morphology Comment NORMAL; RBC Morphology NORMAL
[2021-09-03] MEDS: Chlorhexidine Gluc Oral Rinse 15 ML MOUTHWASH BUCCAL ×3 (09:01→20:31)
[2021-09-03] MEDS: Famotidine/PF 20 MG/2 ML VIAL IVPUSH (09:01)
[2021-09-03] MEDS: Phenytoin Sodium 100 MG/2 ML VIAL IVPUSH ×3 (09:01→20:31)
[2021-09-03] MEDS: Potassium Phosphate 30 MMOL in 0.9 % Sodium Chloride 500 ML 85 MMOL IV (09:40)
--- NOTE | 2021-09-03 09:41 | PM.CCPN ---
Subjective Subjective Date of Service: 09/03/21 Interval History: ICU day 15 for cardiac arrest, acute hypoxic respiratory failure, anoxic brain injury, persistent vegetative state. 81-year-old lady with underlying hypertension, COPD, and schizophrenia, resident of [facility] admitted on 08/16/2021 with alteration of mental status, apparently nonverbal at baseline on ER evaluation patient was noted to be hyponatremic to 124 with evidence of aspiration event with eating. She also was noted to have UTI. Patient was [facility] and treated for hyponatremia and UTI. On 08/19/2021 patient had a sudden asystolic cardiac arrest, possibly secondary to an aspiration event as large amount of food were noted in pharynx with intubation. returned spontaneous circulation with achieved after approximately 9 minutes and patient was transferred to intensive care unit. Further hospital course was complicated by left pneumothorax after placement left subclavian central venous catheter requiring initially needle thoracostomy and then placement of left-sided chest tube. patient was noted to have severely narrowed distal esophagus with inability to pass an NG tube. Also patient was noted to have no arousal with sedation vacation and she has had EEG on 08/21/2021 showing generalized status epilepticus versus anoxic encephalopathy, further confirmed with EEG on 08/22/2021 and 08/25/2021. Patient also had CT head on 08/24/2021 showing acute right basal ganglia infarct. Patient remains with no further improvement in her neurologic exam from a earlier this week - pupils are reactive to light very is withdrawal to painful stimuli on and off through the day, patient is able to initiate her on respirations. NG tube displaced overnight, repeat base this a.m.. Otherwise no events. No changes in neurologic status. Critical Care Time (minutes): 45 Physical Exam Vital Signs: Vital Signs: Last Vital Signs Temp 98.9 F 09/03/21 08:00 Pulse 71 09/03/21 09:00 Resp 15 09/03/21 09:00 BP 128/34 L 09/03/21 09:00 Pulse Ox 97 09/03/21 09:00 BMI result Body Mass Index 36.0 Const: General: no acute distress and other ( Anasarca) Eyes: Sclerae: sclerae normal Neck: Neck: Yes no lymphadenopathy, Yes trachea midline and Yes supple Resp: Auscultation: clear to auscultation bilaterally Cardio: Rate: regular rate Rhythm: regular rhythm Heart sounds: no gallops, no murmurs and no rubs GI: Palpation (GI): Soft to palpation and Other GI palpation findings present ( Nontender) Auscultation: normal bowel sounds Extrem: General: No clubbing and No cyanosis Objective Data Labs CBC & Chem 7: 09/03/21 05:35 09/03/21 05:35 Labs: Laboratory Results - last 24 hr 09/03/21 09/03/21 09/03/21 05:35 05:35 05:36 WBC 4.8 RBC 2.64 L Hgb 7.9 L Hct 24.7 L MCV 93.6 MCH 29.9 MCHC 32.0 RDW 16.2 H Plt Count 218 MPV 8.8 L Immature Gran % (Auto) Cancelled Neut % (Auto) Cancelled Lymph % (Auto) Cancelled [place] % (Auto) Cancelled Eos % (Auto) Cancelled Baso % (Auto) Cancelled Lymph # (Auto) Cancelled [place] # (Auto) Cancelled Eos # (Auto) Cancelled Baso # (Auto) Cancelled Abs Immat Gran (auto) Cancelled Absolute Neuts (auto) Cancelled Absolute Nucleated RBC 0.000 Nucleated RBC % (auto) 0.0 Neutrophils % (Manual) 44 L Band Neutrophils % 14 H Lymphocytes % (Manual) 20 Monocytes % (Manual) 15 H Eosinophils % (Manual) 1 Basophils % (Manual) 1 Metamyelocytes % 4 Myelocytes % 1 Abs Neuts (Manual) 2.8 Lymphocytes # (Manual) 1.0 L Monocytes # (Manual) 0.7 Metamyelocytes # 0.2 Platelet Estimate NORMAL Plt Morphology Comment NORMAL RBC Morphology NORMAL VBG pH 7.50 H VBG pCO2 42 VBG pO2 54 VBG HCO3 33 H VBG O2 Saturation 83.0 VBG Base Excess 9.5 Sodium 139 Potassium 4.1 Chloride 103 Carbon Dioxide 28 Anion Gap 12 BUN 13 Creatinine 0.44 L Estim Creat Clear Calc 118.3 Estimated GFR > 60 Random Glucose 122 H Calcium 8.5 Phosphorus 2.5 L Magnesium 1.9 Albumin 3.0 L Microbiology Microbiology Results: Microbiology 08/25/21 10:00 Blood - Venous Blood Culture - Final No growth after 5 days. 08/25/21 10:01 Blood - Venous Blood Culture - Final No growth after 5 days. 08/25/21 02:13 Blood - Venous Blood Culture - Final No growth after 5 days. 08/25/21 02:13 Blood - Venous Blood Culture - Final No growth after 5 days. 08/25/21 02:15 Sputum - Suctioned Gram Stain - Final 08/25/21 02:15 Sputum - Suctioned Sputum Culture - Final Harriett albicans 08/25/21 15:27 Sputum - Suctioned Gram Stain - Final 08/25/21 15:27 Sputum - Suctioned Sputum Culture - Final Staphylococcus aureus 08/16/21 15:36 Blood - Venous Blood Culture - Final No growth after 5 days. 08/16/21 15:33 Blood - Venous Blood Culture - Final No growth after 5 days. 08/16/21 14:12 Urine Catheterized - Straight Catheter Urine Culture - Final Escherichia coli Progress Note: A&P Assessment and plan (1) COPD (chronic obstructive pulmonary disease): Status: Acute (2) Schizophrenia: Status: Acute (3) Anoxic encephalopathy: Status: Acute (4) Status epilepticus: Status: Acute (5) Esophageal obstruction: Status: Acute (6) Aspiration into airway: Status: Acute (7) Cardiac arrest: Status: Acute (8) Acute respiratory failure: Status: Acute Assessment and Plan: Assessment: 81-year-old lady with advanced schizophrenia and nonverbal at baseline admitted with alteration of mental status with hospital course further complicated by asystolic cardiac arrest likely secondary to an aspiration event with resultant anoxic encephalopathy Plan: Neuro: anoxic encephalopathy, previously with persistent status epilepticus. Continues on anti epileptic regimen, no longer actively seizing. MRI brain with no evidence of severe diffuse anoxic encephalopathy, which does not rule out anoxic brain damage. Reimaging of right basal ganglia infarct known from CT head on 08/24/2021. Definitely, no evidence of brain . However, appears to be in persistent vegetative state. No improvement in neurologic exam since early in the week. Cardiac: Status post asystolic cardiac arrest likely secondary to an aspiration event. Pulmonary: Acute hypoxic respiratory failure secondary to pulmonary aspiration. Now continues on ventilatory support. Briefly able to tolerate pressure support ventilation Renal: No acute issues. Endo: No acute issues. GI: Underlying distal esophageal stricture likely causing food impaction and aspiration, able to pass NG tube. CT abdomen with no evidence of abdominal mass. ID: No acute issues Heme/Onc: No acute issues. Psych: No acute issues. Underlying schizophrenia. Miscellaneous: Sql Database Programmer decision from 08/30/2021 for permission for DNR status. At that time not applied for cm or, as patient did not exhibit signs of brain and had minimal improvement in neurologic status. Now with no further improvement in neurologic status and appears to be in persistent vegetative state. 2nd hearing requested for determination of further goals of care - either ASSEM[employer]ER [employer]ING[employer]S, or tracheostomy and gastrostomy placement. Overall no significant changes from 08/28/2021. Prophylaxis: Heparin, famotidine Diet: Tube feeds Critical care time spent: 45 minutes Quality Stroke Does the patient have a stroke diagnosis?: No VTE Prior VTE?: No VTE Risk Level:: Medical - moderate - high VTE Device Contraindication: Treatment Not Indicated VTE Drug Contraindication: N/A - Med Ordered
[2021-09-03] MEDS: dexmedeTOMIDidine HCL/NS 400 MCG/100 ML INFUS..BTL 26.91 MCG IVCONT (11:39)
[2021-09-03] MEDS: dexmedeTOMIDidine HCL/NS 400 MCG/100 ML INFUS..BTL 22.43 MCG IVCONT ×2 (15:44→19:44)
[2021-09-04] VITALS (34 sets, daily range): BP systolic 117–186; BP diastolic 33–84; PULSE 80–103; RESP 11–25; TEMP 34.9–38.7; O2SAT 91–100; BMI 36.1
[2021-09-04] MEDS: dexmedeTOMIDidine HCL/NS 400 MCG/100 ML INFUS..BTL 22.43 MCG IVCONT (00:33)
[2021-09-04] MEDS: Heparin Sodium,Porcine 5,000 UNIT/ML VIAL 5000 UNIT SUBCUT ×3 (01:46→16:53)
[2021-09-04] MEDS: levETIRAcetam in NaCl (iso-os) 1,000 MG/100 ML PIGGYBACK 400 MG IV ×3 (01:46→16:53)
[2021-09-04 05:24] LABS: VBG Base Excess 10.9 mmol/L; VBG HCO3 34 mmol/L (22-26); VBG pCO2 38 mmHg; VBG pH 7.55 (7.32-7.43); VBG pO2 72 mmHg
[2021-09-04 05:31] LABS: Hematocrit 21.9 % (37.0-47.0); Mean Corpuscular HGB Conc 31.5 g/dl (31.0-35.0); Mean Corpuscular Volume 95.2 fL (80.0-98.0); Mean Platelet Volume 9.1 fL (9.4-12.3); NRBC Pct Auto 0.4 /100WBC (0.0-0.2); Platelet Count 237 X10*3/uL (160-400); Red Cell Distribution Width 16.4 % (11.0-16.0)
[2021-09-04 05:33] LABS: Hemoglobin 6.9 g/dl (12.0-16.0)
[2021-09-04 05:35] LABS: Venous Blood Gas Refer to POC result
[2021-09-04] MEDS: Valproic Acid (as Sodium Salt) 1,000 MG in Dextrose 5 % 50 ML 60 MG IV ×3 (05:53→22:22)
[2021-09-04 05:58] LABS: Anion Gap 12 (12-20); Blood Urea Nitrogen 11 mg/dL (9-16); Calcium 8.5 mg/dL (8.4-10.2); Carbon Dioxide 26 mmol/L (22-29); Chloride 103 mmol/L (96-108); Creatinine Clr Calc Pharmacy 118.3; Estimated Glomerular Filt Rate > 60; Glucose Random 129 mg/dL (60-115); Magnesium 1.9 mg/dL (1.6-2.6); Phosphorus 3.3 mg/dL (2.7-4.5); Potassium 4.2 mmol/L (3.3-5.1); Sodium 137 mmol/L (135-145)
[2021-09-04 05:59] LABS: Band Neutrophils Percent 10 % (3-5); Lymphocytes Absolute Manual 1.4 X10*3/uL (1.2-4.9); Lymphocytes Percent Manual 27 % (20-40); Metamyelocytes Absolute 0.1 X10*3/uL; Metamyelocytes Percent 2 %; Monocytes Absolute Manual 0.9 X10*3/uL (0.1-1.2); Monocytes Percent Manual 17 % (2-11); Myelocytes Absolute 0.1 X10*/uL; Myelocytes Percent 1 %; Neutrophils Absolute Manual 2.7 X10*3/uL (2.0-8.3); Neutrophils Percent Manual 43 % (45-73); Nucleated Red Blood Cells 1 /100WBC (0-0)
[2021-09-04 06:00] LABS: Giant Platelet PRESENT; Hypochromasia 1+ (5-14) /OIF; Large Platelet PRESENT; Platelet Estimate NORMAL (NORMAL); Platelet Morphology Comment NOTED; RBC Morphology NOTED
[2021-09-04] MEDS: dexmedeTOMIDidine HCL/NS 400 MCG/100 ML INFUS..BTL 17.94 MCG IVCONT (07:28)
[2021-09-04] MEDS: 0.9 % Sodium Chloride Flush 3 ML SYRINGE IVFLUSH ×3 (09:17→22:22)
[2021-09-04] MEDS: Famotidine/PF 20 MG/2 ML VIAL IVPUSH (09:18)
[2021-09-04] MEDS: Chlorhexidine Gluc Oral Rinse 15 ML MOUTHWASH BUCCAL ×3 (09:18→22:14)
[2021-09-04] MEDS: Phenytoin Sodium 100 MG/2 ML VIAL IVPUSH ×3 (09:18→22:14)
--- NOTE | 2021-09-04 09:42 | MHC.CLN ---
F/U PT REMAINS INTUBATED NG TUBED DISLODGED; TF ON HOLD WHEN NG TUBE RE-ESTABLISHED; RECOMMEND INCREASING TF JEVITY 1.0 AT MAX GOAL RATE 60ML/HR WITH 240CC FREE WATER FLUSHES Q SHIFT TO PROVIDE 1526KCALS (22KCALS/KG), 64G PROTEIN (1.0G/KG), 1922CC TOTAL WATER FROM FORMULA AND FLUSHES (28ML/KG) MONITOR TOLERANCE, RESIDUALS AND LYTES
--- NOTE | 2021-09-04 10:11 | P.PNCC_ITS ---
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 use of IV Ativan finally she appears to be relatively seizure free at this point and although not brain because she has clinically restored brainstem function she remains vegetative completely unresponsive even to pain Critical Care Time (minutes): 45 Physical Exam Vital Signs: Vital Signs: Last Vital Signs Temp 98.5 F 09/04/21 08:00 Pulse 103 H 09/04/21 10:00 Resp 11 L 09/04/21 10:00 BP 169/49 H 09/04/21 10:00 Pulse Ox 91 L 09/04/21 10:00 BMI result Body Mass Index 36.1 no longer sedated but pupils are equal and reactive and she does have a gag and she does have a cough and she does generate spontaneous respirations but remains ventilator dependent and still unresponsive even to pain cardiovascular status is stable with no gallops no neck vein distension abdomen benign tolerating feedings no palpable organomegaly lungs by chest x-ray are clear Objective Data Labs CBC & Chem 7: 09/04/21 05:10 09/04/21 05:10 Labs: Laboratory Results - last 24 hr 09/01/21 09/04/21 09/04/21 06:29 05:10 05:10 WBC 5.0 RBC 2.30 L Hgb 6.9 L* Hct 21.9 L MCV 95.2 MCH 30.0 MCHC 31.5 RDW 16.4 H Plt Count 237 MPV 9.1 L Immature Gran % (Auto) Cancelled Neut % (Auto) Cancelled Lymph % (Auto) Cancelled [place] % (Auto) Cancelled Eos % (Auto) Cancelled Baso % (Auto) Cancelled Lymph # (Auto) Cancelled [place] # (Auto) Cancelled Eos # (Auto) Cancelled Baso # (Auto) Cancelled Abs Immat Gran (auto) Cancelled Absolute Neuts (auto) Cancelled Absolute Nucleated RBC 0.020 H Nucleated RBC % (auto) 0.4 H Neutrophils % (Manual) 43 L Band Neutrophils % 10 H Lymphocytes % (Manual) 27 Monocytes % (Manual) 17 H Metamyelocytes % 2 Myelocytes % 1 Abs Neuts (Manual) 2.7 Lymphocytes # (Manual) 1.4 Monocytes # (Manual) 0.9 Metamyelocytes # 0.1 Myelocytes # 0.1 Nucleated RBCs 1 H Platelet Estimate NORMAL Large Platelets PRESENT Giant Platelets PRESENT Plt Morphology Comment NOTED RBC Morphology NOTED Hypochromasia 1+ (5-14) VBG pH VBG pCO2 VBG pO2 VBG HCO3 VBG O2 Saturation VBG Base Excess Sodium 137 Potassium 4.2 Chloride 103 Carbon Dioxide 26 Anion Gap 12 BUN 11 Creatinine 0.44 L Estim Creat Clear Calc 118.3 Estimated GFR > 60 Random Glucose 129 H Calcium 8.5 Phosphorus 3.3 Magnesium 1.9 Albumin 3.0 L Blood Type O Positive Antibody Screen NEGATIVE Crossmatch ([facility]) See Detail 09/04/21 05:17 WBC RBC Hgb Hct MCV MCH MCHC RDW Plt Count MPV Immature Gran % (Auto) Neut % (Auto) Lymph % (Auto) [place] % (Auto) Eos % (Auto) Baso % (Auto) Lymph # (Auto) [place] # (Auto) Eos # (Auto) Baso # (Auto) Abs Immat Gran (auto) Absolute Neuts (auto) Absolute Nucleated RBC Nucleated RBC % (auto) Neutrophils % (Manual) Band Neutrophils % Lymphocytes % (Manual) Monocytes % (Manual) Metamyelocytes % Myelocytes % Abs Neuts (Manual) Lymphocytes # (Manual) Monocytes # (Manual) Metamyelocytes # Myelocytes # Nucleated RBCs Platelet Estimate Large Platelets Giant Platelets Plt Morphology Comment RBC Morphology Hypochromasia VBG pH 7.55 H VBG pCO2 38 VBG pO2 72 VBG HCO3 34 H VBG O2 Saturation TNP VBG Base Excess 10.9 Sodium Potassium Chloride Carbon Dioxide Anion Gap BUN Creatinine Estim Creat Clear Calc Estimated GFR Random Glucose Calcium Phosphorus Magnesium Albumin Blood Type Antibody Screen Crossmatch ([facility]) Microbiology Microbiology Results: Microbiology 08/25/21 10:00 Blood - Venous Blood Culture - Final No growth after 5 days. 08/25/21 10:01 Blood - Venous Blood Culture - Final No growth after 5 days. 08/25/21 02:13 Blood - Venous Blood Culture - Final No growth after 5 days. 08/25/21 02:13 Blood - Venous Blood Culture - Final No growth after 5 days. 08/25/21 02:15 Sputum - Suctioned Gram Stain - Final 08/25/21 02:15 Sputum - Suctioned Sputum Culture - Final Harriett albicans 08/25/21 15:27 Sputum - Suctioned Gram Stain - Final 08/25/21 15:27 Sputum - Suctioned Sputum Culture - Final Staphylococcus aureus 08/16/21 15:36 Blood - Venous Blood Culture - Final No growth after 5 days. 08/16/21 15:33 Blood - Venous Blood Culture - Final No growth after 5 days. 08/16/21 14:12 Urine Catheterized - Straight Catheter Urine Culture - Final Escherichia coli Progress Note: A&P Assessment and plan (1) COPD (chronic obstructive pulmonary disease): Status: Acute (2) Schizophrenia: Status: Acute (3) Anoxic encephalopathy: Status: Acute (4) Status epilepticus: Status: Acute (5) Esophageal obstruction: Status: Acute (6) Pulmonary nodules: Status: Acute (7) Aspiration into airway: Status: Acute (8) Cardiac arrest: Status: Acute (9) Shock: Status: Acute (10) Acute respiratory failure: Status: Acute (11) Asystole: Status: Acute (12) Metabolic encephalopathy: Status: Acute (13) Altered mental status, unspecified: Status: Acute (14) Acute hyponatremia: Status: Acute (15) Acute UTI: Status: Acute Assessment and Plan: so currently the plan is to maintain on the ventilator until such time as another court hearing is held with input from the son who is the only living immediate relative that we know of and a court-appointed guardian who based on her current vegetative state with poor prognosis might change her status to comfort measure Quality Stroke Does the patient have a stroke diagnosis?: No VTE Prior VTE?: No VTE Risk Level:: Medical - moderate - high VTE Device Contraindication: Treatment Not Indicated VTE Drug Contraindication: N/A - Med Ordered
[2021-09-04 15:28] LABS: OBS Int Ctl Valid YES; OBS1 NEGATIVE (NEGATIVE)
[2021-09-04] MEDS: dexmedeTOMIDidine HCL/NS 400 MCG/100 ML INFUS..BTL 11.21 MCG IVCONT ×2 (15:35→22:21)
[2021-09-04 16:10] LABS: CDiff Gene PCR NEGATIVE (Negative)
[2021-09-05] VITALS (31 sets, daily range): BP systolic 123–184; BP diastolic 41–66; PULSE 54–104; RESP 12–19; TEMP 34.9–38.6; O2SAT 90–98; BMI 36.0
[2021-09-05] MEDS: Heparin Sodium,Porcine 5,000 UNIT/ML VIAL 5000 UNIT SUBCUT ×3 (01:05→17:22)
[2021-09-05] MEDS: levETIRAcetam in NaCl (iso-os) 1,000 MG/100 ML PIGGYBACK 400 MG IV ×2 (01:05→08:04)
[2021-09-05 05:31] LABS: VBG Base Excess 11.2 mmol/L; VBG HCO3 34 mmol/L (22-26); VBG pCO2 42 mmHg; VBG pH 7.52 (7.32-7.43); VBG pO2 49 mmHg
[2021-09-05 05:36] LABS: Venous Blood Gas Refer to POC result
[2021-09-05 05:52] LABS: Hematocrit 21.8 % (37.0-47.0); Hemoglobin 7.1 g/dl (12.0-16.0); Mean Corpuscular HGB Conc 32.6 g/dl (31.0-35.0); Mean Corpuscular Hemoglobin 30.3 pg (27.0-33.0); Mean Corpuscular Volume 93.2 fL (80.0-98.0); Mean Platelet Volume 9.2 fL (9.4-12.3); Platelet Count 247 X10*3/uL (160-400); Red Blood Count 2.34 X10*6/uL (4.20-5.50); Red Cell Distribution Width 16.8 % (11.0-16.0); White Blood Count 5.1 X10*3/uL (4.8-10.8)
[2021-09-05] MEDS: Valproic Acid (as Sodium Salt) 1,000 MG in Dextrose 5 % 50 ML 60 MG IV ×3 (05:59→22:35)
[2021-09-05] MEDS: dexmedeTOMIDidine HCL/NS 400 MCG/100 ML INFUS..BTL 11.21 MCG IVCONT (06:05)
[2021-09-05 06:13] LABS: Band Neutrophils Percent 10 % (3-5); Lymphocytes Absolute Manual 1.3 X10*3/uL (1.2-4.9); Lymphocytes Percent Manual 26 % (20-40); Metamyelocytes Absolute 0.4 X10*3/uL; Metamyelocytes Percent 7 %; Monocytes Percent Manual 19 % (2-11); Myelocytes Absolute 0.1 X10*/uL; Myelocytes Percent 2 %; Neutrophils Absolute Manual 2.3 X10*3/uL (2.0-8.3); Neutrophils Percent Manual 36 % (45-73); Nucleated Red Blood Cells 2 /100WBC (0-0)
[2021-09-05 06:14] LABS: Hypochromasia 1+ (5-14) /OIF; Platelet Estimate NORMAL (NORMAL); Platelet Morphology Comment NORMAL; Polychromasia 1+ (0-2) /OIF; RBC Morphology NOTED
[2021-09-05 06:24] LABS: Alanine Aminotransferase 13 U/L (0-31); Albumin Level 2.9 g/dL (3.5-5.0); Alkaline Phosphatase 114 U/L (39-117); Anion Gap 11 (12-20); Aspartate Amino Transferase 50 U/L (5-31); Bilirubin Total 1.2 mg/dL (0.0-1.0); Blood Urea Nitrogen 11 mg/dL (9-16); Calcium 8.6 mg/dL (8.4-10.2); Carbon Dioxide 28 mmol/L (22-29); Chloride 101 mmol/L (96-108); Creatinine Clr Calc Pharmacy 115.6; Estimated Glomerular Filt Rate > 60; Glucose Random 131 mg/dL (60-115); Sodium 136 mmol/L (135-145)
--- NOTE | 2021-09-05 07:28 | P.PNCC_ITS ---
Subjective Subjective Date of Service: 09/05/21 Interval History: 81-year-old female who was brought in for altered mental status with a number of witnessed aspiration events as well as witnessed seizure activity in the question of course is which came 1st but the last event resulted in significant anoxic induced arrest with asystole none and all told potential anoxic. In excess of 20 minutes and the patient developed refractory status epilepticus eventually requiring 3 drugs plus p.r.n. use of benzodiazepine and when finally [place] on a combination of Dilantin and valproic acid and Keppra the underlying EEG demonstrated severe anoxic encephalopathy and the patient remains vegetative go comatose unresponsive poor prognosis and of course ventilator dependent Critical Care Time (minutes): 45 Physical Exam Vital Signs: Vital Signs: Last Vital Signs Temp 101.6 F H 09/04/21 21:00 Pulse 85 09/05/21 07:00 Resp 14 09/05/21 07:00 BP 148/45 H 09/05/21 07:00 Pulse Ox 93 09/05/21 07:00 BMI result Body Mass Index 36.0 all brainstem reflexes have returned but she remains unresponsive even to pain remains in normal sinus rhythm with adequate bilateral carotid upstrokes and no gallops lungs by chest x-ray demonstrated hazy left basilar there is a question of atelectasis verses infiltrate tolerating feedings abdomen is soft no organomegaly patient did have a low-grade temperature and does have the left basilar infiltrate versus atelectasis and growing Gram-positive cocci and at 1 time also a species of [place] besides Objective Data Labs CBC & Chem 7: 09/05/21 05:20 09/05/21 05:20 Labs: Laboratory Results - last 24 hr 09/01/21 09/04/21 09/04/21 06:29 05:17 14:27 WBC RBC Hgb Hct MCV MCH MCHC RDW Plt Count MPV Immature Gran % (Auto) Neut % (Auto) Lymph % (Auto) [place] % (Auto) Eos % (Auto) Baso % (Auto) Lymph # (Auto) [place] # (Auto) Eos # (Auto) Baso # (Auto) Abs Immat Gran (auto) Absolute Neuts (auto) Absolute Nucleated RBC Nucleated RBC % (auto) Neutrophils % (Manual) Band Neutrophils % Lymphocytes % (Manual) Monocytes % (Manual) Metamyelocytes % Myelocytes % Abs Neuts (Manual) Lymphocytes # (Manual) Monocytes # (Manual) Metamyelocytes # Myelocytes # Nucleated RBCs Platelet Estimate Plt Morphology Comment RBC Morphology Polychromasia Hypochromasia VBG pH VBG pCO2 VBG pO2 VBG HCO3 VBG O2 Saturation TNP VBG Base Excess Sodium Potassium Chloride Carbon Dioxide Anion Gap BUN Creatinine Estim Creat Clear Calc Estimated GFR Random Glucose Calcium Total Bilirubin AST ALT Alkaline Phosphatase Total Protein Albumin Stool Occult Blood NEGATIVE C. difficile Tox B Gene Crossmatch ([facility]) See Detail 09/04/21 09/05/21 09/05/21 14:27 05:20 05:20 WBC 5.1 RBC 2.34 L Hgb 7.1 L Hct 21.8 L MCV 93.2 MCH 30.3 MCHC 32.6 RDW 16.8 H Plt Count 247 MPV 9.2 L Immature Gran % (Auto) Cancelled Neut % (Auto) Cancelled Lymph % (Auto) Cancelled [place] % (Auto) Cancelled Eos % (Auto) Cancelled Baso % (Auto) Cancelled Lymph # (Auto) Cancelled [place] # (Auto) Cancelled Eos # (Auto) Cancelled Baso # (Auto) Cancelled Abs Immat Gran (auto) Cancelled Absolute Neuts (auto) Cancelled Absolute Nucleated RBC 0.000 Nucleated RBC % (auto) 0.0 Neutrophils % (Manual) 36 L Band Neutrophils % 10 H Lymphocytes % (Manual) 26 Monocytes % (Manual) 19 H Metamyelocytes % 7 Myelocytes % 2 Abs Neuts (Manual) 2.3 Lymphocytes # (Manual) 1.3 Monocytes # (Manual) 1.0 Metamyelocytes # 0.4 Myelocytes # 0.1 Nucleated RBCs 2 H Platelet Estimate NORMAL Plt Morphology Comment NORMAL RBC Morphology NOTED Polychromasia 1+ (0-2) Hypochromasia 1+ (5-14) VBG pH VBG pCO2 VBG pO2 VBG HCO3 VBG O2 Saturation VBG Base Excess Sodium 136 Potassium 4.0 Chloride 101 Carbon Dioxide 28 Anion Gap 11 L BUN 11 Creatinine 0.45 L Estim Creat Clear Calc 115.6 Estimated GFR > 60 Random Glucose 131 H Calcium 8.6 Total Bilirubin 1.2 H AST 50 H D ALT 13 Alkaline Phosphatase 114 D Total Protein 5.0 L Albumin 2.9 L Stool Occult Blood C. difficile Tox B Gene NEGATIVE Crossmatch ([facility]) 09/05/21 05:25 WBC RBC Hgb Hct MCV MCH MCHC RDW Plt Count MPV Immature Gran % (Auto) Neut % (Auto) Lymph % (Auto) [place] % (Auto) Eos % (Auto) Baso % (Auto) Lymph # (Auto) [place] # (Auto) Eos # (Auto) Baso # (Auto) Abs Immat Gran (auto) Absolute Neuts (auto) Absolute Nucleated RBC Nucleated RBC % (auto) Neutrophils % (Manual) Band Neutrophils % Lymphocytes % (Manual) Monocytes % (Manual) Metamyelocytes % Myelocytes % Abs Neuts (Manual) Lymphocytes # (Manual) Monocytes # (Manual) Metamyelocytes # Myelocytes # Nucleated RBCs Platelet Estimate Plt Morphology Comment RBC Morphology Polychromasia Hypochromasia VBG pH 7.52 H VBG pCO2 42 VBG pO2 49 VBG HCO3 34 H VBG O2 Saturation 78.0 VBG Base Excess 11.2 Sodium Potassium Chloride Carbon Dioxide Anion Gap BUN Creatinine Estim Creat Clear Calc Estimated GFR Random Glucose Calcium Total Bilirubin AST ALT Alkaline Phosphatase Total Protein Albumin Stool Occult Blood C. difficile Tox B Gene Crossmatch ([facility]) Microbiology Microbiology Results: Microbiology 08/25/21 10:00 Blood - Venous Blood Culture - Final No growth after 5 days. 08/25/21 10:01 Blood - Venous Blood Culture - Final No growth after 5 days. 08/25/21 02:13 Blood - Venous Blood Culture - Final No growth after 5 days. 08/25/21 02:13 Blood - Venous Blood Culture - Final No growth after 5 days. 08/25/21 02:15 Sputum - Suctioned Gram Stain - Final 08/25/21 02:15 Sputum - Suctioned Sputum Culture - Final [place] albicans 08/25/21 15:27 Sputum - Suctioned Gram Stain - Final 08/25/21 15:27 Sputum - Suctioned Sputum Culture - Final Staphylococcus aureus 08/16/21 15:36 Blood - Venous Blood Culture - Final No growth after 5 days. 08/16/21 15:33 Blood - Venous Blood Culture - Final No growth after 5 days. 08/16/21 14:12 Urine Catheterized - Straight Catheter Urine Culture - Final Escherichia coli Progress Note: A&P Assessment and plan (1) COPD (chronic obstructive pulmonary disease): Status: Acute (2) Schizophrenia: Status: Acute (3) Anoxic encephalopathy: Status: Acute (4) Status epilepticus: Status: Acute (5) Esophageal obstruction: Status: Acute (6) Pulmonary nodules: Status: Acute (7) Aspiration into airway: Status: Acute (8) Cardiac arrest: Status: Acute (9) Shock: Status: Acute (10) Acute respiratory failure: Status: Acute (11) Asystole: Status: Acute (12) Metabolic encephalopathy: Status: Acute (13) Altered mental status, unspecified: Status: Acute (14) Acute hyponatremia: Status: Acute (15) Acute UTI: Status: Acute Assessment and Plan: prognosis for any meaningful recovery is grave and at this point and very refractory status epilepticus seems to finally have abated and at this point decision is whether to go with tracheostomy in and PEG in somebody with very poor prognosis for recovery and certainly in even poor prognosis for a good meaningful recovery with true quality of life or whether not to make a decision about comfort measures given the circumstances and that will be decided in a discussion with the court and the appointed guardians Quality Stroke Does the patient have a stroke diagnosis?: No VTE Prior VTE?: No VTE Risk Level:: Medical - moderate - high VTE Device Contraindication: Treatment Not Indicated VTE Drug Contraindication: N/A - Med Ordered
[2021-09-05] MEDS: Doxycycline Hyclate 100 MG in 0.9 % Sodium Chloride 250 ML 166.67 MG IV ×2 (07:59→20:28)
[2021-09-05] MEDS: Phenytoin Sodium 100 MG/2 ML VIAL IVPUSH (08:04)
[2021-09-05] MEDS: Famotidine/PF 20 MG/2 ML VIAL IVPUSH (08:04)
[2021-09-05] MEDS: 0.9 % Sodium Chloride Flush 3 ML SYRINGE IVFLUSH ×2 (08:04→23:24)
[2021-09-05] MEDS: Chlorhexidine Gluc Oral Rinse 15 ML MOUTHWASH BUCCAL ×3 (08:04→20:28)
[2021-09-05] MEDS: Caspofungin Acetate 70 MG in 0.9 % Sodium Chloride 250 ML 250 MG IV (08:28)
--- NOTE | 2021-09-05 14:06 | MHC.CM.PN ---
Pt continues in ICU on ventilatory support: Per discussion with MD; pt is exhibiting signs of irreversible brain injury and is likely only functioning with brain stem activity at this time. Pt will not make a neurological recovery at this time. Call placed to pt's legal guardian, Civil Engineering Intern Adriana: very briefly discussed pt's clinical status: Civil Engineering Intern Adriana stated she spoke with pt's son yesterday and he would like to pursue PRESCRIPTION CLERK measures. Transferred her to ICU to speak with Dr. White for specific clinical updates and overall prognosis. Faxed pt's 3 most recent MD progress notes and meds to Lela Wong at [facility] to begin the process of expansion of guardian to allow for PRESCRIPTION CLERK. CM to follow. Pt has been a LTC resident at [facility] in [place] where she is a bed hold. CM to follow
[2021-09-05] MEDS: cloNIDine 0.1 MG PATCH.TDWK TRANSDERMA (15:31)
[2021-09-05] MEDS: Phenytoin Oral Susp 100 MG/4 ML ORAL.SUSP NG-TUBE ×2 (16:18→20:28)
[2021-09-05] MEDS: levETIRAcetam Oral Soln 500 MG/5 ML 1500 MG PO (20:26)
[2021-09-06] VITALS (36 sets, daily range): BP systolic 128–190; BP diastolic 50–97; PULSE 99–128; RESP 12–26; TEMP 34.8–39.6; O2SAT 93–100; BMI 36.9
[2021-09-06 05:34] LABS: MANUAL DIFF FLAG NO
[2021-09-06 05:36] LABS: VBG HCO3 34 mmol/L (22-26); VBG pCO2 39 mmHg; VBG pH 7.54 (7.32-7.43); VBG pO2 49 mmHg
[2021-09-06 05:44] LABS: Eosinophils Percent Auto 0.3 % (0-4); Imm Gran Abs Auto 0.47 X10*3/uL (0.00-0.03); Imm Gran Pct Auto 7.1 % (0.0-0.4); Lymphocytes Absolute Auto 1.3 X10*3/uL (1.2-4.9); Lymphocytes Percent Auto 19.9 % (20-40); Mean Corpuscular Hemoglobin 30.8 pg (27.0-33.0); Mean Corpuscular Volume 93.3 fL (80.0-98.0); Mean Platelet Volume 9.2 fL (9.4-12.3); Monocytes Absolute Auto 1.5 X10*3/uL (0.1-1.2); NRBC Pct Auto 0.5 /100WBC (0.0-0.2); Neutrophils Absolute Auto 3.3 x10*3/uL (2.0-8.3); Neutrophils Percent Auto 49.7 % (45-73); Platelet Count 269 X10*3/uL (160-400); Red Blood Count 1.95 X10*6/uL (4.20-5.50); Red Cell Distribution Width 16.8 % (11.0-16.0); SCAN SMEAR FLAG 1; White Blood Count 6.6 X10*3/uL (4.8-10.8)
[2021-09-06] MEDS: Valproic Acid (as Sodium Salt) 1,000 MG in Dextrose 5 % 50 ML 60 MG IV ×3 (06:04→22:43)
--- NOTE | 2021-09-06 06:31 | PC.NURSE ---
SERIAL HG/HCT'S REVIEWED WITH ICU PA...SCHEDULED HEPARIN SC D/C'D AND SEQUENTIAL STOCKINGS APPLIED PER PA...T-MAX 103.2 THIS AM...DR AMES UPDATED... TO REVIEW THIS AM LAB WORK....NO VOID 11PM-3AM...BLADDER SCANNED 237ml...PURWIK CATHETER COLLECTED 200ml AFTER REPOSITIONED POST-BLADDER SCAN...SINUS TACH HR 110-120...REMAINS UNRESPONSIVE TO VERBAL STIMULI...EXTREMETIES FLACCID..(+) GAG/COUGH..EYS OPEN AT TIMES..NO FOCUS OR TRACKING..NO STARTLE RESPONSE..OCASSIONAL TRANSIENT FOCAL FACIAL SEIZURE ACTIVITY WITH ASSOCIATED TRANSIENT VENT DYSYNCHRONY
[2021-09-06 06:42] LABS: Alanine Aminotransferase 14 U/L (0-31); Albumin Level 2.6 g/dL (3.5-5.0); Alkaline Phosphatase 113 U/L (39-117); Anion Gap 10 (12-20); Aspartate Amino Transferase 49 U/L (5-31); Bilirubin Total 1.3 mg/dL (0.0-1.0); Blood Urea Nitrogen 10 mg/dL (9-16); Calcium 8.4 mg/dL (8.4-10.2); Carbon Dioxide 30 mmol/L (22-29); Chloride 100 mmol/L (96-108); Creatinine Clr Calc Pharmacy 122.7; Estimated Glomerular Filt Rate > 60; Glucose Random 154 mg/dL (60-115); Potassium 3.7 mmol/L (3.3-5.1); Sodium 136 mmol/L (135-145); Total Protein 4.6 g/dL (6.5-8.0)
[2021-09-06 07:19] LABS: Venous Blood Gas Refer to POC result
[2021-09-06 07:20] LABS: Hematocrit 18.2 % (37.0-47.0)
[2021-09-06 07:50] LABS: Band Neutrophils Percent 17 % (3-5); Lymphocytes Absolute Manual 1.3 X10*3/uL (1.2-4.9); Lymphocytes Percent Manual 20 % (20-40); Metamyelocytes Absolute 0.3 X10*3/uL; Metamyelocytes Percent 4 %; Monocytes Absolute Manual 1.1 X10*3/uL (0.1-1.2); Monocytes Percent Manual 17 % (2-11); Neutrophils Absolute Manual 3.9 X10*3/uL (2.0-8.3); Neutrophils Percent Manual 42 % (45-73)
[2021-09-06 07:52] LABS: Hypochromasia 2+ (15-30) /OIF; RBC Morphology NOTED
[2021-09-06 07:53] LABS: Microcytosis 1+ (5-14) /OIF; Platelet Estimate NORMAL (NORMAL); Platelet Morphology Comment NORMAL
[2021-09-06 07:54] LABS: Differential Comment SEE
[2021-09-06 08:05] LABS: Phenytoin Dilantin 2.7 ug/mL (10.0-20.0)
[2021-09-06] MEDS: Famotidine/PF 20 MG/2 ML VIAL IVPUSH (08:57)
[2021-09-06] MEDS: Doxycycline Hyclate 100 MG in 0.9 % Sodium Chloride 250 ML 166.67 MG IV ×2 (08:58→19:43)
[2021-09-06] MEDS: levETIRAcetam Oral Soln 500 MG/5 ML 1500 MG PO ×2 (08:58→19:43)
[2021-09-06] MEDS: Chlorhexidine Gluc Oral Rinse 15 ML MOUTHWASH BUCCAL ×3 (08:58→19:43)
[2021-09-06] MEDS: Phenytoin Oral Susp 100 MG/4 ML ORAL.SUSP NG-TUBE (08:58)
[2021-09-06] MEDS: Fluconazole 100 MG TABLET PO (08:58)
[2021-09-06 09:25] LABS: Lactate Dehydrogenase 491 U/L (122-220)
[2021-09-06 09:45] LABS: OBS Int Ctl Valid YES; OBS1 NEGATIVE (NEGATIVE)
[2021-09-06] MEDS: 0.9 % Sodium Chloride Flush 3 ML SYRINGE IVFLUSH ×3 (09:46→22:44)
[2021-09-06] MEDS: Midazolam HCl/PF 2 MG/2 ML VIAL 4 MG IVPUSH (09:59)
[2021-09-06 10:13] LABS: Erythrocyte Sedimentation Rate 90 MM/HR (0-20)
--- NOTE | 2021-09-06 10:30 | MHC.CLN ---
F/U PT REMAINS INTUBATED PT RECEIVING TF JEVITY 1.0 AT MAX GOAL RATE 60ML/HR WITH 240CC FREE WATER FLUSHES Q SHIFT TO PROVIDE 1526KCALS (22KCALS/KG), 64G PROTEIN (1.0G/KG), 1922CC TOTAL WATER FROM FORMULA AND FLUSHES (28ML/KG) POSSIBLE COURT DATE TODAY PER CM REGARDING CHANGE IN CODE STATUS CONTINUE TO MONITOR TOLERANCE, RESIDUALS AND LYTES
--- NOTE | 2021-09-06 15:13 | P.PNCC_ITS ---
Subjective Subjective Date of Service: 09/06/21 Interval History: 81-year-old female with severe anoxic encephalopathy remains comatose without response even to deep pain this was following refractory status epilepticus requiring 3 drugs and then p.r.n. use of IV Ativan or Versed for for episodes in between but this was initially precipitated by a the no a cardio respiratory arrest altogether about the 20 minutes of oxygen deprivation and has a background of schizoaffective disorder and having been institutionalized for large portion of her life Because of fevers as high as 103 without apparent no skin rash but certainly not behaving in a septic fashion I cut I question whether not this could be Dilantin related and the level apparently was subtherapeutic this morning so with a sed rate of 90 I am abandoning the Dilantin and switching her over to Tegretol and will follow from there but the prognosis for recovery is grim although she still maintains brainstem reflexes she is how it however vegetative This is to be discussed with with the court and with the court-appointed shreyas jeremías and and the son of and I think it people or reaching more of a consensus about and the need for comfort measures at this point Critical Care Time (minutes): 45 Physical Exam Vital Signs: Vital Signs: Last Vital Signs Temp 102.9 F H 09/06/21 14:00 Pulse 110 H 09/06/21 14:00 Resp 20 09/06/21 14:00 BP 190/67 H 09/06/21 14:00 Pulse Ox 97 09/06/21 14:00 BMI result Body Mass Index 36.9 Unresponsive even to pain Occasional breakthrough seizure activity which abated with the IV Versed Fever to 103 with sinus tachycardia and Dilantin was stopped and then switched to Tegretol and will watch to see if that abates Exam otherwise stable and the central IV site looks okay there is no evidence of redness and chest x-ray is otherwise stable and from the lab we have hemoglobin of 6 and no apparent guaiac positivity but there is chemical evidence of probable hemolysis and that too I think is part of the Dilantin toxicity and 1 unit of blood was transfused will repeat blood work in the morning Objective Data Labs CBC & Chem 7: 09/06/21 05:25 09/06/21 05:25 Labs: Laboratory Results - last 24 hr 09/06/21 09/06/21 09/06/21 05:25 05:25 05:25 WBC 6.6 RBC 1.95 L Hgb 6.0 L* Hct 18.2 L* MCV 93.3 MCH 30.8 MCHC 33.0 RDW 16.8 H Plt Count 269 MPV 9.2 L Immature Gran % (Auto) 7.1 H Neut % (Auto) 49.7 Lymph % (Auto) 19.9 L [place] % (Auto) 23.0 H Eos % (Auto) 0.3 Baso % (Auto) 0.0 Lymph # (Auto) 1.3 [place] # (Auto) 1.5 H Eos # (Auto) 0.0 Baso # (Auto) 0.0 Abs Immat Gran (auto) 0.47 H Absolute Neuts (auto) 3.3 Absolute Nucleated RBC 0.030 H Nucleated RBC % (auto) 0.5 H Neutrophils % (Manual) 42 L Band Neutrophils % 17 H Lymphocytes % (Manual) 20 Monocytes % (Manual) 17 H Metamyelocytes % 4 Abs Neuts (Manual) 3.9 Lymphocytes # (Manual) 1.3 Monocytes # (Manual) 1.1 Metamyelocytes # 0.3 Platelet Estimate NORMAL Plt Morphology Comment NORMAL RBC Morphology NOTED Hypochromasia 2+ (15-30) Microcytosis 1+ (5-14) ESR VBG pH VBG pCO2 VBG pO2 VBG HCO3 VBG O2 Saturation VBG Base Excess Sodium 136 Potassium 3.7 Chloride 100 Carbon Dioxide 30 H Anion Gap 10 L BUN 10 Creatinine 0.43 L Estim Creat Clear Calc 122.7 Estimated GFR > 60 Random Glucose 154 H Calcium 8.4 Total Bilirubin 1.3 H AST 49 H ALT 14 Alkaline Phosphatase 113 Lactate Dehydrogenase Total Protein 4.6 L Albumin 2.6 L Stool Occult Blood Phenytoin 2.7 L* Blood Type Antibody Screen MADELIN, Polyspecific Positive MADELIN Work-up Crossmatch ([facility]) 09/06/21 09/06/21 09/06/21 05:28 08:48 08:48 WBC RBC Hgb Hct MCV MCH MCHC RDW Plt Count MPV Immature Gran % (Auto) Neut % (Auto) Lymph % (Auto) [place] % (Auto) Eos % (Auto) Baso % (Auto) Lymph # (Auto) [place] # (Auto) Eos # (Auto) Baso # (Auto) Abs Immat Gran (auto) Absolute Neuts (auto) Absolute Nucleated RBC Nucleated RBC % (auto) Neutrophils % (Manual) Band Neutrophils % Lymphocytes % (Manual) Monocytes % (Manual) Metamyelocytes % Abs Neuts (Manual) Lymphocytes # (Manual) Monocytes # (Manual) Metamyelocytes # Platelet Estimate Plt Morphology Comment RBC Morphology Hypochromasia Microcytosis ESR 90 H VBG pH 7.54 H VBG pCO2 39 VBG pO2 49 VBG HCO3 34 H VBG O2 Saturation 80.0 VBG Base Excess 11.0 Sodium Potassium Chloride Carbon Dioxide Anion Gap BUN Creatinine Estim Creat Clear Calc Estimated GFR Random Glucose Calcium Total Bilirubin AST ALT Alkaline Phosphatase Lactate Dehydrogenase 491 H Total Protein Albumin Stool Occult Blood Phenytoin Blood Type Antibody Screen MADELIN, Polyspecific Positive MADELIN Work-up Crossmatch ([facility]) 09/06/21 09/06/21 08:48 09:33 WBC RBC Hgb Hct MCV MCH MCHC RDW Plt Count MPV Immature Gran % (Auto) Neut % (Auto) Lymph % (Auto) [place] % (Auto) Eos % (Auto) Baso % (Auto) Lymph # (Auto) [place] # (Auto) Eos # (Auto) Baso # (Auto) Abs Immat Gran (auto) Absolute Neuts (auto) Absolute Nucleated RBC Nucleated RBC % (auto) Neutrophils % (Manual) Band Neutrophils % Lymphocytes % (Manual) Monocytes % (Manual) Metamyelocytes % Abs Neuts (Manual) Lymphocytes # (Manual) Monocytes # (Manual) Metamyelocytes # Platelet Estimate Plt Morphology Comment RBC Morphology Hypochromasia Microcytosis ESR VBG pH VBG pCO2 VBG pO2 VBG HCO3 VBG O2 Saturation VBG Base Excess Sodium Potassium Chloride Carbon Dioxide Anion Gap BUN Creatinine Estim Creat Clear Calc Estimated GFR Random Glucose Calcium Total Bilirubin AST ALT Alkaline Phosphatase Lactate Dehydrogenase Total Protein Albumin Stool Occult Blood NEGATIVE Phenytoin Blood Type O Positive Antibody Screen NEGATIVE MADELIN, Polyspecific NEGATIVE Positive MADELIN Work-up TNP Crossmatch ([facility]) See Detail Microbiology Microbiology Results: Microbiology 08/25/21 10:00 Blood - Venous Blood Culture - Final No growth after 5 days. 08/25/21 10:01 Blood - Venous Blood Culture - Final No growth after 5 days. 08/25/21 02:13 Blood - Venous Blood Culture - Final No growth after 5 days. 08/25/21 02:13 Blood - Venous Blood Culture - Final No growth after 5 days. 08/25/21 02:15 Sputum - Suctioned Gram Stain - Final 08/25/21 02:15 Sputum - Suctioned Sputum Culture - Final [place] albicans 08/25/21 15:27 Sputum - Suctioned Gram Stain - Final 08/25/21 15:27 Sputum - Suctioned Sputum Culture - Final Staphylococcus aureus 08/16/21 15:36 Blood - Venous Blood Culture - Final No growth after 5 days. 08/16/21 15:33 Blood - Venous Blood Culture - Final No growth after 5 days. 08/16/21 14:12 Urine Catheterized - Straight Catheter Urine Culture - Final Escherichia coli Progress Note: A&P Assessment and plan (1) COPD (chronic obstructive pulmonary disease): Status: Acute (2) Schizophrenia: Status: Acute (3) Anoxic encephalopathy: Status: Acute (4) Status epilepticus: Status: Acute (5) Esophageal obstruction: Status: Acute (6) Pulmonary nodules: Status: Acute (7) Aspiration into airway: Status: Acute (8) Cardiac arrest: Status: Acute (9) Shock: Status: Acute (10) Acute respiratory failure: Status: Acute (11) Asystole: Status: Acute (12) Metabolic encephalopathy: Status: Acute (13) Altered mental status, unspecified: Status: Acute (14) Acute hyponatremia: Status: Acute (15) Acute UTI: Status: Acute (16) Dilantin toxicity: Status: Acute Assessment and Plan: So the plan then is for the switched to Tegretol and otherwise follow expectant ly and then hopefully will have our meeting with the court tomorrow morning Quality Stroke Does the patient have a stroke diagnosis?: No VTE Prior VTE?: No VTE Risk Level:: Medical - moderate - high VTE Device Contraindication: Treatment Not Indicated VTE Drug Contraindication: N/A - Med Ordered
[2021-09-06] MEDS: carBAMazepine 100 MG TAB.CHEW PO (17:28)
[2021-09-06] MEDS: Acetaminophen Supp 650 MG SUPP.RECT PR (19:44)
[2021-09-07] VITALS (30 sets, daily range): BP systolic 119–153; BP diastolic 50–79; PULSE 54–105; RESP 15–98; TEMP 34.4–38.3; O2SAT 94–100; BMI 37.2
--- NOTE | 2021-09-07 03:44 | PC.NURSE ---
Addendum entered by Stephan Crowell RN 09/07/21 06:13: AM H/H= 6.1/18.0 ..ICU PA AND DR AMES PRESENT AND AWARE..NO TRANSFUSION AT PRESENT PER PA. Original Note: CARE ASSUMED 23:15....REMAINS TUBED/VENTED...VCV/AC MODE...REMAINS ON NO SEDATION..UNRESPONSIVE TO VERBAL STIMULI...(+) GAG/COUGH REFLEXES...ASSISTS VENT IN AC MODE...EYES RAELY OPEN BUT NO FOCUSING/TRACKING OR STARTLE REFLEX...EYES ROVE RANDOMLY..EXTREMETIES FLACCID...NSR/S.TACH...BP STABLE...PER SHIFT REPORT PLANNED COURT DATE 09/07 TO DETERMINE PLAN OF CARE
[2021-09-07 05:37] LABS: Mean Corpuscular HGB Conc 33.9 g/dl (31.0-35.0); Mean Corpuscular Hemoglobin 31.3 pg (27.0-33.0); Mean Corpuscular Volume 92.3 fL (80.0-98.0); Mean Platelet Volume 9.7 fL (9.4-12.3); NRBC Pct Auto 0.6 /100WBC (0.0-0.2); Platelet Count 233 X10*3/uL (160-400); Red Blood Count 1.95 X10*6/uL (4.20-5.50); Red Cell Distribution Width 16.3 % (11.0-16.0); White Blood Count 9.8 X10*3/uL (4.8-10.8)
[2021-09-07 05:37] LABS: VBG Base Excess 10.8 mmol/L; VBG HCO3 33 mmol/L (22-26); VBG pCO2 36 mmHg; VBG pH 7.56 (7.32-7.43); VBG pO2 58 mmHg
[2021-09-07 05:39] LABS: Hemoglobin 6.1 g/dl (12.0-16.0)
[2021-09-07 05:58] LABS: Band Neutrophils Percent 12 % (3-5); Lymphocytes Absolute Manual 1.8 X10*3/uL (1.2-4.9); Lymphocytes Percent Manual 18 % (20-40); Monocytes Percent Manual 10 % (2-11); Myelocytes Absolute 0.2 X10*/uL; Myelocytes Percent 2 %; Neutrophils Absolute Manual 6.9 X10*3/uL (2.0-8.3); Neutrophils Percent Manual 58 % (45-73); Nucleated Red Blood Cells 1 /100WBC (0-0); Platelet Estimate NORMAL (NORMAL); Platelet Morphology Comment NORMAL; Polychromasia 1+ (0-2) /OIF; RBC Morphology NOTED
[2021-09-07 05:59] LABS: Alanine Aminotransferase 10 U/L (0-31); Albumin Level 2.7 g/dL (3.5-5.0); Alkaline Phosphatase 96 U/L (39-117); Anion Gap 9 (12-20); Aspartate Amino Transferase 44 U/L (5-31); Bilirubin Total 2.1 mg/dL (0.0-1.0); Blood Urea Nitrogen 14 mg/dL (9-16); Calcium 8.5 mg/dL (8.4-10.2); Carbon Dioxide 30 mmol/L (22-29); Chloride 99 mmol/L (96-108); Creatinine Clr Calc Pharmacy 120.4; Estimated Glomerular Filt Rate > 60; Glucose Random 158 mg/dL (60-115); Potassium 3.3 mmol/L (3.3-5.1); Sodium 135 mmol/L (135-145); Total Protein 4.6 g/dL (6.5-8.0)
[2021-09-07] MEDS: Valproic Acid (as Sodium Salt) 1,000 MG in Dextrose 5 % 50 ML 60 MG IV ×3 (06:10→22:44)
[2021-09-07 06:14] LABS: Venous Blood Gas Refer to POC result
[2021-09-07] MEDS: Doxycycline Hyclate 100 MG in 0.9 % Sodium Chloride 250 ML 166.67 MG IV ×2 (07:38→19:08)
[2021-09-07] MEDS: 0.9 % Sodium Chloride Flush 3 ML SYRINGE IVFLUSH ×2 (07:38→13:43)
[2021-09-07] MEDS: carBAMazepine 100 MG TAB.CHEW PO ×2 (07:38→17:05)
[2021-09-07] MEDS: Chlorhexidine Gluc Oral Rinse 15 ML MOUTHWASH BUCCAL ×3 (08:38→19:57)
[2021-09-07] MEDS: Famotidine/PF 20 MG/2 ML VIAL IVPUSH (08:38)
[2021-09-07] MEDS: levETIRAcetam Oral Soln 500 MG/5 ML 1500 MG PO ×2 (08:38→19:56)
--- NOTE | 2021-09-07 11:29 | MHC.CM.PN ---
Addendum entered by Robyn Benton 09/07/21 16:17: Updated affidavit completed and remitted to Attamish Wong via email: she will try and facilitate a hearing for 09/08. If this is not possible, the next hearing date would be on 09/[address] schedule process. Addendum entered by Robyn Benton 09/07/21 14:00: New medical certificate completed, signed by and emailed to Attamish Wong at [facility] for initiation of a new court motion to expand pt's guardianship for TRAINING EXECUTIVE. L/M for Lela Wong re: new affadavit for to complete. Will await correspondance. Original Note: Pt remains intubated and unresponsive in ICU: MD to change pt's Dilantin to Tegretol in the hopes of improving her H&H. Per MD, pt will not recover and will remain in a permanent vegetative state. notes from 09/05 - 09/06 sent to Registered Vascular Technologist (Rvt)octavia Wong at [facility] for an additional petition for guardianship expansion to allow for TRAINING EXECUTIVE status. Spoke with Registered Vascular Technologist (Rvt)octavia Wong briefly and transferred her to ICU to speak with in more detail. Pt served with notice of impending hearing on 09/06. CM to follow for assistance with d/c planning.
--- NOTE | 2021-09-07 17:08 | PM.CCPN ---
Subjective Subjective Date of Service: 09/07/21 Interval History: 81-year-old female with anoxic encephalopathy who presented with new onset of seizure witnessed aspiration and which came 1st we really do not know but there was 1 episode with about 20 minutes all told of oxygen deprivation from which she has never really recovered cognitive function and and remains comatose and no response to deep pain did recover however her brain stem reflexes and but remains vegetative and court dates to determine comfort measure status continue to get kicked down the road delay after delay this resulted in some other maintenance issues that we needed to keep up with vent and the the no to include transfusions She had refractory status epilepticus requiring 3 drugs the 3rd of which was Dilantin she developed a fever with elevated sed rate and what looks to be a hemolytic anemia all that seems to have settled down with the discontinuation of Dilantin and replacement with Tegretol and that is been stable Critical Care Time (minutes): 45 Physical Exam Vital Signs: Vital Signs: Last Vital Signs Temp 99.6 F 09/07/21 16:00 Pulse 103 H 09/07/21 16:00 Resp 20 09/07/21 16:00 BP 137/59 L 09/07/21 16:00 Pulse Ox 94 09/07/21 16:00 BMI result Body Mass Index 37.2 On the ventilator but off all sedation and she remains comatose Cardiovascular stable no gallops no neck vein distension adequate bilateral carotid upstrokes Lungs without event tissue sounds Abdomen tolerating feedings feeding to was replaced and it is in good position below the diaphragm in the stomach Objective Data Labs CBC & Chem 7: 09/09/21 06:44 09/09/21 06:44 Labs: Laboratory Results - last 24 hr 09/07/21 09/07/21 09/07/21 05:25 05:25 05:31 WBC 9.8 RBC 1.95 L Hgb 6.1 L* Hct 18.0 L* MCV 92.3 MCH 31.3 MCHC 33.9 RDW 16.3 H Plt Count 233 MPV 9.7 Immature Gran % (Auto) Cancelled Neut % (Auto) Cancelled Lymph % (Auto) Cancelled [place] % (Auto) Cancelled Eos % (Auto) Cancelled Baso % (Auto) Cancelled Lymph # (Auto) Cancelled [place] # (Auto) Cancelled Eos # (Auto) Cancelled Baso # (Auto) Cancelled Abs Immat Gran (auto) Cancelled Absolute Neuts (auto) Cancelled Absolute Nucleated RBC 0.060 H Nucleated RBC % (auto) 0.6 H Neutrophils % (Manual) 58 Band Neutrophils % 12 H Lymphocytes % (Manual) 18 L Monocytes % (Manual) 10 Myelocytes % 2 Abs Neuts (Manual) 6.9 Lymphocytes # (Manual) 1.8 Monocytes # (Manual) 1.0 Myelocytes # 0.2 Nucleated RBCs 1 H Platelet Estimate NORMAL Plt Morphology Comment NORMAL RBC Morphology NOTED Polychromasia 1+ (0-2) VBG pH 7.56 H VBG pCO2 36 VBG pO2 58 VBG HCO3 33 H VBG O2 Saturation 88.0 VBG Base Excess 10.8 Sodium 135 Potassium 3.3 Chloride 99 Carbon Dioxide 30 H Anion Gap 9 L BUN 14 Creatinine 0.44 L Estim Creat Clear Calc 120.4 Estimated GFR > 60 Random Glucose 158 H Calcium 8.5 Total Bilirubin 2.1 H AST 44 H ALT 10 Alkaline Phosphatase 96 Total Protein 4.6 L Albumin 2.7 L Microbiology Microbiology Results: Microbiology 08/25/21 10:00 Blood - Venous Blood Culture - Final No growth after 5 days. 08/25/21 10:01 Blood - Venous Blood Culture - Final No growth after 5 days. 08/25/21 02:13 Blood - Venous Blood Culture - Final No growth after 5 days. 08/25/21 02:13 Blood - Venous Blood Culture - Final No growth after 5 days. 08/25/21 02:15 Sputum - Suctioned Gram Stain - Final 08/25/21 02:15 Sputum - Suctioned Sputum Culture - Final Harriett albicans 08/25/21 15:27 Sputum - Suctioned Gram Stain - Final 08/25/21 15:27 Sputum - Suctioned Sputum Culture - Final Staphylococcus aureus 08/16/21 15:36 Blood - Venous Blood Culture - Final No growth after 5 days. 08/16/21 15:33 Blood - Venous Blood Culture - Final No growth after 5 days. 08/16/21 14:12 Urine Catheterized - Straight Catheter Urine Culture - Final Escherichia coli Progress Note: A&P Assessment and plan (1) Dilantin toxicity: Status: Acute (2) COPD (chronic obstructive pulmonary disease): Status: Acute (3) Schizophrenia: Status: Acute (4) Anoxic encephalopathy: Status: Acute (5) Status epilepticus: Status: Acute (6) Esophageal obstruction: Status: Acute (7) Pulmonary nodules: Status: Acute (8) Aspiration into airway: Status: Acute (9) Cardiac arrest: Status: Acute (10) Shock: Status: Acute (11) Acute respiratory failure: Status: Acute (12) Asystole: Status: Acute (13) Metabolic encephalopathy: Status: Acute (14) Acute hyponatremia: Status: Acute (15) Altered mental status, unspecified: Status: Acute (16) Acute UTI: Status: Acute Assessment and Plan: Stool told she is DNR and DNI of course remains intubated also remains completely vegetative and last EEG indicating profound anoxic encephalopathy but clearly does not have brain we still have brainstem reflexes but again she displays no cognitive function making her essentially vegetative and ventilator dependent and court hearing is now to be in other 3 days this coming Saturday I believe on the and if the court agrees on comfort measures and then should probably be extubated the same day but for now were and a holding pattern Quality Stroke Does the patient have a stroke diagnosis?: No VTE Prior VTE?: No VTE Risk Level:: Medical - moderate - high VTE Device Contraindication: Treatment Not Indicated VTE Drug Contraindication: N/A - Med Ordered
[2021-09-08] VITALS (32 sets, daily range): BP systolic 103–160; BP diastolic 39–72; PULSE 94–103; RESP 12–23; TEMP 34.8–38.3; O2SAT 94–99; BMI 37.3
[2021-09-08] MEDS: 0.9 % Sodium Chloride Flush 3 ML SYRINGE IVFLUSH ×3 (00:16→16:25)
[2021-09-08] MEDS: Midazolam HCl/PF 2 MG/2 ML VIAL 4 MG IVPUSH (00:57)
[2021-09-08 05:25] LABS: VBG Base Excess 12.9 mmol/L; VBG HCO3 35 mmol/L (22-26); VBG pCO2 35 mmHg; VBG pO2 89 mmHg
[2021-09-08 05:51] LABS: Venous Blood Gas Refer to POC result
[2021-09-08 05:56] LABS: Mean Corpuscular HGB Conc 32.5 g/dl (31.0-35.0); Mean Corpuscular Hemoglobin 30.4 pg (27.0-33.0); Mean Corpuscular Volume 93.5 fL (80.0-98.0); Mean Platelet Volume 9.9 fL (9.4-12.3); NRBC Pct Auto 0.8 /100WBC (0.0-0.2); Platelet Count 214 X10*3/uL (160-400); Red Blood Count 1.68 X10*6/uL (4.20-5.50); Red Cell Distribution Width 17.1 % (11.0-16.0); White Blood Count 7.9 X10*3/uL (4.8-10.8)
[2021-09-08 06:00] LABS: Hematocrit 15.7 % (37.0-47.0); Hemoglobin 5.1 g/dl (12.0-16.0)
[2021-09-08 06:17] LABS: Alanine Aminotransferase 13 U/L (0-31); Albumin Level 2.5 g/dL (3.5-5.0); Alkaline Phosphatase 98 U/L (39-117); Anion Gap 11 (12-20); Aspartate Amino Transferase 53 U/L (5-31); Bilirubin Total 1.6 mg/dL (0.0-1.0); Blood Urea Nitrogen 15 mg/dL (9-16); Calcium 8.1 mg/dL (8.4-10.2); Carbon Dioxide 29 mmol/L (22-29); Chloride 98 mmol/L (96-108); Creatinine Clr Calc Pharmacy 126.4; Estimated Glomerular Filt Rate > 60; Glucose Random 136 mg/dL (60-115); Potassium 3.4 mmol/L (3.3-5.1); Sodium 135 mmol/L (135-145); Total Protein 4.5 g/dL (6.5-8.0)
[2021-09-08] MEDS: Valproic Acid (as Sodium Salt) 1,000 MG in Dextrose 5 % 50 ML 60 MG IV ×3 (06:21→22:33)
[2021-09-08 06:23] LABS: Band Neutrophils Percent 16 % (3-5); Lymphocytes Absolute Manual 1.1 X10*3/uL (1.2-4.9); Lymphocytes Percent Manual 14 % (20-40); Metamyelocytes Absolute 0.4 X10*3/uL; Metamyelocytes Percent 5 %; Monocytes Absolute Manual 0.6 X10*3/uL (0.1-1.2); Monocytes Percent Manual 7 % (2-11); Myelocytes Absolute 0.2 X10*/uL; Myelocytes Percent 2 %; Neutrophils Absolute Manual 5.7 X10*3/uL (2.0-8.3); Neutrophils Percent Manual 56 % (45-73); Nucleated Red Blood Cells 3 /100WBC (0-0)
[2021-09-08 06:24] LABS: Platelet Estimate NORMAL (NORMAL); Platelet Morphology Comment NORMAL; RBC Morphology NORMAL
[2021-09-08] MEDS: levETIRAcetam Oral Soln 500 MG/5 ML 1500 MG PO ×2 (08:03→19:31)
[2021-09-08] MEDS: carBAMazepine 100 MG TAB.CHEW PO (08:03)
[2021-09-08] MEDS: Doxycycline Hyclate 100 MG in 0.9 % Sodium Chloride 250 ML 166.67 MG IV ×2 (08:03→19:31)
[2021-09-08] MEDS: Famotidine/PF 20 MG/2 ML VIAL IVPUSH (08:04)
[2021-09-08] MEDS: Chlorhexidine Gluc Oral Rinse 15 ML MOUTHWASH BUCCAL ×3 (08:04→19:31)
--- NOTE | 2021-09-08 09:23 | MHC.CLN ---
F/U PT REMAINS INTUBATED PT RECEIVING TF JEVITY 1.0 AT MAX GOAL RATE 60ML/HR WITH 240CC FREE WATER FLUSHES Q SHIFT TO PROVIDE 1526KCALS (22KCALS/KG), 64G PROTEIN (1.0G/KG), 1922CC TOTAL WATER FROM FORMULA AND FLUSHES (28ML/KG) AWAITING COURT DATE PER CM REGARDING CHANGE IN CODE STATUS CONTINUE TO MONITOR TOLERANCE, RESIDUALS AND LYTES FOLLOWING WITH TEAM
--- NOTE | 2021-09-08 12:22 | MHC.CM.PN ---
Spoke at length with [facility] [place] attorney[place]avia Bella re: another hearing postponement from 09/08 until 09/12 as pt's ip attorney is unavailable today and the jewel bearing polisher is not available on 09/11. Per [employer]avia Bella, pt's ip attorney and guardian are having difficulty with pursuance of [employer] status d/t what they are perceiving as 'differences' in the providers assessments and documentation of clinical progress and prognosis via medical records and direct MD conversation. This is creating somewhat 'doubt' and 'uncertainty' and impeding decision making. Requested pt's ip attorney and guardian visit pt this weekend to better understand how pt is being sustained. Aircraft Mechanic Armamentoctavia Bella will contact them and offer the invite. Aircraft Mechanic Armamentoctavia Bella has spoke with pt's son on 09/07 who feels pt is being 'inhumanely' treated and not being allowed to pass with dignity. Pt's RN has had the same conversation with him. He will be present for the [facility] hearing on Saturday as will Dr. Canales, the ICU occupational therapy director on schedule. Pt continues with no neurological response, remains on ventilatory support has very fragile and edematous extremities. CM to follow.
--- NOTE | 2021-09-08 16:48 | PM.CCPN ---
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 both from a witnessed arrest with 20 minutes of anoxic time until sikh of circulation she has been intubated without cognitive function since she also had refractory status epilepticus requiring 3 drugs 2 arrest that situation but that also contributed to the anoxic encephalopathic damage and then developed the fever with an elevated sed rate of 95 and what looks like probable hemolytic anemia all of which is now stabilized since the discontinuation of Dilantin and replacement with Tegretol and she remained seizure-free but with nothing but vegetative function no response even to deep pain she only has sikh of brainstem reflexes Critical Care Time (minutes): 35 Physical Exam Vital Signs: Vital Signs: Last Vital Signs Temp 98.2 F 09/08/21 15:14 Pulse 98 09/08/21 15:58 Resp 15 09/08/21 15:58 BP 126/66 09/08/21 15:58 Pulse Ox 96 09/08/21 15:58 BMI result Body Mass Index 37.3 Neurologically again without cognitive function no awakening no evidence of seizure activity however and she is stable on the ventilator with stable cardiovascular exam tolerance also to the of feeding diet and she today has a stable degree of of anemia with a hemoglobin of 6.6 Objective Data Labs CBC & Chem 7: 09/09/21 06:44 09/09/21 06:44 Labs: Laboratory Results - last 24 hr 09/08/21 09/08/21 09/08/21 05:18 05:19 05:19 WBC 7.9 RBC 1.68 L Hgb 5.1 L* Hct 15.7 L* MCV 93.5 MCH 30.4 MCHC 32.5 RDW 17.1 H Plt Count 214 MPV 9.9 Immature Gran % (Auto) Cancelled Neut % (Auto) Cancelled Lymph % (Auto) Cancelled [place] % (Auto) Cancelled Eos % (Auto) Cancelled Baso % (Auto) Cancelled Lymph # (Auto) Cancelled [place] # (Auto) Cancelled Eos # (Auto) Cancelled Baso # (Auto) Cancelled Abs Immat Gran (auto) Cancelled Absolute Neuts (auto) Cancelled Absolute Nucleated RBC 0.060 H Nucleated RBC % (auto) 0.8 H Neutrophils % (Manual) 56 Band Neutrophils % 16 H Lymphocytes % (Manual) 14 L Monocytes % (Manual) 7 Metamyelocytes % 5 Myelocytes % 2 Abs Neuts (Manual) 5.7 Lymphocytes # (Manual) 1.1 L Monocytes # (Manual) 0.6 Metamyelocytes # 0.4 Myelocytes # 0.2 Nucleated RBCs 3 H Platelet Estimate NORMAL Plt Morphology Comment NORMAL RBC Morphology NORMAL VBG pH 7.60 H* VBG pCO2 35 VBG pO2 89 VBG HCO3 35 H VBG O2 Saturation 97.0 VBG Base Excess 12.9 Sodium 135 Potassium 3.4 Chloride 98 Carbon Dioxide 29 Anion Gap 11 L BUN 15 Creatinine 0.42 L Estim Creat Clear Calc 126.4 Estimated GFR > 60 Random Glucose 136 H Calcium 8.1 L Total Bilirubin 1.6 H AST 53 H ALT 13 Alkaline Phosphatase 98 Total Protein 4.5 L Albumin 2.5 L Microbiology Microbiology Results: Microbiology 08/25/21 10:00 Blood - Venous Blood Culture - Final No growth after 5 days. 08/25/21 10:01 Blood - Venous Blood Culture - Final No growth after 5 days. 08/25/21 02:13 Blood - Venous Blood Culture - Final No growth after 5 days. 08/25/21 02:13 Blood - Venous Blood Culture - Final No growth after 5 days. 08/25/21 02:15 Sputum - Suctioned Gram Stain - Final 08/25/21 02:15 Sputum - Suctioned Sputum Culture - Final Harriett albicans 08/25/21 15:27 Sputum - Suctioned Gram Stain - Final 08/25/21 15:27 Sputum - Suctioned Sputum Culture - Final Staphylococcus aureus 08/16/21 15:36 Blood - Venous Blood Culture - Final No growth after 5 days. 08/16/21 15:33 Blood - Venous Blood Culture - Final No growth after 5 days. 08/16/21 14:12 Urine Catheterized - Straight Catheter Urine Culture - Final Escherichia coli Progress Note: A&P Assessment and plan (1) Dilantin toxicity: Status: Acute (2) COPD (chronic obstructive pulmonary disease): Status: Acute (3) Schizophrenia: Status: Acute (4) Anoxic encephalopathy: Status: Acute (5) Status epilepticus: Status: Acute (6) Esophageal obstruction: Status: Acute (7) Pulmonary nodules: Status: Acute (8) Aspiration into airway: Status: Acute (9) Cardiac arrest: Status: Acute (10) Shock: Status: Acute (11) Acute respiratory failure: Status: Acute (12) Asystole: Status: Acute (13) Metabolic encephalopathy: Status: Acute (14) Altered mental status, unspecified: Status: Acute (15) Acute hyponatremia: Status: Acute (16) Acute UTI: Status: Acute Assessment and Plan: So we continue to maintain receiving her antiseizure medication and the transfusing when hemoglobin is dangerously low currently not required but all other systems are okay but she remains did just simply vegetative and awaits court appearance to give the court-appointed guardian the power to declare comfort measures only and apparently there is a son who had been estranged for many years but reappeared in [facility] for the fact that this is not the way she wanted to live and also feels that comfort measures would be in her best interest and we await the SaturdaySeptember 12 hearing Quality Stroke Does the patient have a stroke diagnosis?: No VTE Prior VTE?: No VTE Risk Level:: Medical - moderate - high VTE Device Contraindication: Treatment Not Indicated VTE Drug Contraindication: N/A - Med Ordered
[2021-09-08 22:37] LABS: Anti Nuclear Antibody Screen NEGATIVE (NEGATIVE)
[2021-09-09] VITALS (34 sets, daily range): BP systolic 133–182; BP diastolic 39–64; PULSE 87–96; RESP 11–17; TEMP 30–37.8; O2SAT 92–100; BMI 39.2
[2021-09-09] MEDS: Valproic Acid (as Sodium Salt) 1,000 MG in Dextrose 5 % 50 ML 60 MG IV ×3 (05:43→23:59)
[2021-09-09 06:55] LABS: VBG HCO3 36 mmol/L (22-26); VBG pCO2 38 mmHg; VBG pH 7.58 (7.32-7.43); VBG pO2 49 mmHg
[2021-09-09 07:03] LABS: Mean Corpuscular HGB Conc 32.7 g/dl (31.0-35.0); Mean Corpuscular Hemoglobin 29.7 pg (27.0-33.0); Mean Platelet Volume 10.1 fL (9.4-12.3); Platelet Count 212 X10*3/uL (160-400); Red Blood Count 2.22 X10*6/uL (4.20-5.50); White Blood Count 7.3 X10*3/uL (4.8-10.8)
[2021-09-09 07:08] LABS: NRBC Pct Auto 1.2 /100WBC (0.0-0.2)
[2021-09-09 07:10] LABS: Hemoglobin 6.6 g/dl (12.0-16.0)
[2021-09-09 07:11] LABS: Hematocrit 20.2 % (37.0-47.0)
[2021-09-09 07:19] LABS: Alanine Aminotransferase 17 U/L (0-31); Albumin Level 2.4 g/dL (3.5-5.0); Alkaline Phosphatase 105 U/L (39-117); Anion Gap 12 (12-20); Aspartate Amino Transferase 61 U/L (5-31); Bilirubin Total 1.8 mg/dL (0.0-1.0); Blood Urea Nitrogen 14 mg/dL (9-16); Calcium 8.2 mg/dL (8.4-10.2); Carbon Dioxide 30 mmol/L (22-29); Chloride 97 mmol/L (96-108); Creatinine Clr Calc Pharmacy 143.3; Estimated Glomerular Filt Rate > 60; Glucose Random 115 mg/dL (60-115); Potassium 3.8 mmol/L (3.3-5.1); Sodium 135 mmol/L (135-145); Total Protein 4.4 g/dL (6.5-8.0)
[2021-09-09 07:50] LABS: Band Neutrophils Percent 10 % (3-5); Lymphocytes Absolute Manual 1.2 X10*3/uL (1.2-4.9); Lymphocytes Percent Manual 17 % (20-40); Metamyelocytes Absolute 0.1 X10*3/uL; Metamyelocytes Percent 2 %; Monocytes Absolute Manual 0.5 X10*3/uL (0.1-1.2); Monocytes Percent Manual 7 % (2-11); Myelocytes Absolute 0.1 X10*/uL; Myelocytes Percent 2 %; Neutrophils Absolute Manual 5.3 X10*3/uL (2.0-8.3); Neutrophils Percent Manual 62 % (45-73); Nucleated Red Blood Cells 2 /100WBC (0-0)
[2021-09-09 07:57] LABS: Hypochromasia 1+ (5-14) /OIF; Platelet Estimate NORMAL (NORMAL); Polychromasia 1+ (0-2) /OIF; RBC Morphology NOTED
[2021-09-09 07:58] LABS: Platelet Morphology Comment NORMAL
[2021-09-09 08:35] LABS: Venous Blood Gas Refer to POC result
[2021-09-09] MEDS: levETIRAcetam Oral Soln 500 MG/5 ML 1500 MG PO ×2 (08:44→20:34)
[2021-09-09] MEDS: Doxycycline Hyclate 100 MG in 0.9 % Sodium Chloride 250 ML 166.67 MG IV ×2 (08:44→19:43)
[2021-09-09] MEDS: 0.9 % Sodium Chloride Flush 3 ML SYRINGE IVFLUSH ×3 (08:54→20:34)
[2021-09-09] MEDS: carBAMazepine 100 MG TAB.CHEW PO ×2 (08:54→16:12)
[2021-09-09] MEDS: Famotidine/PF 20 MG/2 ML VIAL IVPUSH (08:54)
[2021-09-09] MEDS: Chlorhexidine Gluc Oral Rinse 15 ML MOUTHWASH BUCCAL ×3 (08:54→20:34)
--- NOTE | 2021-09-09 12:49 | P.PNCC_ITS ---
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 which could have been the precipitating issue but resulted in aspiration which of course enhance the the hypoxia and she has been stable on the ventilator with stable FiO2 and today is stable hemoglobin renal function stable tolerating feedings on 3 medications and appears clinically to be seizure-free no clinical evidence of nonconvulsive status epilepticus as she had had before and we await a court appearance for a to a wore the guardian the the power to did declare comfort measure only and this is also in conjunction with what the son feels was the patient's desire do a degree of anemia is holding its own with hemoglobin of 6.6 and I have no immediate that need nor intent of transfusing at all of the lab work is fine and is just a very minimal low-grade persistent temperature without any significant climb in white count and most importantly she remains unresponsive even to pain in in a persistently vegetative state Critical Care Time (minutes): 30 Physical Exam Vital Signs: Vital Signs: Last Vital Signs Temp 98.3 F 09/09/21 11:00 Pulse 91 09/09/21 12:00 Resp 16 09/09/21 12:00 BP 154/53 H 09/09/21 12:00 Pulse Ox 95 09/09/21 12:00 BMI result Body Mass Index 39.2 unresponsive to pain breath but brainstem reflexes are preserved and remove of course remains ventilator dependent without sedation abdomen is soft with no organomegaly and tolerating feeds chest without any adventitious sounds cardiac exam with good bilateral carotid upstrokes no neck vein distension and no gallops Objective Data Labs CBC & Chem 7: 09/10/21 05:25 09/10/21 05:22 Labs: Laboratory Results - last 24 hr 09/06/21 09/06/21 09/09/21 08:48 08:48 06:44 WBC 7.3 RBC 2.22 L D Hgb 6.6 L* D Hct 20.2 L* D MCV 91.0 MCH 29.7 MCHC 32.7 RDW 17.0 H Plt Count 212 MPV 10.1 Immature Gran % (Auto) Cancelled Neut % (Auto) Cancelled Lymph % (Auto) Cancelled [place] % (Auto) Cancelled Eos % (Auto) Cancelled Baso % (Auto) Cancelled Lymph # (Auto) Cancelled [place] # (Auto) Cancelled Eos # (Auto) Cancelled Baso # (Auto) Cancelled Abs Immat Gran (auto) Cancelled Absolute Neuts (auto) Cancelled Absolute Nucleated RBC 0.090 H Nucleated RBC % (auto) 1.2 H Neutrophils % (Manual) 62 Band Neutrophils % 10 H Lymphocytes % (Manual) 17 L Monocytes % (Manual) 7 Metamyelocytes % 2 Myelocytes % 2 Abs Neuts (Manual) 5.3 Lymphocytes # (Manual) 1.2 Monocytes # (Manual) 0.5 Metamyelocytes # 0.1 Myelocytes # 0.1 Nucleated RBCs 2 H Platelet Estimate NORMAL Plt Morphology Comment NORMAL RBC Morphology NOTED Polychromasia 1+ (0-2) Hypochromasia 1+ (5-14) VBG pH VBG pCO2 VBG pO2 VBG HCO3 VBG O2 Saturation VBG Base Excess Sodium Potassium Chloride Carbon Dioxide Anion Gap BUN Creatinine Estim Creat Clear Calc Estimated GFR Random Glucose Calcium Total Bilirubin AST ALT Alkaline Phosphatase Total Protein Albumin RITA Screen NEGATIVE Blood Type O Positive Antibody Screen NEGATIVE MADELIN, Polyspecific NEGATIVE Positive MADELIN Work-up TNP Crossmatch (AHG) See Detail 09/09/21 09/09/21 06:44 06:48 WBC RBC Hgb Hct MCV MCH MCHC RDW Plt Count MPV Immature Gran % (Auto) Neut % (Auto) Lymph % (Auto) [place] % (Auto) Eos % (Auto) Baso % (Auto) Lymph # (Auto) [place] # (Auto) Eos # (Auto) Baso # (Auto) Abs Immat Gran (auto) Absolute Neuts (auto) Absolute Nucleated RBC Nucleated RBC % (auto) Neutrophils % (Manual) Band Neutrophils % Lymphocytes % (Manual) Monocytes % (Manual) Metamyelocytes % Myelocytes % Abs Neuts (Manual) Lymphocytes # (Manual) Monocytes # (Manual) Metamyelocytes # Myelocytes # Nucleated RBCs Platelet Estimate Plt Morphology Comment RBC Morphology Polychromasia Hypochromasia VBG pH 7.58 H VBG pCO2 38 VBG pO2 49 VBG HCO3 36 H VBG O2 Saturation 82.0 VBG Base Excess 14.0 Sodium 135 Potassium 3.8 Chloride 97 Carbon Dioxide 30 H Anion Gap 12 BUN 14 Creatinine 0.38 L Estim Creat Clear Calc 143.3 Estimated GFR > 60 Random Glucose 115 Calcium 8.2 L Total Bilirubin 1.8 H AST 61 H ALT 17 Alkaline Phosphatase 105 Total Protein 4.4 L Albumin 2.4 L RITA Screen Blood Type Antibody Screen MADELIN, Polyspecific Positive MADELIN Work-up Crossmatch (AHG) Microbiology Microbiology Results: Microbiology 08/25/21 10:00 Blood - Venous Blood Culture - Final No growth after 5 days. 08/25/21 10:01 Blood - Venous Blood Culture - Final No growth after 5 days. 08/25/21 02:13 Blood - Venous Blood Culture - Final No growth after 5 days. 08/25/21 02:13 Blood - Venous Blood Culture - Final No growth after 5 days. 08/25/21 02:15 Sputum - Suctioned Gram Stain - Final 08/25/21 02:15 Sputum - Suctioned Sputum Culture - Final Harriett albicans 08/25/21 15:27 Sputum - Suctioned Gram Stain - Final 08/25/21 15:27 Sputum - Suctioned Sputum Culture - Final Staphylococcus aureus 08/16/21 15:36 Blood - Venous Blood Culture - Final No growth after 5 days. 08/16/21 15:33 Blood - Venous Blood Culture - Final No growth after 5 days. 08/16/21 14:12 Urine Catheterized - Straight Catheter Urine Culture - Final Escherichia coli Progress Note: A&P Assessment and plan (1) Dilantin toxicity: Status: Acute (2) COPD (chronic obstructive pulmonary disease): Status: Acute (3) Schizophrenia: Status: Acute (4) Anoxic encephalopathy: Status: Acute (5) Status epilepticus: Status: Acute (6) Esophageal obstruction: Status: Acute (7) Pulmonary nodules: Status: Acute (8) Aspiration into airway: Status: Acute (9) Cardiac arrest: Status: Acute (10) Shock: Status: Acute (11) Acute respiratory failure: Status: Acute (12) Asystole: Status: Acute (13) Metabolic encephalopathy: Status: Acute (14) Altered mental status, unspecified: Status: Acute (15) Acute hyponatremia: Status: Acute (16) Acute UTI: Status: Acute Assessment and Plan: so at this point continues to be maintained until decision can be rendered by the court for comfort measure especially understanding that with this severe a level of anoxic encephalopathy that the prognosis for any meaningful recovery is absolutely grave so now another 48 hours before that decision can be rendered Quality Stroke Does the patient have a stroke diagnosis?: No VTE Prior VTE?: No VTE Risk Level:: Medical - moderate - high VTE Device Contraindication: Treatment Not Indicated VTE Drug Contraindication: N/A - Med Ordered
--- NOTE | 2021-09-09 18:02 | PC.NURSE ---
VSS, low grade temp of 99.1. pt responds to tactile stimuli. Vent settings remain the same. panda/cream inline secretions noted. u/o wnl, couple small smears noted, repo q2hr, bath given.
[2021-09-10] VITALS (31 sets, daily range): BP systolic 113–178; BP diastolic 25–94; PULSE 84–97; RESP 12–28; TEMP 34.6–37.9; O2SAT 92–100; BMI 39.4
[2021-09-10 05:40] LABS: VBG Base Excess 13.2 mmol/L; VBG HCO3 36 mmol/L (22-26); VBG pCO2 38 mmHg; VBG pH 7.57 (7.32-7.43); VBG pO2 60 mmHg
[2021-09-10] MEDS: Valproic Acid (as Sodium Salt) 1,000 MG in Dextrose 5 % 50 ML 60 MG IV ×3 (06:09→21:49)
[2021-09-10 06:34] LABS: Venous Blood Gas Refer to POC result
[2021-09-10 06:35] LABS: Mean Corpuscular HGB Conc 32.4 g/dl (31.0-35.0); Mean Corpuscular Hemoglobin 29.3 pg (27.0-33.0); Mean Corpuscular Volume 90.4 fL (80.0-98.0); Mean Platelet Volume 9.9 fL (9.4-12.3); Platelet Count 178 X10*3/uL (160-400); Red Blood Count 2.08 X10*6/uL (4.20-5.50); Red Cell Distribution Width 16.8 % (11.0-16.0); White Blood Count 5.9 X10*3/uL (4.8-10.8)
[2021-09-10 06:43] LABS: Hemoglobin 6.1 g/dl (12.0-16.0)
[2021-09-10 06:44] LABS: Hematocrit 18.8 % (37.0-47.0); NRBC Pct Auto 2.2 /100WBC (0.0-0.2)
[2021-09-10 07:05] LABS: Alanine Aminotransferase 21 U/L (0-31); Albumin Level 2.5 g/dL (3.5-5.0); Alkaline Phosphatase 127 U/L (39-117); Anion Gap 12 (12-20); Aspartate Amino Transferase 75 U/L (5-31); Blood Urea Nitrogen 12 mg/dL (9-16); Calcium 8.3 mg/dL (8.4-10.2); Carbon Dioxide 31 mmol/L (22-29); Chloride 97 mmol/L (96-108); Creatinine Clr Calc Pharmacy 140.3; Estimated Glomerular Filt Rate > 60; Glucose Random 115 mg/dL (60-115); Potassium 3.5 mmol/L (3.3-5.1); Sodium 136 mmol/L (135-145); Total Protein 4.5 g/dL (6.5-8.0)
[2021-09-10 07:10] LABS: Band Neutrophils Percent 20 % (3-5); Lymphocytes Absolute Manual 0.6 X10*3/uL (1.2-4.9); Lymphocytes Percent Manual 10 % (20-40); Metamyelocytes Absolute 0.4 X10*3/uL; Metamyelocytes Percent 7 %; Monocytes Absolute Manual 0.5 X10*3/uL (0.1-1.2); Monocytes Percent Manual 9 % (2-11); Myelocytes Absolute 0.2 X10*/uL; Myelocytes Percent 3 %; Neutrophils Absolute Manual 4.2 X10*3/uL (2.0-8.3); Neutrophils Percent Manual 51 % (45-73); Nucleated Red Blood Cells 4 /100WBC (0-0)
[2021-09-10 07:14] LABS: Hypochromasia 1+ (5-14) /OIF; Macrocytosis 1+ (5-14) /OIF; Platelet Estimate NORMAL (NORMAL); Platelet Morphology Comment NORMAL; Polychromasia 1+ (0-2) /OIF; RBC Morphology NOTED
[2021-09-10] MEDS: Doxycycline Hyclate 100 MG in 0.9 % Sodium Chloride 250 ML 166.67 MG IV ×2 (08:49→20:12)
[2021-09-10] MEDS: Chlorhexidine Gluc Oral Rinse 15 ML MOUTHWASH BUCCAL ×3 (08:49→20:13)
[2021-09-10] MEDS: carBAMazepine 100 MG TAB.CHEW PO ×2 (08:49→16:17)
[2021-09-10] MEDS: levETIRAcetam Oral Soln 500 MG/5 ML 1500 MG PO ×2 (08:49→20:13)
[2021-09-10] MEDS: Famotidine/PF 20 MG/2 ML VIAL IVPUSH (08:49)
[2021-09-10] MEDS: 0.9 % Sodium Chloride Flush 3 ML SYRINGE IVFLUSH ×2 (08:49→16:17)
--- NOTE | 2021-09-10 15:44 | P.PNCC_ITS ---
Subjective Subjective Date of Service: 09/10/21 Interval History: 81-year-old female who is schizoaffective an institutionalized for many years came in having been altered and she has had w itnessed aspiration issues here but also seizures difficult to say of course which came 1st but having had an extensive old CVA this could have all been due to new onset of seizures and she may have basically been in a postictal state within considered to min altered but she did suffer respiratory distress with considerable aspiration on the floor and all told about 20 minutes of down time or anoxic time rendering her encephalopathic and then is an added complication bed and unbeknownst for a good number of hours overnight she was in and nonconvulsive status epilepticus and it was refractory and so again continued as we built 3 medications to have a lot of continued epileptic activity finally Catron on a combination of Dilaudid Dilantin which then subsequently was discontinued because of drug fever ab switched to Tegretol and this in addition to valproic acid which he remains uncomplicated is no ammonia elevation as well as Keppra persistently vegetative with brainstem reflexes that were restored after we conquer the nonconvulsive status epilepticus that was refractory but no evidence of cognitive function absolutely comatose with no response even to deep pain persistently in severely anemic but not dramatically different and not worthy of transfusion with current hemoglobin of 6.1 Critical Care Time (minutes): 30 Physical Exam Vital Signs: Vital Signs: Last Vital Signs Temp 99.8 F 09/10/21 08:00 Pulse 91 09/10/21 15:00 Resp 14 09/10/21 15:00 BP 145/44 H 09/10/21 15:00 Pulse Ox 95 09/10/21 15:00 BMI result Body Mass Index 39.4 no change in exam unresponsive to pain persistent vegetative state with the brain's stem reflex es restored no particular skin lesions abdomen benign tolerating feeds no organomegal y lungs without adventitious sounds cardiac exam by bedside echo showing preserved systolic reserve Objective Data Labs CBC & Chem 7: 09/10/21 05:25 09/10/21 05:22 Labs: Laboratory Results - last 24 hr 09/10/21 09/10/21 09/10/21 05:22 05:25 05:33 WBC 5.9 RBC 2.08 L Hgb 6.1 L* Hct 18.8 L* MCV 90.4 MCH 29.3 MCHC 32.4 RDW 16.8 H Plt Count 178 MPV 9.9 Immature Gran % (Auto) Cancelled Neut % (Auto) Cancelled Lymph % (Auto) Cancelled Dickinson % (Auto) Cancelled Eos % (Auto) Cancelled Baso % (Auto) Cancelled Lymph # (Auto) Cancelled Dickinson # (Auto) Cancelled Eos # (Auto) Cancelled Baso # (Auto) Cancelled Abs Immat Gran (auto) Cancelled Absolute Neuts (auto) Cancelled Absolute Nucleated RBC 0.130 H Nucleated RBC % (auto) 2.2 H Neutrophils % (Manual) 51 Band Neutrophils % 20 H Lymphocytes % (Manual) 10 L Monocytes % (Manual) 9 Metamyelocytes % 7 Myelocytes % 3 Abs Neuts (Manual) 4.2 Lymphocytes # (Manual) 0.6 L Monocytes # (Manual) 0.5 Metamyelocytes # 0.4 Myelocytes # 0.2 Nucleated RBCs 4 H Platelet Estimate NORMAL Plt Morphology Comment NORMAL RBC Morphology NOTED Polychromasia 1+ (0-2) Hypochromasia 1+ (5-14) Macrocytosis 1+ (5-14) VBG pH 7.57 H VBG pCO2 38 VBG pO2 60 VBG HCO3 36 H VBG O2 Saturation 90.0 VBG Base Excess 13.2 Sodium 136 Potassium 3.5 Chloride 97 Carbon Dioxide 31 H Anion Gap 12 BUN 12 Creatinine 0.39 L Estim Creat Clear Calc 140.3 Estimated GFR > 60 Random Glucose 115 Calcium 8.3 L Total Bilirubin 2.0 H AST 75 H ALT 21 Alkaline Phosphatase 127 H D Total Protein 4.5 L Albumin 2.5 L Microbiology Microbiology Results: Microbiology 08/25/21 10:00 Blood - Venous Blood Culture - Final No growth after 5 days. 08/25/21 10:01 Blood - Venous Blood Culture - Final No growth after 5 days. 08/25/21 02:13 Blood - Venous Blood Culture - Final No growth after 5 days. 08/25/21 02:13 Blood - Venous Blood Culture - Final No growth after 5 days. 08/25/21 02:15 Sputum - Suctioned Gram Stain - Final 08/25/21 02:15 Sputum - Suctioned Sputum Culture - Final Harriett albicans 08/25/21 15:27 Sputum - Suctioned Gram Stain - Final 08/25/21 15:27 Sputum - Suctioned Sputum Culture - Final Staphylococcus aureus 08/16/21 15:36 Blood - Venous Blood Culture - Final No growth after 5 days. 08/16/21 15:33 Blood - Venous Blood Culture - Final No growth after 5 days. 08/16/21 14:12 Urine Catheterized - Straight Catheter Urine Culture - Final Escherichia coli Progress Note: A&P Assessment and plan (1) Dilantin toxicity: Status: Acute (2) COPD (chronic obstructive pulmonary disease): Status: Acute (3) Schizophrenia: Status: Acute (4) Anoxic encephalopathy: Status: Acute (5) Status epilepticus: Status: Acute (6) Esophageal obstruction: Status: Acute (7) Pulmonary nodules: Status: Acute (8) Aspiration into airway: Status: Acute (9) Cardiac arrest: Status: Acute (10) Shock: Status: Acute (11) Acute respiratory failure: Status: Acute (12) Asystole: Status: Acute (13) Metabolic encephalopathy: Status: Acute (14) Altered mental status, unspecified: Status: Acute (15) Acute hyponatremia: Status: Acute (16) Acute UTI: Status: Acute Assessment and Plan: so at this point in a persistent vegetative state from severe anoxic encephalopathy in part contributed to by refractory status epilepticus she awaits a court decision to be rendered in about 48 hours to establishing comfort measures at which point she would be extubated prognosis remains grave Quality Stroke Does the patient have a stroke diagnosis?: No VTE Prior VTE?: No VTE Risk Level:: Medical - moderate - high VTE Device Contraindication: Treatment Not Indicated VTE Drug Contraindication: N/A - Med Ordered
--- NOTE | 2021-09-10 18:35 | PC.NURSE ---
tmax 100.1, vss. SR on tele. pt grimaces to noxious stimuli, opens ewyes to voice. LS clear by end of shift, vent settings remain the same. U/O wnl, repo q2hr, prevalon mattress, airloss bed.
[2021-09-10] MEDS: Morphine Sulfate 2 MG/ML CARTRIDGE IVPUSH (21:48)
[2021-09-10] MEDS: Acetaminophen Supp 650 MG SUPP.RECT PR (21:49)
[2021-09-11] VITALS (29 sets, daily range): BP systolic 103–171; BP diastolic 30–106; PULSE 83–97; RESP 11–18; TEMP 35–36.7; O2SAT 91–100; BMI 39.8
[2021-09-11] MEDS: 0.9 % Sodium Chloride Flush 3 ML SYRINGE IVFLUSH ×4 (00:36→23:34)
[2021-09-11 05:55] LABS: VBG Base Excess 13.3 mmol/L; VBG HCO3 36 mmol/L (22-26); VBG pCO2 39 mmHg; VBG pH 7.57 (7.32-7.43); VBG pO2 45 mmHg
[2021-09-11 05:57] LABS: Venous Blood Gas Refer to POC result
[2021-09-11 06:06] LABS: Mean Corpuscular HGB Conc 32.2 g/dl (31.0-35.0); Mean Corpuscular Hemoglobin 29.2 pg (27.0-33.0); Mean Corpuscular Volume 90.6 fL (80.0-98.0); Mean Platelet Volume 9.9 fL (9.4-12.3); Platelet Count 142 X10*3/uL (160-400); Red Blood Count 1.92 X10*6/uL (4.20-5.50); Red Cell Distribution Width 16.4 % (11.0-16.0); White Blood Count 6.8 X10*3/uL (4.8-10.8)
[2021-09-11 06:18] LABS: Alanine Aminotransferase 18 U/L (0-31); Albumin Level 2.5 g/dL (3.5-5.0); Alkaline Phosphatase 120 U/L (39-117); Anion Gap 11 (12-20); Aspartate Amino Transferase 66 U/L (5-31); Bilirubin Total 2.3 mg/dL (0.0-1.0); Blood Urea Nitrogen 13 mg/dL (9-16); Calcium 8.2 mg/dL (8.4-10.2); Carbon Dioxide 31 mmol/L (22-29); Chloride 97 mmol/L (96-108); Creatinine Clr Calc Pharmacy 144.7; Estimated Glomerular Filt Rate > 60; Glucose Random 125 mg/dL (60-115); Potassium 3.6 mmol/L (3.3-5.1); Sodium 135 mmol/L (135-145); Total Protein 4.4 g/dL (6.5-8.0)
[2021-09-11 06:37] LABS: NRBC Pct Auto 3.4 /100WBC (0.0-0.2)
[2021-09-11] MEDS: Doxycycline Hyclate 100 MG in 0.9 % Sodium Chloride 250 ML 166.67 MG IV ×2 (06:37→20:18)
[2021-09-11 06:39] LABS: Hematocrit 17.4 % (37.0-47.0); Hemoglobin 5.6 g/dl (12.0-16.0)
[2021-09-11] MEDS: Valproic Acid (as Sodium Salt) 1,000 MG in Dextrose 5 % 50 ML 60 MG IV ×3 (06:42→23:34)
[2021-09-11 06:56] LABS: Band Neutrophils Percent 9 % (3-5); Eosinophils Absolute Manual 0.1 X10*3/uL (0.0-0.4); Eosinophils Percent Manual 1 % (0-4); Lymphocytes Absolute Manual 1.1 X10*3/uL (1.2-4.9); Lymphocytes Percent Manual 16 % (20-40); Metamyelocytes Absolute 0.2 X10*3/uL; Metamyelocytes Percent 3 %; Monocytes Absolute Manual 0.6 X10*3/uL (0.1-1.2); Monocytes Percent Manual 9 % (2-11); Myelocytes Absolute 0.1 X10*/uL; Myelocytes Percent 2 %; Neutrophils Absolute Manual 4.7 X10*3/uL (2.0-8.3); Neutrophils Percent Manual 60 % (45-73); Nucleated Red Blood Cells 2 /100WBC (0-0)
[2021-09-11 06:58] LABS: Hypochromasia 1+ (5-14) /OIF; Macrocytosis 1+ (5-14) /OIF; Polychromasia 1+ (0-2) /OIF; RBC Morphology NOTED
[2021-09-11 07:00] LABS: Platelet Estimate NORMAL (NORMAL); Platelet Morphology Comment NORM
[2021-09-11] MEDS: Famotidine/PF 20 MG/2 ML VIAL IVPUSH (07:50)
[2021-09-11] MEDS: levETIRAcetam Oral Soln 500 MG/5 ML 1500 MG PO ×2 (07:50→20:18)
[2021-09-11] MEDS: carBAMazepine 100 MG TAB.CHEW PO ×2 (07:50→17:24)
[2021-09-11] MEDS: Chlorhexidine Gluc Oral Rinse 15 ML MOUTHWASH BUCCAL ×3 (07:50→20:18)
--- NOTE | 2021-09-11 10:15 | MHC.CLN ---
F/U PT REMAINS INTUBATED PT RECEIVING TF JEVITY 1.0 AT MAX GOAL RATE 60ML/HR WITH 240CC FREE WATER FLUSHES Q SHIFT TO PROVIDE 1526KCALS (22KCALS/KG), 64G PROTEIN (1.0G/KG), 1922CC TOTAL WATER FROM FORMULA AND FLUSHES (28ML/KG) AWAITING COURT DATE PER CM REGARDING CHANGE IN CODE STATUS DISCUSSED AT ROUNDS WITH MD-MD REQUESTING TF D/C WILL CHANGE DIET TO NPO FOLLOWING WITH TEAM
--- NOTE | 2021-09-11 10:18 | PC.NURSE ---
Tube feeds dc'd by Dr. Canales along with water bolus. NGT connected to LWS intermittant.
--- NOTE | 2021-09-11 12:23 | MHC.CM.PN ---
Addendum entered by Robyn Benton 09/11/21 12:27: Updated notice of hearing served to pt in her ICU room. Original Note: Pt continues on ventilatory support in ICU awaiting a court hearing on 09/13 to allow for her guardian to make pt SOCIAL SERVICES COUNSELOR. Updated progress notes, VS, meds and labs rem[place] to [facility] [place] Klarissa Saul via secure email. ICU MD aware of new (postponed) hearing date and will participate in the ZOOM meeting. Pt has made no progress and remains irreversibly neurologically impaired per MD report. CM to follow for changes in plan
--- NOTE | 2021-09-11 15:04 | P.PNCC_ITS ---
Subjective Subjective Date of Service: 09/11/21 Interval History: Mrs. Mixon was transferred to the ICU Aug 19 after a cardiac arrest on the floor. The patient is an 81-year-old woman with past medical history of significant mental illness, reported to be schizophrenia.? She is a long-time resident of [facility].? She also has HTN and HLD.? Her only prior contact with [facility] was in 2004 when she had a GI bleed. I spoke to the patient's primary contact, which is the patient's guardian, organic chemistry professor Suzy Wright (home telephone number [phone]).? As far as she knows, the patient walks and talks.? She told me that the patient has significant mental illness and her mental functioning has been declining of late, and that she now has some dementia. HISTORY OF PRESENT ILLNESS:? On 08/16, EMS was called to [facility] reportedly for a cardiac arrest.? On arrival of EMS at the scene, the patient was sleeping.? She responded to painful stimuli and eventually woke up.? Reportedly, by the time EMS arrived, the patient was at her baseline, per the [facility] staff.? The [facility] staff reported the patient?s baseline as nonverbal, altered, combative.? The patient was BIBA to the ED for evaluation. On exam in the ED, the patient was nonverbal and in no acute distress.? Vital signs were unremarkable including a normal temperature, and sat of 94% on room air.? Physical exam was remarkable for mild peripheral edema. Labs in the ED were notable for a normal white count and moderate anemia.? Her sodium was 124, bicarb was 29, BUN/creatinine were 6/0.5, glucose was 85, albumin was 3.8.? A venous blood gas showed 7.40/57/+9.? Urinalysis showed wbc's TNTC, and 3+ leukocyte esterase, and 2+ urine bacteria, which eventually grew E coli with an intermediate sensitivity pattern.? COVID SHAJI was negative. It was noted in the ED that at 16:35 ?patient was eating and suddenly started coughing. ?It is possible that patient aspirated food.? Patient's oxygen saturation dropped to 85% on room air but shortly after improved to 95%.? Patient speaking in full sentences.? The patient was admitted to Medicine and treated for hyponatremia.? Her UTI was treated with ceftriaxone.? The next day, the sodium was up to 132.? The patient looked better and was more alert and interactive, with some verbalizing.? The day after that, the patient was perhaps slightly more verbal, but minimally so. On Aug 19, the patient was seen by Dr. Mcguire on rounds.? She was sitting up eating peaches, and reportedly looked ?well?.? About 10 minutes later, a code blue was called for unresponsiveness.? Reportedly, the patient was noted on the camera to be still.? A newswriter checked on the patient and noted the patient to be unresponsive.? A nurse was called in to assess, and then a code blue was called. The patient was found cyanotic and pulseless.? Initial rhythm on the monitor was asystole.? The patient received 3 rounds of epinephrine and was intubated.? During the intubation, a large amount of food was noted in the patient's hypopharynx.? After intubation, food was suctioned from the endotracheal tube.? The patient regained spontaneous circulation after 9 minutes of CPR, with SR on the monitor.? She was transported to ICU In the ICU, she was unresponsive w eyes closed, and making agonal resp efforts.? Hemodynamics were stable, but she was severely hypoxemic. Immediate bedside ECHO showed: - At least mild-moderate LVH, with normal LV cavity. - Normal LV fxn with no RWMAs - Probably normal RV size and fxn - No MR by color rajni - Trace TR by color rajni, with CWD 1.8m/sec CWD. - IVC measured 1.4 cm with 25% insp collapse during PPV.? RVSP estimate about 20mm. A left subclavian CVL was placed, complicated by a PTX.? A Catalino pneumothorax drainage thoracostomy was placed resulting in reexpansion of the lung.? A [place] sump OGT could not be advanced further than the diaphragm, suggesting a HH.? Chest CT showed that the esophagus was diffusely dilated measuring 3.5 cm; the dilated esophagus was filled with significant debris. ?Contrast instilled via the OGT was noted in the mid to distal esophagus and proximal stomach, with a moderate sized hiatal hernia. ?The OGT terminated either in the distal-most esophagus or at the GE junction.? The gastroesophageal junction/distal-most portion of the esophagus was severely narrowed, with significant dilatation of the remainder of the proximal esophagus; severe stricture and/or mass in that region was suspected. ?The lungs showed patchy airspace opacity in the posterior RLL c/w aspiration. Later, the patient had spontaneous eye opening and began having increasingly severe myoclonic jerking.? She remained unresponsive.? Ultimately the myoclonic jerking got so severe that we had to start propofol, accelerating the dose from 20 mcg up to 50 mcg.? Over time the FiO2 was able to be reduced to 35%/+5. Subsequent course was marked by continued myoclonus vs seizure activity.? EEG on August 21 showed generalized status epilepticus.? She was treated with Keppra, propofol, and Versed drip.? Repeat EEG the next day showed a similar pattern, with generalized epileptic discharges, overall suggestive of underlying diffuse encephalopathy, probably of a knock sick type.? The patient was seen by Dr. Duffy from Neurology.? He recommended valproate and Keppra.? His impression was severe anoxic encephalopathy, with a quite poor overall prognosis. The patient continued to have breakthrough seizures through the above regimen.? 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 Repeat EEG on August 25 showed burst suppression suggestive of either severe anoxic encephalopathy or the later part of generalized status epilepticus.? She continued having refractory status epilepticus.? Propofol and Versed were discontinued, Dilantin and Ativan were added to Keppra and valproic acid. Ultimately, the patient?s seizures/myoclonus stopped, and she remained on Keppra and Dilantin. ?The latter was changed to valproate after a drug reaction.? Brain MRI on August 28 showed the right basal ganglia infarct, with severe global cerebral volume loss and advanced chronic microangiopathy.? Patient also underwent CT angio of the head and neck which in addition to the above showed significant intracerebral vascular disease and severe multilevel central canal stenosis at the C3, 4, 5, and 6 levels.? Abdominal CT showed a small sliding hiatal hernia, with no evidence of an esophageal mass. Over the last approximately 2 weeks, the patient's neurologic exam stabilized, showing reactive pupils,? inconsistent withdrawal to painful stimuli, consistent initiation of respiratory effort, and positive gag and cough.? No mentation or interaction however. ?No evidence of cognitive activity.? Essentially a vegetative state. This morning, she?s on no sedation.? She?s breathing above the set ventilator rate.? Eyes open inconsistently to stimulation.? No myoclonus or sz activity.? PERRL, about 4mm.? Inconsistently, she either withdraws very slightly to pain or is showing decorticate posturing.? She coughs and gags to suctioning.? She is unresponsive to command.? When eyes are open, she doesn?t track or respond to confrontation.? HR 90, BP 167/66.? Tmax 100.3.? On AC 12/400/30%/+5, RR is 17, Ve about 6.5L, ETCO2 40, Sat 96%.? We dropped the set rate to 10, and her RR, Ve, ETCO2, and Sat remained unchanged.? We put her on PSV briefly, with full support, PSV 20cm.? On that, her resp rhythm was chaotic, Vt ranged from 250 to 750 cc, her Ve began to drop, and HR hanane to > 100, so we switched her back to AC rate of 10.? No jugular venous distention.? Her chest is clear, with normal exp phase.? Heart tones soft, I heard no murmur or gallop.? Abdomen seems benign.? Her extremities and her torso are blown up with edema such that she looks like a hideous caricature of the Sanya man, even worse.? This is something I?ve never seen before. LABORATORY DATA:? Below.? Notably, Hb has slowly drifted down over time. IMPRESSION: 1. 81 yo woman with PMHx of significant mental illness, plus likely dementia. ?Her CT shows severe volume loss. 2. PMHx of HTN 3. S/P cardiac arrest, undoubtedly 2? aspiration. 4. Myoclonus, seizure activity, and EEG suggest severe brain injury 5. 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 No realistic prognosis for return of cognition. 6. She is not in a ?persistent vegetative state? claudette to the famous cases of anna, however, bec her overall condition is not stable, and she has multiple organ failure:? brain, respiratory, hematopoietic, skin/tissue, at the least.? Even if she were to undergo tracheostomy and PEG (which in a case such as this patient's would be considered by many in the critical care community as criminal battery), she would not likely survive to leave the hospital. 7. 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 No mass was found on CT, but I?m not sure that that rules out a cancer Clearly no prognosis for survival here.? I discussed the patient?s situation at length with the patient's organic chemistry professor today (Keshia Cobb, ).? I gave her my view of the situation, and she explained to me her role in making sure all the facts were presented.? Also discussed the situation w Robyn Chetan from case mngment and also with Dr. Bianchi.? Given the patient?s certain nonsurvival, I had previously written DNR orders.? There is no reason for tube feeds or antibiotics or such medications (ie. no potential benefit).? I have also discussed the patient with Dr. Duffy.? He will see the patient again tomorrow. In my opinion, the best and most respectful course would be comfort measures.? We will present this information in court on Saturday (09/13). Critical care time (including full chart review, and hospital course summary):? 2:15+ hrs. Critical Care Time (minutes): 135 Physical Exam Vital Signs: Vital Signs: Last Vital Signs Temp 98.1 F 09/11/21 12:00 Pulse 91 09/11/21 15:00 Resp 15 09/11/21 15:00 BP 151/54 H 09/11/21 15:00 Pulse Ox 94 09/11/21 15:00 BMI result Body Mass Index 39.8 Objective Data Labs CBC & Chem 7: 09/11/21 05:36 09/11/21 05:36 Labs: Laboratory Results - last 24 hr 09/11/21 09/11/21 09/11/21 05:36 05:36 05:49 WBC 6.8 RBC 1.92 L Hgb 5.6 L* Hct 17.4 L* MCV 90.6 MCH 29.2 MCHC 32.2 RDW 16.4 H Plt Count 142 L MPV 9.9 Immature Gran % (Auto) Cancelled Neut % (Auto) Cancelled Lymph % (Auto) Cancelled Dougherty % (Auto) Cancelled Eos % (Auto) Cancelled Baso % (Auto) Cancelled Lymph # (Auto) Cancelled Dougherty # (Auto) Cancelled Eos # (Auto) Cancelled Baso # (Auto) Cancelled Abs Immat Gran (auto) Cancelled Absolute Neuts (auto) Cancelled Absolute Nucleated RBC 0.230 H Nucleated RBC % (auto) 3.4 H Neutrophils % (Manual) 60 Band Neutrophils % 9 H Lymphocytes % (Manual) 16 L Monocytes % (Manual) 9 Eosinophils % (Manual) 1 Metamyelocytes % 3 Myelocytes % 2 Abs Neuts (Manual) 4.7 Lymphocytes # (Manual) 1.1 L Monocytes # (Manual) 0.6 Eosinophils # (Manual) 0.1 Metamyelocytes # 0.2 Myelocytes # 0.1 Nucleated RBCs 2 H Platelet Estimate NORMAL Plt Morphology Comment NORM RBC Morphology NOTED Polychromasia 1+ (0-2) Hypochromasia 1+ (5-14) Macrocytosis 1+ (5-14) VBG pH 7.57 H VBG pCO2 39 VBG pO2 45 VBG HCO3 36 H VBG O2 Saturation 74.0 VBG Base Excess 13.3 Sodium 135 Potassium 3.6 Chloride 97 Carbon Dioxide 31 H Anion Gap 11 L BUN 13 Creatinine 0.38 L Estim Creat Clear Calc 144.7 Estimated GFR > 60 Random Glucose 125 H Calcium 8.2 L Total Bilirubin 2.3 H AST 66 H ALT 18 Alkaline Phosphatase 120 H Total Protein 4.4 L Albumin 2.5 L Microbiology Microbiology Results: Microbiology 08/25/21 10:00 Blood - Venous Blood Culture - Final No growth after 5 days. 08/25/21 10:01 Blood - Venous Blood Culture - Final No growth after 5 days. 08/25/21 02:13 Blood - Venous Blood Culture - Final No growth after 5 days. 08/25/21 02:13 Blood - Venous Blood Culture - Final No growth after 5 days. 08/25/21 02:15 Sputum - Suctioned Gram Stain - Final 08/25/21 02:15 Sputum - Suctioned Sputum Culture - Final Harriett albicans 08/25/21 15:27 Sputum - Suctioned Gram Stain - Final 08/25/21 15:27 Sputum - Suctioned Sputum Culture - Final Staphylococcus aureus 08/16/21 15:36 Blood - Venous Blood Culture - Final No growth after 5 days. 08/16/21 15:33 Blood - Venous Blood Culture - Final No growth after 5 days. 08/16/21 14:12 Urine Catheterized - Straight Catheter Urine Culture - Final Escherichia coli Quality Stroke Does the patient have a stroke diagnosis?: No VTE Prior VTE?: No VTE Risk Level:: Medical - moderate - high VTE Device Contraindication: Treatment Not Indicated VTE Drug Contraindication: N/A - Med Ordered Critical Care Time Critical Care Time (minutes): 150
--- NOTE | 2021-09-11 18:37 | PC.NURSE ---
pt briefly desat to 76%. Deep suctioned, Silvino RN in room with me, turned o2 to 100% while suctioning. Turned back to 30% after suctioning. Suctioned out milky thick secretions. pt now satting 96% RR 17 with no visible distress noted.
[2021-09-12] VITALS (31 sets, daily range): BP systolic 125–166; BP diastolic 40–103; PULSE 88–100; RESP 8–19; TEMP 34.2–38.1; O2SAT 3–98; BMI 39.2
[2021-09-12] MEDS: Valproic Acid (as Sodium Salt) 1,000 MG in Dextrose 5 % 50 ML 60 MG IV ×3 (05:54→21:54)
[2021-09-12] MEDS: Chlorhexidine Gluc Oral Rinse 15 ML MOUTHWASH BUCCAL ×3 (08:32→21:53)
[2021-09-12] MEDS: 0.9 % Sodium Chloride Flush 3 ML SYRINGE IVFLUSH ×2 (08:32→14:55)
[2021-09-12] MEDS: levETIRAcetam Oral Soln 500 MG/5 ML 1500 MG PO ×2 (08:32→21:53)
[2021-09-12] MEDS: Famotidine/PF 20 MG/2 ML VIAL IVPUSH (08:32)
[2021-09-12] MEDS: carBAMazepine 100 MG TAB.CHEW PO ×2 (08:32→16:18)
--- NOTE | 2021-09-12 08:43 | P.CNNE_ITS ---
History of Present Illness Data of Consult Service Date: 09/12/21 Primary Care Provider: Yoselyn Brabosa MD [facility] Reason for consult: Encephalopathy 81 years old woman who has underlying limited mental capacity has been and ICU for few weeks. Initially she seemed to be in status epilepticus but later her overall presentation suggested severe encephalopathy. I was asked to see her again to comment on her mental status. During this time she also had an MRI of brain, and CTA of brain. No seizure-like episode was witnessed recently. She was not on any sedation. She was not responsive to verbal commands. Review of Systems Review of Systems: Could not be done with her [facility] Past Medical History Medical History (Updated 09/12/21 @ 08:53 by Abbe Duffy MD) Acute respiratory failure Autoimmune hemolytic anemia COPD (chronic obstructive pulmonary disease) Esophageal obstruction Hyperlipidemia Hypertension Myocardial infarction Schizophrenia Social History Social History Household Members: None Housing: Half-Way Do you presently have visiting nurse or other home services: No Unable to assess alcohol history related to: Unknown Patient Tobacco Use Status: Tobacco use Unknown Advance Directives Date on File: 08/16/21 service: No Current occupational status: disabled Meds Allergies Allergy/AdvReac Type Severity Reaction Status Date / Time No Known Allergies Allergy Unverified 08/16/21 13:24 Active Medications: Current Medications Carbamazepine (Carbamazepine 100 Mg Tab.Chew) 100 mg PO BID@0800,1700 [facility] Last Admin: 09/12/21 08:32 Dose: 100 mg Documented by: Chlorhexidine Gluconate (Chlorhexidine Gluc Oral Rinse 15 Ml Mouthwash) 15 ml BUCCAL TID [facility] Last Admin: 09/12/21 08:32 Dose: 15 ml Documented by: Famotidine (Famotidine/Pf 20 Mg/2 Ml Vial) 20 mg IVPUSH DAILY [facility] Last Admin: 09/12/21 08:32 Dose: 20 mg Documented by: Valproic Acid 1,000 mg/ (Dextrose) 60 mls @ 60 mls/hr IV Q8H [facility] Last Infusion: 09/12/21 08:32 Dose: Infused Documented by: Levetiracetam (Levetiracetam Oral Soln 500 Mg/5 Ml) 1,500 mg PO BID [facility] Last Admin: 09/12/21 08:32 Dose: 1,500 mg Documented by: Morphine Sulfate (Morphine Sulfate 2 Mg/Ml Cartridge) 2 mg IVPUSH Q2H PRN; Protocol PRN Reason: anxiety/restlessness Last Admin: 09/10/21 21:48 Dose: 2 mg Documented by: Pharmacy Consult (Consult Rx Perform Med Rec) 1 each MISCELLANE ONCE PRN PRN Reason: Consult order Sodium Chloride (0.9 % Sodium Chloride Flush 3 Ml Syringe) 3 ml IVFLUSH QSHIFT [facility] Last Admin: 09/12/21 08:32 Dose: 3 ml Documented by: Home Medications Medication Instructions Recorded Confirmed Last Taken Type acetaminophen 325 mg tablet 650 mg PO TID 08/16/21 08/16/21 08/16/21 History (Tylenol) albuterol sulfate 90 mcg/actuation 1 puff INHALATION Q6H PRN 08/16/21 08/16/21 Unknown History aerosol inhaler (ProAir HFA) amlodipine 5 mg tablet (Norvasc) 5 mg PO DAILY 08/16/21 08/16/21 08/16/21 History benztropine 0.5 mg tablet 0.5 mg PO DAILY 08/16/21 08/16/21 08/16/21 History cholecalciferol (vitamin D3) 1,250 1,250 mcg PO QMONTH 08/16/21 08/16/21 08/06/21 History mcg (50,000 unit) capsule divalproex 500 mg tablet,delayed 500 mg PO BID 08/16/21 08/16/21 08/16/21 History release gabapentin 400 mg capsule 400 mg PO BID 08/16/21 08/16/21 08/16/21 History lactulose 10 gram/15 mL oral 45 ml PO DAILY 08/16/21 08/16/21 08/16/21 History solution (Enulose) metoprolol succinate 200 mg 200 mg PO DAILY 08/16/21 08/16/21 08/16/21 History tablet,extended release 24 hr (Toprol XL) olanzapine 20 mg tablet 20 mg PO BEDTIME 08/16/21 08/16/21 08/15/21 History polyethylene glycol 3350 17 gram 17 g PO DAILY 08/16/21 08/16/21 08/16/21 History oral powder packet (Miralax) venlafaxine 150 mg 150 mg PO DAILY 08/16/21 08/16/21 08/16/21 History capsule,extended release 24 hr Physical Exam Vital Signs: Vital Signs: Last Vital Signs Temp 98.8 F 09/12/21 08:41 Pulse 95 09/12/21 08:00 Resp 17 09/12/21 08:00 BP 152/45 H 09/12/21 08:00 Pulse Ox 93 09/12/21 08:00 BMI result Body Mass Index 39.2 Neuro: Other: Intermittently she open her eyes. She was not responsive to verbal commands. With pain on each side she seemed to decerebrate. Sometime she had chewing movement. Corneal reflexes are present. Pupils were round reactive and symmetrical. She was not following commands. She was not tracking. Spontaneously, she moved her eyes left and right. Face seems symmetrical. Plantars were bilaterally extensor. Reflexes were absent. Results Labs CBC & Chem 7: 09/11/21 05:36 09/11/21 05:36 Labs: Her MRI of brain on August 28 revealed a moderate-size right basal ganglia area acute ischemic infarction. CTA revealed a possible embolus and right M2 and also bilateral M1 disease and significant intracranial and extracranial atherosclerotic carotid system disease. Brain was severely atrophied and had severe chronic microvascular type of ischemic changes especially involving left hemisphere and left parietal temporal areas. Microbiology Microbiology Results: Microbiology 08/25/21 10:00 Blood - Venous Blood Culture - Final No growth after 5 days. 08/25/21 10:01 Blood - Venous Blood Culture - Final No growth after 5 days. 08/25/21 02:13 Blood - Venous Blood Culture - Final No growth after 5 days. 08/25/21 02:13 Blood - Venous Blood Culture - Final No growth after 5 days. 08/25/21 02:15 Sputum - Suctioned Gram Stain - Final 08/25/21 02:15 Sputum - Suctioned Sputum Culture - Final Harriett albicans 08/25/21 15:27 Sputum - Suctioned Gram Stain - Final 08/25/21 15:27 Sputum - Suctioned Sputum Culture - Final Staphylococcus aureus 08/16/21 15:36 Blood - Venous Blood Culture - Final No growth after 5 days. 08/16/21 15:33 Blood - Venous Blood Culture - Final No growth after 5 days. 08/16/21 14:12 Urine Catheterized - Straight Catheter Urine Culture - Final Escherichia coli Assessment and Plan (1) Encephalopathy: Status: Acute 81 years old woman who carried underlying diagnosis of psychotic disorder and also had problem with communication. This was likely due to already degenerative and vascular changes present in brain before she was admitted. Initially there was concern about a status epilepticus. Her present clinical examination is suggestive of multifactorial severe encephalopathy. She has severe degenerative brain disease with severe atrophy, severe chronic microvascular ischemic changes especially affecting her left hemisphere and that likely was the cause of problem with communication, and then she also had a recent right basal ganglia embolic infarct. Her vasculature in brain is severely effected with significant intracranial vascular disease, the root cause of ischemic pathology. All these changes has compromised her brain quite sign ificantly. Her baseline mental function was limited and now it was severely more affected than before. It is unlikely that she would be able to communicate and make decisions for herself. Because of severe untreatable brain pathology, I recommend very conservative approach of management. Procedures Date of Service Date of Service: 09/12/21
--- NOTE | 2021-09-12 15:49 | PM.CCPN ---
Subjective Subjective Date of Service: 09/12/21 Interval History: Ms. Mixon was transferred to the ICU Aug 19 after a cardiac arrest on the floor. The patient is an 81-year-old woman with past medical history of significant mental illness, reported to be schizophrenia.? She is a long-time resident of [facility] and [facility].? She also has HTN and HLD.? Her only prior contact with [facility] was in 2004 when she had a GI bleed. I spoke to the patient's primary contact, who is the patient's guardian, vein access technician Suzy Wright (home telephone number [phone]).? As far as she knows, the patient walks and talks.? She told me that the patient has significant mental illness and her mental functioning has been declining of late, and that she now has some dementia. HISTORY OF PRESENT ILLNESS:? On 08/16, EMS was called to [facility] reportedly for a cardiac arrest.? On arrival of EMS at the scene, the patient was sleeping.? She responded to painful stimuli and eventually woke up.? Reportedly, by the time EMS arrived, the patient was at her baseline, per the [facility] staff.? The [facility] staff reported the patient?s baseline as nonverbal, altered, combative.? The patient was BIBA to the ED for evaluation. On exam in the ED, the patient was nonverbal and in no acute distress.? Vital signs were unremarkable including a normal temperature, and sat of 94% on room air.? Physical exam was remarkable for mild peripheral edema. Labs in the ED were notable for a normal white count and moderate anemia.? Her sodium was 124, bicarb was 29, BUN/creatinine were 6/0.5, glucose was 85, albumin was 3.8.? A venous blood gas showed 7.40/57/+9.? Urinalysis showed wbc's TNTC, and 3+ leukocyte esterase, and 2+ urine bacteria, which eventually grew E coli with an intermediate sensitivity pattern.? COVID SHAJI was negative. It was noted in the ED that at 16:35 ?patient was eating and suddenly started coughing.? It is possible that patient aspirated food.? Patient's oxygen saturation dropped to 85% on room air but shortly after improved to 95%.? Patient speaking in full sentences.? The patient was admitted to Medicine and treated for hyponatremia.? Her UTI was treated with ceftriaxone.? The next day, the sodium was up to 132.? The patient looked better and was more alert and interactive, with some verbalizing.? The day after that, the patient was perhaps slightly more verbal, but minimally so. On Aug 19, the patient was seen by Dr. Mcguire on rounds.? She was sitting up eating peaches, and reportedly looked ?well?.? About 10 minutes later, a code blue was called for unresponsiveness.? Reportedly, the patient was noted on the camera to be still.? A wind commissioning technician checked on the patient and noted the patient to be unresponsive.? A nurse was called in to assess, and then a code blue was called. The patient was found cyanotic and pulseless.? Initial rhythm on the monitor was asystole.? The patient received 3 rounds of epinephrine and was intubated.? During the intubation, a large amount of food was noted in the patient's hypopharynx.? After intubation, food was suctioned from the endotracheal tube.? The patient regained spontaneous circulation after 9 minutes of CPR, with SR on the monitor.? She was transported to ICU In the ICU, she was unresponsive w eyes closed, and making agonal resp efforts.? Hemodynamics were stable, but she was severely hypoxemic. Immediate bedside ECHO showed: - At least mild-moderate LVH, with normal LV cavity. - Normal LV fxn with no RWMAs - Probably normal RV size and fxn - No MR by color rajni - Trace TR by color rajni, with CWD 1.8m/sec CWD. - IVC measured 1.4 cm with 25% insp collapse during PPV.? RVSP estimate about 20mm. A left subclavian CVL was placed, complicated by a PTX.? A Catalino pneumothorax drainage thoracostomy was placed resulting in reexpansion of the lung.? A Flagler sump OGT could not be advanced further than the diaphragm, suggesting a HH.? Chest CT showed that the esophagus was diffusely dilated measuring 3.5 cm; the dilated esophagus was filled with significant debris. ?Contrast instilled via the OGT was noted in the mid to distal esophagus and proximal stomach, with a moderate sized hiatal hernia. ?The OGT terminated either in the distal-most esophagus or at the GE junction.? The gastroesophageal junction/distal-most portion of the esophagus was severely narrowed, with significant dilatation of the remainder of the proximal esophagus; severe stricture and/or mass in that region was suspected. ?The lungs showed patchy airspace opacity in the posterior RLL c/w aspiration. Later, the patient had spontaneous eye opening and began having increasingly severe myoclonic jerking.? She remained unresponsive.? Ultimately the myoclonic jerking got so severe that we had to start propofol, accelerating the dose from 20 mcg up to 50 mcg.? Over time the FiO2 was able to be reduced to 35%/+5. Subsequent course was marked by continued myoclonus vs seizure activity.? EEG on August 21 showed generalized status epilepticus.? She was treated with Keppra, propofol, and Versed drip.? Repeat EEG the next day showed a similar pattern, with generalized epileptic discharges, overall suggestive of underlying diffuse encephalopathy, probably of a knock sick type.? The patient was seen by Dr. Duffy from Neurology.? He recommended valproate and Keppra.? His impression was severe anoxic encephalopathy, with a quite poor overall prognosis. The patient continued to have breakthrough seizures through the above regimen.? 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 Repeat EEG on August 25 showed burst suppression suggestive of either severe anoxic encephalopathy or the later part of generalized status epilepticus.? She continued having refractory status epilepticus.? Propofol and Versed were discontinued, Dilantin and Ativan were added to Keppra and valproic acid. Ultimately, the patient?s seizures/myoclonus stopped, and she remained on Keppra and Dilantin.? The latter was changed to valproate after a drug reaction.? Brain MRI on August 28 showed the right basal ganglia infarct, with severe global cerebral volume loss and advanced chronic microangiopathy.? Patient also underwent CT angio of the head and neck which in addition to the above showed significant intracerebral vascular disease and severe multilevel central canal stenosis at the C3, 4, 5, and 6 levels.? Abdominal CT showed a small sliding hiatal hernia, with no evidence of an esophageal mass. Over the last approximately 2 weeks, the patient's neurologic exam stabilized, showing reactive pupils,? inconsistent withdrawal to painful stimuli, consistent initiation of respiratory effort, and positive gag and cough.? No mentation or interaction however.? No evidence of cognitive activity.? Essentially a vegetative state. This morning, she continues on no sedation.? She?s breathing above the set ventilator rate.? Eyes open inconsistently to stimulation.? No myoclonus or sz activity.? PERRL, about 4mm.? Positive dolls' eyes. She localizes to pain with a shrug of the shoulders and an occasional chewing motion.? I saw no posturing today. ?She coughs and gags to suctioning.? She is 100% noninteractive.? When eyes are open, she doesn?t track or respond to confrontation.? HR 95, SR.? BP 134/57.? Afebrile.? On AC 10/400/30%/+5, RR is 19, Ve about 7.5L, ETCO2 39, Sat 92%.? No jugular venous distention.? Abdomen is benign.? Her extremities and her torso are blown up with giant edema such that she looks like a hideous caricature of the Sanya man.? This is something I?ve never seen before. The patient was seen this morning by Dr. Duffy.? In his assessment he wrote: ?Her baseline mental function was limited and now it was severely more affected than before.? It is unlikely that she would be able to communicate and make decisions for herself.? Because of severe untreatable brain pathology, I recommend very conservative approach of management.? LABORATORY DATA:? Below.? No new labs. IMPRESSION: 1. 81 yo woman with PMHx of significant mental illness, plus likely dementia.? Her CT shows severe volume loss. 2. PMHx of HTN 3. S/P cardiac arrest, undoubtedly 2? aspiration. 4. 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 No realistic prognosis for return of cognition. 6. She is not in a ?persistent vegetative state? claudette to the famous cases of anna, however, bec her overall condition is not stable, and she has multiple organ failure:? brain, respiratory, hematopoietic, skin/tissue, at the least.? Even if she were to undergo tracheostomy and PEG (which in a case such as this has been referred to by many in the critical care community as criminal battery), she would not likely survive to leave the hospital. 7. 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 No mass was found on CT, but I?m not sure that that alone rules out a cancer Clearly no prognosis for survival here, much less for return of any cognitive function.? Given the patient?s certain nonsurvival, I had previously written DNR orders.? There is no reason for tube feeds or antibiotics or such medications (ie. no potential benefit).? I have also discussed the patient with Dr. Duffy. In my opinion, the best and most respectful course would be comfort measures.? We will present this information in court on Saturday (09/13). Critical care time:? 30+ min Critical Care Time (minutes): 30 Physical Exam Vital Signs: Vital Signs: Last Vital Signs Temp 98.8 F 09/12/21 08:41 Pulse 95 09/12/21 15:00 Resp 15 09/12/21 15:00 BP 134/57 L 09/12/21 15:00 Pulse Ox 92 09/12/21 14:00 BMI result Body Mass Index 39.2 Objective Data Labs CBC & Chem 7: 09/11/21 05:36 09/11/21 05:36 Microbiology Microbiology Results: Microbiology 08/25/21 10:00 Blood - Venous Blood Culture - Final No growth after 5 days. 08/25/21 10:01 Blood - Venous Blood Culture - Final No growth after 5 days. 08/25/21 02:13 Blood - Venous Blood Culture - Final No growth after 5 days. 08/25/21 02:13 Blood - Venous Blood Culture - Final No growth after 5 days. 08/25/21 02:15 Sputum - Suctioned Gram Stain - Final 08/25/21 02:15 Sputum - Suctioned Sputum Culture - Final Harriett albicans 08/25/21 15:27 Sputum - Suctioned Gram Stain - Final 08/25/21 15:27 Sputum - Suctioned Sputum Culture - Final Staphylococcus aureus 08/16/21 15:36 Blood - Venous Blood Culture - Final No growth after 5 days. 08/16/21 15:33 Blood - Venous Blood Culture - Final No growth after 5 days. 08/16/21 14:12 Urine Catheterized - Straight Catheter Urine Culture - Final Escherichia coli Quality Stroke Does the patient have a stroke diagnosis?: No VTE Prior VTE?: No VTE Risk Level:: Medical - moderate - high VTE Device Contraindication: Treatment Not Indicated VTE Drug Contraindication: N/A - Med Ordered Critical Care Time Critical Care Time (minutes): 30
[2021-09-13] VITALS (16 sets, daily range): BP systolic 120–246; BP diastolic 33–47; PULSE 85–94; RESP 13–36; TEMP 34–36.8; O2SAT 89–95
[2021-09-13] MEDS: Valproic Acid (as Sodium Salt) 1,000 MG in Dextrose 5 % 50 ML 60 MG IV (05:35)
[2021-09-13] MEDS: 0.9 % Sodium Chloride Flush 3 ML SYRINGE IVFLUSH ×2 (07:42→14:05)
--- NOTE | 2021-09-13 09:23 | PM.CCPN ---
Subjective Subjective Date of Service: 09/13/21 Interval History: Ms. Mixon was transferred to the ICU Aug 19 after a cardiac arrest on the floor. The patient is an 81-year-old woman with past medical history of significant mental illness, reported to be schizophrenia.? She is a long-time resident of [facility] and [facility].? She also has HTN and HLD.? Her only prior contact with [facility] was in 2004 when she had a GI bleed. I spoke to the patient's primary contact, who is the patient's guardian, claim attorney Suzy Wright (home telephone number [phone]).? As far as she knows, the patient walks and talks.? She told me that the patient has significant mental illness and her mental functioning has been declining of late, and that she now has some dementia. HISTORY OF PRESENT ILLNESS:? On 08/16, EMS was called to [facility] reportedly for a cardiac arrest.? On arrival of EMS at the scene, the patient was sleeping.? She responded to painful stimuli and eventually woke up.? Reportedly, by the time EMS arrived, the patient was at her baseline, per the [facility] staff.? The [facility] staff reported the patient?s baseline as nonverbal, altered, combative.? The patient was BIBA to the ED for evaluation. On exam in the ED, the patient was nonverbal and in no acute distress.? Vital signs were unremarkable including a normal temperature, and sat of 94% on room air.? Physical exam was remarkable for mild peripheral edema. Labs in the ED were notable for a normal white count and moderate anemia.? Her sodium was 124, bicarb was 29, BUN/creatinine were 6/0.5, glucose was 85, albumin was 3.8.? A venous blood gas showed 7.40/57/+9.? Urinalysis showed wbc's TNTC, and 3+ leukocyte esterase, and 2+ urine bacteria, which eventually grew E coli with an intermediate sensitivity pattern.? COVID SHAJI was negative. It was noted in the ED that at 16:35 ?patient was eating and suddenly started coughing.? It is possible that patient aspirated food.? Patient's oxygen saturation dropped to 85% on room air but shortly after improved to 95%.? Patient speaking in full sentences.? The patient was admitted to Medicine and treated for hyponatremia.? Her UTI was treated with ceftriaxone.? The next day, the sodium was up to 132.? The patient looked better and was more alert and interactive, with some verbalizing.? The day after that, the patient was perhaps slightly more verbal, but minimally so. On Aug 19, the patient was seen by Dr. Mcguire on rounds.? She was sitting up eating peaches, and reportedly looked ?well?.? About 10 minutes later, a code blue was called for unresponsiveness.? Reportedly, the patient was noted on the camera to be still.? A clerical adviser checked on the patient and noted the patient to be unresponsive.? A nurse was called in to assess, and then a code blue was called. The patient was found cyanotic and pulseless.? Initial rhythm on the monitor was asystole.? The patient received 3 rounds of epinephrine and was intubated.? During the intubation, a large amount of food was noted in the patient's hypopharynx.? After intubation, food was suctioned from the endotracheal tube.? The patient regained spontaneous circulation after 9 minutes of CPR, with SR on the monitor.? She was transported to ICU In the ICU, she was unresponsive w eyes closed, and making agonal resp efforts.? Hemodynamics were stable, but she was severely hypoxemic. Immediate bedside ECHO showed: - At least mild-moderate LVH, with normal LV cavity. - Normal LV fxn with no RWMAs - Probably normal RV size and fxn - No MR by color rajni - Trace TR by color rajni, with CWD 1.8m/sec CWD. - IVC measured 1.4 cm with 25% insp collapse during PPV.? RVSP estimate about 20mm. A left subclavian CVL was placed, complicated by a PTX.? A Catalino pneumothorax drainage thoracostomy was placed resulting in reexpansion of the lung.? A Kings sump OGT could not be advanced further than the diaphragm, suggesting a HH.? Chest CT showed that the esophagus was diffusely dilated measuring 3.5 cm; the dilated esophagus was filled with significant debris. ?Contrast instilled via the OGT was noted in the mid to distal esophagus and proximal stomach, with a moderate sized hiatal hernia. ?The OGT terminated either in the distal-most esophagus or at the GE junction.? The gastroesophageal junction/distal-most portion of the esophagus was severely narrowed, with significant dilatation of the remainder of the proximal esophagus; severe stricture and/or mass in that region was suspected. ?The lungs showed patchy airspace opacity in the posterior RLL c/w aspiration. Later, the patient had spontaneous eye opening and began having increasingly severe myoclonic jerking.? She remained unresponsive.? Ultimately the myoclonic jerking got so severe that we had to start propofol, accelerating the dose from 20 mcg up to 50 mcg.? Over time the FiO2 was able to be reduced to 35%/+5. Subsequent course was marked by continued myoclonus vs seizure activity.? EEG on August 21 showed generalized status epilepticus.? She was treated with Keppra, propofol, and Versed drip.? Repeat EEG the next day showed a similar pattern, with generalized epileptic discharges, overall suggestive of underlying diffuse encephalopathy, probably of a knock sick type.? The patient was seen by Dr. Duffy from Neurology.? He recommended valproate and Keppra.? His impression was severe anoxic encephalopathy, with a quite poor overall prognosis. The patient continued to have breakthrough seizures through the above regimen.? 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 Repeat EEG on August 25 showed burst suppression suggestive of either severe anoxic encephalopathy or the later part of generalized status epilepticus.? She continued having refractory status epilepticus.? Propofol and Versed were discontinued, Dilantin and Ativan were added to Keppra and valproic acid. Ultimately, the patient?s seizures/myoclonus stopped, and she remained on Keppra and Dilantin.? The latter was changed to valproate after a drug reaction.? Brain MRI on August 28 showed the right basal ganglia infarct, with severe global cerebral volume loss and advanced chronic microangiopathy.? Patient also underwent CT angio of the head and neck which in addition to the above showed significant intracerebral vascular disease and severe multilevel central canal stenosis at the C3, 4, 5, and 6 levels.? Abdominal CT showed a small sliding hiatal hernia, with no evidence of an esophageal mass. Over the last approximately 2 weeks, the patient's neurologic exam stabilized, showing reactive pupils,? inconsistent withdrawal to painful stimuli, consistent initiation of respiratory effort, and positive gag and cough.? No mentation or interaction however.? No evidence of cognitive activity.? Essentially a vegetative state. This morning, she continues on no sedation.? She?s breathing above the set ventilator rate.? Eyes open inconsistently to stimulation.? No myoclonus or sz activity.? PERRL, about 4mm.? Positive dolls? eyes.? She localizes to pain with a shrug of the shoulders and an occasional chewing motion.? I saw no posturing today. ?She coughs and gags to suctioning.? She is 100% noninteractive.? When eyes are open, she doesn?t track or respond to confrontation.? HR 89, SR.? BP 146/46.? Afebrile.? On AC 10/400/30%/+5, RR is 14, Ve about 5.3L, PIP 24, ETCO2 40, Sat 93%.? No jugular venous distention.? Abdomen is benign.? Her extremities and her torso are blown up with giant edema.? Maybe slightly less than yesterday. Dr. Duffy saw the patient yesterday and wrote a comprehensive evaluation. ?See his note.? I talked with Dr. Duffy this morning.? In his opinion, the patient has no chance of returning to consciousness, cognition, and interaction. IMPRESSION: 1. 81 yo woman with PMHx of significant mental illness, plus likely dementia.? Her CT shows severe volume loss. 2. PMHx of HTN 3. S/P cardiac arrest, undoubtedly 2? aspiration. 4. 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 No realistic prognosis for return of cognition. 6. She is not in a ?persistent vegetative state? claudette to the famous cases of anna, however, bec her overall condition is not stable, and she has multiple organ failure:? brain, respiratory, hematopoietic, skin/tissue, at the least.? Even if she were to undergo tracheostomy and PEG (which in a case such as this has been referred to by many in the critical care community as criminal battery), she would not survive to leave the hospital. 7. 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 No mass was found on CT, but I?m not sure that that alone rules out a cancer Clearly no prognosis for survival here, much less for return of any cognitive function.? Given the patient?s certain nonsurvival, I had previously written DNR orders.? There is no reason for tube feeds or antibiotics or such medications (ie. no potential benefit).? Discussed at length this morning with the nurses and with the case consultant. In my opinion, the best and most respectful course would be comfort measures.? We presented this information to the probate court this morning via Zoom.? The patient's son was also very much in favor of that course. ?The training and development manager has allowed the change in the authority of the guardian to change the patient's status to comfort measures only.? We are waiting for the go ahead from the attorneys. ADDENDUM at 11:45: We have word from Robyn Benton that the guardian has approved comfort measures only status. We will go ahead and proceed with extubation to room air. ADDENDUM at 17 30: The patient was extubated to room air without incident. She was made comfortable with prn morphine and a fentanyl drip. She's breathing easy with RR about 20, Sat's in the 60's, HR 108. Stable for transfer to [facility] bec of triage requirements. Critical Care Time (minutes): 60 Physical Exam Vital Signs: Vital Signs: Last Vital Signs Temp 98.3 F 09/13/21 08:00 Pulse 92 09/13/21 09:00 Resp 15 09/13/21 09:00 BP 120/45 L 09/13/21 09:00 Pulse Ox 95 09/13/21 09:00 BMI result Body Mass Index 39.2 Objective Data Labs CBC & Chem 7: 09/11/21 05:36 09/11/21 05:36 Microbiology Microbiology Results: Microbiology 08/25/21 10:00 Blood - Venous Blood Culture - Final No growth after 5 days. 08/25/21 10:01 Blood - Venous Blood Culture - Final No growth after 5 days. 08/25/21 02:13 Blood - Venous Blood Culture - Final No growth after 5 days. 08/25/21 02:13 Blood - Venous Blood Culture - Final No growth after 5 days. 08/25/21 02:15 Sputum - Suctioned Gram Stain - Final 08/25/21 02:15 Sputum - Suctioned Sputum Culture - Final Harriett albicans 08/25/21 15:27 Sputum - Suctioned Gram Stain - Final 08/25/21 15:27 Sputum - Suctioned Sputum Culture - Final Staphylococcus aureus 08/16/21 15:36 Blood - Venous Blood Culture - Final No growth after 5 days. 08/16/21 15:33 Blood - Venous Blood Culture - Final No growth after 5 days. 08/16/21 14:12 Urine Catheterized - Straight Catheter Urine Culture - Final Escherichia coli Quality Stroke Does the patient have a stroke diagnosis?: No VTE Prior VTE?: No VTE Risk Level:: Medical - moderate - high VTE Device Contraindication: Treatment Not Indicated VTE Drug Contraindication: N/A - Med Ordered Critical Care Time Critical Care Time (minutes): 60
--- NOTE | 2021-09-13 09:54 | MHC.CLN ---
F/U PT REMAINS INTUBATED DIET=NPO AND TUBE FEEDING DISCONTINUED 09/11. COMFORT MEDS AND IV FLUSHES. COURT DATE 09/13 REGARDING CHANGE IN CODE STATUS. FOLLOWING WITH TEAM.
[2021-09-13] MEDS: Morphine Sulfate 2 MG/ML CARTRIDGE 5 MG IVPUSH (11:51)
[2021-09-13] MEDS: Morphine Sulfate 10 MG/ML CARTRIDGE IVPUSH ×2 (11:54→20:39)
[2021-09-13] MEDS: fentaNYL citrate/PF 100 MCG/2 ML VIAL 50 MCG IVPUSH ×4 (12:08→14:05)
--- NOTE | 2021-09-13 14:00 | MHC.CM.PN ---
Zoom hearing concluded with a signed expansion of the guardian to allow for SPEECH LANGUAGE ASSISTANT status. Copy in pt chart along with the new MOLST completed via conference call witnessed by [facility] staff along with Attamish Wright allowing for SPEECH LANGUAGE ASSISTANT measures. [facility] updated - pt has a prepaid plan with [facility]. Information on chart. When pt passes, ICU has contact numbers for: [facility] GLADYS Olsen, Pt's Son Fabrizio, and legal guardian Attamish Wright and home.
[2021-09-13] MEDS: fentaNYL citrate/NS 1,000 MCG/100 ML PLAST..BAG 10 MCG IVCONT (16:00)
--- NOTE | 2021-09-13 22:10 | P.DN_ITS ---
Discharge Sum: Prov Provider Primary care physician: Yoselyn Barbosa MD Admitting clinician: Monica Coe Attending physician on admission: Monica Coe Consults: 08/22/21 13:26 Consult to Neurology Stat Consulting Provider: [facility] Reason for consultation: STATUS EPILEPTICUS 09/05/21 07:32 Consult to Infectious Diseases Stat Consulting Provider: Bety Dillon Reason for consultation: restricted abx 09/11/21 15:33 Consult to Neurology Routine Consulting Provider: Abbe Duffy Reason for consultation: Coma; what is prognosis? 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 Notified patients guardian Suzy Wright and son Fabrizio Esparza [phone], [facility] Additional Data Confirmation of as documented by pronouncing clinician: no pulse, no respirations, no heart sounds and pupils fixed and dilated Family: not available Attending/PCP notified?: Yes Attending physician: Lonny Canales MD Was code activated?: No Autopsy requested?: No field examiner notified?: No Organ bank notified?: Yes Advance directives: No Hospice patient?: No
--- NOTE | 2021-09-13 22:21 | PC.NURSE ---
Pt. on Fentanyl gtt Comfort measures only Breathing agonally and with increased respiratory effort to appx. 36-38/min Became bradycardic and then asystole No palpable pulse No audible heart sounds MICHAEL العراقي at bedside and pronounced time of at 214 Organ bank called and declined the care referral Spoke with employee Jdakshat Simpson, case #[id number] at appx. [address] [employer] Operator notified Post-mortem care complete, awaiting transfer to [facility]
--- NOTE | 2021-09-14 06:57 | P.DS_ITS ---
DS: Providers Provider Date of Service: 09/13/21 Date of admission: 08/16/21 15:09 Primary care physician: Yoselyn Barbosa MD Consults: 08/22/21 13:26 Consult to Neurology Stat Consulting Provider: [facility] Reason for consultation: STATUS EPILEPTICUS 09/05/21 07:32 Consult to Infectious Diseases Stat Consulting Provider: Bety Dillon Reason for consultation: restricted abx 09/11/21 15:33 Consult to Neurology Routine Consulting Provider: Abbe Duffy Reason for consultation: Coma; what is prognosis? Has provider been notified: Yes DS: Diagnosis Discharge Diagnosis (1) Encephalopathy: Status: Acute (2) COPD (chronic obstructive pulmonary disease): Status: Acute (3) Anoxic encephalopathy: Status: Acute (4) Acute respiratory failure: Status: Acute (5) Aspiration into airway: Status: Acute (6) Cardiac arrest: Status: Acute DS: Summary Hospital Course Hospital Course: extracted from Dr. Canales's note of 09/13/21: On 08/16, EMS was called to [facility] reportedly for a cardiac arrest.? On arrival of EMS at the scene, the patient was sleeping.? She responded to painful stimuli and eventually woke up.? Reportedly, by the time EMS arrived, the patient was at her baseline, per the [facility] staff.? The [facility] staff reported the patient?s baseline as nonverbal, altered, combative.? The patient was BIBA to the ED for evaluation. On exam in the ED, the patient was nonverbal and in no acute distress.? Vital signs were unremarkable including a normal temperature, and sat of 94% on room air.? Physical exam was remarkable for mild peripheral edema. Labs in the ED were notable for a normal white count and moderate anemia.? Her sodium was 124, bicarb was 29, BUN/creatinine were 6/0.5, glucose was 85, albumin was 3.8.? A venous blood gas showed 7.40/57/+9.? Urinalysis showed wbc's TNTC, and 3+ leukocyte esterase, and 2+ urine bacteria, which eventually grew E coli with an intermediate sensitivity pattern.? COVID SHAJI was negative. It was noted in the ED that at 16:35 ?patient was eating and suddenly started coughing.? It is possible that patient aspirated food.? Patient's oxygen saturation dropped to 85% on room air but shortly after improved to 95%.? Patient speaking in full sentences.? The patient was admitted to Medicine and treated for hyponatremia.? Her UTI was treated with ceftriaxone.? The next day, the sodium was up to 132.? The patient looked better and was more alert and interactive, with some verbalizing.? The day after that, the patient was perhaps slightly more verbal, but minimally so. On Aug 19, the patient was seen by Dr. Mcguire on rounds.? She was sitting up eating peaches, and reportedly looked ?well?.? About 10 minutes later, a code blue was called for unresponsiveness.? Reportedly, the patient was noted on the camera to be still.? A housekeeper and laundry assistant checked on the patient and noted the patient to be unresponsive.? A nurse was called in to assess, and then a code blue was called. The patient was found cyanotic and pulseless.? Initial rhythm on the monitor was asystole.? The patient received 3 rounds of epinephrine and was intubated.? During the intubation, a large amount of food was noted in the patient's hypopharynx.? After intubation, food was suctioned from the endotracheal tube.? The patient regained spontaneous circulation after 9 minutes of CPR, with SR on the monitor.? She was transported to ICU In the ICU, she was unresponsive w eyes closed, and making agonal resp efforts.? Hemodynamics were stable, but she was severely hypoxemic. Immediate bedside ECHO showed: ?- At least mild-moderate LVH, with normal LV cavity. ?- Normal LV fxn with no RWMAs ?- Probably normal RV size and fxn ?- No MR by color rajni ?- Trace TR by color rajni, with CWD 1.8m/sec CWD. ?- IVC measured 1.4 cm with 25% insp collapse during PPV.? RVSP estimate about 20mm. A left subclavian CVL was placed, complicated by a PTX.? A Catalino pneumothorax drainage thoracostomy was placed resulting in reexpansion of the lung.? A [place] sump OGT could not be advanced further than the diaphragm, suggesting a HH.? Chest CT showed that the esophagus was diffusely dilated measuring 3.5 cm; the dilated esophagus was filled with significant debris. ?Contrast instilled via the OGT was noted in the mid to distal esophagus and proximal stomach, with a moderate sized hiatal hernia. ?The OGT terminated either in the distal-most esophagus or at the GE junction.? The gastroesophageal junction/distal-most portion of the esophagus was severely narrowed, with significant dilatation of the remainder of the proximal esophagus; severe stricture and/or mass in that region was suspected. ?The lungs showed patchy airspace opacity in the posterior RLL c/w aspiration. Later, the patient had spontaneous eye opening and began having increasingly severe myoclonic jerking.? She remained unresponsive.? Ultimately the myoclonic jerking got so severe that we had to start propofol, accelerating the dose from 20 mcg up to 50 mcg.? Over time the FiO2 was able to be reduced to 35%/+5. Subsequent course was marked by continued myoclonus vs seizure activity.? EEG on August 21 showed generalized status epilepticus.? She was treated with Keppra, propofol, and Versed drip.? Repeat EEG the next day showed a similar pattern, with generalized epileptic discharges, overall suggestive of underlying diffuse encephalopathy, probably of a knock sick type.? The patient was seen by Dr. Duffy from Neurology.? He recommended valproate and Keppra.? His impression was severe anoxic encephalopathy, with a quite poor overall prognosis. The patient continued to have breakthrough seizures through the above regimen.? 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 Repeat EEG on August 25 showed burst suppression suggestive of either severe anoxic encephalopathy or the later part of generalized status epilepticus.? She continued having refractory status epilepticus.? Propofol and Versed were discontinued, Dilantin and Ativan were added to Keppra and valproic acid. Ultimately, the patient?s seizures/myoclonus stopped, and she remained on Keppra and Dilantin.? The latter was changed to valproate after a drug reaction.? Brain MRI on August 28 showed the right basal ganglia infarct, with severe global cerebral volume loss and advanced chronic microangiopathy.? Patient also underwent CT angio of the head and neck which in addition to the above showed significant intracerebral vascular disease and severe multilevel central canal stenosis at the C3, 4, 5, and 6 levels.? Abdominal CT showed a small sliding hiatal hernia, with no evidence of an esophageal mass. Over the last approximately 2 weeks, the patient's neurologic exam stabilized, showing reactive pupils,? inconsistent withdrawal to painful stimuli, consistent initiation of respiratory effort, and positive gag and cough.? No mentation or interaction however.? No evidence of cognitive activity.? Essentially a vegetative state. on 09/13/21 approval was given to make patient comfort measures, she was extubated and later that day. Time Spent with Patient Time attestation: Total time spent providing and/or coordinating discharge services: Discharge coordination time: Less than 30 minutes Quality: Stroke Does the patient have a stroke diagnosis?: No Physical Exam Vital Signs: Vital Signs: Last Vital Signs Temp 98.3 F 09/13/21 08:00 Pulse 91 09/13/21 10:00 Resp 36 H 09/13/21 20:39 BP 246/46 H 09/13/21 10:00 Pulse Ox 92 09/13/21 10:00 BMI result Body Mass Index 39.2 Discharge Plan Discharge Date/Time: 09/13/21 21:48 Patient Disposition: Referrals: [facility] [Other] - 1 Week (RETURN TO [facility] ) Yoselyn Barbosa MD [Primary Care Provider] - 1 Week Discharge Medications: No Action acetaminophen [Tylenol] 325 mg Tablet 650 mg PO TID RF: 0 benztropine 0.5 mg Tablet 0.5 mg PO DAILY RF: 0 polyethylene glycol 3350 [Miralax] 17 gram Powder In Packet 17 g PO DAILY RF: 0 metoprolol succinate [Toprol XL] 200 mg Tablet Extended Release 24 Hr 200 mg PO DAILY RF: 0 gabapentin 400 mg Capsule 400 mg PO BID RF: 0 venlafaxine 150 mg Capsule,Extended Release 24hr 150 mg PO DAILY RF: 0 amlodipine [Norvasc] 5 mg Tablet 5 mg PO DAILY RF: 0 divalproex 500 mg Tablet,Delayed Release (Dr/Ec) 500 mg PO BID RF: 0 albuterol sulfate [ProAir HFA] 90 mcg/actuation Hfa Aerosol Inhaler 1 puff INHALATION Q6H PRN (Reason: Shortness Of Breath Or Wheezing) RF: 0 olanzapine 20 mg Tablet 20 mg PO BEDTIME RF: 0 lactulose [Enulose] 10 gram/15 mL Solution 45 ml PO DAILY RF: 0 cholecalciferol (vitamin D3) 1,250 mcg (50,000 unit) Capsule 1,250 mcg PO QMONTH RF: 0 Discharge Date/Time: 09/14/21 03:02
== END 2021-09-13 21:48 | disposition expired | DRG 689 ==
LOC: HO.ED 15:09 → HO.EDOVER 15:21 → HO.S3 17:02 → HO.ICU 08-19 10:48
PROVIDERS: Internal Medicine Cardiovascular Disease; Internal Medicine Pulmonary Disease; Nurse Practitioner Acute Care; Physician Assistant; Physician Assistant Medical; Student in an Organized Health Care Education/Training Program; Admitting Provider Anesthesiology; Emergency Provider Emergency Medicine; PCP Internal Medicine; Visit Provider Internal Medicine
DX: N39.0 Urinary tract infection, site not specified (principal); G93.41 Metabolic encephalopathy; J95.811 Postprocedural pneumothorax; J96.01 Acute respiratory failure with hypoxia; E87.1 Hypo-osmolality and hyponatremia; G93.1 Anoxic brain damage, not elsewhere classified; R40.3 Persistent vegetative state; G40.911 Epilepsy, unspecified, intractable, with status epilepticus; F03.90 Unspecified dementia, unspecified severity, without behavioral disturbance, psychotic disturbance, mood disturbance, and anxiety; T17.228A Food in pharynx causing other injury, initial encounter; I46.8 Cardiac arrest due to other underlying condition; X58.XXXA Exposure to other specified factors, initial encounter; K22.2 Esophageal obstruction; F79 Unspecified intellectual disabilities; J44.9 Chronic obstructive pulmonary disease, unspecified; Z86.73 Personal history of transient ischemic attack (TIA), and cerebral infarction without residual deficits; I10 Essential (primary) hypertension; F20.9 Schizophrenia, unspecified; B96.20 Unspecified Escherichia coli [E. coli] as the cause of diseases classified elsewhere; T42.0X5A Adverse effect of hydantoin derivatives, initial encounter; D64.9 Anemia, unspecified; Y92.239 Unspecified place in hospital as the place of occurrence of the external cause; R00.0 Tachycardia, unspecified; Z20.822 Contact with and (suspected) exposure to COVID-19; Z79.899 Other long term (current) drug therapy; Z66 Do not resuscitate; Z51.5 Encounter for palliative care
CPT/HCPCS: 36415; 36430; 36600; 70450; 70496; 70498; 70551; 71045; 71250; 74018; 74177; 80048; 80053; 80076; 80185; 81001; 81003; 82040; 82140; 82272; 82550; 82803; 82945; 82947; 83010; 83605; 83615; 83735; 83880; 83986; 84100; 84484; 85007; 85025; 85027; 85610; 85652; 85730; 86038; 86039; 86850; 86880; 86900; 86901; 86920; 86922; 87040; 87070; 87077; 87086; 87088; 87186; 87205; 87493; 87635; 89051; 93005; 93971; 94002; 94003; 94799; 95816; 96361; 96374; 99285; J0171; J0461; J0637; J0696; J1265; J1650; J1940; J1953; J2060; J2250; J2270; J3010; J3475; P9016; P9047; Q9967